=== PATIENT | female | born 1950 | race Two or more races ===

== ENCOUNTER 2017-08-19 15:08 | Inpatient (IN) | payer MEDICARE, MEDICAID ==
[~2017-08-19] VITALS: Ht 154.9 cm; Wt 60.8 kg
[2017-08-19 15:13] VITALS: BP 138/66
--- NOTE | 2017-08-19 15:28 | Emergency Room Report ---
History of Present Illness General Chief Complaint: Abnormal Labs Source: Medical Record, EMS, PMD Present Illness HPI Patient presents emergency department today complaining of abnormal laboratory results. Patient has history of diabetes. Patient was noted to have elevated glucose at senior living. Glucose was noted to be about 500. Patient was given insulin and then is stated to be elevated. Therefore patient was sent to emergency by further evaluation. Patient has history of dementia and was unable to provide much history. All history was obtained from medical records and from discussion with paramedics and brought the patient. Patient's primary care physician of the time transfer apparently was Dr. Martin Hopper. No further history is available at this time.No other modifying factors. No other associated signs and symptoms. No other complaints were noted. Allergies: Coded Allergies: No Known Allergies (Unverified , 08/19/17) Patient History Past Medical History: HTN, seizures Past Surgical History: none Pertinent Family History: none Social History: Denies: smoking, alcohol use, drug use Reviewed Nursing Documentation: PMH: Agreed; PSxH: Agreed Nursing Documentation-PMH Hx Hypertension: Yes Hx Seizures: Yes Review of Systems All Other Systems: negative except mentioned in HPI Physical Exam Vital Signs Date Time Temp Pulse Resp B/P (MAP) Pulse Ox O2 Delivery O2 Flow Rate FiO2 08/19/17 15:03 98.8 90 18 127/63 96 Room Air 98.8 Sp02 EP Interpretation: reviewed, normal General Appearance: alert, non-toxic Head: atraumatic Eyes: bilateral eye normal inspection ENT: normal ENT inspection, hearing grossly normal, normal voice Neck: normal inspection, full range of motion, supple, no bony tend Respiratory: normal inspection, lungs clear, normal breath sounds, no respiratory distress, no retraction, no wheezing Cardiovascular #1: regular rate, rhythm, no edema Gastrointestinal: normal inspection, normal bowel sounds, non tender, soft, no guarding, no hernia Genitourinary: no CVA tenderness Musculoskeletal: normal inspection, back normal, normal range of motion Neurologic: alert, responsive, other - grossly nonfocal Psychiatric: depressed affect Skin: normal inspection, normal color, no rash Medical Decision Making Diagnostic Impression: Primary Impression: Hyperglycemia Additional Impression: Pyelonephritis ER Course Patient presents emergency department today with elevated glucose confusion. Differential diagnoses include acute hypoglycemia secondary to dietary noncompliance, infectious process just name a few.Given the severity of the patient's presentation I felt this is a highly complex patient. This patient required extensive workup. Patient's laboratory workup is concerning for elevated white blood cell count evidence of UTI likely secondary to high pyelonephritis. Patient's glucose was controlled after receiving multiple doses insulin at the senior living. Given patient's presentation I felt was highly complex case patient require admission to the hospital. Case will be discussed with Dr. Martin Hopper for admission. Patient was started on Rocephin IV antibiotics. Labs Test 08/19/17 15:50 White Blood Count 13.9 K/UL (4.8-10.8) Red Blood Count 3.10 M/UL (4.20-5.40) Hemoglobin 9.3 G/DL (12.0-16.0) Hematocrit 26.8 % (37.0-47.0) Mean Corpuscular Volume 86 FL (80-99) Mean Corpuscular Hemoglobin 29.9 PG (27.0-31.0) Mean Corpuscular Hemoglobin Concent 34.7 G/DL (32.0-36.0) Red Cell Distribution Width 11.6 % (11.6-14.8) Platelet Count 89 K/UL (150-450) Mean Platelet Volume 7.5 FL (6.5-10.1) Neutrophils (%) (Auto) % (45.0-75.0) Lymphocytes (%) (Auto) % (20.0-45.0) Monocytes (%) (Auto) % (1.0-10.0) Eosinophils (%) (Auto) % (0.0-3.0) Basophils (%) (Auto) % (0.0-2.0) Differential Total Cells Counted 100 Neutrophils % (Manual) 91 % (45-75) Lymphocytes % (Manual) 6 % (20-45) Monocytes % (Manual) 1 % (1-10) Eosinophils % (Manual) 0 % (0-3) Basophils % (Manual) 1 % (0-2) Band Neutrophils 1 % (0-8) Nucleated Red Blood Cells 1 /100 WBC Platelet Estimate Decreased Platelet Morphology Normal Urine Color Yellow Urine Appearance Cloudy Urine pH 7 (4.5-8.0) Urine Specific [place] 1.005 (1.005-1.035) Urine Protein 3+ (NEGATIVE) Urine Glucose (UA) 4+ (NEGATIVE) Urine Ketones Negative (NEGATIVE) Urine Occult Blood 2+ (NEGATIVE) Urine Nitrite Negative (NEGATIVE) Urine Bilirubin 1+ (NEGATIVE) Urine Ictotest Positive Urine Urobilinogen 8 MG/DL (0.0-1.0) Urine Leukocyte Esterase 3+ (NEGATIVE) Urine RBC 2-4 /HPF (0 - 2) Urine WBC Tntc /HPF (0 - 2) Urine Squamous Epithelial Cells Occasional /LPF Urine Bacteria Few /HPF (NONE) Sodium Level 138 MMOL/L (136-145) Potassium Level 4.5 MMOL/L (3.5-5.1) Chloride Level 103 MMOL/L (98-107) Carbon Dioxide Level 23 MMOL/L (21-32) Anion Gap 12 mmol/L (5-15) Blood Urea Nitrogen 63 mg/dL (7-18) Creatinine 3.6 MG/DL (0.55-1.30) Estimat Glomerular Filtration Rate 12.6 mL/min (>60) Glucose Level 301 MG/DL (74-106) Calcium Level 8.6 MG/DL (8.5-10.1) Total Bilirubin 3.9 MG/DL (0.2-1.0) Direct Bilirubin 3.4 MG/DL (0.0-0.3) Aspartate Amino Transf (AST/SGOT) 340 U/L (15-37) Alanine Aminotransferase (ALT/SGPT) 985 U/L (12-78) Alkaline Phosphatase 433 U/L (46-116) Total Creatine Kinase 30 U/L (26-308) Creatine Kinase MB < 0.5 NG/ML (0.0-3.6) Creatine Kinase MB Relative Index 1.6 Troponin I 0.003 ng/mL (0.000-0.056) Total Protein 6.5 G/DL (6.4-8.2) Albumin 2.7 G/DL (3.4-5.0) Globulin 3.8 g/dL Albumin/Globulin Ratio 0.7 (1.0-2.7) Lipase 297 U/L (73-393) EKG Diagnostic Results Rate: normal Rhythm: NSR ST Segments: no acute changes Rhythm Strip Diag. Results EP Interpretation: yes Rate: 80s Rhythm: NSR, no PVC's, no ectopy Last Vital Signs Date Time Temp Pulse Resp B/P (MAP) Pulse Ox O2 Delivery O2 Flow Rate FiO2 08/19/17 15:03 98.8 90 18 127/63 96 Room Air 98.8 Status: improved Disposition: ADMITTED INPATIENT Condition: Serious Romeo Meyers MD Aug 19, 2017 15:28
[2017-08-19 16:11] LABS: APPEARANCE,URINE CLOUDY; BILIRUBIN, URINE 1+ (NEGATIVE); GLUCOSE, URINE (UA) 4+ (NEGATIVE); HEMATOCRIT 26.8 % (37.0-47.0); HEMOGLOBIN 9.3 G/DL (12.0-16.0); KETONES,URINE NEGATIVE (NEGATIVE); LEUKOCYTE ESTERASE ,URINE 3+ (NEGATIVE); MEAN CORPUSCULAR VOLUME 86 FL (80-99); NITRITE,URINE NEGATIVE (NEGATIVE); PH,URINE 7 (4.5-8.0); PLATELET COUNT 89 K/UL (150-450); PROTEIN,URINE 3+ (NEGATIVE); RED CELL DISTRIBUTION WIDTH 11.6 % (11.6-14.8); UROBILINOGEN,URINE 8 MG/DL (0.0-1.0); WHITE BLOOD COUNT 13.9 K/UL (4.8-10.8)
[2017-08-19 16:14] LABS: COLOR,URINE YELLOW
[2017-08-19] MEDS ORDERED: LANTUS SOL100 UNIT/1 SUBQ (16:18)
[2017-08-19] MEDS ORDERED: AMLODIPINE BESY10 MG ORAL (16:18)
[2017-08-19] MEDS ORDERED: DOCUSATE SODIU100 MG ORAL (16:18)
[2017-08-19] MEDS ORDERED: ATORVASTATIN CA20 MG ORAL (16:18)
[2017-08-19] MEDS ORDERED: CATAPRES0.1 MG ORAL (16:18)
[2017-08-19] MEDS ORDERED: BISACODYL5 MG ORAL (16:18)
[2017-08-19] MEDS ORDERED: MILK OF MA400 MG/51 ORAL (16:18)
[2017-08-19 16:22] LABS: ANION GAP 12 mmol/L (5-15); BLOOD UREA NITROGEN 63 mg/dL (7-18); CALCIUM 8.6 MG/DL (8.5-10.1); CARBON DIOXIDE 23 MMOL/L (21-32); CHLORIDE 103 MMOL/L (98-107); CREATININE 3.6 MG/DL (0.55-1.30); POTASSIUM 4.5 MMOL/L (3.5-5.1); SODIUM 138 MMOL/L (136-145)
[2017-08-19 16:35] LABS: ALANINE AMINOTRANSFERASE 985 U/L (12-78); ALBUMIN 2.7 G/DL (3.4-5.0); ALBUMIN/GLOBULIN RATIO 0.7 (1.0-2.7); ALKALINE PHOSPHATASE 433 U/L (46-116); ASPARTATE AMINO TRANSFERASE 340 U/L (15-37); BILIRUBIN,TOTAL 3.9 MG/DL (0.2-1.0); CKMB < 0.5 NG/ML (0.0-3.6); CREATINE KINASE 30 U/L (26-308)
[2017-08-19 16:42] LABS: BILIRUBIN,DIRECT 3.4 MG/DL (0.0-0.3)
[2017-08-19] MEDS ORDERED: cefTRIAXone 1 GM in NS 55 ML IVPB ONE (16:45)
[2017-08-19 17:14] VITALS: BP 136/59
--- NOTE | 2017-08-19 17:22 | Diagnostic Imaging Report ---
Indication: Cough Technique: One view of the chest Comparison: none Findings: The heart is enlarged. The lungs and pleural spaces are clear. Impression: Cardiomegaly. No definite acute process
[2017-08-19 18:29] VITALS: BP 114/87
[2017-08-19] MEDS ORDERED: Ketorolac 30mg Inj IV PRN (19:45)
[2017-08-19] MEDS ORDERED: Mylanta II UD 30ml ORAL PRN (19:59)
[2017-08-19] MEDS ORDERED: Albuterol/Ipratropium 3ml neb HHN PRN (19:59)
[2017-08-19 20:00] VITALS: BP 141/76
[2017-08-19] MEDS ORDERED: Nitroglycerin Subl 0.4mg tab SL PRN (20:01)
[2017-08-19] MEDS ORDERED: Heparin 5000 units/ml inj SUBQ SCH (21:00)
[2017-08-19] MEDS ORDERED: Miralax 17gm pkt ORAL PRN (21:00)
[2017-08-19] MEDS ORDERED: Piperacillin/Tazobactam 3.375 GM in NS 110 ML IVPB SCH (22:00)
[2017-08-19] MEDS: Piperacillin/Tazobactam 2.25 GM in NS 110 ML IVPB SCH (22:17)
[2017-08-19] MEDS: NovoLOG Insulin Flexpen SUBQ SCH (22:24)
[2017-08-19 23:24] VITALS: BP 139/78
[2017-08-20 04:25] VITALS: BP 125/68
[2017-08-20] MEDS: Piperacillin/Tazobactam 2.25 GM in NS 110 ML IVPB SCH ×3 (05:13→21:19)
[2017-08-20] MEDS: NovoLOG Insulin Flexpen SUBQ SCH ×6 (06:01→20:59)
[2017-08-20 08:00] VITALS: BP 125/65
[2017-08-20 08:29] LABS: MEAN CORPUSCULAR VOLUME 88 FL (80-99); PLATELET COUNT 109 K/UL (150-450); RED BLOOD COUNT 2.93 M/UL (4.20-5.40); RED CELL DISTRIBUTION WIDTH 12.1 % (11.6-14.8); WHITE BLOOD COUNT 10.4 K/UL (4.8-10.8)
[2017-08-20 08:55] LABS: ALANINE AMINOTRANSFERASE 834 U/L (12-78); ALBUMIN 2.6 G/DL (3.4-5.0); ALBUMIN/GLOBULIN RATIO 0.7 (1.0-2.7); ALKALINE PHOSPHATASE 436 U/L (46-116); ANION GAP 12 mmol/L (5-15); ASPARTATE AMINO TRANSFERASE 296 U/L (15-37); BILIRUBIN,TOTAL 4.4 MG/DL (0.2-1.0); BLOOD UREA NITROGEN 61 mg/dL (7-18); CALCIUM 8.7 MG/DL (8.5-10.1); CARBON DIOXIDE 23 MMOL/L (21-32); CHLORIDE 107 MMOL/L (98-107); CHOLESTEROL 128 MG/DL (< 200); CREATININE 3.5 MG/DL (0.55-1.30); HDL CHOLESTEROL 7 MG/DL (40-60); POTASSIUM 3.7 MMOL/L (3.5-5.1); SODIUM 142 MMOL/L (136-145); TRIGLYCERIDES 155 MG/DL (30-150)
[2017-08-20 09:14] LABS: BILIRUBIN,DIRECT 3.9 MG/DL (0.0-0.3)
--- NOTE | 2017-08-20 10:00 | Consultation ---
DATE OF CONSULTATION: 08/20/2017 ENDOCRINOLOGY CONSULTATION CONSULTING PHYSICIAN: Jeremie Driver M.D. REFERRING PHYSICIAN: Martin Hopper D.O. REASON FOR CONSULTATION: Diabetes management. HISTORY OF PRESENT ILLNESS: This is a pleasant 66-year-old female with history of diabetes who presents to the hospital with abnormal results. The patient was noted to have elevated glucose at halfway of about 500, given insulin, but did not improve, and I was called to manage diabetes. PAST MEDICAL HISTORY: 1. Diabetes. 2. Hypertension. 3. Seizure. PAST SURGICAL HISTORY: None. FAMILY HISTORY: Noncontributory. SOCIAL HISTORY: shelter facility resident. No smoking. No alcohol. No drug use. REVIEW OF SYSTEMS: As per HPI. PHYSICAL EXAM: VITAL SIGNS: Blood pressure is 127/63, pulse 90, temperature 98, and respiratory rate 18. HEENT: Pupils are equal and reactive to light. NECK: No JVD. HEART: Regular. LUNGS: Clear. ABDOMEN: Positive bowel sounds. EXTREMITIES: No clubbing, cyanosis, or edema. LABORATORY DATA: WBC 13, hemoglobin 9, hematocrit 26, and platelets of 100,000. Sodium 138, potassium 4.5, chloride 102, bicarbonate 26, BUN 53, and creatinine 3.8. DIAGNOSES: 1. Diabetes, better controlled. 2. Renal failure. PLAN: 1. Start Levemir and Starlix daily. 2. Add NovoLog 4 units before each meal. 3. Continue Novolog sliding scale ac/hs 4. Check hemoglobin A1c. 5. Further adjustment according to blood glucose sliding scale. Follow the patient during hospital stay. Thank you, Dr. Hopper, for the courtesy of this consultation. Jeremie Driver M.D. DR: NIMO JOB#: [id number] CC: ISHAN
[2017-08-20] MEDS: Levemir Flexpen SUBQ SCH (10:13)
[2017-08-20 12:00] VITALS: BP 148/66
--- NOTE | 2017-08-20 12:08 | Consultation ---
History of Present Illness General Date patient seen: Aug 20, 2017 Chief Complaint: Abnormal Labs Present Illness HPI 66 year old female with hx of DM, HTN, CAD dementia. presented to emergency department for hyperglycemia in snf. Her Glucose was noted to be about 500. Patient was given insulin and but it stayed elevated. Therefore patient was sent to emergency by further evaluation. All history was obtained from medical records and from discussion with paramedics who brought the patient. No other associated signs and symptoms. No other complaints were noted. Allergies: Coded Allergies: No Known Allergies (Unverified , 08/19/17) Medication History Scheduled Amlodipine Besylate* (Amlodipine Besylate*), 10 MG ORAL DAILY, (Reported) Atorvastatin Calcium* (Atorvastatin Calcium*), 10 MG ORAL BEDTIME, (Reported) Bisacodyl* (Dulcolax*), 10 MG ORAL ONCE, (Reported) Clonidine Hcl* (Catapres*), 0.1 MG ORAL EVERY 6 HOURS, (Reported) Docusate Sodium* (Docusate Sodium*), 100 MG ORAL DAILY, (Reported) Insulin Glargine (Lantus), 12 SUBQ BEDTIME, (Reported) Magnesium Hydroxide* (Milk Of Magnesia*), 30 ML ORAL DAILY, (Reported) Patient History Healthcare decision maker Resuscitation status Full Code Advanced Directive on File No Past Medical/Surgical History Past Medical/Surgical History: (1) Advanced dementia (2) Diabetes mellitus (3) Hypertension Review of Systems All Other Systems: negative except mentioned in HPI Physical Exam General Appearance: WD/WN Lines, tubes and drains: peripheral HEENT: normocephalic, atraumatic Neck: non-tender, normal alignment Respiratory/Chest: chest wall non-tender, lungs clear Breasts: no masses Cardiovascular/Chest: normal peripheral pulses, regular rhythm Abdomen: normal bowel sounds Genitourinary/Rectal: normal genital exam Extremities: normal range of motion Skin Exam: normal pigmentation Last 24 Hour Vital Signs Date Time Temp Pulse Resp B/P (MAP) Pulse Ox O2 Delivery O2 Flow Rate FiO2 08/20/17 09:30 83 125/65 08/20/17 08:20 88 16 Room Air 21 08/20/17 08:00 97.7 83 20 125/65 95 97.7 08/20/17 04:25 98.0 85 19 125/68 96 98.0 08/19/17 23:24 98.4 93 18 139/78 97 98.4 08/19/17 20:00 97.9 83 18 141/76 98 97.9 08/19/17 19:15 98.7 84 20 114/87 99 Room Air 98.7 08/19/17 18:29 98.7 84 20 114/87 99 Room Air 98.7 08/19/17 17:14 98.0 93 15 136/59 99 Room Air 98.0 08/19/17 15:13 98.8 85 20 138/66 99 Room Air 98.8 08/19/17 15:03 98.8 90 18 127/63 96 Room Air 98.8 Intake and Output 08/19/17 08/20/17 19:00 07:00 Intake Total 55 ml 970 ml Balance 55 ml 970 ml Intake Oral 50 ml IV Total 55 ml 920 ml # Voids 1 2 Laboratory Tests Test 08/19/17 15:50 08/20/17 06:46 White Blood Count 13.9 K/UL (4.8-10.8) H 10.4 K/UL (4.8-10.8) Red Blood Count 3.10 M/UL (4.20-5.40) L 2.93 M/UL (4.20-5.40) L Hemoglobin 9.3 G/DL (12.0-16.0) L 9.0 G/DL (12.0-16.0) L Hematocrit 26.8 % (37.0-47.0) L 26.0 % (37.0-47.0) L Mean Corpuscular Volume 86 FL (80-99) 88 FL (80-99) Mean Corpuscular Hemoglobin 29.9 PG (27.0-31.0) 30.8 PG (27.0-31.0) Mean Corpuscular Hemoglobin Concent 34.7 G/DL (32.0-36.0) 34.8 G/DL (32.0-36.0) Red Cell Distribution Width 11.6 % (11.6-14.8) 12.1 % (11.6-14.8) Platelet Count 89 K/UL (150-450) L 109 K/UL (150-450) L Mean Platelet Volume 7.5 FL (6.5-10.1) 7.7 FL (6.5-10.1) Neutrophils (%) (Auto) % (45.0-75.0) % (45.0-75.0) Lymphocytes (%) (Auto) % (20.0-45.0) % (20.0-45.0) Monocytes (%) (Auto) % (1.0-10.0) % (1.0-10.0) Eosinophils (%) (Auto) % (0.0-3.0) % (0.0-3.0) Basophils (%) (Auto) % (0.0-2.0) % (0.0-2.0) Differential Total Cells Counted 100 100 Neutrophils % (Manual) 91 % (45-75) H 86 % (45-75) H Lymphocytes % (Manual) 6 % (20-45) L 7 % (20-45) L Monocytes % (Manual) 1 % (1-10) 5 % (1-10) Eosinophils % (Manual) 0 % (0-3) 2 % (0-3) Basophils % (Manual) 1 % (0-2) 0 % (0-2) Band Neutrophils 1 % (0-8) 0 % (0-8) Nucleated Red Blood Cells 1 /100 WBC Platelet Estimate Decreased L Decreased L Platelet Morphology Normal Normal Urine Color Yellow Urine Appearance Cloudy Urine pH 7 (4.5-8.0) Urine Specific [place] 1.005 (1.005-1.035) Urine Protein 3+ (NEGATIVE) H Urine Glucose (UA) 4+ (NEGATIVE) H Urine Ketones Negative (NEGATIVE) Urine Occult Blood 2+ (NEGATIVE) H Urine Nitrite Negative (NEGATIVE) Urine Bilirubin 1+ (NEGATIVE) H Urine Ictotest Positive Urine Urobilinogen 8 MG/DL (0.0-1.0) H Urine Leukocyte Esterase 3+ (NEGATIVE) H Urine RBC 2-4 /HPF (0 - 2) H Urine WBC Tntc /HPF (0 - 2) H Urine Squamous Epithelial Cells Occasional /LPF Urine Bacteria Few /HPF (NONE) Sodium Level 138 MMOL/L (136-145) 142 MMOL/L (136-145) Potassium Level 4.5 MMOL/L (3.5-5.1) 3.7 MMOL/L (3.5-5.1) Chloride Level 103 MMOL/L (98-107) 107 MMOL/L (98-107) Carbon Dioxide Level 23 MMOL/L (21-32) 23 MMOL/L (21-32) Anion Gap 12 mmol/L (5-15) 12 mmol/L (5-15) Blood Urea Nitrogen 63 mg/dL (7-18) H 61 mg/dL (7-18) H Creatinine 3.6 MG/DL (0.55-1.30) H 3.5 MG/DL (0.55-1.30) H Estimat Glomerular Filtration Rate 12.6 mL/min (>60) 13.1 mL/min (>60) Glucose Level 301 MG/DL (74-106) H 184 MG/DL (74-106) #H Calcium Level 8.6 MG/DL (8.5-10.1) 8.7 MG/DL (8.5-10.1) Total Bilirubin 3.9 MG/DL (0.2-1.0) H 4.4 MG/DL (0.2-1.0) H Direct Bilirubin 3.4 MG/DL (0.0-0.3) H 3.9 MG/DL (0.0-0.3) H Aspartate Amino Transf (AST/SGOT) 340 U/L (15-37) H 296 U/L (15-37) H Alanine Aminotransferase (ALT/SGPT) 985 U/L (12-78) H 834 U/L (12-78) H Alkaline Phosphatase 433 U/L (46-116) H 436 U/L (46-116) H Total Creatine Kinase 30 U/L (26-308) Creatine Kinase MB < 0.5 NG/ML (0.0-3.6) Creatine Kinase MB Relative Index 1.6 Troponin I 0.003 ng/mL (0.000-0.056) Total Protein 6.5 G/DL (6.4-8.2) 6.5 G/DL (6.4-8.2) Albumin 2.7 G/DL (3.4-5.0) L 2.6 G/DL (3.4-5.0) L Globulin 3.8 g/dL 3.9 g/dL Albumin/Globulin Ratio 0.7 (1.0-2.7) L 0.7 (1.0-2.7) L Lipase 297 U/L (73-393) Hypochromasia 2+ Spherocytes 2+ Hemoglobin A1c 7.8 % (4.3-6.0) H Triglycerides Level 155 MG/DL (30-150) H Cholesterol Level 128 MG/DL (< 200) LDL Cholesterol 75 mg/dL (<100) HDL Cholesterol 7 MG/DL (40-60) L Cholesterol/HDL Ratio 18.3 (3.3-4.4) H Thyroid Stimulating Hormone (TSH) 0.371 uiU/mL (0.358-3.740) Microbiology Date/Time Source Procedure Growth Status 08/19/17 15:50 Urine,Clean Catch Urine Culture - Preliminary Gram Negative Bacillus 1 Resulted Height (Feet): 5 Height (Inches): 1.00 Weight (Pounds): 140 Medications Current Medications Medications (Trade) Dose Ordered Sig/Jeff Route PRN Reason Start Time Stop Time Status Last Admin Dose Admin Acetaminophen (Tylenol) 650 mg Q4H PRN ORAL fever 08/19/17 19:59 09/18/17 19:58 Al Hydroxide/Mg Hydroxide (Mylanta II) 30 ml Q6H PRN ORAL dyspepsia 08/19/17 19:59 09/18/17 19:58 Albuterol/ Ipratropium (Albuterol/ Ipratropium) 3 ml Q4H PRN HHN Shortness of Breath 08/19/17 19:59 08/24/17 19:58 Amlodipine Besylate (Norvasc) 10 mg DAILY ORAL 08/20/17 09:00 09/19/17 08:59 08/20/17 09:30 Atorvastatin Calcium (Lipitor) 10 mg BEDTIME ORAL 08/19/17 21:00 09/18/17 20:59 08/19/17 22:07 Clonidine HCl (Catapres Tab) 0.1 mg Q4H PRN ORAL sbp more than 160 08/19/17 19:59 09/18/17 19:58 Dextrose (Dextrose 50%) 25 ml STAT PRN IV Hypoglycemia 08/19/17 19:59 09/18/17 19:58 Dextrose (Dextrose 50%) 25 ml STAT PRN IV Hypoglycemia 08/20/17 08:00 09/19/17 07:59 Dextrose (Dextrose 50%) 50 ml STAT PRN IV Hypoglycemia 08/19/17 19:59 09/18/17 19:58 Dextrose (Dextrose 50%) 50 ml STAT PRN IV Hypoglycemia 08/20/17 08:00 09/19/17 07:59 Insulin Aspart (NovoLOG) BEFORE MEALS AND HS SUBQ 08/19/17 21:00 09/18/17 20:59 08/20/17 11:57 Insulin Aspart (NovoLOG) 4 units NOVOTIAC SUBQ 08/20/17 11:50 09/19/17 11:49 08/20/17 11:58 Insulin Detemir (Levemir) 12 units DAILY SUBQ 08/20/17 09:00 09/19/17 08:59 08/20/17 10:13 Nitroglycerin (Ntg) 0.4 mg Q5M X 3 DOSES PRN SL Prn Chest Pain 08/19/17 20:01 09/18/17 20:00 Ondansetron HCl (Zofran) 4 mg Q6H PRN IVP Nausea & Vomiting 08/19/17 20:01 09/18/17 20:00 Piperacillin Sod/ Tazobactam Sod 2.25 gm/Sodium Chloride 110 ml @ 220 mls/hr EVERY 8 HOURS IVPB 08/19/17 22:00 08/26/17 21:59 08/20/17 05:13 Polyethylene Glycol (Miralax) 17 gm HSPRN PRN ORAL Constipation 08/19/17 21:00 09/18/17 20:59 Sodium Chloride 1,000 ml @ 100 mls/hr Q10H IVLG 08/19/17 20:30 09/18/17 20:29 08/20/17 06:04 Temazepam (Restoril) 15 mg HSPRN PRN ORAL Insomnia 08/19/17 21:00 08/26/17 20:59 08/19/17 22:59 Assessment/Plan Problem List: (1) UTI (urinary tract infection) ICD Codes: N39.0 - Urinary tract infection, site not specified SNOMED: 65235041 (2) Hyperglycemia ICD Codes: R73.9 - Hyperglycemia, unspecified SNOMED: 56727610 (3) Pyelonephritis ICD Codes: N12 - Tubulo-interstitial nephritis, not specified as acute or chronic SNOMED: 55613522 (4) Diabetes mellitus ICD Codes: E11.9 - Type 2 diabetes mellitus without complications SNOMED: 18712460 (5) Hypertension ICD Codes: I10 - Essential (primary) hypertension SNOMED: 40739746 (6) Advanced dementia ICD Codes: F03.90 - Unspecified dementia without behavioral disturbance SNOMED: 23572147 Assessment/Plan iv fluids iv abx check cultures slidng sclae diabetic diet dvt prophylaxis Say Schneider MD Aug 20, 2017 12:08
[2017-08-20] MEDS ORDERED: Tubing IV Secondary IV ONE (15:19)
[2017-08-20 16:00] VITALS: BP 143/75
--- NOTE | 2017-08-20 16:49 | Consultation ---
History of Present Illness General Date patient seen: Aug 20, 2017 Chief Complaint: Abnormal Labs Present Illness HPI 66 y/o F with hx of DM, HTN, CAD, seizure disorder, dementia is [facility] ED on 08/19 with hyperglycemia up to 500s. Afebrile. Initial mild leukocytosis to 13, now resolved. Allergies: Coded Allergies: No Known Allergies (Unverified , 08/19/17) Medication History Scheduled Amlodipine Besylate* (Amlodipine Besylate*), 10 MG ORAL DAILY, (Reported) Atorvastatin Calcium* (Atorvastatin Calcium*), 10 MG ORAL BEDTIME, (Reported) Bisacodyl* (Dulcolax*), 10 MG ORAL ONCE, (Reported) Clonidine Hcl* (Catapres*), 0.1 MG ORAL EVERY 6 HOURS, (Reported) Docusate Sodium* (Docusate Sodium*), 100 MG ORAL DAILY, (Reported) Insulin Glargine (Lantus), 12 SUBQ BEDTIME, (Reported) Magnesium Hydroxide* (Milk Of Magnesia*), 30 ML ORAL DAILY, (Reported) Patient History Healthcare decision maker Resuscitation status Full Code Advanced Directive on File No Patient History Narrative Pmhx: as above Shx: long term facility resident. No smoking. No alcohol. No drug use. Fhx: non contributory Review of Systems All Other Systems: negative except mentioned in HPI Physical Exam Physical Exam Narrative HEENT: Pupils are equal and reactive to light. NECK: No JVD. HEART: Regular. LUNGS: Clear. ABDOMEN: Positive bowel sounds. EXTREMITIES: No clubbing, cyanosis, or edema. Last 24 Hour Vital Signs Date Time Temp Pulse Resp B/P (MAP) Pulse Ox O2 Delivery O2 Flow Rate FiO2 08/20/17 16:00 88 19 143/75 94 08/20/17 12:00 97.9 90 21 148/66 97 97.9 08/20/17 09:30 83 125/65 08/20/17 08:20 88 16 Room Air 21 08/20/17 08:00 97.7 83 20 125/65 95 97.7 08/20/17 04:25 98.0 85 19 125/68 96 98.0 08/19/17 23:24 98.4 93 18 139/78 97 98.4 08/19/17 20:00 97.9 83 18 141/76 98 97.9 08/19/17 19:15 98.7 84 20 114/87 99 Room Air 98.7 08/19/17 18:29 98.7 84 20 114/87 99 Room Air 98.7 08/19/17 17:14 98.0 93 15 136/59 99 Room Air 98.0 Intake and Output 08/19/17 08/20/17 19:00 07:00 Intake Total 55 ml 970 ml Balance 55 ml 970 ml Intake Oral 50 ml IV Total 55 ml 920 ml # Voids 1 2 Laboratory Tests Test 08/20/17 06:46 White Blood Count 10.4 K/UL (4.8-10.8) Red Blood Count 2.93 M/UL (4.20-5.40) L Hemoglobin 9.0 G/DL (12.0-16.0) L Hematocrit 26.0 % (37.0-47.0) L Mean Corpuscular Volume 88 FL (80-99) Mean Corpuscular Hemoglobin 30.8 PG (27.0-31.0) Mean Corpuscular Hemoglobin Concent 34.8 G/DL (32.0-36.0) Red Cell Distribution Width 12.1 % (11.6-14.8) Platelet Count 109 K/UL (150-450) L Mean Platelet Volume 7.7 FL (6.5-10.1) Neutrophils (%) (Auto) % (45.0-75.0) Lymphocytes (%) (Auto) % (20.0-45.0) Monocytes (%) (Auto) % (1.0-10.0) Eosinophils (%) (Auto) % (0.0-3.0) Basophils (%) (Auto) % (0.0-2.0) Differential Total Cells Counted 100 Neutrophils % (Manual) 86 % (45-75) H Lymphocytes % (Manual) 7 % (20-45) L Monocytes % (Manual) 5 % (1-10) Eosinophils % (Manual) 2 % (0-3) Basophils % (Manual) 0 % (0-2) Band Neutrophils 0 % (0-8) Platelet Estimate Decreased L Platelet Morphology Normal Hypochromasia 2+ Spherocytes 2+ Sodium Level 142 MMOL/L (136-145) Potassium Level 3.7 MMOL/L (3.5-5.1) Chloride Level 107 MMOL/L (98-107) Carbon Dioxide Level 23 MMOL/L (21-32) Anion Gap 12 mmol/L (5-15) Blood Urea Nitrogen 61 mg/dL (7-18) H Creatinine 3.5 MG/DL (0.55-1.30) H Estimat Glomerular Filtration Rate 13.1 mL/min (>60) Glucose Level 184 MG/DL (74-106) #H Hemoglobin A1c 7.8 % (4.3-6.0) H Calcium Level 8.7 MG/DL (8.5-10.1) Total Bilirubin 4.4 MG/DL (0.2-1.0) H Direct Bilirubin 3.9 MG/DL (0.0-0.3) H Aspartate Amino Transf (AST/SGOT) 296 U/L (15-37) H Alanine Aminotransferase (ALT/SGPT) 834 U/L (12-78) H Alkaline Phosphatase 436 U/L (46-116) H Total Protein 6.5 G/DL (6.4-8.2) Albumin 2.6 G/DL (3.4-5.0) L Globulin 3.9 g/dL Albumin/Globulin Ratio 0.7 (1.0-2.7) L Triglycerides Level 155 MG/DL (30-150) H Cholesterol Level 128 MG/DL (< 200) LDL Cholesterol 75 mg/dL (<100) HDL Cholesterol 7 MG/DL (40-60) L Cholesterol/HDL Ratio 18.3 (3.3-4.4) H Thyroid Stimulating Hormone (TSH) 0.371 uiU/mL (0.358-3.740) Height (Feet): 5 Height (Inches): 1.00 Weight (Pounds): 140 Medications Current Medications Medications (Trade) Dose Ordered Sig/Jeff Route PRN Reason Start Time Stop Time Status Last Admin Dose Admin Acetaminophen (Tylenol) 650 mg Q4H PRN ORAL fever 08/19/17 19:59 09/18/17 19:58 Al Hydroxide/Mg Hydroxide (Mylanta II) 30 ml Q6H PRN ORAL dyspepsia 08/19/17 19:59 09/18/17 19:58 Albuterol/ Ipratropium (Albuterol/ Ipratropium) 3 ml Q4H PRN HHN Shortness of Breath 08/19/17 19:59 08/24/17 19:58 Amlodipine Besylate (Norvasc) 10 mg DAILY ORAL 08/20/17 09:00 09/19/17 08:59 08/20/17 09:30 Atorvastatin Calcium (Lipitor) 10 mg BEDTIME ORAL 08/19/17 21:00 09/18/17 20:59 08/19/17 22:07 Clonidine HCl (Catapres Tab) 0.1 mg Q4H PRN ORAL sbp more than 160 08/19/17 19:59 09/18/17 19:58 Dextrose (Dextrose 50%) 25 ml STAT PRN IV Hypoglycemia 08/20/17 08:00 09/19/17 07:59 Dextrose (Dextrose 50%) 50 ml STAT PRN IV Hypoglycemia 08/20/17 08:00 09/19/17 07:59 Insulin Aspart (NovoLOG) BEFORE MEALS AND HS SUBQ 08/19/17 21:00 09/18/17 20:59 08/20/17 11:57 Insulin Aspart (NovoLOG) 4 units NOVOTIAC SUBQ 08/20/17 11:50 09/19/17 11:49 08/20/17 11:58 Insulin Detemir (Levemir) 12 units DAILY SUBQ 08/20/17 09:00 09/19/17 08:59 08/20/17 10:13 Nitroglycerin (Ntg) 0.4 mg Q5M X 3 DOSES PRN SL Prn Chest Pain 08/19/17 20:01 09/18/17 20:00 Ondansetron HCl (Zofran) 4 mg Q6H PRN IVP Nausea & Vomiting 08/19/17 20:01 09/18/17 20:00 Piperacillin Sod/ Tazobactam Sod 2.25 gm/Sodium Chloride 110 ml @ 220 mls/hr EVERY 8 HOURS IVPB 08/19/17 22:00 08/26/17 21:59 08/20/17 14:41 Polyethylene Glycol (Miralax) 17 gm HSPRN PRN ORAL Constipation 08/19/17 21:00 09/18/17 20:59 Sodium Chloride 1,000 ml @ 100 mls/hr Q10H IVLG 08/19/17 20:30 09/18/17 20:29 08/20/17 06:04 Temazepam (Restoril) 15 mg HSPRN PRN ORAL Insomnia 08/19/17 21:00 08/26/17 20:59 08/19/17 22:59 Assessment/Plan Assessment/Plan Abx: Zosyn 08/19- Assessment: Hyperglycemia Leukocytosis, resolved -afebrile -CXR: no acute process Pyuria; possible UTI- unable to provide symptoms -u/a wbc tntc, nit neg, leuk +1; ucx p Elevaetd LFTs- r/o hepatobiliary disease, viral hepatitis CORRY DM HTN CAD seizure disorder dementia Full code NKDA Plan: -Continue empiric Zosyn#2 pending cultures -Bcx x2 -f/u abd US -Hepatitis serologies -f/u cx -monitor CBC/CMP, temperatures Thank you for this consultation. Will continue to follow along with you. Discussed with Magda Reinoso M.D. Aug 20, 2017 16:49
--- NOTE | 2017-08-20 17:11 | Diagnostic Imaging Report ---
Indication: Abnormal renal function tests and acute renal failure Technique: Patiño-scale and duplex images of the upper abdomen were obtained. Grayscale and duplex images of the kidneys, retroperitoneum, and bladder Comparison: none Findings: Exam is very limited, as patient was altered and unable to cooperate optimally. Gallbladder is surgically absent. Common bile duct measures 18 mm in diameter. A calculus and debris are seen within the common bile duct. The calculus measures 14 x 8 mm. There is intrahepatic biliary ductal dilatation as well.. Liver demonstrates normal echogenicity, no focal abnormality. Portal vein and hepatic veins are patent. The pancreas demonstrates a mildly ectatic pancreatic duct, otherwise unremarkable. Spleen cannot be imaged, due to limited patient cooperation Left kidney measures 8.4 cm in length. Right kidney could not be demonstrated. Left kidney demonstrates normal echogenicity There is no hydronephrosis. There is a small cyst in the lower pole left kidney . Abdominal aorta is obscured by bowel gas . Calculated bladder volume is 171 mL. Patient was unable to void Impression: Choledocholithiasis, with a 14 x 8 mm calculus within the common bile duct. There is resultant intrahepatic and extrahepatic biliary ductal dilatation and debris/sludge within the bile ducts. Recommend further evaluation with CT scan Evidence of prior cholecystectomy prior cholecystectomy Limited exam with nonvisualization of the right kidney and spleen and abdominal aorta Incidental finding left lower pole renal cyst
--- NOTE | 2017-08-20 17:57 | GI Initial Consult Note ---
History of Present Illness General Date patient seen: Aug 20, 2017 Time patient seen: 17:56 Reason for Hospitalization: Abnormal Labs Referring physician: TASHA MEJIA Reason for Consultation: CHOLEDOCHOLITHIASIS Present Illness HPI Patient presents emergency department today complaining of abnormal laboratory results. Patient has history of diabetes. Patient was noted to have elevated glucose at [facility]. Glucose was noted to be about 500. Patient was given insulin and then is stated to be elevated. Therefore patient was sent to emergency by further evaluation. Patient has history of dementia and was unable to provide much history. All history was obtained from medical records and from discussion with paramedics and brought the patient. Patient's primary care physician of the time transfer apparently was Dr. Tasha Mejia. No further history is available at this time.No other modifying factors. No other associated signs and symptoms. No other complaints were noted. GI consulted for abnormal LFTs. Pt seen, awake alert NAD with no active s/sx of N/V/D. No noted abdominal pain, no facial grimacing. Patient currently resting in bed. ROS limited, patient confused, possible dementia. Labs reviewed suggestive of biliary obstruction, abdominal US was ordered to show choledocholithiasis, with a 14 x 8 mm calculus within the common bile duct. There is resultant intrahepatic and extrahepatic biliary ductal dilatation and debris/sludge within the bile ducts. Unknown history of endoscopy / colonoscopy. Home Meds Reported Medications Clonidine Hcl* (CATAPRES*) 0.1 Mg Tablet, 0.1 MG ORAL EVERY 6 HOURS, TAB 08/19/17 Bisacodyl* (DULCOLAX*) 5 Mg Tablet.dr, 10 MG ORAL ONCE, #4 TAB 0 Refills 08/19/17 Insulin Glargine (LANTUS) 100 Unit/1 Ml Insuln.pen, 12 SUBQ BEDTIME, #1 EA 0 Refills 08/19/17 Magnesium Hydroxide* (MILK OF MAGNESIA*) 400 Mg/5 Ml Oral.susp, 30 ML ORAL DAILY , ML 08/19/17 Docusate Sodium* (DOCUSATE SODIUM*) 100 Mg Capsule, 100 MG ORAL DAILY, CAP 08/19/17 Atorvastatin Calcium* (ATORVASTATIN CALCIUM*) 20 Mg Tablet, 10 MG ORAL BEDTIME, TAB 08/19/17 Amlodipine Besylate* (AMLODIPINE BESYLATE*) 10 Mg Tablet, 10 MG ORAL DAILY, TAB 08/19/17 Med list reviewed/reconciled: Yes Allergies: Coded Allergies: No Known Allergies (Unverified , 08/19/17) Patient History Limited by: medical condition History Provided By: Medical Record PMH Narrative Past Medical History: HTN, seizures Past Surgical History: none Pertinent Family History: none Social History: Denies: smoking, alcohol use, drug use Reviewed Nursing Documentation: PMH: Agreed; PSxH: Agreed Nursing Documentation-PMH Hx Hypertension: Yes Hx Seizures: Yes Social History: Denies: smoking, alcohol use, drug use, other Review of Systems All Other Systems: limited Physical Exam Vital Signs Date Time Temp Pulse Resp B/P (MAP) Pulse Ox O2 Delivery O2 Flow Rate FiO2 08/19/17 15:03 98.8 90 18 127/63 96 Room Air 98.8 08/20/17 08:20 21 Sp02 EP Interpretation: reviewed, normal Labs Laboratory Tests Test 08/20/17 06:46 White Blood Count 10.4 K/UL (4.8-10.8) Red Blood Count 2.93 M/UL (4.20-5.40) L Hemoglobin 9.0 G/DL (12.0-16.0) L Hematocrit 26.0 % (37.0-47.0) L Mean Corpuscular Volume 88 FL (80-99) Mean Corpuscular Hemoglobin 30.8 PG (27.0-31.0) Mean Corpuscular Hemoglobin Concent 34.8 G/DL (32.0-36.0) Red Cell Distribution Width 12.1 % (11.6-14.8) Platelet Count 109 K/UL (150-450) L Mean Platelet Volume 7.7 FL (6.5-10.1) Neutrophils (%) (Auto) % (45.0-75.0) Lymphocytes (%) (Auto) % (20.0-45.0) Monocytes (%) (Auto) % (1.0-10.0) Eosinophils (%) (Auto) % (0.0-3.0) Basophils (%) (Auto) % (0.0-2.0) Differential Total Cells Counted 100 Neutrophils % (Manual) 86 % (45-75) H Lymphocytes % (Manual) 7 % (20-45) L Monocytes % (Manual) 5 % (1-10) Eosinophils % (Manual) 2 % (0-3) Basophils % (Manual) 0 % (0-2) Band Neutrophils 0 % (0-8) Platelet Estimate Decreased L Platelet Morphology Normal Hypochromasia 2+ Spherocytes 2+ Sodium Level 142 MMOL/L (136-145) Potassium Level 3.7 MMOL/L (3.5-5.1) Chloride Level 107 MMOL/L (98-107) Carbon Dioxide Level 23 MMOL/L (21-32) Anion Gap 12 mmol/L (5-15) Blood Urea Nitrogen 61 mg/dL (7-18) H Creatinine 3.5 MG/DL (0.55-1.30) H Estimat Glomerular Filtration Rate 13.1 mL/min (>60) Glucose Level 184 MG/DL (74-106) #H Hemoglobin A1c 7.8 % (4.3-6.0) H Calcium Level 8.7 MG/DL (8.5-10.1) Total Bilirubin 4.4 MG/DL (0.2-1.0) H Direct Bilirubin 3.9 MG/DL (0.0-0.3) H Aspartate Amino Transf (AST/SGOT) 296 U/L (15-37) H Alanine Aminotransferase (ALT/SGPT) 834 U/L (12-78) H Alkaline Phosphatase 436 U/L (46-116) H Total Protein 6.5 G/DL (6.4-8.2) Albumin 2.6 G/DL (3.4-5.0) L Globulin 3.9 g/dL Albumin/Globulin Ratio 0.7 (1.0-2.7) L Triglycerides Level 155 MG/DL (30-150) H Cholesterol Level 128 MG/DL (< 200) LDL Cholesterol 75 mg/dL (<100) HDL Cholesterol 7 MG/DL (40-60) L Cholesterol/HDL Ratio 18.3 (3.3-4.4) H Thyroid Stimulating Hormone (TSH) 0.371 uiU/mL (0.358-3.740) General Appearance: well appearing, no apparent distress, alert Head: normocephalic EENT: PERRL/EOMI, normal ENT inspection Neck: supple Respiratory: normal breath sounds, no respiratory distress Cardiovascular: normal rate Gastrointestinal: normal inspection, non tender, soft, normal bowel sounds, non -distended Rectal: deferred Genitourinary: no CVA tenderness Musculoskeletal: normal inspection, back normal Neurologic: alert, responsive Skin: normal inspection, normal color, no rash, warm/dry, palpation normal, well hydrated Lymphatic: normal inspection, no adenopathy Current Medications Current Medications Medications (Trade) Dose Ordered Sig/Jeff Route PRN Reason Start Time Stop Time Status Last Admin Dose Admin Acetaminophen (Tylenol) 650 mg Q4H PRN ORAL fever 08/19/17 19:59 09/18/17 19:58 Al Hydroxide/Mg Hydroxide (Mylanta II) 30 ml Q6H PRN ORAL dyspepsia 08/19/17 19:59 09/18/17 19:58 Albuterol/ Ipratropium (Albuterol/ Ipratropium) 3 ml Q4H PRN HHN Shortness of Breath 08/19/17 19:59 08/24/17 19:58 Amlodipine Besylate (Norvasc) 10 mg DAILY ORAL 08/20/17 09:00 09/19/17 08:59 08/20/17 09:30 Atorvastatin Calcium (Lipitor) 10 mg BEDTIME ORAL 08/19/17 21:00 09/18/17 20:59 08/19/17 22:07 Clonidine HCl (Catapres Tab) 0.1 mg Q4H PRN ORAL sbp more than 160 08/19/17 19:59 09/18/17 19:58 Dextrose (Dextrose 50%) 25 ml STAT PRN IV Hypoglycemia 08/20/17 08:00 09/19/17 07:59 Dextrose (Dextrose 50%) 50 ml STAT PRN IV Hypoglycemia 08/20/17 08:00 09/19/17 07:59 Insulin Aspart (NovoLOG) BEFORE MEALS AND HS SUBQ 08/19/17 21:00 09/18/17 20:59 08/20/17 11:57 Insulin Aspart (NovoLOG) 4 units NOVOTIAC SUBQ 08/20/17 11:50 09/19/17 11:49 08/20/17 11:58 Insulin Detemir (Levemir) 12 units DAILY SUBQ 08/20/17 09:00 09/19/17 08:59 08/20/17 10:13 Nitroglycerin (Ntg) 0.4 mg Q5M X 3 DOSES PRN SL Prn Chest Pain 08/19/17 20:01 09/18/17 20:00 Ondansetron HCl (Zofran) 4 mg Q6H PRN IVP Nausea & Vomiting 08/19/17 20:01 09/18/17 20:00 Piperacillin Sod/ Tazobactam Sod 2.25 gm/Sodium Chloride 110 ml @ 220 mls/hr EVERY 8 HOURS IVPB 08/19/17 22:00 08/26/17 21:59 08/20/17 14:41 Polyethylene Glycol (Miralax) 17 gm HSPRN PRN ORAL Constipation 08/19/17 21:00 09/18/17 20:59 Sodium Chloride 1,000 ml @ 100 mls/hr Q10H IVLG 08/19/17 20:30 09/18/17 20:29 08/20/17 06:04 Temazepam (Restoril) 15 mg HSPRN PRN ORAL Insomnia 08/19/17 21:00 08/26/17 20:59 08/19/17 22:59 GI: Plan Problems: (1) Encounter for diagnostic endoscopy (2) Choledocholithiasis (3) Hyperglycemia (4) Diabetes mellitus (5) Advanced dementia Plan ERCP scheduled for tomorrow. - NPO + IVFs - hold all blood thinners tonight. abdominal U/S reviewed fu labs Discussed with Dr. Hernandez. Thank you for this patient referral, we will follow. The patient was seen and examined at bedside and all new and available data was reviewed in the patients chart. I agree with the above findings, impression and plan. (Patient seen earlier today. Signature stamp does not reflect patient encounter time.). - MD Cora LittleAbrazo West CampusFrancisco SCREW MACHINE SET UP OPERATOR TOOL Aug 20, 2017 17:57
--- NOTE | 2017-08-20 19:15 | History and Physical Report ---
DATE OF ADMISSION: 08/19/2017 CONSULTANTS: 1. Ryan Walker M.D. 2. Jeremie Driver M.D. 3. Say Schneider M.D. 4. Walter Capps M.D. CHIEF COMPLAINT: Weakness, confusion, diabetes, hyperglycemia, and pyelonephritis. BRIEF HISTORY: This is a 66-year-old female from [facility], presented with increased weakness as with hyperglycemia, was sent to [facility], diagnosed with pyelonephritis and hyperglycemia and weakness, admitted to medical floor for further treatment. Currently confused in bed, not talking much. PAST MEDICAL HISTORY: Diabetes, hypertension, and dementia. PAST SURGICAL HISTORY: Unknown. MEDICATIONS: NovoLog, Norvasc, Levemir, Zosyn, Lipitor, MiraLAX, Restoril, Zofran, albuterol, nitroglycerin, Catapres, and ceftriaxone. ALLERGIES: Denies. SOCIAL HISTORY: Unable to obtain secondary to the patient's condition. REVIEW OF SYSTEMS: Unavailable. PHYSICAL EXAMINATION: GENERAL: Lethargic in bed, not responding to questions. VITAL SIGNS: Temperature 97 degrees, pulse 90, respirations 21, and blood pressure 148/66. CARDIOVASCULAR: No murmur. LUNGS: Poor air exchange. ABDOMEN: Bowel sounds distant. EXTREMITIES: No cyanosis or edema. NEUROLOGIC: The patient moves all extremities, but slightly weak. LABORATORY AND DIAGNOSTIC DATA: Yesterday white count 13, today is 10; hemoglobin and hematocrit 9/26; and platelets 109. BMP shows BUN and creatinine 61/3.5. AST 296 and ALT 834. Albumin 2.6. Urinalysis shows 4+ glucose, 3+ leukocyte esterase. ASSESSMENT: 1. Diabetes. 2. Hyperglycemia. 3. Pyelonephritis. 4. Anemia. 5. Hypoalbumin. 6. Weakness. 7. Hypertension. 8. Dementia. 9. Acute renal failure. 10. Elevated liver function tests. PLAN: 1. IV fluids. 2. Blood pressure and blood sugar control. 3. Antibiotics per Infectious Disease. 4. Dietary followup. 5. Resume home medications. 6. Dr. Walker, Dr. Driver, Dr. Schneider, Dr. Capps, Dr. Bae, and Dr. Hernandez to consult. We will continue to follow this patient. Martin Hopper D.O. DR: LYNETTE JOB#: [id number] CC:
[2017-08-20 20:43] VITALS: BP 135/59
--- NOTE | 2017-08-20 22:30 | Consultation ---
DATE OF CONSULTATION: 08/20/2017 CONSULTING PHYSICIAN: Kush Blackburn M.D. REASON FOR CONSULTATION: 1. UTI. 2. Acute kidney injury. 3. CKD. HISTORY OF PRESENT ILLNESS: The patient is a 66-year-old female with known diabetes, hypertension, coronary disease, and dementia. The patient presents to the emergency room from her group home facility due to hyperglycemia that was resistant to treatment at the outlying facility. The patient did receive insulin, but her serum glucose remained elevated when it was noted that her BUN and creatinine were also not normal. Her BUN was 63 with a creatinine of 3.6, bicarbonate level 23. The patient was slightly confused and disoriented, but otherwise in no distress. Baseline creatinine is not known. PAST SURGICAL HISTORY: Noncontributory. ALLERGIES: No known drug allergies. HOME MEDICATIONS: Norvasc, Lipitor, bisacodyl, clonidine, docusate, insulin glargine, and magnesium hydroxide. FAMILY HISTORY: Positive for hypertension and diabetes. REVIEW OF SYSTEMS: NEUROLOGIC: The patient denies headache, change in vision, syncope or presyncopal episodes. CARDIOVASCULAR: No current chest pain, palpitations, or angina. PULMONARY: No difficulty breathing, productive cough or sputum. GASTROINTESTINAL/GENITOURINARY: No change in urine or bowels. No nausea or vomiting. ENDOCRINOLOGY: No night sweats, fevers, or chills. LABORATORY AND DIAGNOSTIC DATA: Labs dated 08/20/2017, sodium 142, potassium 3.7, bicarbonate 23, BUN 61, creatinine 3.5, and calcium 8.7. Hemoglobin 9, white cell count 10.4, and platelet count 109. PHYSICAL EXAMINATION: GENERAL: The patient is awake, mild disoriented, not otherwise stress. VITAL SIGNS: Blood pressure 148/66, respiratory rate 21, 97% oxygen saturation on room air and temperature 97.9 degrees. HEENT: Extraocular muscles intact. No lymphadenopathy noted. CARDIOVASCULAR: S1 and S2. No rubs or gallops. PULMONARY: Clear to auscultation bilaterally. No rales, rhonchi or wheezes. ABDOMEN: Nondistended and nontender. EXTREMITIES: No edema. ASSESSMENT AND PLAN: 1. Acute kidney injury on chronic kidney disease. At this time, baseline creatinine is unclear. Acute kidney injury, most likely secondary to component of volume depletion and proximal tubular damage from inflammatory cytokine from underlying UTI. At this time, continue hydration and intravenous antibiotics. Renal ultrasound to rule out the possibility of underlying obstructive uropathy. NSAID/Ketoralac has been discontinued. Avoid any further nephrotoxins, hydrate the patient and maintain hemodynamic stability. We will continue to follow this patient on a daily basis. 2. Urinary tract infection. The patient on Rocephin. 3. Hyperglycemia. Management per primary care physician. 4. Hypertension. Stable. At this time, avoid any KELLIE inhibitors or ARBs until renal function stabilizes. I would take this opportunity to thank Dr. Hopper, for consult. We will continue to follow this patient on a daily basis. Kush Blackburn MD DR: ABDULLAHI JOB#: [id number] CC:
[2017-08-21] VITALS (11 sets, daily range): BP systolic 116–156; BP diastolic 60–79
[2017-08-21] MEDS: Piperacillin/Tazobactam 2.25 GM in NS 110 ML IVPB SCH ×3 (05:19→21:47)
[2017-08-21] MEDS: NovoLOG Insulin Flexpen SUBQ SCH ×7 (06:20→20:30)
[2017-08-21] MEDS: Levemir Flexpen SUBQ SCH (09:00)
[2017-08-21 09:58] LABS: HEMATOCRIT 23.4 % (37.0-47.0); HEMOGLOBIN 7.8 G/DL (12.0-16.0); MEAN CORPUSCULAR VOLUME 90 FL (80-99); PLATELET COUNT 98 K/UL (150-450); RED BLOOD COUNT 2.61 M/UL (4.20-5.40); RED CELL DISTRIBUTION WIDTH 12.1 % (11.6-14.8); WHITE BLOOD COUNT 8.8 K/UL (4.8-10.8)
[2017-08-21] MEDS ORDERED: fentaNYL 100 mcg/2 mL IV PRN (10:00)
--- NOTE | 2017-08-21 10:02 | General Progress Note ---
Assessment/Plan Assessment/Plan patient has been admitted with elevated WBC, elevated LFTS and abd pain. She has cholangitis and US has confirmed CBD stones. Patient needs emergency ERCP. We could not find any family to get consent. Will proceed given the urgency of need for this procedure Subjective ROS Limited/Unobtainable: No Allergies: Coded Allergies: No Known Allergies (Unverified , 08/19/17) Objective Last 24 Hour Vital Signs Date Time Temp Pulse Resp B/P (MAP) Pulse Ox O2 Delivery O2 Flow Rate FiO2 08/21/17 08:00 98.2 83 18 137/60 97 98.2 08/21/17 07:44 86 16 Room Air 21 08/21/17 04:00 98.2 76 18 151/67 97 Room Air 98.2 08/21/17 00:00 98.4 83 18 156/73 95 Room Air 98.4 08/20/17 20:43 98.8 78 17 135/59 96 Room Air 98.8 08/20/17 19:37 90 16 Room Air 21 08/20/17 16:00 88 19 143/75 94 08/20/17 12:00 97.9 90 21 148/66 97 97.9 Intake and Output 08/20/17 08/21/17 19:00 07:00 Intake Total 1810 ml 1120 ml Balance 1810 ml 1120 ml Intake Oral 700 ml IV Total 1110 ml 1120 ml # Voids 5 4 Laboratory Tests 08/21/17 09:27: White Blood Count [Pending], Red Blood Count [Pending], Hemoglobin [Pending], Hematocrit [Pending], Mean Corpuscular Volume [Pending], Mean Corpuscular Hemoglobin [Pending], Mean Corpuscular Hemoglobin Concent [Pending], Red Cell Distribution Width [Pending], Platelet Count [Pending], Mean Platelet Volume [ Pending], Neutrophils (%) (Auto) [Pending], Lymphocytes (%) (Auto) [Pending], Monocytes (%) (Auto) [Pending], Eosinophils (%) (Auto) [Pending], Basophils (%) (Auto) [Pending], Prothrombin Time [Pending], Prothromb Time International Ratio [Pending], Activated Partial Thromboplast Time [Pending], Sodium Level [ Pending], Potassium Level [Pending], Chloride Level [Pending], Carbon Dioxide Level [Pending], Blood Urea Nitrogen [Pending], Creatinine [Pending], Estimat Glomerular Filtration Rate [Pending], Glucose Level [Pending], Calcium Level [ Pending], Total Bilirubin [Pending], Direct Bilirubin [Pending], Aspartate Amino Transf (AST/SGOT) [Pending], Alanine Aminotransferase (ALT/SGPT) [Pending] , Alkaline Phosphatase [Pending], Total Protein [Pending], Albumin [Pending], Hepatitis A IgM Antibody [Pending], Hepatitis B Surface Antigen [Pending], Hepatitis B Core IgM Antibody [Pending], Hepatitis C Antibody [Pending] Height (Feet): 5 Height (Inches): 1.00 Weight (Pounds): 140 General Appearance: no apparent distress EENT: scleral icterus Neck: supple Cardiovascular: normal rate Respiratory/Chest: decreased breath sounds Abdomen: normal bowel sounds, non tender, soft Extremities: non-tender Blaise Hernandez MD Aug 21, 2017 10:02
--- NOTE | 2017-08-21 10:03 | Anethesia Preoperative Eval ---
Anesthesia Pre-op PMH/ROS General Date of Evaluation: Aug 21, 2017 Time of Evaluation: 10:02 Anesthesiologist: tierra ASA Score: ASA 3 Mallampati Score Class I : Soft palate, uvula, fauces, pillars visible Class II: Soft palate, uvula, fauces visible Class III: Soft palate, base of uvula visible Class IV: Only hard plate visible Mallampati Classification: Class II Surgeon: dillon Diagnosis: choledolithiasis Surgical Procedure: ERCP Anesthesia History: none Family History: no anesthesia problems Allergies: Coded Allergies: No Known Allergies (Unverified , 08/19/17) Medications: see eMAR Past Medical History Cardiovascular: Reports: HTN, CAD Pulmonary: Denies: asthma, COPD, WALTER, other Gastrointestinal/Genitourinary: Reports: CRI, other - pyelonephritis; Denies: GERD, ESRD Neurologic/Psychiatric: Reports: dementia Endocrine: Reports: DM; Denies: hypothyroidism, steroids, other HEENT: Denies: cataract (L), cataract (R), glaucoma, [place] (L), [place] (R), other Hematology/Immune: Reports: anemia Musculoskeletal/Integumentary: Denies: OA, RA, DJD, DDD, edema, other Anesthesia Pre-op Phys. Exam Physician Exam Last Vital Signs Date Time Temp Pulse Resp B/P (MAP) Pulse Ox O2 Delivery O2 Flow Rate FiO2 08/21/17 08:00 98.2 83 18 137/60 97 98.2 08/21/17 07:44 Room Air 21 Constitutional: NAD Neurologic: CN 2-12 intact Cardiovascular: RRR Respiratory: CTA Gastrointestinal: S/NT/ND Airway Exam Mallampati Classification 3 Mallampati Score: Class III MO: limited ROM: limited Teeth: missing Anesthesia Pre-op A/P Labs Hematology Test 08/21/17 09:27 White Blood Count 8.8 K/UL (4.8-10.8) Red Blood Count 2.61 M/UL (4.20-5.40) L Hemoglobin 7.8 G/DL (12.0-16.0) L Hematocrit 23.4 % (37.0-47.0) L Mean Corpuscular Volume 90 FL (80-99) Mean Corpuscular Hemoglobin 29.8 PG (27.0-31.0) Mean Corpuscular Hemoglobin Concent 33.3 G/DL (32.0-36.0) Red Cell Distribution Width 12.1 % (11.6-14.8) Platelet Count 98 K/UL (150-450) L Mean Platelet Volume 7.5 FL (6.5-10.1) Neutrophils (%) (Auto) % (45.0-75.0) Lymphocytes (%) (Auto) % (20.0-45.0) Monocytes (%) (Auto) % (1.0-10.0) Eosinophils (%) (Auto) % (0.0-3.0) Basophils (%) (Auto) % (0.0-2.0) Neutrophils % (Manual) Pending Lymphocytes % (Manual) Pending Platelet Estimate Pending Platelet Morphology Pending Coagulation Test 08/21/17 09:27 Prothrombin Time Pending Prothromb Time International Ratio Pending Activated Partial Thromboplast Time Pending Chemistry Test 08/21/17 09:27 Sodium Level Pending Potassium Level Pending Chloride Level Pending Carbon Dioxide Level Pending Blood Urea Nitrogen Pending Creatinine Pending Estimat Glomerular Filtration Rate Pending Glucose Level Pending Calcium Level Pending Total Bilirubin Pending Direct Bilirubin Pending Aspartate Amino Transf (AST/SGOT) Pending Alanine Aminotransferase (ALT/SGPT) Pending Alkaline Phosphatase Pending Total Protein Pending Albumin Pending Studies Pre-op Studies: EKG Risk Assessment & Plan Assessment: no changes Plan: mac Status Change Before Surgery: No Pre-Antibiotics Drug: ancef Given Within 1 Hr of Incision: Yes Time Given: 11:00 Trice Garcia CRNA Aug 21, 2017 10:03
--- NOTE | 2017-08-21 10:03 | Pre-Procedure Note/Attestation ---
Pre-Procedure Note/Attestation Complete Prior to Procedure Planned Procedure: not applicable Procedure Narrative: ercp Indications for Procedure Pre-Operative Diagnosis: cholangitis Attestation I attest that I discussed the nature of the procedure; its benefits; risks and complications; and alternatives (and the risks and benefits of such alternatives ), prior to the procedure, with the patient (or the patient's legal customer engagement representative). I attest that, if there was a reasonable possibility of needing a blood transfusion, the patient (or the patient's legal customer engagement representative) was given the [facility] standardized written summary, pursuant to the [place] Blood Safety Act ([place] [facility] and Safety Code # 1645, as amended). I attest that I re-evaluated the patient just prior to the surgery and that there has been no change in the patient's H&P, except as documented below: Blaise Hernandez MD Aug 21, 2017 10:03
[2017-08-21 10:04] LABS: ANION GAP 13 mmol/L (5-15); BLOOD UREA NITROGEN 50 mg/dL (7-18); CARBON DIOXIDE 21 MMOL/L (21-32); CHLORIDE 111 MMOL/L (98-107); CREATININE 3.2 MG/DL (0.55-1.30); POTASSIUM 3.4 MMOL/L (3.5-5.1); SODIUM 145 MMOL/L (136-145)
[2017-08-21 10:10] LABS: ALANINE AMINOTRANSFERASE 619 U/L (12-78); ALBUMIN 2.2 G/DL (3.4-5.0); ALKALINE PHOSPHATASE 481 U/L (46-116); ASPARTATE AMINO TRANSFERASE 265 U/L (15-37); BILIRUBIN,DIRECT 3.8 MG/DL (0.0-0.3); BILIRUBIN,TOTAL 4.5 MG/DL (0.2-1.0)
[2017-08-21] MEDS ORDERED: Iothalamate Meglumine 60% 30ML INJ ONE (10:11)
--- NOTE | 2017-08-21 10:18 | Nephrology Progress Note ---
Assessment/Plan Assessment/Plan 1. CORRY on CKD ?- Cr down to 3.2. Right kidney could not be visulaized by US - continue IVFs and avoid nephrotoxins - monitor for now 2. Choledocholithiasis- ERCP, mgmpt per PCP 3. Dehydration- continue IVF's 4. HTN- stable Subjective Date patient seen: Aug 21, 2017 Time patient seen: 10:15 ROS Limited/Unobtainable: Yes Allergies: Coded Allergies: No Known Allergies (Unverified , 08/19/17) Subjective Patient oriented to one sphere. In no acute distress Objective Last 24 Hour Vital Signs Date Time Temp Pulse Resp B/P (MAP) Pulse Ox O2 Delivery O2 Flow Rate FiO2 08/21/17 08:00 98.2 83 18 137/60 97 98.2 08/21/17 07:44 86 16 Room Air 21 08/21/17 04:00 98.2 76 18 151/67 97 Room Air 98.2 08/21/17 00:00 98.4 83 18 156/73 95 Room Air 98.4 08/20/17 20:43 98.8 78 17 135/59 96 Room Air 98.8 08/20/17 19:37 90 16 Room Air 21 08/20/17 16:00 88 19 143/75 94 08/20/17 12:00 97.9 90 21 148/66 97 97.9 Intake and Output 08/20/17 08/21/17 19:00 07:00 Intake Total 1810 ml 1120 ml Balance 1810 ml 1120 ml Intake Oral 700 ml IV Total 1110 ml 1120 ml # Voids 5 4 Laboratory Tests 08/21/17 09:27: White Blood Count 8.8, Red Blood Count 2.61L, Hemoglobin 7.8L, Hematocrit 23.4L , Mean Corpuscular Volume 90, Mean Corpuscular Hemoglobin 29.8, Mean Corpuscular Hemoglobin Concent 33.3, Red Cell Distribution Width 12.1, Platelet Count 98L, Mean Platelet Volume 7.5, Neutrophils (%) (Auto) , Lymphocytes (%) ( Auto) , Monocytes (%) (Auto) , Eosinophils (%) (Auto) , Basophils (%) (Auto) , Neutrophils % (Manual) [Pending], Lymphocytes % (Manual) [Pending], Platelet Estimate [Pending], Platelet Morphology [Pending], Prothrombin Time 10.0, Prothromb Time International Ratio 1.0, Activated Partial Thromboplast Time 25, Sodium Level 145, Potassium Level 3.4L, Chloride Level 111H, Carbon Dioxide Level 21, Anion Gap 13, Blood Urea Nitrogen 50H, Creatinine 3.2H, Estimat Glomerular Filtration Rate 14.5, Glucose Level 125H, Calcium Level 8.0L, Total Bilirubin [Pending], Direct Bilirubin [Pending], Aspartate Amino Transf (AST/ SGOT) [Pending], Alanine Aminotransferase (ALT/SGPT) [Pending], Alkaline Phosphatase [Pending], Total Protein [Pending], Albumin [Pending], Hepatitis A IgM Antibody [Pending], Hepatitis B Surface Antigen [Pending], Hepatitis B Core IgM Antibody [Pending], Hepatitis C Antibody [Pending] Height (Feet): 5 Height (Inches): 1.00 Weight (Pounds): 140 General Appearance: no apparent distress, alert EENT: normal ENT inspection, TMs normal Neck: normal alignment, supple Cardiovascular: normal rate, regular rhythm Respiratory/Chest: lungs clear, normal breath sounds Abdomen: non tender, soft Edema: no edema noted Arm (L), no edema noted Arm (R), no edema noted Leg (L), no edema noted Leg (R), no edema noted Pedal (L), no edema noted Pedal (R), no edema noted Generalized Kush Blackburn M.D. Aug 21, 2017 10:18
[2017-08-21] MEDS ORDERED: LR 1000ml ONE (11:00)
[2017-08-21] MEDS ORDERED: Metoclopramide 10mg/2ml Inj ONE (11:00)
[2017-08-21] MEDS ORDERED: fentaNYL 100 mcg/2 mL IV ONE (11:00)
[2017-08-21] MEDS ORDERED: Propofol 200mg/20ml IV ONE (11:00)
[2017-08-21] MEDS ORDERED: Lidocaine 1% MPF 10mg/ml 5ml ONE (11:00)
--- NOTE | 2017-08-21 11:27 | Infectious Diseases Prog Note ---
Assessment/Plan Assessment/Plan Abx: Zosyn 08/19- Assessment: Sepsis 2ry to Cholangitis- r/o bacteremia -Abd US: Choledocholithiasis, with a 14 x 8 mm calculus within the common bile duct. There is resultant intrahepatic and extrahepatic biliary ductal dilatation and debris/sludge within the bile ducts. Evidence of prior cholecystectomy. Limited exam with nonvisualization of the right kidney and spleen and abdominal aorta. Incidental finding left lower pole renal cyst -Bcx p Leukocytosis, resolved -afebrile -CXR: no acute process Pyuria; possible UTI- unable to provide symptoms -u/a wbc tntc, nit neg, leuk +1; ucx >100K P mirabilis (R Cipro/levo, bactrim ; otherwise S) Hyperglycemia, improving Elevated LFTs- 2ry to above; slighly improved CORRY DM HTN CAD seizure disorder dementia Full code NKDA Plan: -Continue empiric Zosyn#3 pending cultures -For ERCP today -please send cultures from bile fluid -f/u Bcx x2 -f/u Hepatitis serologies -f/u cx -monitor CBC/CMP, temperatures -aspiration precautions Thank you for this consultation. Will continue to follow along with you. Discussed with RN. Subjective Allergies: Coded Allergies: No Known Allergies (Unverified , 08/19/17) Objective Vital Signs Last 24 Hour Vital Signs Date Time Temp Pulse Resp B/P (MAP) Pulse Ox O2 Delivery O2 Flow Rate FiO2 08/21/17 09:00 83 137/60 08/21/17 08:00 98.2 83 18 137/60 97 98.2 08/21/17 07:44 86 16 Room Air 21 08/21/17 04:00 98.2 76 18 151/67 97 Room Air 98.2 08/21/17 00:00 98.4 83 18 156/73 95 Room Air 98.4 08/20/17 20:43 98.8 78 17 135/59 96 Room Air 98.8 08/20/17 19:37 90 16 Room Air 21 08/20/17 16:00 88 19 143/75 94 08/20/17 12:00 97.9 90 21 148/66 97 97.9 Height (Feet): 5 Height (Inches): 1.00 Weight (Pounds): 140 Objective HEENT: Pupils are equal and reactive to light. NECK: No JVD. HEART: Regular. LUNGS: Clear. ABDOMEN: Positive bowel sounds. EXTREMITIES: No clubbing, cyanosis, or edema. Microbiology Date/Time Source Procedure Growth Status 08/19/17 15:50 Urine,Clean Catch Urine Culture - Final Proteus Mirabilis Complete Laboratory Tests Test 08/21/17 09:27 White Blood Count 8.8 K/UL (4.8-10.8) Red Blood Count 2.61 M/UL (4.20-5.40) L Hemoglobin 7.8 G/DL (12.0-16.0) L Hematocrit 23.4 % (37.0-47.0) L Mean Corpuscular Volume 90 FL (80-99) Mean Corpuscular Hemoglobin 29.8 PG (27.0-31.0) Mean Corpuscular Hemoglobin Concent 33.3 G/DL (32.0-36.0) Red Cell Distribution Width 12.1 % (11.6-14.8) Platelet Count 98 K/UL (150-450) L Mean Platelet Volume 7.5 FL (6.5-10.1) Neutrophils (%) (Auto) % (45.0-75.0) Lymphocytes (%) (Auto) % (20.0-45.0) Monocytes (%) (Auto) % (1.0-10.0) Eosinophils (%) (Auto) % (0.0-3.0) Basophils (%) (Auto) % (0.0-2.0) Differential Total Cells Counted 100 Neutrophils % (Manual) 87 % (45-75) H Lymphocytes % (Manual) 6 % (20-45) L Monocytes % (Manual) 6 % (1-10) Eosinophils % (Manual) 1 % (0-3) Basophils % (Manual) 0 % (0-2) Band Neutrophils 0 % (0-8) Platelet Estimate Decreased L Platelet Morphology Normal Hypochromasia 3+ Anisocytosis 1+ Spherocytes 1+ Prothrombin Time 10.0 SEC (9.30-11.50) Prothromb Time International Ratio 1.0 (0.9-1.1) Activated Partial Thromboplast Time 25 SEC (23-33) Sodium Level 145 MMOL/L (136-145) Potassium Level 3.4 MMOL/L (3.5-5.1) L Chloride Level 111 MMOL/L (98-107) H Carbon Dioxide Level 21 MMOL/L (21-32) Anion Gap 13 mmol/L (5-15) Blood Urea Nitrogen 50 mg/dL (7-18) H Creatinine 3.2 MG/DL (0.55-1.30) H Estimat Glomerular Filtration Rate 14.5 mL/min (>60) Glucose Level 125 MG/DL (74-106) H Calcium Level 8.0 MG/DL (8.5-10.1) L Total Bilirubin 4.5 MG/DL (0.2-1.0) H Direct Bilirubin 3.8 MG/DL (0.0-0.3) H Aspartate Amino Transf (AST/SGOT) 265 U/L (15-37) H Alanine Aminotransferase (ALT/SGPT) 619 U/L (12-78) H Alkaline Phosphatase 481 U/L (46-116) H Total Protein 5.3 G/DL (6.4-8.2) L Albumin 2.2 G/DL (3.4-5.0) L Hepatitis A IgM Antibody Pending Hepatitis B Surface Antigen Pending Hepatitis B Core IgM Antibody Pending Hepatitis C Antibody Pending Current Medications Medications (Trade) Dose Ordered Sig/Jeff Route PRN Reason Start Time Stop Time Status Last Admin Dose Admin Acetaminophen (Tylenol) 650 mg Q4H PRN ORAL fever 08/19/17 19:59 09/18/17 19:58 Al Hydroxide/Mg Hydroxide (Mylanta II) 30 ml Q6H PRN ORAL dyspepsia 08/19/17 19:59 09/18/17 19:58 Albuterol/ Ipratropium (Albuterol/ Ipratropium) 3 ml Q4H PRN HHN Shortness of Breath 08/19/17 19:59 08/24/17 19:58 Amlodipine Besylate (Norvasc) 10 mg DAILY ORAL 08/20/17 09:00 09/19/17 08:59 08/20/17 09:30 Atorvastatin Calcium (Lipitor) 10 mg BEDTIME ORAL 08/19/17 21:00 09/18/17 20:59 08/19/17 22:07 Clonidine HCl (Catapres Tab) 0.1 mg Q4H PRN ORAL sbp more than 160 6/6/18 19:59 09/18/17 19:58 Dextrose (Dextrose 50%) 25 ml STAT PRN IV Hypoglycemia 08/20/17 08:00 09/19/17 07:59 Dextrose (Dextrose 50%) 50 ml STAT PRN IV Hypoglycemia 08/20/17 08:00 09/19/17 07:59 Fentanyl Citrate (Sublimaze 100 mcg/2 mL) 25 mcg Q10M PRN IV Moderate Pain (Pain Scale 4-6) 08/21/17 10:00 08/21/17 16:00 Insulin Aspart (NovoLOG) BEFORE MEALS AND HS SUBQ 08/19/17 21:00 09/18/17 20:59 08/21/17 06:36 Insulin Aspart (NovoLOG) 4 units NOVOTIAC SUBQ 08/20/17 11:50 09/19/17 11:49 08/20/17 11:58 Insulin Detemir (Levemir) 12 units DAILY SUBQ 08/20/17 09:00 09/19/17 08:59 08/20/17 10:13 Nitroglycerin (Ntg) 0.4 mg Q5M X 3 DOSES PRN SL Prn Chest Pain 08/19/17 20:01 09/18/17 20:00 Ondansetron HCl (Zofran) 4 mg Q1H PRN IVP Nausea & Vomiting 08/21/17 10:00 08/21/17 16:00 Ondansetron HCl (Zofran) 4 mg Q6H PRN IVP Nausea & Vomiting 08/19/17 20:01 09/18/17 20:00 Piperacillin Sod/ Tazobactam Sod 2.25 gm/Sodium Chloride 110 ml @ 220 mls/hr EVERY 8 HOURS IVPB 08/19/17 22:00 08/26/17 21:59 08/21/17 05:19 Polyethylene Glycol (Miralax) 17 gm HSPRN PRN ORAL Constipation 08/19/17 21:00 09/18/17 20:59 Potassium Chloride 100 ml @ 100 mls/hr NOW ONCE IVPB 08/21/17 11:30 08/21/17 12:29 Sodium Chloride 1,000 ml @ 100 mls/hr Q10H IVLG 08/19/17 20:30 09/18/17 20:29 08/21/17 03:26 Temazepam (Restoril) 15 mg HSPRN PRN ORAL Insomnia 08/19/17 21:00 08/26/17 20:59 08/19/17 22:59 Magda Estrada M.D. Aug 21, 2017 11:27
--- NOTE | 2017-08-21 11:41 | Endoscopy Procedure Note ---
Endoscopy Procedure Note General Indication for Procedure: cholangitis Procedures Performed: ERCP Operative Findings/Diagnosis: cbd stones Specimen: yes Pt Tolerated Procedure Well: Yes Estimated Blood Loss: none Anesthesia Anesthesiologist: linnette Anesthesia: MAC Inserted Devices Implant(s) used?: No GI Core Measures 50 yrs or older w/o bx or poly: Not Applicable 10yrs. F/U not recommended: Not Applicable Blaise Hernandez MD Aug 21, 2017 11:41
--- NOTE | 2017-08-21 12:32 | Immediate Post-Op Evaluation ---
Immediate Post-Op Evalulation Immediate Post-Op Evalulation Procedure: ERCP Date of Evaluation: Aug 21, 2017 Time of Evaluation: 11:38 IV Fluids: 300 Blood Pressure Systolic: 116 Blood Pressure Diastolic: 70 Pulse Rate: 72 Respiratory Rate: 14 O2 Sat by Pulse Oximetry: 100 Temperature (Fahrenheit): 98.0 Nausea: No Vomiting: No Complications none Patient Status: awake, reacts, patent Hydration Status: adequate Drug: ancef Given Within 1 Hr of Incision: Yes Time Given: 11:00 Trice Garcia CRNA Aug 21, 2017 12:32
--- NOTE | 2017-08-21 12:34 | Cardiology Report ---
APPROVED REPORT EKG Measurement Heart [id number] Normal sinus rhythm Normal ECG
--- NOTE | 2017-08-21 12:35 | 48 Hour Post Anesthesia Eval ---
Post Anesthesia Evaluation Procedure: ERCP Date of Evaluation: Aug 21, 2017 Time of Evaluation: 12:35 Blood Pressure Systolic: 129 0: 67 Pulse Rate: 71 O2 Sat by Pulse Oximetry: 100 Airway: patent Nausea: No Vomiting: No Hydration Status: adequate Cardiopulmonary Status: stable Mental Status/LOC: patient returned to baseline Follow-up Care/Observations: na Post-Anesthesia Complications: none Follow-up care needed: N/A Trice Garcia CRNA Aug 21, 2017 12:35
--- NOTE | 2017-08-21 12:49 | Diagnostic Imaging Report ---
Indication: Abdominal pain. ERCP. Findings: Fluoroscopically captured images of the right upper quadrant of the abdomen demonstrate an endoscope with cannulation of the common bile duct and injection of contrast material. Biliary stent noted. This was removed. The biliary ducts look dilated. Extraction balloon deployed stent was replaced. 9 fluoroscopic images obtained. Impression: ERCP as above
--- NOTE | 2017-08-21 13:00 | Procedure Note ---
DATE OF PROCEDURE: 08/21/2017 SURGEON: Blaise Hernandez M.D. ANESTHESIOLOGIST: Trice HO. REFERRING PHYSICIAN: Martin Hopper D.O. PROCEDURE: ERCP with sphincterotomy, stent removal, stone removal, stent placement. ANESTHESIA: Per Trice HO. INSTRUMENT: Olympus ERCP scope. INDICATION: Choledocholithiasis, cholangitis. The procedure, risks, benefits, and possible consequences, including hemorrhage, aspiration, perforation and infection, and alternative treatments, were explained to the patient/legal guardian by Dr. Blaise Hernandez and the patient/legal guardian understood and accepted these risks. DESCRIPTION OF PROCEDURE: After informed consent was obtained and the patient was adequately sedated, ERCP scope was advanced from the mouth to the second portion of the duodenum. As soon as we reached the ampulla, we saw pus coming out from the ampulla. X-ray showed that the stent migrated into the common bile duct. At this time, using a sphincterotome, we cannulated common bile duct. Using a balloon, we took the stent out of the common bile duct into the duodenal lumen and using a snare, we removed the stent. The stent was occluded with a stone. Then over a guidewire, we went back into the common bile duct. There were multiple stones in the common bile duct, one of them actually was large, over 1 cm[address] We decided to place sphincterotomy because most probably, they did not do in the last procedure. We did a 95 sphincterotomy over a guidewire. Then using a balloon, we swept the duct multiple times and removed at least 3 or 4 stones, one of them was over a centimeter. Post stone removal, cholangiogram showed no further filling defect in the distal common bile duct, but given there was a little bit of bleeding and was causing a little bit of obstruction, the bile was not flowing adequately, so we decided to put another stent back in for protection. We placed a 10-Green[place]ic 5-cm stent successfully in the distal common bile duct. The patient tolerated the procedure very well without any complication. SUMMARY OF FINDINGS: Status post ERCP, removal of the migrated stent, removal of multiple stones, sphincterotomy, and re-stenting. The patient also had evidence of acute cholangitis with pus coming out from the common bile duct. PLAN: Observe overnight. Start antibiotics. The patient needs to come back in 4 to 6 weeks for stent removal. Unfortunately, the patient lives in a senior care, so I informed my office to try to schedule her to come back as an outpatient in 4 to 6 weeks for stent removal. I want to thank Dr. Martin Hopper for this kind referral. Blaise Hernandez M.D. DR: Akin JOB#: [id number] CC: Martin Hopper D.O.
--- NOTE | 2017-08-21 15:39 | Pulmonology Progress Note ---
Assessment/Plan Problems: (1) Choledocholithiasis (2) UTI (urinary tract infection) (3) Hyperglycemia (4) Pyelonephritis (5) Diabetes mellitus (6) Hypertension (7) Advanced dementia Assessment/Plan ERCP done, CBD stone were removed continue abx f/u bilirubin level check cultures continue abx Subjective ROS Limited/Unobtainable: No Constitutional: Reports: no symptoms HEENT: Repors: no symptoms Respiratory: Reports: no symptoms Allergies: Coded Allergies: No Known Allergies (Unverified , 08/19/17) Objective Last 24 Hour Vital Signs Date Time Temp Pulse Resp B/P (MAP) Pulse Ox O2 Delivery O2 Flow Rate FiO2 08/21/17 12:35 71 100 08/21/17 12:32 208.4 72 14 100 08/21/17 12:30 98.3 69 15 125/64 100 Nasal Cannula 3.0 98.3 08/21/17 12:10 77 18 129/65 100 Nasal Cannula 3.0 08/21/17 11:58 71 14 127/69 100 Nasal Cannula 3.0 08/21/17 11:50 68 17 125/67 100 Nasal Cannula 3.0 08/21/17 11:40 69 15 123/69 100 Nasal Cannula 3.0 08/21/17 11:35 98.0 74 14 116/70 100 Nasal Cannula 3.0 98.0 08/21/17 09:00 83 137/60 08/21/17 08:00 98.2 83 18 137/60 97 98.2 08/21/17 07:44 86 16 Room Air 21 08/21/17 04:00 98.2 76 18 151/67 97 Room Air 98.2 08/21/17 00:00 98.4 83 18 156/73 95 Room Air 98.4 08/20/17 20:43 98.8 78 17 135/59 96 Room Air 98.8 08/20/17 19:37 90 16 Room Air 21 08/20/17 16:00 88 19 143/75 94 Intake and Output 08/20/17 08/21/17 19:00 07:00 Intake Total 1810 ml 1120 ml Balance 1810 ml 1120 ml Intake Oral 700 ml IV Total 1110 ml 1120 ml # Voids 5 4 General Appearance: WD/WN HEENT: normocephalic, atraumatic Respiratory/Chest: chest wall non-tender, lungs clear Breasts: no masses Cardiovascular: normal peripheral pulses Abdomen: normal bowel sounds, soft, non tender Genitourinary: normal external genitalia 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 Microbiology Date/Time Source Procedure Growth Status 08/19/17 15:50 Urine,Clean Catch Urine Culture - Final Proteus Mirabilis Complete Laboratory Tests 08/21/17 09:27: White Blood Count 8.8, Red Blood Count 2.61L, Hemoglobin 7.8L, Hematocrit 23.4L , Mean Corpuscular Volume 90, Mean Corpuscular Hemoglobin 29.8, Mean Corpuscular Hemoglobin Concent 33.3, Red Cell Distribution Width 12.1, Platelet Count 98L, Mean Platelet Volume 7.5, Neutrophils (%) (Auto) , Lymphocytes (%) ( Auto) , Monocytes (%) (Auto) , Eosinophils (%) (Auto) , Basophils (%) (Auto) , Differential Total Cells Counted 100, Neutrophils % (Manual) 87H, Lymphocytes % (Manual) 6L, Monocytes % (Manual) 6, Eosinophils % (Manual) 1, Basophils % ( Manual) 0, Band Neutrophils 0, Platelet Estimate DecreasedL, Platelet Morphology Normal, Hypochromasia 3+, Anisocytosis 1+, Spherocytes 1+, Prothrombin Time 10.0, Prothromb Time International Ratio 1.0, Activated Partial Thromboplast Time 25, Sodium Level 145, Potassium Level 3.4L, Chloride Level 111H, Carbon Dioxide Level 21, Anion Gap 13, Blood Urea Nitrogen 50H, Creatinine 3.2H, Estimat Glomerular Filtration Rate 14.5, Glucose Level 125H, Calcium Level 8.0L, Total Bilirubin 4.5H, Direct Bilirubin 3.8H, Aspartate Amino Transf (AST/SGOT) 265H, Alanine Aminotransferase (ALT/SGPT) 619H, Alkaline Phosphatase 481H, Total Protein 5.3L, Albumin 2.2L, Hepatitis A IgM Antibody [Pending], Hepatitis B Surface Antigen [Pending], Hepatitis B Core IgM Antibody [Pending], Hepatitis C Antibody [Pending] Current Medications Medications (Trade) Dose Ordered Sig/Jeff Route PRN Reason Start Time Stop Time Status Last Admin Dose Admin Acetaminophen (Tylenol) 650 mg Q4H PRN ORAL fever 08/19/17 19:59 09/18/17 19:58 Al Hydroxide/Mg Hydroxide (Mylanta II) 30 ml Q6H PRN ORAL dyspepsia 08/19/17 19:59 09/18/17 19:58 Albuterol/ Ipratropium (Albuterol/ Ipratropium) 3 ml Q4H PRN HHN Shortness of Breath 08/19/17 19:59 08/24/17 19:58 Amlodipine Besylate (Norvasc) 10 mg DAILY ORAL 08/20/17 09:00 09/19/17 08:59 08/20/17 09:30 Atorvastatin Calcium (Lipitor) 10 mg BEDTIME ORAL 08/19/17 21:00 09/18/17 20:59 08/19/17 22:07 Clonidine HCl (Catapres Tab) 0.1 mg Q4H PRN ORAL sbp more than 160 08/19/17 19:59 09/18/17 19:58 Dextrose (Dextrose 50%) 25 ml STAT PRN IV Hypoglycemia 08/20/17 08:00 09/19/17 07:59 Dextrose (Dextrose 50%) 50 ml STAT PRN IV Hypoglycemia 08/20/17 08:00 09/19/17 07:59 Fentanyl Citrate (Sublimaze 100 mcg/2 mL) 25 mcg Q10M PRN IV Moderate Pain (Pain Scale 4-6) 08/21/17 10:00 08/21/17 16:00 Insulin Aspart (NovoLOG) BEFORE MEALS AND HS SUBQ 08/19/17 21:00 09/18/17 20:59 08/21/17 06:36 Insulin Aspart (NovoLOG) 4 units NOVOTIAC SUBQ 08/20/17 11:50 09/19/17 11:49 08/20/17 11:58 Insulin Detemir (Levemir) 12 units DAILY SUBQ 08/20/17 09:00 09/19/17 08:59 08/20/17 10:13 Nitroglycerin (Ntg) 0.4 mg Q5M X 3 DOSES PRN SL Prn Chest Pain 08/19/17 20:01 09/18/17 20:00 Ondansetron HCl (Zofran) 4 mg Q1H PRN IVP Nausea & Vomiting 08/21/17 10:00 08/21/17 16:00 Ondansetron HCl (Zofran) 4 mg Q6H PRN IVP Nausea & Vomiting 08/19/17 20:01 09/18/17 20:00 Piperacillin Sod/ Tazobactam Sod 2.25 gm/Sodium Chloride 110 ml @ 220 mls/hr EVERY 8 HOURS IVPB 08/19/17 22:00 08/26/17 21:59 08/21/17 05:19 Polyethylene Glycol (Miralax) 17 gm HSPRN PRN ORAL Constipation 08/19/17 21:00 09/18/17 20:59 Potassium Chloride 100 ml @ 100 mls/hr Q1HR IVPB 08/21/17 14:00 08/21/17 15:59 Sodium Chloride 1,000 ml @ 100 mls/hr Q10H IVLG 08/19/17 20:30 09/18/17 20:29 08/21/17 03:26 Temazepam (Restoril) 15 mg HSPRN PRN ORAL Insomnia 08/19/17 21:00 08/26/17 20:59 08/19/17 22:59 Say Schneider MD Aug 21, 2017 15:39
--- NOTE | 2017-08-21 15:59 | General Progress Note ---
Assessment/Plan Problem List: (1) Diabetes mellitus ICD Codes: E11.9 - Type 2 diabetes mellitus without complications SNOMED: 53294006 (2) Hypertension ICD Codes: I10 - Essential (primary) hypertension SNOMED: 20666045 (3) Advanced dementia ICD Codes: F03.90 - Unspecified dementia without behavioral disturbance SNOMED: 65814175 (4) Hyperglycemia ICD Codes: R73.9 - Hyperglycemia, unspecified SNOMED: 98380976 (5) Pyelonephritis ICD Codes: N12 - Tubulo-interstitial nephritis, not specified as acute or chronic SNOMED: 59961473 (6) UTI (urinary tract infection) ICD Codes: N39.0 - Urinary tract infection, site not specified SNOMED: 04115973 (7) Choledocholithiasis ICD Codes: K80.50 - Calculus of bile duct without cholangitis or cholecystitis without obstruction SNOMED: 646015508 Status: unchanged Assessment/Plan ot pt diet bp bs pain control gi f/u cbc bmp am Subjective Constitutional: Reports: weakness Allergies: Coded Allergies: No Known Allergies (Unverified , 08/19/17) All Systems: reviewed and negative except above Subjective o2nc sleepy Objective Last 24 Hour Vital Signs Date Time Temp Pulse Resp B/P (MAP) Pulse Ox O2 Delivery O2 Flow Rate FiO2 08/21/17 12:35 71 100 08/21/17 12:32 208.4 72 14 100 08/21/17 12:30 98.3 69 15 125/64 100 Nasal Cannula 3.0 98.3 08/21/17 12:10 77 18 129/65 100 Nasal Cannula 3.0 08/21/17 11:58 71 14 127/69 100 Nasal Cannula 3.0 08/21/17 11:50 68 17 125/67 100 Nasal Cannula 3.0 08/21/17 11:40 69 15 123/69 100 Nasal Cannula 3.0 08/21/17 11:35 98.0 74 14 116/70 100 Nasal Cannula 3.0 98.0 08/21/17 09:00 83 137/60 08/21/17 08:00 98.2 83 18 137/60 97 98.2 08/21/17 07:44 86 16 Room Air 21 08/21/17 04:00 98.2 76 18 151/67 97 Room Air 98.2 08/21/17 00:00 98.4 83 18 156/73 95 Room Air 98.4 08/20/17 20:43 98.8 78 17 135/59 96 Room Air 98.8 08/20/17 19:37 90 16 Room Air 21 08/20/17 16:00 88 19 143/75 94 Intake and Output 08/20/17 08/21/17 19:00 07:00 Intake Total 1810 ml 1120 ml Balance 1810 ml 1120 ml Intake Oral 700 ml IV Total 1110 ml 1120 ml # Voids 5 4 Laboratory Tests 08/21/17 09:27: White Blood Count 8.8, Red Blood Count 2.61L, Hemoglobin 7.8L, Hematocrit 23.4L , Mean Corpuscular Volume 90, Mean Corpuscular Hemoglobin 29.8, Mean Corpuscular Hemoglobin Concent 33.3, Red Cell Distribution Width 12.1, Platelet Count 98L, Mean Platelet Volume 7.5, Neutrophils (%) (Auto) , Lymphocytes (%) ( Auto) , Monocytes (%) (Auto) , Eosinophils (%) (Auto) , Basophils (%) (Auto) , Differential Total Cells Counted 100, Neutrophils % (Manual) 87H, Lymphocytes % (Manual) 6L, Monocytes % (Manual) 6, Eosinophils % (Manual) 1, Basophils % ( Manual) 0, Band Neutrophils 0, Platelet Estimate DecreasedL, Platelet Morphology Normal, Hypochromasia 3+, Anisocytosis 1+, Spherocytes 1+, Prothrombin Time 10.0, Prothromb Time International Ratio 1.0, Activated Partial Thromboplast Time 25, Sodium Level 145, Potassium Level 3.4L, Chloride Level 111H, Carbon Dioxide Level 21, Anion Gap 13, Blood Urea Nitrogen 50H, Creatinine 3.2H, Estimat Glomerular Filtration Rate 14.5, Glucose Level 125H, Calcium Level 8.0L, Total Bilirubin 4.5H, Direct Bilirubin 3.8H, Aspartate Amino Transf (AST/SGOT) 265H, Alanine Aminotransferase (ALT/SGPT) 619H, Alkaline Phosphatase 481H, Total Protein 5.3L, Albumin 2.2L, Hepatitis A IgM Antibody [Pending], Hepatitis B Surface Antigen [Pending], Hepatitis B Core IgM Antibody [Pending], Hepatitis C Antibody [Pending] Height (Feet): 5 Height (Inches): 1.00 Weight (Pounds): 140 General Appearance: lethargic EENT: normal ENT inspection Neck: normal alignment Cardiovascular: normal peripheral pulses, normal rate, regular rhythm Respiratory/Chest: chest wall non-tender, lungs clear, normal breath sounds Abdomen: normal bowel sounds, non tender, soft Extremities: normal inspection Edema: no edema noted Arm (L), no edema noted Arm (R), no edema noted Leg (L), no edema noted Leg (R), no edema noted Pedal (L), no edema noted Pedal (R), no edema noted Generalized Neurologic: motor weakness Skin: normal pigmentation, warm/dry Martin Hopper DO Aug 21, 2017 15:59
--- NOTE | 2017-08-21 16:32 | Consultation ---
History of Present Illness General Date patient seen: Aug 21, 2017 Chief Complaint: Abnormal Labs Referring physician: TASHA MEJIA Reason for Consultation: CHOLEDOCHOLITHIASIS Present Illness HPI 66F half-way resident presented with abnormal labs. was noted to have elevated LFT's and ultrasound performed identifying large CBD stone. surgery called to evaluate for choledocholithiasis. patient seen, chart reviewed, imaging reviewed. Allergies: Coded Allergies: No Known Allergies (Unverified , 08/19/17) Medication History Scheduled Amlodipine Besylate* (Amlodipine Besylate*), 10 MG ORAL DAILY, (Reported) Atorvastatin Calcium* (Atorvastatin Calcium*), 10 MG ORAL BEDTIME, (Reported) Bisacodyl* (Dulcolax*), 10 MG ORAL ONCE, (Reported) Clonidine Hcl* (Catapres*), 0.1 MG ORAL EVERY 6 HOURS, (Reported) Docusate Sodium* (Docusate Sodium*), 100 MG ORAL DAILY, (Reported) Insulin Glargine (Lantus), 12 SUBQ BEDTIME, (Reported) Magnesium Hydroxide* (Milk Of Magnesia*), 30 ML ORAL DAILY, (Reported) Patient History Limited by: medical condition History Provided By: Medical Record, PMD Healthcare decision maker Resuscitation status Full Code Advanced Directive on File No Past Medical/Surgical History Past Medical/Surgical History: (1) Diabetes mellitus (2) Hypertension (3) Advanced dementia (4) Hyperglycemia (5) Pyelonephritis (6) UTI (urinary tract infection) (7) Choledocholithiasis (8) Encounter for diagnostic endoscopy Review of Systems All Other Systems: negative except mentioned in HPI Physical Exam General Appearance: no apparent distress Lines, tubes and drains: peripheral HEENT: atraumatic Neck: normal inspection Respiratory/Chest: normal breath sounds, no respiratory distress Cardiovascular/Chest: normal rate Abdomen: normal bowel sounds, soft, no organomegaly, no mass Extremities: normal inspection Skin Exam: normal pigmentation Neurologic: alert Last 24 Hour Vital Signs Date Time Temp Pulse Resp B/P (MAP) Pulse Ox O2 Delivery O2 Flow Rate FiO2 08/21/17 12:35 71 100 08/21/17 12:32 208.4 72 14 100 08/21/17 12:30 98.3 69 15 125/64 100 Nasal Cannula 3.0 98.3 08/21/17 12:10 77 18 129/65 100 Nasal Cannula 3.0 08/21/17 11:58 71 14 127/69 100 Nasal Cannula 3.0 08/21/17 11:50 68 17 125/67 100 Nasal Cannula 3.0 08/21/17 11:40 69 15 123/69 100 Nasal Cannula 3.0 08/21/17 11:35 98.0 74 14 116/70 100 Nasal Cannula 3.0 98.0 08/21/17 09:00 83 137/60 08/21/17 08:00 98.2 83 18 137/60 97 98.2 08/21/17 07:44 86 16 Room Air 21 08/21/17 04:00 98.2 76 18 151/67 97 Room Air 98.2 08/21/17 00:00 98.4 83 18 156/73 95 Room Air 98.4 08/20/17 20:43 98.8 78 17 135/59 96 Room Air 98.8 08/20/17 19:37 90 16 Room Air 21 Intake and Output 08/20/17 08/21/17 19:00 07:00 Intake Total 1810 ml 1120 ml Balance 1810 ml 1120 ml Intake Oral 700 ml IV Total 1110 ml 1120 ml # Voids 5 4 Laboratory Tests Test 08/21/17 09:27 White Blood Count 8.8 K/UL (4.8-10.8) Red Blood Count 2.61 M/UL (4.20-5.40) L Hemoglobin 7.8 G/DL (12.0-16.0) L Hematocrit 23.4 % (37.0-47.0) L Mean Corpuscular Volume 90 FL (80-99) Mean Corpuscular Hemoglobin 29.8 PG (27.0-31.0) Mean Corpuscular Hemoglobin Concent 33.3 G/DL (32.0-36.0) Red Cell Distribution Width 12.1 % (11.6-14.8) Platelet Count 98 K/UL (150-450) L Mean Platelet Volume 7.5 FL (6.5-10.1) Neutrophils (%) (Auto) % (45.0-75.0) Lymphocytes (%) (Auto) % (20.0-45.0) Monocytes (%) (Auto) % (1.0-10.0) Eosinophils (%) (Auto) % (0.0-3.0) Basophils (%) (Auto) % (0.0-2.0) Differential Total Cells Counted 100 Neutrophils % (Manual) 87 % (45-75) H Lymphocytes % (Manual) 6 % (20-45) L Monocytes % (Manual) 6 % (1-10) Eosinophils % (Manual) 1 % (0-3) Basophils % (Manual) 0 % (0-2) Band Neutrophils 0 % (0-8) Platelet Estimate Decreased L Platelet Morphology Normal Hypochromasia 3+ Anisocytosis 1+ Spherocytes 1+ Prothrombin Time 10.0 SEC (9.30-11.50) Prothromb Time International Ratio 1.0 (0.9-1.1) Activated Partial Thromboplast Time 25 SEC (23-33) Sodium Level 145 MMOL/L (136-145) Potassium Level 3.4 MMOL/L (3.5-5.1) L Chloride Level 111 MMOL/L (98-107) H Carbon Dioxide Level 21 MMOL/L (21-32) Anion Gap 13 mmol/L (5-15) Blood Urea Nitrogen 50 mg/dL (7-18) H Creatinine 3.2 MG/DL (0.55-1.30) H Estimat Glomerular Filtration Rate 14.5 mL/min (>60) Glucose Level 125 MG/DL (74-106) H Calcium Level 8.0 MG/DL (8.5-10.1) L Total Bilirubin 4.5 MG/DL (0.2-1.0) H Direct Bilirubin 3.8 MG/DL (0.0-0.3) H Aspartate Amino Transf (AST/SGOT) 265 U/L (15-37) H Alanine Aminotransferase (ALT/SGPT) 619 U/L (12-78) H Alkaline Phosphatase 481 U/L (46-116) H Total Protein 5.3 G/DL (6.4-8.2) L Albumin 2.2 G/DL (3.4-5.0) L Hepatitis A IgM Antibody Pending Hepatitis B Surface Antigen Pending Hepatitis B Core IgM Antibody Pending Hepatitis C Antibody Pending Height (Feet): 5 Height (Inches): 1.00 Weight (Pounds): 140 Medications Current Medications Medications (Trade) Dose Ordered Sig/Jeff Route PRN Reason Start Time Stop Time Status Last Admin Dose Admin Acetaminophen (Tylenol) 650 mg Q4H PRN ORAL fever 08/19/17 19:59 09/18/17 19:58 Al Hydroxide/Mg Hydroxide (Mylanta II) 30 ml Q6H PRN ORAL dyspepsia 08/19/17 19:59 09/18/17 19:58 Albuterol/ Ipratropium (Albuterol/ Ipratropium) 3 ml Q4H PRN HHN Shortness of Breath 08/19/17 19:59 08/24/17 19:58 Amlodipine Besylate (Norvasc) 10 mg DAILY ORAL 08/20/17 09:00 09/19/17 08:59 08/20/17 09:30 Atorvastatin Calcium (Lipitor) 10 mg BEDTIME ORAL 08/19/17 21:00 09/18/17 20:59 08/19/17 22:07 Clonidine HCl (Catapres Tab) 0.1 mg Q4H PRN ORAL sbp more than 160 08/19/17 19:59 09/18/17 19:58 Dextrose (Dextrose 50%) 25 ml STAT PRN IV Hypoglycemia 08/20/17 08:00 09/19/17 07:59 Dextrose (Dextrose 50%) 50 ml STAT PRN IV Hypoglycemia 08/20/17 08:00 09/19/17 07:59 Insulin Aspart (NovoLOG) BEFORE MEALS AND HS SUBQ 08/19/17 21:00 09/18/17 20:59 08/21/17 06:36 Insulin Aspart (NovoLOG) 4 units NOVOTIAC SUBQ 08/20/17 11:50 09/19/17 11:49 08/20/17 11:58 Insulin Detemir (Levemir) 12 units DAILY SUBQ 08/20/17 09:00 09/19/17 08:59 08/20/17 10:13 Nitroglycerin (Ntg) 0.4 mg Q5M X 3 DOSES PRN SL Prn Chest Pain 08/19/17 20:01 09/18/17 20:00 Ondansetron HCl (Zofran) 4 mg Q6H PRN IVP Nausea & Vomiting 08/19/17 20:01 09/18/17 20:00 Piperacillin Sod/ Tazobactam Sod 2.25 gm/Sodium Chloride 110 ml @ 220 mls/hr EVERY 8 HOURS IVPB 08/19/17 22:00 08/26/17 21:59 08/21/17 05:19 Polyethylene Glycol (Miralax) 17 gm HSPRN PRN ORAL Constipation 08/19/17 21:00 09/18/17 20:59 Sodium Chloride 1,000 ml @ 100 mls/hr Q10H IVLG 08/19/17 20:30 09/18/17 20:29 08/21/17 03:26 Temazepam (Restoril) 15 mg HSPRN PRN ORAL Insomnia 08/19/17 21:00 08/26/17 20:59 08/19/17 22:59 Assessment/Plan Problem List: (1) Choledocholithiasis Assessment & Plan: 66F choledocholithiasis. large stone causing obstruction. elevated lft's and t bili. on ultrasound noted to have had prior cholecystectomy. either retained stone vs primary cbd stone. will need to obtain and review old notes. -ERCP today. awaiting results -trend labs -if cannot clear CBD endoscopically given size of stone, will need surgical common duct exploration. will follow with recs. thank you for this consultation. ICD Codes: K80.50 - Calculus of bile duct without cholangitis or cholecystitis without obstruction SNOMED: 829952279 Status: stable Giovani Lugo Aug 21, 2017 16:32
[2017-08-22] VITALS: BP 122/59
[2017-08-22 04:00] VITALS: BP 120/70
[2017-08-22] MEDS: Piperacillin/Tazobactam 2.25 GM in NS 110 ML IVPB SCH ×3 (05:50→22:00)
[2017-08-22] MEDS: NovoLOG Insulin Flexpen SUBQ SCH ×7 (05:52→21:00)
[2017-08-22 08:00] VITALS: BP 129/63
[2017-08-22] MEDS: Levemir Flexpen SUBQ SCH (08:22)
[2017-08-22 08:45] LABS: HEMATOCRIT 22.4 % (37.0-47.0); HEMOGLOBIN 7.6 G/DL (12.0-16.0); MEAN CORPUSCULAR VOLUME 90 FL (80-99); PLATELET COUNT 89 K/UL (150-450); RED BLOOD COUNT 2.49 M/UL (4.20-5.40); RED CELL DISTRIBUTION WIDTH 12.3 % (11.6-14.8); WHITE BLOOD COUNT 5.1 K/UL (4.8-10.8)
[2017-08-22 08:54] LABS: ALANINE AMINOTRANSFERASE 371 U/L (12-78); ALBUMIN 1.8 G/DL (3.4-5.0); ALBUMIN/GLOBULIN RATIO 0.5 (1.0-2.7); ALKALINE PHOSPHATASE 494 U/L (46-116); ANION GAP 13 mmol/L (5-15); ASPARTATE AMINO TRANSFERASE 167 U/L (15-37); BILIRUBIN,TOTAL 2.4 MG/DL (0.2-1.0); BLOOD UREA NITROGEN 47 mg/dL (7-18); CALCIUM 8.5 MG/DL (8.5-10.1); CARBON DIOXIDE 20 MMOL/L (21-32); CHLORIDE 114 MMOL/L (98-107); CREATININE 3.2 MG/DL (0.55-1.30); SODIUM 147 MMOL/L (136-145)
[2017-08-22 09:02] LABS: AMYLASE 154 U/L (25-115)
[2017-08-22 09:07] LABS: BILIRUBIN,DIRECT 2.1 MG/DL (0.0-0.3); PHOSPHORUS 3.2 MG/DL (2.5-4.9)
--- NOTE | 2017-08-22 09:07 | Nephrology Progress Note ---
Assessment/Plan Assessment/Plan 1. CORRY on CKD 4- Cr down to 3.2 and stable. Right kidney could not be visulaized by US - continue IVFs and avoid nephrotoxins (Toradol stopped) 2. Choledocholithiasis- ERCP, mgmpt per PCP and general surgery 3. Dehydration- continue IVF's and change to hypotonic solution 4. HTN- stable Subjective Date patient seen: Aug 22, 2017 Time patient seen: 09:05 ROS Limited/Unobtainable: Yes Gastrointestinal/Abdominal: Reports: abdominal pain Allergies: Coded Allergies: No Known Allergies (Unverified , 08/19/17) All Systems: reviewed and negative except above Subjective Patient oriented to one sphere. In no acute distress and resting comfortably Objective Last 24 Hour Vital Signs Date Time Temp Pulse Resp B/P (MAP) Pulse Ox O2 Delivery O2 Flow Rate FiO2 08/22/17 08:20 72 129/63 08/22/17 08:00 98.6 75 18 129/63 98 Room Air 98.6 08/22/17 07:37 80 16 Room Air 21 08/22/17 04:00 Room Air 08/22/17 04:00 98.0 75 17 120/70 98 98.0 08/22/17 00:00 97.9 71 17 122/59 97.9 08/22/17 00:00 97 Room Air 08/21/17 20:26 98 Room Air 08/21/17 20:25 98.2 81 16 138/70 98.2 08/21/17 18:00 76 16 Room Air 21 08/21/17 16:00 97.9 83 18 142/79 99 97.9 08/21/17 12:35 71 100 08/21/17 12:32 208.4 72 14 100 08/21/17 12:30 98.3 69 15 125/64 100 Nasal Cannula 3.0 98.3 08/21/17 12:10 77 18 129/65 100 Nasal Cannula 3.0 08/21/17 11:58 71 14 127/69 100 Nasal Cannula 3.0 08/21/17 11:50 68 17 125/67 100 Nasal Cannula 3.0 08/21/17 11:40 69 15 123/69 100 Nasal Cannula 3.0 08/21/17 11:35 98.0 74 14 116/70 100 Nasal Cannula 3.0 98.0 Intake and Output 08/21/17 08/22/17 19:00 07:00 Intake Total 590 ml 1380 ml Balance 590 ml 1380 ml Intake Oral 90 ml 360 ml IV Total 500 ml 1020 ml # Voids 3 3 Laboratory Tests 08/21/17 09:27: White Blood Count 8.8, Red Blood Count 2.61L, Hemoglobin 7.8L, Hematocrit 23.4L , Mean Corpuscular Volume 90, Mean Corpuscular Hemoglobin 29.8, Mean Corpuscular Hemoglobin Concent 33.3, Red Cell Distribution Width 12.1, Platelet Count 98L, Mean Platelet Volume 7.5, Neutrophils (%) (Auto) , Lymphocytes (%) ( Auto) , Monocytes (%) (Auto) , Eosinophils (%) (Auto) , Basophils (%) (Auto) , Differential Total Cells Counted 100, Neutrophils % (Manual) 87H, Lymphocytes % (Manual) 6L, Monocytes % (Manual) 6, Eosinophils % (Manual) 1, Basophils % ( Manual) 0, Band Neutrophils 0, Platelet Estimate DecreasedL, Platelet Morphology Normal, Hypochromasia 3+, Anisocytosis 1+, Spherocytes 1+, Prothrombin Time 10.0, Prothromb Time International Ratio 1.0, Activated Partial Thromboplast Time 25, Sodium Level 145, Potassium Level 3.4L, Chloride Level 111H, Carbon Dioxide Level 21, Anion Gap 13, Blood Urea Nitrogen 50H, Creatinine 3.2H, Estimat Glomerular Filtration Rate 14.5, Glucose Level 125H, Calcium Level 8.0L, Total Bilirubin 4.5H, Direct Bilirubin 3.8H, Aspartate Amino Transf (AST/SGOT) 265H, Alanine Aminotransferase (ALT/SGPT) 619H, Alkaline Phosphatase 481H, Total Protein 5.3L, Albumin 2.2L, Hepatitis A IgM Antibody [Pending], Hepatitis B Surface Antigen [Pending], Hepatitis B Core IgM Antibody [Pending], Hepatitis C Antibody [Pending] 08/22/17 06:20: White Blood Count [Pending], Red Blood Count [Pending], Hemoglobin [Pending], Hematocrit [Pending], Mean Corpuscular Volume [Pending], Mean Corpuscular Hemoglobin [Pending], Mean Corpuscular Hemoglobin Concent [Pending], Red Cell Distribution Width [Pending], Platelet Count [Pending], Mean Platelet Volume [ Pending], Neutrophils (%) (Auto) [Pending], Lymphocytes (%) (Auto) [Pending], Monocytes (%) (Auto) [Pending], Eosinophils (%) (Auto) [Pending], Basophils (%) (Auto) [Pending], Sodium Level 147H, Potassium Level 4.0, Chloride Level 114H, Carbon Dioxide Level 20L, Anion Gap 13, Blood Urea Nitrogen 47H, Creatinine 3.2H , Estimat Glomerular Filtration Rate 14.5, Glucose Level 140H, Calcium Level 8.5 , Total Bilirubin 2.4H, Direct Bilirubin [Pending], Aspartate Amino Transf (AST/ SGOT) 167H, Alanine Aminotransferase (ALT/SGPT) 371H, Alkaline Phosphatase 494H , Total Protein 5.5L, Albumin 1.8L, Hepatitis A IgM Antibody [Pending], Hepatitis B Surface Antigen [Pending], Hepatitis B Core IgM Antibody [Pending], Hepatitis C Antibody [Pending], Phosphorus Level [Pending], Magnesium Level [ Pending], Globulin 3.7, Albumin/Globulin Ratio 0.5L, Amylase Level [Pending], Lipase [Pending] Height (Feet): 5 Height (Inches): 1.00 Weight (Pounds): 140 General Appearance: no apparent distress, alert EENT: normal ENT inspection, TMs normal Neck: supple Cardiovascular: normal rate, regular rhythm Respiratory/Chest: lungs clear, normal breath sounds Abdomen: non tender, soft Edema: no edema noted Arm (L), no edema noted Arm (R), no edema noted Leg (L), no edema noted Leg (R), no edema noted Pedal (L), no edema noted Pedal (R), no edema noted Generalized Kush Blackburn M.D. Aug 22, 2017 09:07
--- NOTE | 2017-08-22 09:26 | General Progress Note ---
Assessment/Plan Problem List: (1) Cholangitis ICD Codes: K83.0 - Cholangitis SNOMED: 64922441 (2) Anemia ICD Codes: D64.9 - Anemia, unspecified SNOMED: 854722394 (3) Renal insufficiency ICD Codes: N28.9 - Disorder of kidney and ureter, unspecified SNOMED: 822129568, 024375903 (4) Diabetes mellitus ICD Codes: E11.9 - Type 2 diabetes mellitus without complications SNOMED: 96995514 (5) Hypertension ICD Codes: I10 - Essential (primary) hypertension SNOMED: 92443480 (6) Advanced dementia ICD Codes: F03.90 - Unspecified dementia without behavioral disturbance SNOMED: 01929653 (7) Choledocholithiasis ICD Codes: K80.50 - Calculus of bile duct without cholangitis or cholecystitis without obstruction SNOMED: 418505066 (8) Pancreatitis ICD Codes: K85.90 - Acute pancreatitis without necrosis or infection, unspecified SNOMED: 22193835 Assessment/Plan s/p ERCP and stenting improved LFTS post ERCP pancreatitis clears abx fu labs ivf pain control DM control fu nephrology anemia work up Subjective ROS Limited/Unobtainable: No Allergies: Coded Allergies: No Known Allergies (Unverified , 08/19/17) Objective Last 24 Hour Vital Signs Date Time Temp Pulse Resp B/P (MAP) Pulse Ox O2 Delivery O2 Flow Rate FiO2 08/22/17 08:20 72 129/63 08/22/17 08:00 98.6 75 18 129/63 98 Room Air 98.6 08/22/17 07:37 80 16 Room Air 21 08/22/17 04:00 Room Air 08/22/17 04:00 98.0 75 17 120/70 98 98.0 08/22/17 00:00 97.9 71 17 122/59 97.9 08/22/17 00:00 97 Room Air 08/21/17 20:26 98 Room Air 08/21/17 20:25 98.2 81 16 138/70 98.2 08/21/17 18:00 76 16 Room Air 21 08/21/17 16:00 97.9 83 18 142/79 99 97.9 08/21/17 12:35 71 100 08/21/17 12:32 208.4 72 14 100 08/21/17 12:30 98.3 69 15 125/64 100 Nasal Cannula 3.0 98.3 08/21/17 12:10 77 18 129/65 100 Nasal Cannula 3.0 08/21/17 11:58 71 14 127/69 100 Nasal Cannula 3.0 08/21/17 11:50 68 17 125/67 100 Nasal Cannula 3.0 08/21/17 11:40 69 15 123/69 100 Nasal Cannula 3.0 08/21/17 11:35 98.0 74 14 116/70 100 Nasal Cannula 3.0 98.0 Intake and Output 08/21/17 08/22/17 19:00 07:00 Intake Total 590 ml 1380 ml Balance 590 ml 1380 ml Intake Oral 90 ml 360 ml IV Total 500 ml 1020 ml # Voids 3 3 Laboratory Tests 08/21/17 09:27: White Blood Count 8.8, Red Blood Count 2.61L, Hemoglobin 7.8L, Hematocrit 23.4L , Mean Corpuscular Volume 90, Mean Corpuscular Hemoglobin 29.8, Mean Corpuscular Hemoglobin Concent 33.3, Red Cell Distribution Width 12.1, Platelet Count 98L, Mean Platelet Volume 7.5, Neutrophils (%) (Auto) , Lymphocytes (%) ( Auto) , Monocytes (%) (Auto) , Eosinophils (%) (Auto) , Basophils (%) (Auto) , Differential Total Cells Counted 100, Neutrophils % (Manual) 87H, Lymphocytes % (Manual) 6L, Monocytes % (Manual) 6, Eosinophils % (Manual) 1, Basophils % ( Manual) 0, Band Neutrophils 0, Platelet Estimate DecreasedL, Platelet Morphology Normal, Hypochromasia 3+, Anisocytosis 1+, Spherocytes 1+, Prothrombin Time 10.0, Prothromb Time International Ratio 1.0, Activated Partial Thromboplast Time 25, Sodium Level 145, Potassium Level 3.4L, Chloride Level 111H, Carbon Dioxide Level 21, Anion Gap 13, Blood Urea Nitrogen 50H, Creatinine 3.2H, Estimat Glomerular Filtration Rate 14.5, Glucose Level 125H, Calcium Level 8.0L, Total Bilirubin 4.5H, Direct Bilirubin 3.8H, Aspartate Amino Transf (AST/SGOT) 265H, Alanine Aminotransferase (ALT/SGPT) 619H, Alkaline Phosphatase 481H, Total Protein 5.3L, Albumin 2.2L, Hepatitis A IgM Antibody Negative, Hepatitis B Surface Antigen Negative, Hepatitis B Core IgM Antibody Negative, Hepatitis C Antibody 0.1 08/22/17 06:20: White Blood Count 5.1, Red Blood Count 2.49L, Hemoglobin 7.6L, Hematocrit 22.4L , Mean Corpuscular Volume 90, Mean Corpuscular Hemoglobin 30.4, Mean Corpuscular Hemoglobin Concent 33.8, Red Cell Distribution Width 12.3, Platelet Count 89L, Mean Platelet Volume 8.3, Neutrophils (%) (Auto) , Lymphocytes (%) ( Auto) , Monocytes (%) (Auto) , Eosinophils (%) (Auto) , Basophils (%) (Auto) , Neutrophils % (Manual) [Pending], Lymphocytes % (Manual) [Pending], Platelet Estimate [Pending], Platelet Morphology [Pending], Sodium Level 147H, Potassium Level 4.0, Chloride Level 114H, Carbon Dioxide Level 20L, Anion Gap 13, Blood Urea Nitrogen 47H, Creatinine 3.2H, Estimat Glomerular Filtration Rate 14.5, Glucose Level 140H, Calcium Level 8.5, Total Bilirubin 2.4H, Direct Bilirubin 2.1H, Aspartate Amino Transf (AST/SGOT) 167H, Alanine Aminotransferase (ALT/SGPT ) 371H, Alkaline Phosphatase 494H, Total Protein 5.5L, Albumin 1.8L, Hepatitis A IgM Antibody [Pending], Hepatitis B Surface Antigen [Pending], Hepatitis B Core IgM Antibody [Pending], Hepatitis C Antibody [Pending], Phosphorus Level 3.2, Magnesium Level 2.3, Globulin 3.7, Albumin/Globulin Ratio 0.5L, Amylase Level 154H, Lipase 881H Height (Feet): 5 Height (Inches): 1.00 Weight (Pounds): 140 General Appearance: confused EENT: normal ENT inspection Neck: supple Cardiovascular: normal rate Respiratory/Chest: decreased breath sounds Abdomen: normal bowel sounds, non tender, soft Extremities: non-tender Blaise Hernandez MD Aug 22, 2017 09:26
--- NOTE | 2017-08-22 09:29 | General Progress Note ---
Assessment/Plan Problem List: (1) Diabetes mellitus ICD Codes: E11.9 - Type 2 diabetes mellitus without complications SNOMED: 28207503 (2) Hypertension ICD Codes: I10 - Essential (primary) hypertension SNOMED: 78056016 (3) Advanced dementia ICD Codes: F03.90 - Unspecified dementia without behavioral disturbance SNOMED: 24825098 (4) Hyperglycemia ICD Codes: R73.9 - Hyperglycemia, unspecified SNOMED: 09324107 (5) Pyelonephritis ICD Codes: N12 - Tubulo-interstitial nephritis, not specified as acute or chronic SNOMED: 06292195 (6) UTI (urinary tract infection) ICD Codes: N39.0 - Urinary tract infection, site not specified SNOMED: 47197273 (7) Choledocholithiasis ICD Codes: K80.50 - Calculus of bile duct without cholangitis or cholecystitis without obstruction SNOMED: 233629299 Status: stable, progressing Assessment/Plan ot pt diet bp bs pain control gi f/u cbc bmp am psyc transfer Subjective Constitutional: Reports: weakness Allergies: Coded Allergies: No Known Allergies (Unverified , 08/19/17) All Systems: reviewed and negative except above Subjective sl agitated Objective Last 24 Hour Vital Signs Date Time Temp Pulse Resp B/P (MAP) Pulse Ox O2 Delivery O2 Flow Rate FiO2 08/22/17 08:20 72 129/63 08/22/17 08:00 98.6 75 18 129/63 98 Room Air 98.6 08/22/17 07:37 80 16 Room Air 21 08/22/17 04:00 Room Air 08/22/17 04:00 98.0 75 17 120/70 98 98.0 08/22/17 00:00 97.9 71 17 122/59 97.9 08/22/17 00:00 97 Room Air 08/21/17 20:26 98 Room Air 08/21/17 20:25 98.2 81 16 138/70 98.2 08/21/17 18:00 76 16 Room Air 21 08/21/17 16:00 97.9 83 18 142/79 99 97.9 08/21/17 12:35 71 100 08/21/17 12:32 208.4 72 14 100 08/21/17 12:30 98.3 69 15 125/64 100 Nasal Cannula 3.0 98.3 08/21/17 12:10 77 18 129/65 100 Nasal Cannula 3.0 08/21/17 11:58 71 14 127/69 100 Nasal Cannula 3.0 08/21/17 11:50 68 17 125/67 100 Nasal Cannula 3.0 08/21/17 11:40 69 15 123/69 100 Nasal Cannula 3.0 08/21/17 11:35 98.0 74 14 116/70 100 Nasal Cannula 3.0 98.0 Intake and Output 08/21/17 08/22/17 19:00 07:00 Intake Total 590 ml 1380 ml Balance 590 ml 1380 ml Intake Oral 90 ml 360 ml IV Total 500 ml 1020 ml # Voids 3 3 Laboratory Tests 08/22/17 06:20: White Blood Count 5.1, Red Blood Count 2.49L, Hemoglobin 7.6L, Hematocrit 22.4L , Mean Corpuscular Volume 90, Mean Corpuscular Hemoglobin 30.4, Mean Corpuscular Hemoglobin Concent 33.8, Red Cell Distribution Width 12.3, Platelet Count 89L, Mean Platelet Volume 8.3, Neutrophils (%) (Auto) , Lymphocytes (%) ( Auto) , Monocytes (%) (Auto) , Eosinophils (%) (Auto) , Basophils (%) (Auto) , Neutrophils % (Manual) [Pending], Lymphocytes % (Manual) [Pending], Platelet Estimate [Pending], Platelet Morphology [Pending], Sodium Level 147H, Potassium Level 4.0, Chloride Level 114H, Carbon Dioxide Level 20L, Anion Gap 13, Blood Urea Nitrogen 47H, Creatinine 3.2H, Estimat Glomerular Filtration Rate 14.5, Glucose Level 140H, Calcium Level 8.5, Phosphorus Level 3.2, Magnesium Level 2.3 , Total Bilirubin 2.4H, Direct Bilirubin 2.1H, Aspartate Amino Transf (AST/SGOT ) 167H, Alanine Aminotransferase (ALT/SGPT) 371H, Alkaline Phosphatase 494H, Total Protein 5.5L, Albumin 1.8L, Globulin 3.7, Albumin/Globulin Ratio 0.5L, Amylase Level 154H, Lipase 881H, Thyroid Stimulating Hormone (TSH) [Pending], Hepatitis A IgM Antibody [Pending], Hepatitis B Surface Antigen [Pending], Hepatitis B Core IgM Antibody [Pending], Hepatitis C Antibody [Pending] Height (Feet): 5 Height (Inches): 1.00 Weight (Pounds): 140 General Appearance: confused EENT: normal ENT inspection Neck: normal alignment Cardiovascular: normal peripheral pulses, normal rate, regular rhythm Respiratory/Chest: chest wall non-tender, lungs clear, normal breath sounds Abdomen: normal bowel sounds, non tender, soft Extremities: normal inspection Edema: no edema noted Arm (L), no edema noted Arm (R), no edema noted Leg (L), no edema noted Leg (R), no edema noted Pedal (L), no edema noted Pedal (R), no edema noted Generalized Neurologic: motor weakness Skin: normal pigmentation, warm/dry Martin Hopper DO Aug 22, 2017 09:29
[2017-08-22] MEDS ORDERED: Pneumococcal Vaccine 25mcg/0.5ml IM ONE (10:00)
--- NOTE | 2017-08-22 11:34 | Pulmonology Progress Note ---
Assessment/Plan Assessment/Plan ASSESSMENT Sepsis secondary to cholangitis Choledocholithiasis Status post ERCP on 08/21 Probable UTI with Proteus Acute kidney injury on chronic kidney disease stage IV Dehydration Anemia Diabetes mellitus Pancreatitis PLAN OF CARE Med Surg floor abdominal ultrasound with evidence of choledocholithiasis with 14 x 8 calculus within the common bile duct and evidence of prior cholecystectomy GI and surgery follow Status post ERCP with removal of migrated stent, removal of multiply stones, sphincterectomy and re-stenting On ERCP patient had evidence of acute cholangitis with pus coming out from the common bile duct. Monitor bilirubin, LFT, lipase bilirubin trending down hepatitis panel negative Antibiotic ID follows Urine culture + Proteus, blood culture preliminary negative, follow-up with the biliary fluid culture Ski Topper follows hemoglobin A1c 7.8 ,not at goal blood sugar management with long-acting Levemir, pre-meal short acting NovoLog and Starlix Senior Web Analyst follows According to coordinator of rehabilitation services, patient had acute kidney injury on chronic kidney disease stage IV, probably secondary to dehydration and sepsis IV hydration creatinine from 3.6 down to 3.2 closely monitor renal parameters, e/lytes, replace e/lytes as needed, avoid nephrotoxic blood pressure management with calcium channel chaz and clonidine when necessary , stable anemia workup transfuse when necessary with goal to keep hemoglobin above 7 PT/OT patient will need stent removal as outpatient in 4-6 weeks case discussed and evaluated by supervising physician Subjective Allergies: Coded Allergies: No Known Allergies (Unverified , 08/19/17) Subjective afebrile, no leucocytosis no signs of resp distress HH trending down Objective Last 24 Hour Vital Signs Date Time Temp Pulse Resp B/P (MAP) Pulse Ox O2 Delivery O2 Flow Rate FiO2 08/22/17 08:20 72 129/63 08/22/17 08:00 98.6 75 18 129/63 98 Room Air 98.6 08/22/17 07:37 80 16 Room Air 21 08/22/17 04:00 Room Air 08/22/17 04:00 98.0 75 17 120/70 98 98.0 08/22/17 00:00 97.9 71 17 122/59 97.9 08/22/17 00:00 97 Room Air 08/21/17 20:26 98 Room Air 08/21/17 20:25 98.2 81 16 138/70 98.2 08/21/17 18:00 76 16 Room Air 21 08/21/17 16:00 97.9 83 18 142/79 99 97.9 08/21/17 12:35 71 100 08/21/17 12:32 208.4 72 14 100 08/21/17 12:30 98.3 69 15 125/64 100 Nasal Cannula 3.0 98.3 08/21/17 12:10 77 18 129/65 100 Nasal Cannula 3.0 08/21/17 11:58 71 14 127/69 100 Nasal Cannula 3.0 08/21/17 11:50 68 17 125/67 100 Nasal Cannula 3.0 08/21/17 11:40 69 15 123/69 100 Nasal Cannula 3.0 08/21/17 11:35 98.0 74 14 116/70 100 Nasal Cannula 3.0 98.0 Intake and Output 08/21/17 08/22/17 19:00 07:00 Intake Total 590 ml 1380 ml Balance 590 ml 1380 ml Intake Oral 90 ml 360 ml IV Total 500 ml 1020 ml # Voids 3 3 General Appearance: no acute distress HEENT: normocephalic, atraumatic, anicteric, mucous membranes moist Respiratory/Chest: lungs clear, no accessory muscle use Cardiovascular: normal rate, no JVD Abdomen: normal bowel sounds, no organomegaly Extremities: no edema, pedal pulses normal Neurologic/Psychiatric: alert - confused, responsive Microbiology Date/Time Source Procedure Growth Status 08/20/17 17:45 Blood Blood Culture - Preliminary NO GROWTH AFTER 24 HOURS Resulted 08/20/17 17:30 Blood Blood Culture - Preliminary NO GROWTH AFTER 24 HOURS Resulted 08/19/17 18:20 Nasal Nares MRSA Culture - Final NO METHICILLIN RESISTANT STAPH AUREUS... Complete 08/19/17 15:50 Urine,Clean Catch Urine Culture - Final Proteus Mirabilis Complete 08/21/17 11:15 Bile Duct Gram Stain - Final Resulted 08/21/17 11:15 Bile Duct Aerobic Culture Pending Resulted 08/19/17 18:20 Rectum VRE Culture - Final Enterococcus Faecium - Vre Complete Laboratory Tests 08/22/17 06:20: White Blood Count 5.1, Red Blood Count 2.49L, Hemoglobin 7.6L, Hematocrit 22.4L , Mean Corpuscular Volume 90, Mean Corpuscular Hemoglobin 30.4, Mean Corpuscular Hemoglobin Concent 33.8, Red Cell Distribution Width 12.3, Platelet Count 89L, Mean Platelet Volume 8.3, Neutrophils (%) (Auto) , Lymphocytes (%) ( Auto) , Monocytes (%) (Auto) , Eosinophils (%) (Auto) , Basophils (%) (Auto) , Neutrophils % (Manual) [Pending], Lymphocytes % (Manual) [Pending], Platelet Estimate [Pending], Platelet Morphology [Pending], Sodium Level 147H, Potassium Level 4.0, Chloride Level 114H, Carbon Dioxide Level 20L, Anion Gap 13, Blood Urea Nitrogen 47H, Creatinine 3.2H, Estimat Glomerular Filtration Rate 14.5, Glucose Level 140H, Calcium Level 8.5, Phosphorus Level 3.2, Magnesium Level 2.3 , Total Bilirubin 2.4H, Direct Bilirubin 2.1H, Aspartate Amino Transf (AST/SGOT ) 167H, Alanine Aminotransferase (ALT/SGPT) 371H, Alkaline Phosphatase 494H, Total Protein 5.5L, Albumin 1.8L, Globulin 3.7, Albumin/Globulin Ratio 0.5L, Amylase Level 154H, Lipase 881H, Thyroid Stimulating Hormone (TSH) 0.187L, Hepatitis A IgM Antibody [Pending], Hepatitis B Surface Antigen [Pending], Hepatitis B Core IgM Antibody [Pending], Hepatitis C Antibody [Pending] Current Medications Medications (Trade) Dose Ordered Sig/Jeff Route PRN Reason Start Time Stop Time Status Last Admin Dose Admin Acetaminophen (Tylenol) 650 mg Q4H PRN ORAL fever 08/19/17 19:59 09/18/17 19:58 Al Hydroxide/Mg Hydroxide (Mylanta II) 30 ml Q6H PRN ORAL dyspepsia 08/19/17 19:59 09/18/17 19:58 Albuterol/ Ipratropium (Albuterol/ Ipratropium) 3 ml Q4H PRN HHN Shortness of Breath 08/19/17 19:59 08/24/17 19:58 Amlodipine Besylate (Norvasc) 10 mg DAILY ORAL 08/20/17 09:00 09/19/17 08:59 08/22/17 08:20 Atorvastatin Calcium (Lipitor) 10 mg BEDTIME ORAL 08/19/17 21:00 09/18/17 20:59 08/21/17 20:27 Clonidine HCl (Catapres Tab) 0.1 mg Q4H PRN ORAL sbp more than 160 08/19/17 19:59 09/18/17 19:58 Dextrose (Dextrose 50%) 25 ml STAT PRN IV Hypoglycemia 08/20/17 08:00 09/19/17 07:59 Dextrose (Dextrose 50%) 50 ml STAT PRN IV Hypoglycemia 08/20/17 08:00 09/19/17 07:59 Insulin Aspart (NovoLOG) BEFORE MEALS AND HS SUBQ 08/19/17 21:00 09/18/17 20:59 08/22/17 05:52 Insulin Aspart (NovoLOG) 4 units NOVOTIAC SUBQ 08/20/17 11:50 09/19/17 11:49 08/22/17 05:52 Insulin Detemir (Levemir) 12 units DAILY SUBQ 08/20/17 09:00 09/19/17 08:59 08/22/17 08:22 Lorazepam (Ativan) 1 mg Q6H PRN ORAL For Anxiety 08/21/17 18:15 08/28/17 18:14 Nitroglycerin (Ntg) 0.4 mg Q5M X 3 DOSES PRN SL Prn Chest Pain 08/19/17 20:01 09/18/17 20:00 Ondansetron HCl (Zofran) 4 mg Q6H PRN IVP Nausea & Vomiting 08/19/17 20:01 09/18/17 20:00 Piperacillin Sod/ Tazobactam Sod 2.25 gm/Sodium Chloride 110 ml @ 220 mls/hr EVERY 8 HOURS IVPB 08/19/17 22:00 08/26/17 21:59 08/22/17 05:50 Polyethylene Glycol (Miralax) 17 gm HSPRN PRN ORAL Constipation 08/19/17 21:00 09/18/17 20:59 Sodium Chloride 1,000 ml @ 75 mls/hr [id number] IV 08/22/17 09:15 09/21/17 09:14 08/22/17 09:15 Temazepam (Restoril) 15 mg HSPRN PRN ORAL Insomnia 08/19/17 21:00 08/26/17 20:59 08/19/17 22:59 Sharyn Patino MATERIAL REPROCESSING ASSOCIATE Aug 22, 2017 11:34
[2017-08-22 12:00] VITALS: BP 124/62
--- NOTE | 2017-08-22 12:43 | General Surgery Progress Note ---
General Surgery-Progress Note Subjective Symptoms: improved, pain absent Objective Last 24 Hour Vital Signs Date Time Temp Pulse Resp B/P (MAP) Pulse Ox O2 Delivery O2 Flow Rate FiO2 08/22/17 08:20 72 129/63 08/22/17 08:00 98.6 75 18 129/63 98 Room Air 98.6 08/22/17 07:37 80 16 Room Air 21 08/22/17 04:00 Room Air 08/22/17 04:00 98.0 75 17 120/70 98 98.0 08/22/17 00:00 97.9 71 17 122/59 97.9 08/22/17 00:00 97 Room Air 08/21/17 20:26 98 Room Air 08/21/17 20:25 98.2 81 16 138/70 98.2 08/21/17 18:00 76 16 Room Air 21 08/21/17 16:00 97.9 83 18 142/79 99 97.9 I&O Intake and Output 08/21/17 08/22/17 18:59 06:59 Intake Total 490 ml 1480 ml Balance 490 ml 1480 ml Intake Oral 90 ml 360 ml IV Total 400 ml 1120 ml # Voids 3 3 Cardiovascular: RSR Respiratory: clear Abdomen: soft, flat, non-tender, present bowel sounds Extremities: no edema, no tenderness Laboratory Tests Test 08/22/17 06:20 White Blood Count 5.1 K/UL (4.8-10.8) Red Blood Count 2.49 M/UL (4.20-5.40) L Hemoglobin 7.6 G/DL (12.0-16.0) L Hematocrit 22.4 % (37.0-47.0) L Mean Corpuscular Volume 90 FL (80-99) Mean Corpuscular Hemoglobin 30.4 PG (27.0-31.0) Mean Corpuscular Hemoglobin Concent 33.8 G/DL (32.0-36.0) Red Cell Distribution Width 12.3 % (11.6-14.8) Platelet Count 89 K/UL (150-450) L Mean Platelet Volume 8.3 FL (6.5-10.1) Neutrophils (%) (Auto) % (45.0-75.0) Lymphocytes (%) (Auto) % (20.0-45.0) Monocytes (%) (Auto) % (1.0-10.0) Eosinophils (%) (Auto) % (0.0-3.0) Basophils (%) (Auto) % (0.0-2.0) Neutrophils % (Manual) Pending Lymphocytes % (Manual) Pending Platelet Estimate Pending Platelet Morphology Pending Sodium Level 147 MMOL/L (136-145) H Potassium Level 4.0 MMOL/L (3.5-5.1) Chloride Level 114 MMOL/L (98-107) H Carbon Dioxide Level 20 MMOL/L (21-32) L Anion Gap 13 mmol/L (5-15) Blood Urea Nitrogen 47 mg/dL (7-18) H Creatinine 3.2 MG/DL (0.55-1.30) H Estimat Glomerular Filtration Rate 14.5 mL/min (>60) Glucose Level 140 MG/DL (74-106) H Calcium Level 8.5 MG/DL (8.5-10.1) Phosphorus Level 3.2 MG/DL (2.5-4.9) Magnesium Level 2.3 MG/DL (1.8-2.4) Total Bilirubin 2.4 MG/DL (0.2-1.0) H Direct Bilirubin 2.1 MG/DL (0.0-0.3) H Aspartate Amino Transf (AST/SGOT) 167 U/L (15-37) H Alanine Aminotransferase (ALT/SGPT) 371 U/L (12-78) H Alkaline Phosphatase 494 U/L (46-116) H Total Protein 5.5 G/DL (6.4-8.2) L Albumin 1.8 G/DL (3.4-5.0) L Globulin 3.7 g/dL Albumin/Globulin Ratio 0.5 (1.0-2.7) L Amylase Level 154 U/L (25-115) H Lipase 881 U/L (73-393) H Thyroid Stimulating Hormone (TSH) 0.187 uiU/mL (0.358-3.740) Hepatitis A IgM Antibody Pending Hepatitis B Surface Antigen Pending Hepatitis B Core IgM Antibody Pending Hepatitis C Antibody Pending Plan Problems: (1) Choledocholithiasis Assessment & Plan: 66F choledocholithiasis. large stone causing obstruction. elevated lft's and t bili. on ultrasound noted to have had prior cholecystectomy. either retained stone vs primary cbd stone. will need to obtain and review old notes. s/p ERCP with extraction of stones. -no acute surgical intervention necessary. -trend labs -diet as tolerated will follow with recs. thank you for this consultation. Giovani Lugo Aug 22, 2017 12:43
[2017-08-22 16:00] VITALS: BP 141/68
[2017-08-22 20:47] VITALS: BP 151/75
[2017-08-23] VITALS (7 sets, daily range): BP systolic 125–151; BP diastolic 71–85
[2017-08-23] MEDS: Piperacillin/Tazobactam 2.25 GM in NS 110 ML IVPB SCH (05:11)
[2017-08-23] MEDS: NovoLOG Insulin Flexpen SUBQ SCH ×7 (06:28→21:04)
--- NOTE | 2017-08-23 07:31 | Pulmonology Progress Note ---
Assessment/Plan Assessment/Plan ASSESSMENT Sepsis secondary to cholangitis Choledocholithiasis Status post ERCP on 08/21 Probable UTI with Proteus Acute kidney injury on chronic kidney disease stage IV Dehydration Anemia Diabetes mellitus Pancreatitis PLAN OF CARE Med Surg floor abdominal ultrasound with evidence of choledocholithiasis with 14 x 8 calculus within the common bile duct and evidence of prior cholecystectomy GI and surgery follow Status post ERCP with removal of migrated stent, removal of multiply stones, sphincterectomy and re-stenting On ERCP patient had evidence of acute cholangitis with pus coming out from the common bile duct. Monitor bilirubin, LFT, lipase bilirubin trending down hepatitis panel negative Antibiotic ID follows Urine culture + Proteus, blood culture preliminary negative, biliary fluid culture-GNB 2 dif species, Strep gamma hemolytic Revenue Accountant follows hemoglobin A1c 7.8 ,not at goal blood sugar management with long-acting Levemir, pre-meal short acting NovoLog and Starlix Forepart Rasper follows According to ton cylinder inspector, patient had acute kidney injury on chronic kidney disease stage IV, probably secondary to dehydration and sepsis IV hydration creatinine trending down closely monitor renal parameters, e/lytes, replace e/lytes as needed, avoid nephrotoxic blood pressure management with calcium channel chaz and clonidine when necessary , stable anemia workupc/w anemia of chronic disease transfuse when necessary with goal to keep hemoglobin above 7 PT/OT patient will need stent removal as outpatient in 4-6 weeks case discussed and evaluated by supervising physician Subjective Allergies: Coded Allergies: No Known Allergies (Unverified , 08/19/17) Subjective afebrile, no leucocytosis no signs of resp distress HH stable crest trending down Objective Last 24 Hour Vital Signs Date Time Temp Pulse Resp B/P (MAP) Pulse Ox O2 Delivery O2 Flow Rate FiO2 08/23/17 04:36 98.4 86 18 142/85 99 Room Air 98.4 08/23/17 03:04 77 20 99 Room Air 21 08/23/17 02:56 72 20 97 Room Air 21 08/23/17 00:46 98.9 76 18 151/71 96 Room Air 98.9 08/22/17 20:47 98.4 93 18 151/75 94 Room Air 98.4 08/22/17 20:08 77 16 Room Air 21 08/22/17 16:00 98.4 78 18 141/68 95 Room Air 98.4 08/22/17 12:00 97.2 70 18 124/62 95 97.2 08/22/17 12:00 Room Air 08/22/17 08:20 72 129/63 08/22/17 08:00 98.6 75 18 129/63 98 Room Air 98.6 08/22/17 07:37 80 16 Room Air 21 Intake and Output 08/22/17 08/23/17 19:00 07:00 Intake Total 1250 ml Balance 1250 ml Intake Oral 480 ml IV Total 770 ml # Voids 5 8 # Bowel Movements 1 Objective General Appearance: no acute distress HEENT: normocephalic, atraumatic, anicteric, mucous membranes moist Respiratory/Chest: lungs clear, no accessory muscle use Cardiovascular: normal rate, no JVD Abdomen: normal bowel sounds, no organomegaly Extremities: no edema, pedal pulses normal Neurologic/Psychiatric: alert - confused, responsive Microbiology Date/Time Source Procedure Growth Status 08/20/17 17:45 Blood Blood Culture - Preliminary NO GROWTH AFTER 24 HOURS Resulted 08/20/17 17:30 Blood Blood Culture - Preliminary NO GROWTH AFTER 24 HOURS Resulted 08/21/17 11:15 Bile Duct Gram Stain - Final Resulted 08/21/17 11:15 Aerobic Culture - Preliminary Strep Species, Gamma-Hemolytic Gram Negative Bacillus 1 Gram Negative Bacillus 2 Resulted Current Medications Medications (Trade) Dose Ordered Sig/Jeff Route PRN Reason Start Time Stop Time Status Last Admin Dose Admin Acetaminophen (Tylenol) 650 mg Q4H PRN ORAL fever 08/19/17 19:59 09/18/17 19:58 Al Hydroxide/Mg Hydroxide (Mylanta II) 30 ml Q6H PRN ORAL dyspepsia 08/19/17 19:59 09/18/17 19:58 Albuterol/ Ipratropium (Albuterol/ Ipratropium) 3 ml Q4H PRN HHN Shortness of Breath 08/19/17 19:59 08/24/17 19:58 08/23/17 02:56 Amlodipine Besylate (Norvasc) 10 mg DAILY ORAL 08/20/17 09:00 09/19/17 08:59 08/22/17 08:20 Atorvastatin Calcium (Lipitor) 10 mg BEDTIME ORAL 08/19/17 21:00 09/18/17 20:59 08/21/17 20:27 Clonidine HCl (Catapres Tab) 0.1 mg Q4H PRN ORAL sbp more than 160 08/19/17 19:59 09/18/17 19:58 Dextrose (Dextrose 50%) 25 ml STAT PRN IV Hypoglycemia 08/20/17 08:00 09/19/17 07:59 Dextrose (Dextrose 50%) 50 ml STAT PRN IV Hypoglycemia 08/20/17 08:00 09/19/17 07:59 Insulin Aspart (NovoLOG) BEFORE MEALS AND HS SUBQ 08/19/17 21:00 09/18/17 20:59 08/23/17 06:28 Insulin Aspart (NovoLOG) 4 units NOVOTIAC SUBQ 08/20/17 11:50 09/19/17 11:49 08/23/17 06:28 Insulin Detemir (Levemir) 12 units DAILY SUBQ 08/20/17 09:00 09/19/17 08:59 08/22/17 08:22 Lorazepam (Ativan) 1 mg Q6H PRN ORAL For Anxiety 08/21/17 18:15 08/28/17 18:14 Nitroglycerin (Ntg) 0.4 mg Q5M X 3 DOSES PRN SL Prn Chest Pain 08/19/17 20:01 09/18/17 20:00 Ondansetron HCl (Zofran) 4 mg Q6H PRN IVP Nausea & Vomiting 08/19/17 20:01 09/18/17 20:00 Piperacillin Sod/ Tazobactam Sod 2.25 gm/Sodium Chloride 110 ml @ 220 mls/hr EVERY 8 HOURS IVPB 08/19/17 22:00 08/26/17 21:59 08/22/17 15:53 Polyethylene Glycol (Miralax) 17 gm HSPRN PRN ORAL Constipation 08/19/17 21:00 09/18/17 20:59 Sodium Chloride 1,000 ml @ 75 mls/hr [id number] IV 08/22/17 09:15 09/21/17 09:14 08/22/17 09:15 Temazepam (Restoril) 15 mg HSPRN PRN ORAL Insomnia 08/19/17 21:00 08/26/17 20:59 08/19/17 22:59 Sharyn Patino [employer] Aug 23, 2017 07:31
--- NOTE | 2017-08-23 08:05 | General Progress Note ---
Assessment/Plan Problem List: (1) Cholangitis ICD Codes: K83.0 - Cholangitis SNOMED: 34704979 (2) Anemia ICD Codes: D64.9 - Anemia, unspecified SNOMED: 204536557 (3) Renal insufficiency ICD Codes: N28.9 - Disorder of kidney and ureter, unspecified SNOMED: 100004430, 316717031 (4) Diabetes mellitus ICD Codes: E11.9 - Type 2 diabetes mellitus without complications SNOMED: 22170414 (5) Hypertension ICD Codes: I10 - Essential (primary) hypertension SNOMED: 26951329 (6) Advanced dementia ICD Codes: F03.90 - Unspecified dementia without behavioral disturbance SNOMED: 15391764 (7) Choledocholithiasis ICD Codes: K80.50 - Calculus of bile duct without cholangitis or cholecystitis without obstruction SNOMED: 180260432 (8) Pancreatitis ICD Codes: K85.90 - Acute pancreatitis without necrosis or infection, unspecified SNOMED: 31775075 Assessment/Plan s/p ERCP and stenting improved LFTS post ERCP pancreatitis clears>>advance to full liquid abx fu labs ivf pain control DM control fu nephrology anemia work up needs repeat ERCP and stent removal in 4-6 weeks Subjective ROS Limited/Unobtainable: Yes Allergies: Coded Allergies: No Known Allergies (Unverified , 08/19/17) Subjective no event Objective Last 24 Hour Vital Signs Date Time Temp Pulse Resp B/P (MAP) Pulse Ox O2 Delivery O2 Flow Rate FiO2 08/23/17 04:36 98.4 86 18 142/85 99 Room Air 98.4 08/23/17 03:04 77 20 99 Room Air 21 08/23/17 02:56 72 20 97 Room Air 21 08/23/17 00:46 98.9 76 18 151/71 96 Room Air 98.9 08/22/17 20:47 98.4 93 18 151/75 94 Room Air 98.4 08/22/17 20:08 77 16 Room Air 21 08/22/17 16:00 98.4 78 18 141/68 95 Room Air 98.4 08/22/17 12:00 97.2 70 18 124/62 95 97.2 08/22/17 12:00 Room Air 08/22/17 08:20 72 129/63 Intake and Output 08/22/17 08/23/17 19:00 07:00 Intake Total 1250 ml Balance 1250 ml Intake Oral 480 ml IV Total 770 ml # Voids 5 8 # Bowel Movements 1 Height (Feet): 5 Height (Inches): 1.00 Weight (Pounds): 140 General Appearance: no apparent distress EENT: normal ENT inspection Neck: supple Cardiovascular: normal rate Respiratory/Chest: lungs clear Abdomen: normal bowel sounds, non tender, soft Extremities: non-tender Blaise Hernandez MD Aug 23, 2017 08:05
[2017-08-23 08:19] LABS: HEMATOCRIT 26.3 % (37.0-47.0); HEMOGLOBIN 8.7 G/DL (12.0-16.0); MEAN CORPUSCULAR VOLUME 91 FL (80-99); WHITE BLOOD COUNT 7.2 K/UL (4.8-10.8)
[2017-08-23 08:20] LABS: BASOPHILS % (AUTO) 0.6 % (0.0-2.0); EOSINOPHILS % (AUTO) 4.5 % (0.0-3.0); LYMPHOCYTES % (AUTO) 9.3 % (20.0-45.0); NEUTROPHILS % (AUTO) 78.5 % (45.0-75.0); PLATELET COUNT 112 K/UL (150-450); RED CELL DISTRIBUTION WIDTH 12.5 % (11.6-14.8)
--- NOTE | 2017-08-23 08:30 | General Progress Note ---
Assessment/Plan Problem List: (1) Diabetes mellitus ICD Codes: E11.9 - Type 2 diabetes mellitus without complications SNOMED: 80882286 (2) Hypertension ICD Codes: I10 - Essential (primary) hypertension SNOMED: 73734615 (3) Advanced dementia ICD Codes: F03.90 - Unspecified dementia without behavioral disturbance SNOMED: 03754414 (4) Hyperglycemia ICD Codes: R73.9 - Hyperglycemia, unspecified SNOMED: 20214303 (5) Pyelonephritis ICD Codes: N12 - Tubulo-interstitial nephritis, not specified as acute or chronic SNOMED: 91069194 (6) UTI (urinary tract infection) ICD Codes: N39.0 - Urinary tract infection, site not specified SNOMED: 94074804 (7) Choledocholithiasis ICD Codes: K80.50 - Calculus of bile duct without cholangitis or cholecystitis without obstruction SNOMED: 081181166 Status: stable, progressing Assessment/Plan ot pt diet bp bs pain control gi f/u cbc bmp am psyc transfer Subjective Constitutional: Reports: weakness Allergies: Coded Allergies: No Known Allergies (Unverified , 08/19/17) All Systems: reviewed and negative except above Subjective sl agitated Objective Last 24 Hour Vital Signs Date Time Temp Pulse Resp B/P (MAP) Pulse Ox O2 Delivery O2 Flow Rate FiO2 08/23/17 04:36 98.4 86 18 142/85 99 Room Air 98.4 08/23/17 03:04 77 20 99 Room Air 21 08/23/17 02:56 72 20 97 Room Air 21 08/23/17 00:46 98.9 76 18 151/71 96 Room Air 98.9 08/22/17 20:47 98.4 93 18 151/75 94 Room Air 98.4 08/22/17 20:08 77 16 Room Air 21 08/22/17 16:00 98.4 78 18 141/68 95 Room Air 98.4 08/22/17 12:00 97.2 70 18 124/62 95 97.2 08/22/17 12:00 Room Air Intake and Output 08/22/17 08/23/17 19:00 07:00 Intake Total 1250 ml Balance 1250 ml Intake Oral 480 ml IV Total 770 ml # Voids 5 8 # Bowel Movements 1 Laboratory Tests 08/23/17 06:20: White Blood Count 7.2, Red Blood Count 2.90L, Hemoglobin 8.7L, Hematocrit 26.3L , Mean Corpuscular Volume 91, Mean Corpuscular Hemoglobin 30.1, Mean Corpuscular Hemoglobin Concent 33.2, Red Cell Distribution Width 12.5, Platelet Count 112L, Mean Platelet Volume 8.0, Neutrophils (%) (Auto) 78.5H, Lymphocytes (%) (Auto) 9.3L, Monocytes (%) (Auto) 7.0, Eosinophils (%) (Auto) 4.5H, Basophils (%) (Auto) 0.6, Sodium Level [Pending], Potassium Level [Pending], Chloride Level [Pending], Carbon Dioxide Level [Pending], Blood Urea Nitrogen [ Pending], Creatinine [Pending], Estimat Glomerular Filtration Rate [Pending], Glucose Level [Pending], Calcium Level [Pending], Iron Level [Pending], Unsaturated Iron Binding [Pending], Total Bilirubin [Pending], Aspartate Amino Transf (AST/SGOT) [Pending], Alanine Aminotransferase (ALT/SGPT) [Pending], Alkaline Phosphatase [Pending], Total Protein [Pending], Albumin [Pending], Globulin [Pending], Amylase Level [Pending], Lipase [Pending], Carcinoembryonic Antigen [Pending], Vitamin B12 Level [Pending], Folate [Pending], Free Thyroxine [Pending] Height (Feet): 5 Height (Inches): 1.00 Weight (Pounds): 140 General Appearance: confused EENT: normal ENT inspection Neck: normal alignment Cardiovascular: normal peripheral pulses, normal rate, regular rhythm Respiratory/Chest: chest wall non-tender, lungs clear, normal breath sounds Abdomen: normal bowel sounds, non tender, soft Extremities: normal inspection Edema: no edema noted Arm (L), no edema noted Arm (R), no edema noted Leg (L), no edema noted Leg (R), no edema noted Pedal (L), no edema noted Pedal (R), no edema noted Generalized Neurologic: motor weakness Skin: normal pigmentation, warm/dry Martin Hopper DO Aug 23, 2017 08:30
[2017-08-23 08:52] LABS: ALANINE AMINOTRANSFERASE 280 U/L (12-78); ALBUMIN 2.2 G/DL (3.4-5.0); ALBUMIN/GLOBULIN RATIO 0.6 (1.0-2.7); ALKALINE PHOSPHATASE 571 U/L (46-116); ANION GAP 15 mmol/L (5-15); ASPARTATE AMINO TRANSFERASE 100 U/L (15-37); BILIRUBIN,TOTAL 1.8 MG/DL (0.2-1.0); BLOOD UREA NITROGEN 33 mg/dL (7-18); CALCIUM 8.1 MG/DL (8.5-10.1); CARBON DIOXIDE 18 MMOL/L (21-32); CHLORIDE 110 MMOL/L (98-107); CREATININE 2.9 MG/DL (0.55-1.30); POTASSIUM 3.7 MMOL/L (3.5-5.1); SODIUM 143 MMOL/L (136-145)
[2017-08-23 08:57] LABS: % IRON SATURATION 29 % (15-50); IRON 45 ug/dL (50-175); TOTAL IRON BINDING CAPACITY 155 ug/dL (250-450)
[2017-08-23 09:03] LABS: AMYLASE 96 U/L (25-115)
[2017-08-23 09:04] LABS: BILIRUBIN,DIRECT 1.1 MG/DL (0.0-0.3)
[2017-08-23] MEDS: Levemir Flexpen SUBQ SCH (09:07)
--- NOTE | 2017-08-23 09:52 | Infectious Diseases Prog Note ---
Assessment/Plan Assessment/Plan Assessment: Sepsis Cholangitis/ Elevated LFTs SP ERCP -Abd US: Choledocholithiasis, with a 14 x 8 mm calculus within the common bile duct. There is resultant intrahepatic and extrahepatic biliary ductal dilatation and debris/sludge within the bile ducts. Evidence of prior cholecystectomy. Limited exam with nonvisualization of the right kidney and spleen and abdominal aorta. Incidental finding left lower pole renal cyst Hepatitis panel : neg Leukocytosis, resolved Afebrile -CXR: no acute process Pyuria; possible UTI- unable to provide symptoms -u/a wbc tntc, nit neg, leuk +1; ucx >100K P mirabilis (R Cipro/levo, bactrim ; otherwise S) Hyperglycemia, improving CORRY DM HTN CAD seizure disorder dementia Full code NKDA Plan: -Continue empiric Zosyn# 5 pending cultures -f/u Bcx x2 - Bile Cx -monitor CBC/CMP, temperatures -aspiration precautions Subjective Constitutional: Denies: no symptoms, fever, chills, fatigue, anorexia, drenching sweats, other Allergies: Coded Allergies: No Known Allergies (Unverified , 08/19/17) Objective Vital Signs Last 24 Hour Vital Signs Date Time Temp Pulse Resp B/P (MAP) Pulse Ox O2 Delivery O2 Flow Rate FiO2 08/23/17 09:06 85 135/80 08/23/17 08:00 98.4 85 17 135/80 99 Room Air 98.4 08/23/17 04:36 98.4 86 18 142/85 99 Room Air 98.4 08/23/17 03:04 77 20 99 Room Air 21 08/23/17 02:56 72 20 97 Room Air 21 08/23/17 00:46 98.9 76 18 151/71 96 Room Air 98.9 08/22/17 20:47 98.4 93 18 151/75 94 Room Air 98.4 08/22/17 20:08 77 16 Room Air 21 08/22/17 16:00 98.4 78 18 141/68 95 Room Air 98.4 08/22/17 12:00 97.2 70 18 124/62 95 97.2 08/22/17 12:00 Room Air Height (Feet): 5 Height (Inches): 1.00 Weight (Pounds): 140 HEENT: anicteric Respiratory/Chest: no respiratory distress Cardiovascular: regularly irregular Abdomen: soft, non tender Microbiology Date/Time Source Procedure Growth Status 08/20/17 17:45 Blood Blood Culture - Preliminary NO GROWTH AFTER 48 HOURS Resulted 08/20/17 17:30 Blood Blood Culture - Preliminary NO GROWTH AFTER 48 HOURS Resulted 08/21/17 11:15 Bile Duct Gram Stain - Final Resulted 08/21/17 11:15 Aerobic Culture - Preliminary Strep Species, Gamma-Hemolytic Gram Negative Bacillus 1 Gram Negative Bacillus 2 Resulted Laboratory Tests Test 08/23/17 06:20 White Blood Count 7.2 K/UL (4.8-10.8) Red Blood Count 2.90 M/UL (4.20-5.40) L Hemoglobin 8.7 G/DL (12.0-16.0) L Hematocrit 26.3 % (37.0-47.0) L Mean Corpuscular Volume 91 FL (80-99) Mean Corpuscular Hemoglobin 30.1 PG (27.0-31.0) Mean Corpuscular Hemoglobin Concent 33.2 G/DL (32.0-36.0) Red Cell Distribution Width 12.5 % (11.6-14.8) Platelet Count 112 K/UL (150-450) L Mean Platelet Volume 8.0 FL (6.5-10.1) Neutrophils (%) (Auto) 78.5 % (45.0-75.0) H Lymphocytes (%) (Auto) 9.3 % (20.0-45.0) L Monocytes (%) (Auto) 7.0 % (1.0-10.0) Eosinophils (%) (Auto) 4.5 % (0.0-3.0) H Basophils (%) (Auto) 0.6 % (0.0-2.0) Sodium Level 143 MMOL/L (136-145) Potassium Level 3.7 MMOL/L (3.5-5.1) Chloride Level 110 MMOL/L (98-107) H Carbon Dioxide Level 18 MMOL/L (21-32) L Anion Gap 15 mmol/L (5-15) Blood Urea Nitrogen 33 mg/dL (7-18) H Creatinine 2.9 MG/DL (0.55-1.30) H Estimat Glomerular Filtration Rate 16.2 mL/min (>60) Glucose Level 157 MG/DL (74-106) H Calcium Level 8.1 MG/DL (8.5-10.1) L Iron Level 45 ug/dL (50-175) L Total Iron Binding Capacity 155 ug/dL (250-450) L Percent Iron Saturation 29 % (15-50) Unsaturated Iron Binding 110 ug/dL (112-346) L Total Bilirubin 1.8 MG/DL (0.2-1.0) H Direct Bilirubin 1.1 MG/DL (0.0-0.3) H Aspartate Amino Transf (AST/SGOT) 100 U/L (15-37) H Alanine Aminotransferase (ALT/SGPT) 280 U/L (12-78) H Alkaline Phosphatase 571 U/L (46-116) H Total Protein 6.0 G/DL (6.4-8.2) L Albumin 2.2 G/DL (3.4-5.0) L Globulin 3.8 g/dL Albumin/Globulin Ratio 0.6 (1.0-2.7) L Amylase Level 96 U/L (25-115) Lipase 643 U/L (73-393) H Carcinoembryonic Antigen Pending Vitamin B12 Level 886 PG/ML (193-986) Folate 12.7 NG/ML (8.6-58.9) Free Thyroxine 0.80 NG/DL (0.76-1.46) Current Medications Medications (Trade) Dose Ordered Sig/Jeff Route PRN Reason Start Time Stop Time Status Last Admin Dose Admin Acetaminophen (Tylenol) 650 mg Q4H PRN ORAL fever 08/19/17 19:59 09/18/17 19:58 Al Hydroxide/Mg Hydroxide (Mylanta II) 30 ml Q6H PRN ORAL dyspepsia 08/19/17 19:59 09/18/17 19:58 Albuterol/ Ipratropium (Albuterol/ Ipratropium) 3 ml Q4H PRN HHN Shortness of Breath 08/19/17 19:59 08/24/17 19:58 08/23/17 02:56 Amlodipine Besylate (Norvasc) 10 mg DAILY ORAL 08/20/17 09:00 09/19/17 08:59 08/23/17 09:06 Atorvastatin Calcium (Lipitor) 10 mg BEDTIME ORAL 08/19/17 21:00 09/18/17 20:59 08/21/17 20:27 Clonidine HCl (Catapres Tab) 0.1 mg Q4H PRN ORAL sbp more than 160 08/19/17 19:59 09/18/17 19:58 Dextrose (Dextrose 50%) 25 ml STAT PRN IV Hypoglycemia 08/20/17 08:00 09/19/17 07:59 Dextrose (Dextrose 50%) 50 ml STAT PRN IV Hypoglycemia 08/20/17 08:00 09/19/17 07:59 Insulin Aspart (NovoLOG) BEFORE MEALS AND HS SUBQ 08/19/17 21:00 09/18/17 20:59 08/23/17 06:28 Insulin Aspart (NovoLOG) 4 units NOVOTIAC SUBQ 08/20/17 11:50 09/19/17 11:49 08/23/17 06:28 Insulin Detemir (Levemir) 12 units DAILY SUBQ 08/20/17 09:00 09/19/17 08:59 08/23/17 09:07 Lorazepam (Ativan) 1 mg Q6H PRN ORAL For Anxiety 08/21/17 18:15 08/28/17 18:14 Nitroglycerin (Ntg) 0.4 mg Q5M X 3 DOSES PRN SL Prn Chest Pain 08/19/17 20:01 09/18/17 20:00 Ondansetron HCl (Zofran) 4 mg Q6H PRN IVP Nausea & Vomiting 08/19/17 20:01 09/18/17 20:00 Piperacillin Sod/ Tazobactam Sod 2.25 gm/Sodium Chloride 110 ml @ 220 mls/hr EVERY 8 HOURS IVPB 08/19/17 22:00 08/26/17 21:59 08/22/17 15:53 Polyethylene Glycol (Miralax) 17 gm HSPRN PRN ORAL Constipation 08/19/17 21:00 09/18/17 20:59 Sodium Chloride 1,000 ml @ 75 mls/hr [id number] IV 08/22/17 09:15 09/21/17 09:14 08/22/17 09:15 Temazepam (Restoril) 15 mg HSPRN PRN ORAL Insomnia 08/19/17 21:00 08/26/17 20:59 08/19/17 22:59 Ryan Walker MD Aug 23, 2017 09:52
--- NOTE | 2017-08-23 10:34 | Nephrology Progress Note ---
Assessment/Plan Assessment/Plan 1. CORRY on CKD 4- Cr down to 2.9 and BUN 33. Right kidney could not be visulaized by US - continue IVFs and avoid nephrotoxins (Toradol stopped). Will need out patient renal f/u 2. Choledocholithiasis- ERCP, mgmpt per PCP and general surgery -repeat ERCP and stent removal in 4-6 weeks 3. Dehydration- continue IVF's and change to hypotonic solution 4. HTN- stable 5. HyperCL- met Acidosis- DC IVF's Subjective Date patient seen: Aug 23, 2017 Time patient seen: 10:32 ROS Limited/Unobtainable: Yes Allergies: Coded Allergies: No Known Allergies (Unverified , 08/19/17) Subjective Patient oriented to one sphere. No overt distress Objective Last 24 Hour Vital Signs Date Time Temp Pulse Resp B/P (MAP) Pulse Ox O2 Delivery O2 Flow Rate FiO2 08/23/17 09:06 85 135/80 08/23/17 08:00 98.4 85 17 135/80 99 Room Air 98.4 08/23/17 04:36 98.4 86 18 142/85 99 Room Air 98.4 08/23/17 03:04 77 20 99 Room Air 21 08/23/17 02:56 72 20 97 Room Air 21 08/23/17 00:46 98.9 76 18 151/71 96 Room Air 98.9 08/22/17 20:47 98.4 93 18 151/75 94 Room Air 98.4 08/22/17 20:08 77 16 Room Air 21 08/22/17 16:00 98.4 78 18 141/68 95 Room Air 98.4 08/22/17 12:00 97.2 70 18 124/62 95 97.2 08/22/17 12:00 Room Air Intake and Output 08/22/17 08/23/17 19:00 07:00 Intake Total 1250 ml Balance 1250 ml Intake Oral 480 ml IV Total 770 ml # Voids 5 8 # Bowel Movements 1 Laboratory Tests 08/23/17 06:20: White Blood Count 7.2, Red Blood Count 2.90L, Hemoglobin 8.7L, Hematocrit 26.3L , Mean Corpuscular Volume 91, Mean Corpuscular Hemoglobin 30.1, Mean Corpuscular Hemoglobin Concent 33.2, Red Cell Distribution Width 12.5, Platelet Count 112L, Mean Platelet Volume 8.0, Neutrophils (%) (Auto) 78.5H, Lymphocytes (%) (Auto) 9.3L, Monocytes (%) (Auto) 7.0, Eosinophils (%) (Auto) 4.5H, Basophils (%) (Auto) 0.6, Sodium Level 143, Potassium Level 3.7, Chloride Level 110H, Carbon Dioxide Level 18L, Anion Gap 15, Blood Urea Nitrogen 33H, Creatinine 2.9H, Estimat Glomerular Filtration Rate 16.2, Glucose Level 157H, Calcium Level 8.1L, Iron Level 45L, Total Iron Binding Capacity 155L, Percent Iron Saturation 29, Unsaturated Iron Binding 110L, Total Bilirubin 1.8H, Direct Bilirubin 1.1H, Aspartate Amino Transf (AST/SGOT) 100H, Alanine Aminotransferase (ALT/SGPT) 280H, Alkaline Phosphatase 571H, Total Protein 6.0L , Albumin 2.2L, Globulin 3.8, Albumin/Globulin Ratio 0.6L, Amylase Level 96, Lipase 643H, Carcinoembryonic Antigen [Pending], Vitamin B12 Level 886, Folate 12.7, Free Thyroxine 0.80 Height (Feet): 5 Height (Inches): 1.00 Weight (Pounds): 140 General Appearance: no apparent distress EENT: normal ENT inspection Neck: normal alignment Cardiovascular: normal rate, regular rhythm Respiratory/Chest: lungs clear, normal breath sounds Abdomen: non tender, soft Edema: no edema noted Arm (L), no edema noted Arm (R), no edema noted Leg (L), no edema noted Leg (R), no edema noted Pedal (L), no edema noted Pedal (R), no edema noted Generalized Kush Blackburn M.D. Aug 23, 2017 10:34
[2017-08-23] MEDS ORDERED: Albuterol/Ipratropium 3ml neb HHN PRN (11:59)
--- NOTE | 2017-08-23 13:16 | General Surgery Progress Note ---
General Surgery-Progress Note Subjective Symptoms: improved, tolerating diet, passing flatus Additional Comments no acute events. comfortable. no n/v/f/c. no pain. Objective Last 24 Hour Vital Signs Date Time Temp Pulse Resp B/P (MAP) Pulse Ox O2 Delivery O2 Flow Rate FiO2 08/23/17 12:00 98.0 82 18 151/83 98 Room Air 98.0 08/23/17 09:06 85 135/80 08/23/17 08:00 98.4 85 17 135/80 99 Room Air 98.4 08/23/17 04:36 98.4 86 18 142/85 99 Room Air 98.4 08/23/17 03:04 77 20 99 Room Air 21 08/23/17 02:56 72 20 97 Room Air 21 08/23/17 00:46 98.9 76 18 151/71 96 Room Air 98.9 08/22/17 20:47 98.4 93 18 151/75 94 Room Air 98.4 08/22/17 20:08 77 16 Room Air 21 08/22/17 16:00 98.4 78 18 141/68 95 Room Air 98.4 I&O Intake and Output 08/22/17 08/23/17 19:00 07:00 Intake Total 1250 ml Balance 1250 ml Intake Oral 480 ml IV Total 770 ml # Voids 5 8 # Bowel Movements 1 Cardiovascular: RSR Respiratory: clear Abdomen: soft, non-tender, present bowel sounds Extremities: no cyanosis Laboratory Tests Test 08/23/17 06:20 White Blood Count 7.2 K/UL (4.8-10.8) Red Blood Count 2.90 M/UL (4.20-5.40) L Hemoglobin 8.7 G/DL (12.0-16.0) L Hematocrit 26.3 % (37.0-47.0) L Mean Corpuscular Volume 91 FL (80-99) Mean Corpuscular Hemoglobin 30.1 PG (27.0-31.0) Mean Corpuscular Hemoglobin Concent 33.2 G/DL (32.0-36.0) Red Cell Distribution Width 12.5 % (11.6-14.8) Platelet Count 112 K/UL (150-450) L Mean Platelet Volume 8.0 FL (6.5-10.1) Neutrophils (%) (Auto) 78.5 % (45.0-75.0) H Lymphocytes (%) (Auto) 9.3 % (20.0-45.0) L Monocytes (%) (Auto) 7.0 % (1.0-10.0) Eosinophils (%) (Auto) 4.5 % (0.0-3.0) H Basophils (%) (Auto) 0.6 % (0.0-2.0) Sodium Level 143 MMOL/L (136-145) Potassium Level 3.7 MMOL/L (3.5-5.1) Chloride Level 110 MMOL/L (98-107) H Carbon Dioxide Level 18 MMOL/L (21-32) L Anion Gap 15 mmol/L (5-15) Blood Urea Nitrogen 33 mg/dL (7-18) H Creatinine 2.9 MG/DL (0.55-1.30) H Estimat Glomerular Filtration Rate 16.2 mL/min (>60) Glucose Level 157 MG/DL (74-106) H Calcium Level 8.1 MG/DL (8.5-10.1) L Iron Level 45 ug/dL (50-175) L Total Iron Binding Capacity 155 ug/dL (250-450) L Percent Iron Saturation 29 % (15-50) Unsaturated Iron Binding 110 ug/dL (112-346) L Total Bilirubin 1.8 MG/DL (0.2-1.0) H Direct Bilirubin 1.1 MG/DL (0.0-0.3) H Aspartate Amino Transf (AST/SGOT) 100 U/L (15-37) H Alanine Aminotransferase (ALT/SGPT) 280 U/L (12-78) H Alkaline Phosphatase 571 U/L (46-116) H Total Protein 6.0 G/DL (6.4-8.2) L Albumin 2.2 G/DL (3.4-5.0) L Globulin 3.8 g/dL Albumin/Globulin Ratio 0.6 (1.0-2.7) L Amylase Level 96 U/L (25-115) Lipase 643 U/L (73-393) H Carcinoembryonic Antigen Pending Vitamin B12 Level 886 PG/ML (193-986) Folate 12.7 NG/ML (8.6-58.9) Free Thyroxine 0.80 NG/DL (0.76-1.46) Plan Problems: (1) Choledocholithiasis Assessment & Plan: 66F choledocholithiasis. large stone causing obstruction. elevated lft's and t bili. on ultrasound noted to have had prior cholecystectomy. either retained stone vs primary cbd stone. will need to obtain and review old notes. s/p ERCP with extraction of stones. labs improving. exam benign. -no acute surgical intervention necessary. -trend labs -diet as tolerated will follow with recs. thank you for this consultation. Giovani Lugo Aug 23, 2017 13:15
[2017-08-23] MEDS: Lidocaine 1% MPF 10mg/ml 5ml IM SCH (15:47)
[2017-08-23] MEDS: Ertapenem (INVanz) 1gm Inj IM SCH (15:48)
[2017-08-24] VITALS (7 sets, daily range): BP systolic 107–161; BP diastolic 58–73
[2017-08-24] MEDS: NovoLOG Insulin Flexpen SUBQ SCH ×7 (06:05→20:45)
[2017-08-24 06:50] LABS: BASOPHILS % (AUTO) 0.9 % (0.0-2.0); EOSINOPHILS % (AUTO) 3.8 % (0.0-3.0); HEMATOCRIT 28.1 % (37.0-47.0); HEMOGLOBIN 9.1 G/DL (12.0-16.0); LYMPHOCYTES % (AUTO) 11.4 % (20.0-45.0); MEAN CORPUSCULAR VOLUME 90 FL (80-99); MONOCYTES % (AUTO) 8.1 % (1.0-10.0); NEUTROPHILS % (AUTO) 75.8 % (45.0-75.0); PLATELET COUNT 133 K/UL (150-450); RED BLOOD COUNT 3.12 M/UL (4.20-5.40); RED CELL DISTRIBUTION WIDTH 12.2 % (11.6-14.8); WHITE BLOOD COUNT 9.2 K/UL (4.8-10.8)
--- NOTE | 2017-08-24 07:00 | General Progress Note ---
Assessment/Plan Problem List: (1) Diabetes mellitus ICD Codes: E11.9 - Type 2 diabetes mellitus without complications SNOMED: 85297977 (2) Hypertension ICD Codes: I10 - Essential (primary) hypertension SNOMED: 81779480 (3) Advanced dementia ICD Codes: F03.90 - Unspecified dementia without behavioral disturbance SNOMED: 03938835 (4) Hyperglycemia ICD Codes: R73.9 - Hyperglycemia, unspecified SNOMED: 87120836 Assessment/Plan continue Levemir 12 units daily continue Novolog 4 units ac tid continue Novolog sliding scale ac / hs Subjective Allergies: Coded Allergies: No Known Allergies (Unverified , 08/19/17) All Systems: reviewed and negative except above Subjective events noted Objective Last 24 Hour Vital Signs Date Time Temp Pulse Resp B/P (MAP) Pulse Ox O2 Delivery O2 Flow Rate FiO2 08/24/17 04:20 99.2 84 18 145/73 95 Room Air 99.2 08/24/17 00:22 97.3 64 19 146/66 96 Room Air 97.3 08/23/17 20:40 77 20 Room Air 21 08/23/17 20:00 98.6 75 18 149/77 97 Room Air 98.6 08/23/17 16:00 97.8 89 19 125/81 97 97.8 08/23/17 12:00 98.0 82 18 151/83 98 Room Air 98.0 08/23/17 09:30 76 20 Room Air 21 08/23/17 09:06 85 135/80 08/23/17 08:00 98.4 85 17 135/80 99 Room Air 98.4 Intake and Output 08/23/17 08/24/17 19:00 07:00 Intake Total 1050 ml Balance 1050 ml Intake Oral 1050 ml # Voids 2 Laboratory Tests 08/24/17 05:35: White Blood Count [Pending], Red Blood Count [Pending], Hemoglobin [Pending], Hematocrit [Pending], Mean Corpuscular Volume [Pending], Mean Corpuscular Hemoglobin [Pending], Mean Corpuscular Hemoglobin Concent [Pending], Red Cell Distribution Width [Pending], Platelet Count [Pending], Mean Platelet Volume [ Pending], Neutrophils (%) (Auto) [Pending], Lymphocytes (%) (Auto) [Pending], Monocytes (%) (Auto) [Pending], Eosinophils (%) (Auto) [Pending], Basophils (%) (Auto) [Pending], Sodium Level [Pending], Potassium Level [Pending], Chloride Level [Pending], Carbon Dioxide Level [Pending], Blood Urea Nitrogen [Pending], Creatinine [Pending], Estimat Glomerular Filtration Rate [Pending], Glucose Level [Pending], Calcium Level [Pending], Total Bilirubin [Pending], Aspartate Amino Transf (AST/SGOT) [Pending], Alanine Aminotransferase (ALT/SGPT) [Pending] , Alkaline Phosphatase [Pending], Total Protein [Pending], Albumin [Pending], Globulin [Pending], Lipase [Pending] Height (Feet): 5 Height (Inches): 1.00 Weight (Pounds): 140 General Appearance: no apparent distress Neck: normal alignment Cardiovascular: normal rate Respiratory/Chest: decreased breath sounds Abdomen: normal bowel sounds Objective Current Medications Medications (Trade) Dose Ordered Sig/Jeff Route PRN Reason Start Time Stop Time Status Last Admin Dose Admin Acetaminophen (Tylenol) 650 mg Q4H PRN ORAL fever 08/19/17 19:59 09/18/17 19:58 Al Hydroxide/Mg Hydroxide (Mylanta II) 30 ml Q6H PRN ORAL dyspepsia 08/19/17 19:59 09/18/17 19:58 Albuterol/ Ipratropium (Albuterol/ Ipratropium) 3 ml Q4H PRN HHN Shortness of Breath 08/23/17 11:59 08/28/17 11:58 Amlodipine Besylate (Norvasc) 10 mg DAILY ORAL 08/20/17 09:00 09/19/17 08:59 08/23/17 09:06 Atorvastatin Calcium (Lipitor) 10 mg BEDTIME ORAL 08/19/17 21:00 09/18/17 20:59 08/23/17 21:03 Clonidine HCl (Catapres Tab) 0.1 mg Q4H PRN ORAL sbp more than 160 08/19/17 19:59 09/18/17 19:58 Dextrose (Dextrose 50%) 25 ml STAT PRN IV Hypoglycemia 08/20/17 08:00 09/19/17 07:59 Dextrose (Dextrose 50%) 50 ml STAT PRN IV Hypoglycemia 08/20/17 08:00 09/19/17 07:59 Ertapenem (INVanz) 1 gm DAILY IM 08/23/17 16:00 08/28/17 15:59 08/23/17 15:48 Insulin Aspart (NovoLOG) BEFORE MEALS AND HS SUBQ 08/19/17 21:00 09/18/17 20:59 08/24/17 06:05 Insulin Aspart (NovoLOG) 4 units NOVOTIAC SUBQ 08/20/17 11:50 09/19/17 11:49 08/24/17 06:06 Insulin Detemir (Levemir) 12 units DAILY SUBQ 08/20/17 09:00 09/19/17 08:59 08/23/17 09:07 Lidocaine (Xylocaine 1% MPF 5ml) 3.2 ml DAILY IM 08/23/17 16:00 09/22/17 15:59 08/23/17 15:47 Lorazepam (Ativan) 1 mg Q6H PRN ORAL For Anxiety 08/21/17 18:15 08/28/17 18:14 Nitroglycerin (Ntg) 0.4 mg Q5M X 3 DOSES PRN SL Prn Chest Pain 08/19/17 20:01 09/18/17 20:00 Ondansetron HCl (Zofran) 4 mg Q6H PRN IVP Nausea & Vomiting 08/19/17 20:01 09/18/17 20:00 Polyethylene Glycol (Miralax) 17 gm HSPRN PRN ORAL Constipation 08/19/17 21:00 09/18/17 20:59 Temazepam (Restoril) 15 mg HSPRN PRN ORAL Insomnia 08/19/17 21:00 08/26/17 20:59 08/19/17 22:59 Item Value Date Time Bedside Blood Glucose 127 mg/dl H 08/24/17 0613 Bedside Blood Glucose 154 mg/dl H 08/23/17 2139 Bedside Blood Glucose 184 mg/dl H 08/23/17 1631 Bedside Blood Glucose 132 mg/dl H 08/23/17 1228 Bedside Blood Glucose 183 mg/dl H 08/23/17 0907 Bedside Blood Glucose 183 mg/dl H 08/23/17 0628 Jeremie Driver MD Aug 24, 2017 07:00
[2017-08-24 07:25] LABS: ALANINE AMINOTRANSFERASE 191 U/L (12-78); ALBUMIN 2.1 G/DL (3.4-5.0); ALBUMIN/GLOBULIN RATIO 0.6 (1.0-2.7); ALKALINE PHOSPHATASE 551 U/L (46-116); ANION GAP 11 mmol/L (5-15); ASPARTATE AMINO TRANSFERASE 56 U/L (15-37); BILIRUBIN,TOTAL 1.3 MG/DL (0.2-1.0); BLOOD UREA NITROGEN 26 mg/dL (7-18); CARBON DIOXIDE 22 MMOL/L (21-32); CHLORIDE 110 MMOL/L (98-107); CREATININE 2.7 MG/DL (0.55-1.30); POTASSIUM 4.2 MMOL/L (3.5-5.1); SODIUM 143 MMOL/L (136-145)
[2017-08-24 07:51] LABS: BILIRUBIN,DIRECT 0.9 MG/DL (0.0-0.3)
[2017-08-24] MEDS ORDERED: Ertapenem (INVanz) 1gm Inj IM SCH (09:00)
--- NOTE | 2017-08-24 09:11 | Nephrology Progress Note ---
Assessment/Plan Assessment/Plan 1. CORRY on CKD 4- Cr continues to improve, down to to 2.7. Right kidney could not be visulaized by US - continue IVFs and avoid nephrotoxins (Toradol stopped). Out patient renal f/u 1 week recc 2. Choledocholithiasis- ERCP, mgmpt per PCP and general surgery -repeat ERCP and stent removal in 4-6 weeks 3. Dehydration- resolved 4. HTN- stable 5. HyperCL- met Acidosis- resolved off IVF's OK for DC from renal standpoint Subjective Date patient seen: Aug 24, 2017 Time patient seen: 09:08 ROS Limited/Unobtainable: Yes Allergies: Coded Allergies: No Known Allergies (Unverified , 08/19/17) All Systems: reviewed and negative except above Subjective Patient oriented to one sphere, resting in no acute distress Objective Last 24 Hour Vital Signs Date Time Temp Pulse Resp B/P (MAP) Pulse Ox O2 Delivery O2 Flow Rate FiO2 08/24/17 08:00 98.0 76 19 149/70 97 Room Air 98.0 08/24/17 04:20 99.2 84 18 145/73 95 Room Air 99.2 08/24/17 00:22 97.3 64 19 146/66 96 Room Air 97.3 08/23/17 20:40 77 20 Room Air 21 08/23/17 20:00 98.6 75 18 149/77 97 Room Air 98.6 08/23/17 16:00 97.8 89 19 125/81 97 97.8 08/23/17 12:00 98.0 82 18 151/83 98 Room Air 98.0 08/23/17 09:30 76 20 Room Air 21 Intake and Output 08/23/17 08/24/17 19:00 07:00 Intake Total 1050 ml 240 ml Balance 1050 ml 240 ml Intake Oral 1050 ml 240 ml # Voids 2 2 # Bowel Movements 1 Laboratory Tests 08/24/17 05:35: White Blood Count 9.2, Red Blood Count 3.12L, Hemoglobin 9.1L, Hematocrit 28.1L , Mean Corpuscular Volume 90, Mean Corpuscular Hemoglobin 29.0, Mean Corpuscular Hemoglobin Concent 32.2, Red Cell Distribution Width 12.2, Platelet Count 133L, Mean Platelet Volume 7.2, Neutrophils (%) (Auto) 75.8H, Lymphocytes (%) (Auto) 11.4L, Monocytes (%) (Auto) 8.1, Eosinophils (%) (Auto) 3.8H, Basophils (%) (Auto) 0.9, Sodium Level 143, Potassium Level 4.2, Chloride Level 110H, Carbon Dioxide Level 22, Anion Gap 11, Blood Urea Nitrogen 26H, Creatinine 2.7H, Estimat Glomerular Filtration Rate 17.6, Glucose Level 139H, Calcium Level 8.0L, Total Bilirubin 1.3H, Direct Bilirubin 0.9H, Aspartate Amino Transf (AST/SGOT) 56H, Alanine Aminotransferase (ALT/SGPT) 191H, Alkaline Phosphatase 551H, Total Protein 5.9L, Albumin 2.1L, Globulin 3.8, Albumin/ Globulin Ratio 0.6L, Lipase 521H Height (Feet): 5 Height (Inches): 1.00 Weight (Pounds): 140 General Appearance: no apparent distress, alert EENT: normal ENT inspection Neck: normal alignment, supple Cardiovascular: normal rate, regular rhythm Respiratory/Chest: lungs clear, normal breath sounds Abdomen: non tender, soft Edema: no edema noted Arm (L), no edema noted Arm (R), no edema noted Leg (L), no edema noted Leg (R), no edema noted Pedal (L), no edema noted Pedal (R), no edema noted Generalized Kush Blackburn M.D. Aug 24, 2017 09:11
[2017-08-24] MEDS: Ertapenem (INVanz) 1gm Inj IM SCH (09:15)
[2017-08-24] MEDS: Lidocaine 1% MPF 10mg/ml 5ml IM SCH (09:15)
[2017-08-24] MEDS: Levemir Flexpen SUBQ SCH (09:22)
--- NOTE | 2017-08-24 10:07 | Diagnostic Imaging Report ---
Indication: Cough Technique: One view of the chest Comparison: 08/19/2017 Findings: Inspiration is suboptimal. Heart size is upper limits of normal, with some crowding of the bronchovascular markings. Equivocal developing retrocardiac consolidation and/or atelectasis. Impression: Questionable developing retrocardiac consolidation or atelectasis, over 5 days. No acute process otherwise
--- NOTE | 2017-08-24 10:29 | GI Progress Note ---
Assessment/Plan Problems: (1) Pancreatitis ICD Codes: K85.90 - Acute pancreatitis without necrosis or infection, unspecified SNOMED: 93040143 (2) Encounter for diagnostic endoscopy ICD Codes: Z01.818 - Encounter for other preprocedural examination SNOMED: 458592438, 783626437 (3) Choledocholithiasis ICD Codes: K80.50 - Calculus of bile duct without cholangitis or cholecystitis without obstruction SNOMED: 263340561 (4) Anemia ICD Codes: D64.9 - Anemia, unspecified SNOMED: 730237000 (5) Diabetes mellitus ICD Codes: E11.9 - Type 2 diabetes mellitus without complications SNOMED: 28354041 (6) Hypertension ICD Codes: I10 - Essential (primary) hypertension SNOMED: 06452238 Status: stable Status Narrative Discussed with Dr. Hernandez. Assessment/Plan s/p ERCP and stenting improved LFTS post ERCP pancreatitis FLD, adv as tolerated abx fu labs ivf pain control DM control fu nephrology anemia work up needs repeat ERCP and stent removal in 4-6 weeks Subjective Gastrointestinal/Abdominal: Reports: no symptoms Objective Last 24 Hour Vital Signs Date Time Temp Pulse Resp B/P (MAP) Pulse Ox O2 Delivery O2 Flow Rate FiO2 08/24/17 09:16 76 149/70 08/24/17 08:00 98.0 76 19 149/70 97 Room Air 98.0 08/24/17 07:45 82 20 Room Air 21 08/24/17 04:20 99.2 84 18 145/73 95 Room Air 99.2 08/24/17 00:22 97.3 64 19 146/66 96 Room Air 97.3 08/23/17 20:40 77 20 Room Air 21 08/23/17 20:00 98.6 75 18 149/77 97 Room Air 98.6 08/23/17 16:00 97.8 89 19 125/81 97 97.8 08/23/17 12:00 98.0 82 18 151/83 98 Room Air 98.0 Intake and Output 08/23/17 08/24/17 19:00 07:00 Intake Total 1050 ml 240 ml Balance 1050 ml 240 ml Intake Oral 1050 ml 240 ml # Voids 2 2 # Bowel Movements 1 Laboratory Tests Test 08/24/17 05:35 White Blood Count 9.2 K/UL (4.8-10.8) Red Blood Count 3.12 M/UL (4.20-5.40) L Hemoglobin 9.1 G/DL (12.0-16.0) L Hematocrit 28.1 % (37.0-47.0) L Mean Corpuscular Volume 90 FL (80-99) Mean Corpuscular Hemoglobin 29.0 PG (27.0-31.0) Mean Corpuscular Hemoglobin Concent 32.2 G/DL (32.0-36.0) Red Cell Distribution Width 12.2 % (11.6-14.8) Platelet Count 133 K/UL (150-450) L Mean Platelet Volume 7.2 FL (6.5-10.1) Neutrophils (%) (Auto) 75.8 % (45.0-75.0) H Lymphocytes (%) (Auto) 11.4 % (20.0-45.0) L Monocytes (%) (Auto) 8.1 % (1.0-10.0) Eosinophils (%) (Auto) 3.8 % (0.0-3.0) H Basophils (%) (Auto) 0.9 % (0.0-2.0) Sodium Level 143 MMOL/L (136-145) Potassium Level 4.2 MMOL/L (3.5-5.1) Chloride Level 110 MMOL/L (98-107) H Carbon Dioxide Level 22 MMOL/L (21-32) Anion Gap 11 mmol/L (5-15) Blood Urea Nitrogen 26 mg/dL (7-18) H Creatinine 2.7 MG/DL (0.55-1.30) H Estimat Glomerular Filtration Rate 17.6 mL/min (>60) Glucose Level 139 MG/DL (74-106) H Calcium Level 8.0 MG/DL (8.5-10.1) L Total Bilirubin 1.3 MG/DL (0.2-1.0) H Direct Bilirubin 0.9 MG/DL (0.0-0.3) H Aspartate Amino Transf (AST/SGOT) 56 U/L (15-37) H Alanine Aminotransferase (ALT/SGPT) 191 U/L (12-78) H Alkaline Phosphatase 551 U/L (46-116) H Total Protein 5.9 G/DL (6.4-8.2) L Albumin 2.1 G/DL (3.4-5.0) L Globulin 3.8 g/dL Albumin/Globulin Ratio 0.6 (1.0-2.7) L Lipase 521 U/L (73-393) H Height (Feet): 5 Height (Inches): 1.00 Weight (Pounds): 140 General Appearance: WD/WN, no apparent distress, alert Cardiovascular: normal rate Respiratory/Chest: normal breath sounds, no respiratory distress Abdominal Exam: normal bowel sounds, non tender, soft Extremities: normal range of motion, non-tender Maria Shepherd NP Aug 24, 2017 10:29
--- NOTE | 2017-08-24 11:19 | Infectious Diseases Prog Note ---
Assessment/Plan Assessment/Plan Sepsis ; improving Cholangitis/ Elevated LFTs SP ERCP and stent placement' -bile cx: Gamma hemolytic strep, ESBL E.coli (S Zosyn), K. PNA ( R amp, ancef, bactrim; I Zosyn) -Abd US: Choledocholithiasis, with a 14 x 8 mm calculus within the common bile duct. There is resultant intrahepatic and extrahepatic biliary ductal dilatation and debris/sludge within the bile ducts. Evidence of prior cholecystectomy. Limited exam with nonvisualization of the right kidney and spleen and abdominal aorta. Incidental finding left lower pole renal cyst Hepatitis panel : neg Leukocytosis, resolved -Bcx NTD Afebrile -CXR: no acute process Pyuria; possible UTI- unable to provide symptoms -u/a wbc tntc, nit neg, leuk +1; ucx >100K P mirabilis (R Cipro/levo, bactrim ; otherwise S) Hyperglycemia, improving CORRY; improving DM HTN CAD seizure disorder dementia Full code NKDA Plan: -Continue Ertapenem #2/5-7 for cholangitis and possible UTI -08/23 SP Zosyn #5 -f/u Bcx x2 and Bile Cx -monitor CBC/CMP, temperatures -aspiration precautions Subjective Allergies: Coded Allergies: No Known Allergies (Unverified , 08/19/17) Subjective afebrile no leukocytosis Bcx NTD Objective Vital Signs Last 24 Hour Vital Signs Date Time Temp Pulse Resp B/P (MAP) Pulse Ox O2 Delivery O2 Flow Rate FiO2 08/24/17 09:16 76 149/70 08/24/17 08:00 98.0 76 19 149/70 97 Room Air 98.0 08/24/17 07:45 82 20 Room Air 21 08/24/17 04:20 99.2 84 18 145/73 95 Room Air 99.2 08/24/17 00:22 97.3 64 19 146/66 96 Room Air 97.3 08/23/17 20:40 77 20 Room Air 21 08/23/17 20:00 98.6 75 18 149/77 97 Room Air 98.6 08/23/17 16:00 97.8 89 19 125/81 97 97.8 08/23/17 12:00 98.0 82 18 151/83 98 Room Air 98.0 Height (Feet): 5 Height (Inches): 1.00 Weight (Pounds): 140 Objective HEENT: Pupils are equal and reactive to light. NECK: No JVD. HEART: Regular. LUNGS: Clear. ABDOMEN: Positive bowel sounds. EXTREMITIES: No clubbing, cyanosis, or edema. Microbiology Date/Time Source Procedure Growth Status 08/21/17 11:15 Bile Duct Gram Stain - Final Resulted 08/21/17 11:15 Aerobic Culture - Preliminary Strep Species, Gamma-Hemolytic Escherichia Coli - Esbl Klebsiella Pneumoniae Resulted Laboratory Tests Test 08/24/17 05:35 White Blood Count 9.2 K/UL (4.8-10.8) Red Blood Count 3.12 M/UL (4.20-5.40) L Hemoglobin 9.1 G/DL (12.0-16.0) L Hematocrit 28.1 % (37.0-47.0) L Mean Corpuscular Volume 90 FL (80-99) Mean Corpuscular Hemoglobin 29.0 PG (27.0-31.0) Mean Corpuscular Hemoglobin Concent 32.2 G/DL (32.0-36.0) Red Cell Distribution Width 12.2 % (11.6-14.8) Platelet Count 133 K/UL (150-450) L Mean Platelet Volume 7.2 FL (6.5-10.1) Neutrophils (%) (Auto) 75.8 % (45.0-75.0) H Lymphocytes (%) (Auto) 11.4 % (20.0-45.0) L Monocytes (%) (Auto) 8.1 % (1.0-10.0) Eosinophils (%) (Auto) 3.8 % (0.0-3.0) H Basophils (%) (Auto) 0.9 % (0.0-2.0) Sodium Level 143 MMOL/L (136-145) Potassium Level 4.2 MMOL/L (3.5-5.1) Chloride Level 110 MMOL/L (98-107) H Carbon Dioxide Level 22 MMOL/L (21-32) Anion Gap 11 mmol/L (5-15) Blood Urea Nitrogen 26 mg/dL (7-18) H Creatinine 2.7 MG/DL (0.55-1.30) H Estimat Glomerular Filtration Rate 17.6 mL/min (>60) Glucose Level 139 MG/DL (74-106) H Calcium Level 8.0 MG/DL (8.5-10.1) L Total Bilirubin 1.3 MG/DL (0.2-1.0) H Direct Bilirubin 0.9 MG/DL (0.0-0.3) H Aspartate Amino Transf (AST/SGOT) 56 U/L (15-37) H Alanine Aminotransferase (ALT/SGPT) 191 U/L (12-78) H Alkaline Phosphatase 551 U/L (46-116) H Total Protein 5.9 G/DL (6.4-8.2) L Albumin 2.1 G/DL (3.4-5.0) L Globulin 3.8 g/dL Albumin/Globulin Ratio 0.6 (1.0-2.7) L Lipase 521 U/L (73-393) H Current Medications Medications (Trade) Dose Ordered Sig/Jeff Route PRN Reason Start Time Stop Time Status Last Admin Dose Admin Acetaminophen (Tylenol) 650 mg Q4H PRN ORAL fever 08/19/17 19:59 09/18/17 19:58 Al Hydroxide/Mg Hydroxide (Mylanta II) 30 ml Q6H PRN ORAL dyspepsia 08/19/17 19:59 09/18/17 19:58 Albuterol/ Ipratropium (Albuterol/ Ipratropium) 3 ml Q4H PRN HHN Shortness of Breath 08/23/17 11:59 08/28/17 11:58 Amlodipine Besylate (Norvasc) 10 mg DAILY ORAL 08/20/17 09:00 09/19/17 08:59 08/24/17 09:16 Atorvastatin Calcium (Lipitor) 10 mg BEDTIME ORAL 08/19/17 21:00 09/18/17 20:59 08/23/17 21:03 Clonidine HCl (Catapres Tab) 0.1 mg Q4H PRN ORAL sbp more than 160 08/19/17 19:59 09/18/17 19:58 Dextrose (Dextrose 50%) 25 ml STAT PRN IV Hypoglycemia 08/20/17 08:00 09/19/17 07:59 Dextrose (Dextrose 50%) 50 ml STAT PRN IV Hypoglycemia 08/20/17 08:00 09/19/17 07:59 Ertapenem (INVanz) 1 gm DAILY IM 08/23/17 16:00 08/28/17 15:59 08/24/17 09:15 Insulin Aspart (NovoLOG) BEFORE MEALS AND HS SUBQ 08/19/17 21:00 09/18/17 20:59 08/24/17 06:05 Insulin Aspart (NovoLOG) 4 units NOVOTIAC SUBQ 08/20/17 11:50 09/19/17 11:49 08/24/17 06:06 Insulin Detemir (Levemir) 12 units DAILY SUBQ 08/20/17 09:00 09/19/17 08:59 08/24/17 09:22 Lidocaine (Xylocaine 1% MPF 5ml) 3.2 ml DAILY IM 08/23/17 16:00 09/22/17 15:59 08/24/17 09:15 Lorazepam (Ativan) 1 mg Q6H PRN ORAL For Anxiety 08/21/17 18:15 08/28/17 18:14 Nitroglycerin (Ntg) 0.4 mg Q5M X 3 DOSES PRN SL Prn Chest Pain 08/19/17 20:01 09/18/17 20:00 Ondansetron HCl (Zofran) 4 mg Q6H PRN IVP Nausea & Vomiting 08/19/17 20:01 09/18/17 20:00 Polyethylene Glycol (Miralax) 17 gm HSPRN PRN ORAL Constipation 08/19/17 21:00 09/18/17 20:59 Temazepam (Restoril) 15 mg HSPRN PRN ORAL Insomnia 08/19/17 21:00 08/26/17 20:59 08/19/17 22:59 Magda Estrada M.D. Aug 24, 2017 11:19
--- NOTE | 2017-08-24 13:26 | General Progress Note ---
Assessment/Plan Problem List: (1) Diabetes mellitus ICD Codes: E11.9 - Type 2 diabetes mellitus without complications SNOMED: 27808157 (2) Hypertension ICD Codes: I10 - Essential (primary) hypertension SNOMED: 90158262 (3) Advanced dementia ICD Codes: F03.90 - Unspecified dementia without behavioral disturbance SNOMED: 07837359 (4) Hyperglycemia ICD Codes: R73.9 - Hyperglycemia, unspecified SNOMED: 10345376 (5) Pyelonephritis ICD Codes: N12 - Tubulo-interstitial nephritis, not specified as acute or chronic SNOMED: 45206057 (6) UTI (urinary tract infection) ICD Codes: N39.0 - Urinary tract infection, site not specified SNOMED: 75370524 (7) Choledocholithiasis ICD Codes: K80.50 - Calculus of bile duct without cholangitis or cholecystitis without obstruction SNOMED: 166926717 Status: stable, progressing Assessment/Plan ot pt diet bp bs pain control gi f/u cbc bmp am dc if clear Subjective Constitutional: Reports: weakness Allergies: Coded Allergies: No Known Allergies (Unverified , 08/19/17) All Systems: reviewed and negative except above Subjective calm in bed Objective Last 24 Hour Vital Signs Date Time Temp Pulse Resp B/P (MAP) Pulse Ox O2 Delivery O2 Flow Rate FiO2 08/24/17 12:00 98.0 73 19 144/65 99 98.0 08/24/17 09:16 76 149/70 08/24/17 08:00 98.0 76 19 149/70 97 Room Air 98.0 08/24/17 07:45 82 20 Room Air 21 08/24/17 04:20 99.2 84 18 145/73 95 Room Air 99.2 08/24/17 00:22 97.3 64 19 146/66 96 Room Air 97.3 08/23/17 20:40 77 20 Room Air 21 08/23/17 20:00 98.6 75 18 149/77 97 Room Air 98.6 08/23/17 16:00 97.8 89 19 125/81 97 97.8 Intake and Output 08/23/17 08/24/17 19:00 07:00 Intake Total 1050 ml 240 ml Balance 1050 ml 240 ml Intake Oral 1050 ml 240 ml # Voids 2 2 # Bowel Movements 1 Laboratory Tests 08/24/17 05:35: White Blood Count 9.2, Red Blood Count 3.12L, Hemoglobin 9.1L, Hematocrit 28.1L , Mean Corpuscular Volume 90, Mean Corpuscular Hemoglobin 29.0, Mean Corpuscular Hemoglobin Concent 32.2, Red Cell Distribution Width 12.2, Platelet Count 133L, Mean Platelet Volume 7.2, Neutrophils (%) (Auto) 75.8H, Lymphocytes (%) (Auto) 11.4L, Monocytes (%) (Auto) 8.1, Eosinophils (%) (Auto) 3.8H, Basophils (%) (Auto) 0.9, Sodium Level 143, Potassium Level 4.2, Chloride Level 110H, Carbon Dioxide Level 22, Anion Gap 11, Blood Urea Nitrogen 26H, Creatinine 2.7H, Estimat Glomerular Filtration Rate 17.6, Glucose Level 139H, Calcium Level 8.0L, Total Bilirubin 1.3H, Direct Bilirubin 0.9H, Aspartate Amino Transf (AST/SGOT) 56H, Alanine Aminotransferase (ALT/SGPT) 191H, Alkaline Phosphatase 551H, Total Protein 5.9L, Albumin 2.1L, Globulin 3.8, Albumin/ Globulin Ratio 0.6L, Lipase 521H 08/24/17 11:15: Stool Occult Blood Negative Height (Feet): 5 Height (Inches): 1.00 Weight (Pounds): 140 General Appearance: lethargic EENT: normal ENT inspection Neck: normal alignment Cardiovascular: normal peripheral pulses, normal rate, regular rhythm Respiratory/Chest: chest wall non-tender, lungs clear, normal breath sounds Abdomen: normal bowel sounds, non tender, soft Extremities: normal inspection Edema: no edema noted Arm (L), no edema noted Arm (R), no edema noted Leg (L), no edema noted Leg (R), no edema noted Pedal (L), no edema noted Pedal (R), no edema noted Generalized Neurologic: motor weakness Skin: normal pigmentation, warm/dry Martin Hopper DO Aug 24, 2017 13:25
--- NOTE | 2017-08-24 13:45 | Pulmonology Progress Note ---
Assessment/Plan Problems: (1) Choledocholithiasis (2) UTI (urinary tract infection) (3) Hyperglycemia (4) Pyelonephritis (5) Diabetes mellitus (6) Hypertension (7) Advanced dementia Assessment/Plan ERCP done, CBD stone were removed continue abx improving f/u bilirubin level check cultures continue abx check electrolytes dvt prophylaxis Subjective ROS Limited/Unobtainable: No Constitutional: Reports: no symptoms HEENT: Repors: no symptoms Respiratory: Reports: no symptoms Cardiovascular: Reports: no symptoms Allergies: Coded Allergies: No Known Allergies (Unverified , 08/19/17) Objective Last 24 Hour Vital Signs Date Time Temp Pulse Resp B/P (MAP) Pulse Ox O2 Delivery O2 Flow Rate FiO2 08/24/17 12:00 98.0 73 19 144/65 99 98.0 08/24/17 09:16 76 149/70 08/24/17 08:00 98.0 76 19 149/70 97 Room Air 98.0 08/24/17 07:45 82 20 Room Air 21 08/24/17 04:20 99.2 84 18 145/73 95 Room Air 99.2 08/24/17 00:22 97.3 64 19 146/66 96 Room Air 97.3 08/23/17 20:40 77 20 Room Air 21 08/23/17 20:00 98.6 75 18 149/77 97 Room Air 98.6 08/23/17 16:00 97.8 89 19 125/81 97 97.8 Intake and Output 08/23/17 08/24/17 19:00 07:00 Intake Total 1050 ml 240 ml Balance 1050 ml 240 ml Intake Oral 1050 ml 240 ml # Voids 2 2 # Bowel Movements 1 General Appearance: WD/WN HEENT: normocephalic Respiratory/Chest: chest wall non-tender, lungs clear Cardiovascular: normal peripheral pulses, regular rhythm Abdomen: normal bowel sounds, soft, non tender Genitourinary: normal external genitalia Extremities: no clubbing Skin: no ulcers 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, no motor/sensory deficits Laboratory Tests 08/24/17 05:35: White Blood Count 9.2, Red Blood Count 3.12L, Hemoglobin 9.1L, Hematocrit 28.1L , Mean Corpuscular Volume 90, Mean Corpuscular Hemoglobin 29.0, Mean Corpuscular Hemoglobin Concent 32.2, Red Cell Distribution Width 12.2, Platelet Count 133L, Mean Platelet Volume 7.2, Neutrophils (%) (Auto) 75.8H, Lymphocytes (%) (Auto) 11.4L, Monocytes (%) (Auto) 8.1, Eosinophils (%) (Auto) 3.8H, Basophils (%) (Auto) 0.9, Sodium Level 143, Potassium Level 4.2, Chloride Level 110H, Carbon Dioxide Level 22, Anion Gap 11, Blood Urea Nitrogen 26H, Creatinine 2.7H, Estimat Glomerular Filtration Rate 17.6, Glucose Level 139H, Calcium Level 8.0L, Total Bilirubin 1.3H, Direct Bilirubin 0.9H, Aspartate Amino Transf (AST/SGOT) 56H, Alanine Aminotransferase (ALT/SGPT) 191H, Alkaline Phosphatase 551H, Total Protein 5.9L, Albumin 2.1L, Globulin 3.8, Albumin/ Globulin Ratio 0.6L, Lipase 521H 08/24/17 11:15: Stool Occult Blood Negative Current Medications Medications (Trade) Dose Ordered Sig/Jeff Route PRN Reason Start Time Stop Time Status Last Admin Dose Admin Acetaminophen (Tylenol) 650 mg Q4H PRN ORAL fever 08/19/17 19:59 09/18/17 19:58 Al Hydroxide/Mg Hydroxide (Mylanta II) 30 ml Q6H PRN ORAL dyspepsia 08/19/17 19:59 09/18/17 19:58 Albuterol/ Ipratropium (Albuterol/ Ipratropium) 3 ml Q4H PRN HHN Shortness of Breath 08/23/17 11:59 08/28/17 11:58 Amlodipine Besylate (Norvasc) 10 mg DAILY ORAL 08/20/17 09:00 09/19/17 08:59 08/24/17 09:16 Atorvastatin Calcium (Lipitor) 10 mg BEDTIME ORAL 08/19/17 21:00 09/18/17 20:59 08/23/17 21:03 Clonidine HCl (Catapres Tab) 0.1 mg Q4H PRN ORAL sbp more than 160 08/19/17 19:59 09/18/17 19:58 Dextrose (Dextrose 50%) 25 ml STAT PRN IV Hypoglycemia 08/20/17 08:00 09/19/17 07:59 Dextrose (Dextrose 50%) 50 ml STAT PRN IV Hypoglycemia 08/20/17 08:00 09/19/17 07:59 Ertapenem (INVanz) 1 gm DAILY IM 08/23/17 16:00 08/28/17 15:59 08/24/17 09:15 Insulin Aspart (NovoLOG) BEFORE MEALS AND HS SUBQ 08/19/17 21:00 09/18/17 20:59 08/24/17 11:54 Insulin Aspart (NovoLOG) 4 units NOVOTIAC SUBQ 08/20/17 11:50 09/19/17 11:49 08/24/17 11:54 Insulin Detemir (Levemir) 12 units DAILY SUBQ 08/20/17 09:00 09/19/17 08:59 08/24/17 09:22 Lidocaine (Xylocaine 1% MPF 5ml) 3.2 ml DAILY IM 08/23/17 16:00 09/22/17 15:59 08/24/17 09:15 Lorazepam (Ativan) 1 mg Q6H PRN ORAL For Anxiety 08/21/17 18:15 08/28/17 18:14 Memantine (Namenda) 5 mg BID ORAL 08/24/17 18:00 09/23/17 17:59 Nitroglycerin (Ntg) 0.4 mg Q5M X 3 DOSES PRN SL Prn Chest Pain 08/19/17 20:01 09/18/17 20:00 Ondansetron HCl (Zofran) 4 mg Q6H PRN IVP Nausea & Vomiting 08/19/17 20:01 09/18/17 20:00 Polyethylene Glycol (Miralax) 17 gm HSPRN PRN ORAL Constipation 08/19/17 21:00 09/18/17 20:59 Risperidone (RisperDAL) 0.25 mg Q12HR ORAL 08/24/17 21:00 09/23/17 20:59 Temazepam (Restoril) 15 mg HSPRN PRN ORAL Insomnia 08/19/17 21:00 08/26/17 20:59 08/19/17 22:59 Say Schneider MD Aug 24, 2017 13:45
--- NOTE | 2017-08-24 15:33 | General Surgery Progress Note ---
General Surgery-Progress Note Subjective Symptoms: improved, tolerating diet, passing flatus Additional Comments no acute events. Objective Last 24 Hour Vital Signs Date Time Temp Pulse Resp B/P (MAP) Pulse Ox O2 Delivery O2 Flow Rate FiO2 08/24/17 12:00 98.0 73 19 144/65 99 98.0 08/24/17 09:16 76 149/70 08/24/17 08:00 98.0 76 19 149/70 97 Room Air 98.0 08/24/17 07:45 82 20 Room Air 21 08/24/17 04:20 99.2 84 18 145/73 95 Room Air 99.2 08/24/17 00:22 97.3 64 19 146/66 96 Room Air 97.3 08/23/17 20:40 77 20 Room Air 21 08/23/17 20:00 98.6 75 18 149/77 97 Room Air 98.6 08/23/17 16:00 97.8 89 19 125/81 97 97.8 I&O Intake and Output 08/23/17 08/24/17 19:00 07:00 Intake Total 1050 ml 240 ml Balance 1050 ml 240 ml Intake Oral 1050 ml 240 ml # Voids 2 2 # Bowel Movements 1 Cardiovascular: RSR Respiratory: clear Abdomen: soft, flat, non-tender, present bowel sounds Extremities: no edema, no cyanosis Laboratory Tests Test 08/24/17 05:35 08/24/17 11:15 White Blood Count 9.2 K/UL (4.8-10.8) Red Blood Count 3.12 M/UL (4.20-5.40) L Hemoglobin 9.1 G/DL (12.0-16.0) L Hematocrit 28.1 % (37.0-47.0) L Mean Corpuscular Volume 90 FL (80-99) Mean Corpuscular Hemoglobin 29.0 PG (27.0-31.0) Mean Corpuscular Hemoglobin Concent 32.2 G/DL (32.0-36.0) Red Cell Distribution Width 12.2 % (11.6-14.8) Platelet Count 133 K/UL (150-450) L Mean Platelet Volume 7.2 FL (6.5-10.1) Neutrophils (%) (Auto) 75.8 % (45.0-75.0) H Lymphocytes (%) (Auto) 11.4 % (20.0-45.0) L Monocytes (%) (Auto) 8.1 % (1.0-10.0) Eosinophils (%) (Auto) 3.8 % (0.0-3.0) H Basophils (%) (Auto) 0.9 % (0.0-2.0) Sodium Level 143 MMOL/L (136-145) Potassium Level 4.2 MMOL/L (3.5-5.1) Chloride Level 110 MMOL/L (98-107) H Carbon Dioxide Level 22 MMOL/L (21-32) Anion Gap 11 mmol/L (5-15) Blood Urea Nitrogen 26 mg/dL (7-18) H Creatinine 2.7 MG/DL (0.55-1.30) H Estimat Glomerular Filtration Rate 17.6 mL/min (>60) Glucose Level 139 MG/DL (74-106) H Calcium Level 8.0 MG/DL (8.5-10.1) L Total Bilirubin 1.3 MG/DL (0.2-1.0) H Direct Bilirubin 0.9 MG/DL (0.0-0.3) H Aspartate Amino Transf (AST/SGOT) 56 U/L (15-37) H Alanine Aminotransferase (ALT/SGPT) 191 U/L (12-78) H Alkaline Phosphatase 551 U/L (46-116) H Total Protein 5.9 G/DL (6.4-8.2) L Albumin 2.1 G/DL (3.4-5.0) L Globulin 3.8 g/dL Albumin/Globulin Ratio 0.6 (1.0-2.7) L Lipase 521 U/L (73-393) H Stool Occult Blood Negative (NEGATIVE) Plan Problems: (1) Choledocholithiasis Assessment & Plan: 66F choledocholithiasis. large stone causing obstruction. elevated lft's and t bili. on ultrasound noted to have had prior cholecystectomy. either retained stone vs primary cbd stone. will need to obtain and review old notes. s/p ERCP with extraction of stones. labs improving. exam benign. -no acute surgical intervention necessary. -trend labs -diet as tolerated will follow with recs. thank you for this consultation. Giovani Lugo Aug 24, 2017 15:33
[2017-08-24] MEDS: Memantine 5 MG TAB ORAL SCH (17:20)
[2017-08-24] MEDS: LORazepam 1mg tab ORAL PRN (17:20)
[2017-08-24] MEDS ORDERED: Piperacillin/Tazobactam 2.25 GM in D5W 110 ML IVPB SCH (22:00)
--- NOTE | 2017-08-25 03:45 | Consultation ---
DATE OF CONSULTATION: 08/24/2017 NOTE: POOR AUDIO CONSULTING PHYSICIAN: Walter Capps M.D. HISTORY OF PRESENT ILLNESS: This is a 66-year-old female patient who was admitted to [facility] primarily because of hyperglycemia, pyelonephritis, and hypertension. She also has altered mental status. She was sent from [facility] to [facility]. She is very confused and disorganized. Her mood is labile. no logical plan for her own self-care. She lot of psychomotor agitation. She trying to get out of bed, had to be put on 2-point restraints getting out of bed . Very disorganized and confused. She psychiatric or medical illness. MEDICAL PROBLEMS: She has a history of hypertension, pyelonephritis, and hyperglycemia. ALLERGIES: No known drug allergies. PSYCHOTROPIC MEDICATIONS ON ADMISSION: Only on Ativan as needed. SUBSTANCE ABUSE HISTORY: Denies drug and alcohol use. . FAMILY PSYCHIATRIC HISTORY: Denies. SOCIAL HISTORY: She currently lives at [facility]. Financially supported by [employer] and Medicare. STRENGTHS: She is motivated to get better and she has a place to live. WEAKNESSES: She is impulsive and does not have much of a support system. MENTAL STATUS EXAMINATION: This is a 66-year-old female patient. Appearance disheveled. Attitude is irritable and agitated. Affect is guarded and restricted. Intellect is poor. Mood is depressed and anxious. Motor activity, psychomotor agitation. Attention span is poor. Orientation x2. Speech is low volume, slurred. Thought process, disorganized and illogical. Thought content, auditory hallucinations and paranoia. Insight and judgment is poor. DIAGNOSES: Major depression with psychotic features, rule out pseudodementia. Medical, pyelonephritis, hypertension, and urinary tract infection. Psychosocial stressors, financial and minimal social support. PLAN: Plan for this patient is to start her on Risperdal 0.25 mg p.o. b.i.d. to reduce agitation . In addition, Namenda 5 mg twice a day to prevent any further decline in cognition. Also, 18 to 20 minutes of supportive psychotherapy provided. Encouraged to interact appropriately with staff . I will continue to follow this patient throughout her hospital course in the hospital. Chart was reviewed and discussed with staff. The patient was seen and assessed in her room. I would like to thank, Dr. Martin Hopper, for this interesting consultation. Walter Capps M.D. DR: ALO JOB#: [id number] CC:
[2017-08-25 04:00] VITALS: BP 140/95
[2017-08-25] MEDS: NovoLOG Insulin Flexpen SUBQ SCH ×7 (06:10→20:54)
--- NOTE | 2017-08-25 07:14 | General Progress Note ---
Assessment/Plan Problem List: (1) Diabetes mellitus ICD Codes: E11.9 - Type 2 diabetes mellitus without complications SNOMED: 36867189 (2) Hypertension ICD Codes: I10 - Essential (primary) hypertension SNOMED: 97232267 (3) Advanced dementia ICD Codes: F03.90 - Unspecified dementia without behavioral disturbance SNOMED: 95173915 (4) Hyperglycemia ICD Codes: R73.9 - Hyperglycemia, unspecified SNOMED: 70587709 Assessment/Plan continue Levemir 12 units daily continue Novolog 4 units ac tid continue Novolog sliding scale ac / hs Subjective Allergies: Coded Allergies: No Known Allergies (Unverified , 08/19/17) All Systems: reviewed and negative except above Subjective events noted Objective Last 24 Hour Vital Signs Date Time Temp Pulse Resp B/P (MAP) Pulse Ox O2 Delivery O2 Flow Rate FiO2 08/25/17 04:00 98.2 62 20 140/95 97 Room Air 3.0 21 98.2 08/24/17 23:58 98.2 62 20 107/58 97 Room Air 98.2 08/24/17 19:41 99.0 70 20 133/67 95 Room Air 99.0 08/24/17 19:02 80 20 Room Air 21 08/24/17 17:20 161/72 08/24/17 16:00 97.8 70 19 161/72 98 97.8 08/24/17 12:00 98.0 73 19 144/65 99 98.0 08/24/17 09:16 76 149/70 08/24/17 08:00 98.0 76 19 149/70 97 Room Air 98.0 08/24/17 07:45 82 20 Room Air 21 Intake and Output 08/24/17 08/25/17 19:00 07:00 Intake Total 200 ml Balance 200 ml Intake Oral 200 ml # Voids 4 2 # Bowel Movements 1 Laboratory Tests 08/24/17 11:15: Stool Occult Blood Negative 08/25/17 05:25: White Blood Count [Pending], Red Blood Count [Pending], Hemoglobin [Pending], Hematocrit [Pending], Mean Corpuscular Volume [Pending], Mean Corpuscular Hemoglobin [Pending], Mean Corpuscular Hemoglobin Concent [Pending], Red Cell Distribution Width [Pending], Platelet Count [Pending], Mean Platelet Volume [ Pending], Neutrophils (%) (Auto) [Pending], Lymphocytes (%) (Auto) [Pending], Monocytes (%) (Auto) [Pending], Eosinophils (%) (Auto) [Pending], Basophils (%) (Auto) [Pending], Sodium Level [Pending], Potassium Level [Pending], Chloride Level [Pending], Carbon Dioxide Level [Pending], Blood Urea Nitrogen [Pending], Creatinine [Pending], Estimat Glomerular Filtration Rate [Pending], Glucose Level [Pending], Calcium Level [Pending], Total Bilirubin [Pending], Aspartate Amino Transf (AST/SGOT) [Pending], Alanine Aminotransferase (ALT/SGPT) [Pending] , Alkaline Phosphatase [Pending], Total Protein [Pending], Albumin [Pending], Globulin [Pending] Height (Feet): 5 Height (Inches): 1.00 Weight (Pounds): 140 General Appearance: no apparent distress Neck: normal alignment Cardiovascular: normal rate Respiratory/Chest: lungs clear Abdomen: normal bowel sounds Objective Current Medications Medications (Trade) Dose Ordered Sig/Jeff Route PRN Reason Start Time Stop Time Status Last Admin Dose Admin Acetaminophen (Tylenol) 650 mg Q4H PRN ORAL fever 08/19/17 19:59 09/18/17 19:58 Al Hydroxide/Mg Hydroxide (Mylanta II) 30 ml Q6H PRN ORAL dyspepsia 08/19/17 19:59 09/18/17 19:58 Albuterol/ Ipratropium (Albuterol/ Ipratropium) 3 ml Q4H PRN HHN Shortness of Breath 08/23/17 11:59 08/28/17 11:58 Amlodipine Besylate (Norvasc) 10 mg DAILY ORAL 08/20/17 09:00 09/19/17 08:59 08/24/17 09:16 Atorvastatin Calcium (Lipitor) 10 mg BEDTIME ORAL 08/19/17 21:00 09/18/17 20:59 08/24/17 20:34 Clonidine HCl (Catapres Tab) 0.1 mg Q4H PRN ORAL sbp more than 160 08/19/17 19:59 09/18/17 19:58 08/24/17 17:20 Dextrose (Dextrose 50%) 25 ml STAT PRN IV Hypoglycemia 08/20/17 08:00 09/19/17 07:59 Dextrose (Dextrose 50%) 50 ml STAT PRN IV Hypoglycemia 08/20/17 08:00 09/19/17 07:59 Ertapenem (INVanz) 1 gm DAILY IM 08/23/17 16:00 08/28/17 15:59 08/24/17 09:15 Insulin Aspart (NovoLOG) BEFORE MEALS AND HS SUBQ 08/19/17 21:00 09/18/17 20:59 08/25/17 06:10 Insulin Aspart (NovoLOG) 4 units NOVOTIAC SUBQ 08/20/17 11:50 09/19/17 11:49 08/25/17 06:14 Insulin Detemir (Levemir) 12 units DAILY SUBQ 08/20/17 09:00 09/19/17 08:59 08/24/17 09:22 Lidocaine (Xylocaine 1% MPF 5ml) 3.2 ml DAILY IM 08/23/17 16:00 09/22/17 15:59 08/24/17 09:15 Lorazepam (Ativan) 1 mg Q6H PRN ORAL For Anxiety 08/21/17 18:15 08/28/17 18:14 08/24/17 17:20 Memantine (Namenda) 5 mg BID ORAL 08/24/17 18:00 09/23/17 17:59 08/24/17 17:20 Nitroglycerin (Ntg) 0.4 mg Q5M X 3 DOSES PRN SL Prn Chest Pain 08/19/17 20:01 09/18/17 20:00 Ondansetron HCl (Zofran) 4 mg Q6H PRN IVP Nausea & Vomiting 08/19/17 20:01 09/18/17 20:00 Polyethylene Glycol (Miralax) 17 gm HSPRN PRN ORAL Constipation 08/19/17 21:00 09/18/17 20:59 Risperidone (RisperDAL) 0.25 mg Q12HR ORAL 08/24/17 21:00 09/23/17 20:59 08/24/17 20:34 Temazepam (Restoril) 15 mg HSPRN PRN ORAL Insomnia 08/19/17 21:00 08/26/17 20:59 08/19/17 22:59 Item Value Date Time Bedside Blood Glucose 112 mg/dl 08/25/17 0630 Bedside Blood Glucose 170 mg/dl H 08/24/17 2100 Bedside Blood Glucose 86 mg/dl 08/24/17 1649 Bedside Blood Glucose 172 mg/dl H 08/24/17 1154 Bedside Blood Glucose 127 mg/dl H 08/24/17 0922 Bedside Blood Glucose 127 mg/dl H 08/24/17 0613 Jeremie Driver MD Aug 25, 2017 07:14
[2017-08-25 07:26] LABS: BASOPHILS % (AUTO) 0.8 % (0.0-2.0); EOSINOPHILS % (AUTO) 3.6 % (0.0-3.0); HEMATOCRIT 26.6 % (37.0-47.0); HEMOGLOBIN 8.6 G/DL (12.0-16.0); LYMPHOCYTES % (AUTO) 18.5 % (20.0-45.0); MEAN CORPUSCULAR VOLUME 89 FL (80-99); MONOCYTES % (AUTO) 12.9 % (1.0-10.0); NEUTROPHILS % (AUTO) 64.2 % (45.0-75.0); PLATELET COUNT 139 K/UL (150-450); RED BLOOD COUNT 2.98 M/UL (4.20-5.40); RED CELL DISTRIBUTION WIDTH 12.7 % (11.6-14.8); WHITE BLOOD COUNT 8.8 K/UL (4.8-10.8)
[2017-08-25 07:39] LABS: ALANINE AMINOTRANSFERASE 147 U/L (12-78); ALBUMIN/GLOBULIN RATIO 0.6 (1.0-2.7); ALKALINE PHOSPHATASE 502 U/L (46-116); ANION GAP 10 mmol/L (5-15); ASPARTATE AMINO TRANSFERASE 52 U/L (15-37); BILIRUBIN,TOTAL 1.1 MG/DL (0.2-1.0); BLOOD UREA NITROGEN 24 mg/dL (7-18); CALCIUM 7.9 MG/DL (8.5-10.1); CARBON DIOXIDE 22 MMOL/L (21-32); CHLORIDE 109 MMOL/L (98-107); CREATININE 2.7 MG/DL (0.55-1.30); POTASSIUM 3.7 MMOL/L (3.5-5.1); SODIUM 140 MMOL/L (136-145)
[2017-08-25 07:40] LABS: BILIRUBIN,DIRECT 0.7 MG/DL (0.0-0.3)
[2017-08-25 08:00] VITALS: BP 119/66
[2017-08-25] MEDS: Memantine 5 MG TAB ORAL SCH ×2 (08:29→17:13)
[2017-08-25] MEDS: Lidocaine 1% MPF 10mg/ml 5ml IM SCH (08:30)
[2017-08-25] MEDS: Ertapenem (INVanz) 1gm Inj IM SCH (08:30)
[2017-08-25] MEDS: Levemir Flexpen SUBQ SCH (08:33)
--- NOTE | 2017-08-25 09:21 | Nephrology Progress Note ---
Assessment/Plan Assessment/Plan 1. CORRY on CKD 4- Cr stable at 2.7 Right kidney could not be visulaized by US - continue IVFs and avoid nephrotoxins (Toradol stopped). - awaiting DC. F/U 1 week. Call [phone] for appointment 2. Choledocholithiasis- ERCP, mgmpt per PCP and general surgery -repeat ERCP and stent removal in 4-6 weeks 3. Dehydration- resolved 4. HTN- stable 5. HyperCL- met Acidosis- resolved OK for DC from renal standpoint Subjective Date patient seen: Aug 25, 2017 Time patient seen: 09:19 ROS Limited/Unobtainable: Yes Allergies: Coded Allergies: No Known Allergies (Unverified , 08/19/17) Subjective Patient oriented to one sphere and stable Objective Last 24 Hour Vital Signs Date Time Temp Pulse Resp B/P (MAP) Pulse Ox O2 Delivery O2 Flow Rate FiO2 08/25/17 08:34 65 119/66 08/25/17 08:00 97.7 96 18 119/66 96 Room Air 97.7 08/25/17 07:40 64 20 Room Air 21 08/25/17 04:00 98.2 62 20 140/95 97 Room Air 3.0 21 98.2 08/24/17 23:58 98.2 62 20 107/58 97 Room Air 98.2 08/24/17 19:41 99.0 70 20 133/67 95 Room Air 99.0 08/24/17 19:02 80 20 Room Air 21 08/24/17 17:20 161/72 08/24/17 16:00 97.8 70 19 161/72 98 97.8 08/24/17 12:00 98.0 73 19 144/65 99 98.0 Intake and Output 08/24/17 08/25/17 19:00 07:00 Intake Total 200 ml Balance 200 ml Intake Oral 200 ml # Voids 4 2 # Bowel Movements 1 Laboratory Tests 08/24/17 11:15: Stool Occult Blood Negative 08/25/17 05:25: White Blood Count 8.8, Red Blood Count 2.98L, Hemoglobin 8.6L, Hematocrit 26.6L , Mean Corpuscular Volume 89, Mean Corpuscular Hemoglobin 29.0, Mean Corpuscular Hemoglobin Concent 32.5, Red Cell Distribution Width 12.7, Platelet Count 139L, Mean Platelet Volume 7.6, Neutrophils (%) (Auto) 64.2, Lymphocytes ( %) (Auto) 18.5L, Monocytes (%) (Auto) 12.9H, Eosinophils (%) (Auto) 3.6H, Basophils (%) (Auto) 0.8, Sodium Level 140, Potassium Level 3.7, Chloride Level 109H, Carbon Dioxide Level 22, Anion Gap 10, Blood Urea Nitrogen 24H, Creatinine 2.7H, Estimat Glomerular Filtration Rate 17.6, Glucose Level 108H, Calcium Level 7.9L, Total Bilirubin 1.1H, Direct Bilirubin 0.7H, Aspartate Amino Transf (AST/SGOT) 52H, Alanine Aminotransferase (ALT/SGPT) 147H, Alkaline Phosphatase 502H, Total Protein 5.6L, Albumin 2.0L, Globulin 3.6, Albumin/ Globulin Ratio 0.6L Height (Feet): 5 Height (Inches): 1.00 Weight (Pounds): 140 General Appearance: no apparent distress, confused EENT: normal ENT inspection Neck: normal alignment, supple Cardiovascular: normal rate, regular rhythm Respiratory/Chest: lungs clear, normal breath sounds Abdomen: non tender, soft Edema: no edema noted Arm (L), no edema noted Arm (R), no edema noted Leg (L), no edema noted Leg (R), no edema noted Pedal (L), no edema noted Pedal (R), no edema noted Generalized Kush Blackburn M.D. Aug 25, 2017 09:21
[2017-08-25 12:00] VITALS: BP 129/62
--- NOTE | 2017-08-25 12:16 | General Surgery Progress Note ---
General Surgery-Progress Note Subjective Symptoms: improved, pain absent, tolerating diet, passing flatus, BM Objective Last 24 Hour Vital Signs Date Time Temp Pulse Resp B/P (MAP) Pulse Ox O2 Delivery O2 Flow Rate FiO2 08/25/17 08:34 65 119/66 08/25/17 08:00 97.7 96 18 119/66 96 Room Air 97.7 08/25/17 07:40 64 20 Room Air 21 08/25/17 04:00 98.2 62 20 140/95 97 Room Air 3.0 21 98.2 08/24/17 23:58 98.2 62 20 107/58 97 Room Air 98.2 08/24/17 19:41 99.0 70 20 133/67 95 Room Air 99.0 08/24/17 19:02 80 20 Room Air 21 08/24/17 17:20 161/72 08/24/17 16:00 97.8 70 19 161/72 98 97.8 I&O Intake and Output 08/24/17 08/25/17 18:59 06:59 Intake Total 200 ml Balance 200 ml Intake Oral 200 ml # Voids 4 2 # Bowel Movements 1 Drains: none Cardiovascular: RSR Respiratory: clear Abdomen: soft, flat, non-tender, present bowel sounds Extremities: no edema, no tenderness, no cyanosis Laboratory Tests Test 08/25/17 05:25 White Blood Count 8.8 K/UL (4.8-10.8) Red Blood Count 2.98 M/UL (4.20-5.40) L Hemoglobin 8.6 G/DL (12.0-16.0) L Hematocrit 26.6 % (37.0-47.0) L Mean Corpuscular Volume 89 FL (80-99) Mean Corpuscular Hemoglobin 29.0 PG (27.0-31.0) Mean Corpuscular Hemoglobin Concent 32.5 G/DL (32.0-36.0) Red Cell Distribution Width 12.7 % (11.6-14.8) Platelet Count 139 K/UL (150-450) L Mean Platelet Volume 7.6 FL (6.5-10.1) Neutrophils (%) (Auto) 64.2 % (45.0-75.0) Lymphocytes (%) (Auto) 18.5 % (20.0-45.0) L Monocytes (%) (Auto) 12.9 % (1.0-10.0) H Eosinophils (%) (Auto) 3.6 % (0.0-3.0) H Basophils (%) (Auto) 0.8 % (0.0-2.0) Sodium Level 140 MMOL/L (136-145) Potassium Level 3.7 MMOL/L (3.5-5.1) Chloride Level 109 MMOL/L (98-107) H Carbon Dioxide Level 22 MMOL/L (21-32) Anion Gap 10 mmol/L (5-15) Blood Urea Nitrogen 24 mg/dL (7-18) H Creatinine 2.7 MG/DL (0.55-1.30) H Estimat Glomerular Filtration Rate 17.6 mL/min (>60) Glucose Level 108 MG/DL (74-106) H Calcium Level 7.9 MG/DL (8.5-10.1) L Total Bilirubin 1.1 MG/DL (0.2-1.0) H Direct Bilirubin 0.7 MG/DL (0.0-0.3) H Aspartate Amino Transf (AST/SGOT) 52 U/L (15-37) H Alanine Aminotransferase (ALT/SGPT) 147 U/L (12-78) H Alkaline Phosphatase 502 U/L (46-116) H Total Protein 5.6 G/DL (6.4-8.2) L Albumin 2.0 G/DL (3.4-5.0) L Globulin 3.6 g/dL Albumin/Globulin Ratio 0.6 (1.0-2.7) L Plan Problems: (1) Choledocholithiasis Assessment & Plan: 66F choledocholithiasis. large stone causing obstruction. elevated lft's and t bili. on ultrasound noted to have had prior cholecystectomy. either retained stone vs primary cbd stone. will need to obtain and review old notes. s/p ERCP with extraction of stones. labs improving. exam benign. -no acute surgical intervention necessary. -trend labs -diet as tolerated -okay to d/c from surgical standpoint will follow with recs. thank you for this consultation. Giovani Lugo Aug 25, 2017 12:16
--- NOTE | 2017-08-25 13:00 | Progress Note ---
DATE: 08/25/2017 SUBJECTIVE: This is a 66-year-old female patient with hyperglycemia. She still has altered mental status, confusion, disorganized thought process. That is why, her attending has requested daily psychiatric consultation. She has hyperglycemia, pyelonephritis, and hypertension. MENTAL STATUS EXAMINATION: This is a 66-year-old female patient. Appearance is disheveled. Attitude is irritable and agitated. Affect is guarded and restricted. Intellect is poor. Mood is depressed and anxious. Motor activity, psychomotor agitation. Attention span is poor. Orientation x2. Speech is pressured. Thought process, disorganized and illogical. Thought content, auditory hallucinations and paranoid delusions. Insight and judgment is poor. DIAGNOSIS: Major depression with psychotic features. PLAN: Continue to treat her with Namenda 5 mg twice a day and Risperdal 0.25 mg twice a day to reduce agitation. An 18 to 20 minutes of supportive psychotherapy provided. Chart was reviewed and discussed with staff. The patient was seen and assessed in her room. Walter Capps M.D. DR: JOHN JOB#: [id number] CC:
--- NOTE | 2017-08-25 14:15 | GI Progress Note ---
Assessment/Plan Problems: (1) Pancreatitis ICD Codes: K85.90 - Acute pancreatitis without necrosis or infection, unspecified SNOMED: 52382802 (2) Encounter for diagnostic endoscopy ICD Codes: Z01.818 - Encounter for other preprocedural examination SNOMED: 139540909, 813832252 (3) Choledocholithiasis ICD Codes: K80.50 - Calculus of bile duct without cholangitis or cholecystitis without obstruction SNOMED: 986972644 (4) Anemia ICD Codes: D64.9 - Anemia, unspecified SNOMED: 467382815 (5) Diabetes mellitus ICD Codes: E11.9 - Type 2 diabetes mellitus without complications SNOMED: 26711930 (6) Hypertension ICD Codes: I10 - Essential (primary) hypertension SNOMED: 87004813 Status: stable Status Narrative Discussed with Dr. Hernandez. Assessment/Plan s/p ERCP and stenting improved LFTS post ERCP pancreatitis OB stool negative okay for DC per GI standpoint adv diet as tolerated abx ivf pain control DM control fu nephrology needs repeat ERCP and stent removal in 4-6 weeks Subjective Gastrointestinal/Abdominal: Reports: no symptoms Objective Last 24 Hour Vital Signs Date Time Temp Pulse Resp B/P (MAP) Pulse Ox O2 Delivery O2 Flow Rate FiO2 08/25/17 12:00 97.7 95 20 129/62 98 Room Air 97.7 08/25/17 08:34 65 119/66 08/25/17 08:00 97.7 96 18 119/66 96 Room Air 97.7 08/25/17 07:40 64 20 Room Air 21 08/25/17 04:00 98.2 62 20 140/95 97 Room Air 3.0 21 98.2 08/24/17 23:58 98.2 62 20 107/58 97 Room Air 98.2 08/24/17 19:41 99.0 70 20 133/67 95 Room Air 99.0 08/24/17 19:02 80 20 Room Air 21 08/24/17 17:20 161/72 08/24/17 16:00 97.8 70 19 161/72 98 97.8 Intake and Output 08/24/17 08/25/17 19:00 07:00 Intake Total 200 ml Balance 200 ml Intake Oral 200 ml # Voids 4 2 # Bowel Movements 1 Laboratory Tests Test 08/25/17 05:25 White Blood Count 8.8 K/UL (4.8-10.8) Red Blood Count 2.98 M/UL (4.20-5.40) L Hemoglobin 8.6 G/DL (12.0-16.0) L Hematocrit 26.6 % (37.0-47.0) L Mean Corpuscular Volume 89 FL (80-99) Mean Corpuscular Hemoglobin 29.0 PG (27.0-31.0) Mean Corpuscular Hemoglobin Concent 32.5 G/DL (32.0-36.0) Red Cell Distribution Width 12.7 % (11.6-14.8) Platelet Count 139 K/UL (150-450) L Mean Platelet Volume 7.6 FL (6.5-10.1) Neutrophils (%) (Auto) 64.2 % (45.0-75.0) Lymphocytes (%) (Auto) 18.5 % (20.0-45.0) L Monocytes (%) (Auto) 12.9 % (1.0-10.0) H Eosinophils (%) (Auto) 3.6 % (0.0-3.0) H Basophils (%) (Auto) 0.8 % (0.0-2.0) Sodium Level 140 MMOL/L (136-145) Potassium Level 3.7 MMOL/L (3.5-5.1) Chloride Level 109 MMOL/L (98-107) H Carbon Dioxide Level 22 MMOL/L (21-32) Anion Gap 10 mmol/L (5-15) Blood Urea Nitrogen 24 mg/dL (7-18) H Creatinine 2.7 MG/DL (0.55-1.30) H Estimat Glomerular Filtration Rate 17.6 mL/min (>60) Glucose Level 108 MG/DL (74-106) H Calcium Level 7.9 MG/DL (8.5-10.1) L Total Bilirubin 1.1 MG/DL (0.2-1.0) H Direct Bilirubin 0.7 MG/DL (0.0-0.3) H Aspartate Amino Transf (AST/SGOT) 52 U/L (15-37) H Alanine Aminotransferase (ALT/SGPT) 147 U/L (12-78) H Alkaline Phosphatase 502 U/L (46-116) H Total Protein 5.6 G/DL (6.4-8.2) L Albumin 2.0 G/DL (3.4-5.0) L Globulin 3.6 g/dL Albumin/Globulin Ratio 0.6 (1.0-2.7) L Height (Feet): 5 Height (Inches): 1.00 Weight (Pounds): 140 General Appearance: WD/WN, no apparent distress, alert Cardiovascular: normal rate Respiratory/Chest: normal breath sounds, no respiratory distress Abdominal Exam: normal bowel sounds, non tender, soft Extremities: normal range of motion, non-tender Maria Shepherd NP Aug 25, 2017 14:15
--- NOTE | 2017-08-25 14:17 | Pulmonology Progress Note ---
Assessment/Plan Problems: (1) Choledocholithiasis (2) UTI (urinary tract infection) (3) Hyperglycemia (4) Pyelonephritis (5) Diabetes mellitus (6) Hypertension (7) Advanced dementia Assessment/Plan ERCP done, CBD stone were removed continue abx improving f/u bilirubin level check cultures continue abx check electrolytes dvt prophylaxis Subjective ROS Limited/Unobtainable: No Constitutional: Reports: no symptoms HEENT: Repors: no symptoms Respiratory: Reports: no symptoms Allergies: Coded Allergies: No Known Allergies (Unverified , 08/19/17) Objective Last 24 Hour Vital Signs Date Time Temp Pulse Resp B/P (MAP) Pulse Ox O2 Delivery O2 Flow Rate FiO2 08/25/17 12:00 97.7 95 20 129/62 98 Room Air 97.7 08/25/17 08:34 65 119/66 08/25/17 08:00 97.7 96 18 119/66 96 Room Air 97.7 08/25/17 07:40 64 20 Room Air 21 08/25/17 04:00 98.2 62 20 140/95 97 Room Air 3.0 21 98.2 08/24/17 23:58 98.2 62 20 107/58 97 Room Air 98.2 08/24/17 19:41 99.0 70 20 133/67 95 Room Air 99.0 08/24/17 19:02 80 20 Room Air 21 08/24/17 17:20 161/72 08/24/17 16:00 97.8 70 19 161/72 98 97.8 Intake and Output 08/24/17 08/25/17 19:00 07:00 Intake Total 200 ml Balance 200 ml Intake Oral 200 ml # Voids 4 2 # Bowel Movements 1 General Appearance: WD/WN HEENT: normocephalic, atraumatic Respiratory/Chest: chest wall non-tender, normal breath sounds Breasts: no masses Cardiovascular: normal peripheral pulses, no JVD Abdomen: soft, non tender Genitourinary: normal external genitalia Extremities: no cyanosis Neurologic/Psychiatric: no motor/sensory deficits Lymphatic: no neck adenopathy Laboratory Tests 08/25/17 05:25: White Blood Count 8.8, Red Blood Count 2.98L, Hemoglobin 8.6L, Hematocrit 26.6L , Mean Corpuscular Volume 89, Mean Corpuscular Hemoglobin 29.0, Mean Corpuscular Hemoglobin Concent 32.5, Red Cell Distribution Width 12.7, Platelet Count 139L, Mean Platelet Volume 7.6, Neutrophils (%) (Auto) 64.2, Lymphocytes ( %) (Auto) 18.5L, Monocytes (%) (Auto) 12.9H, Eosinophils (%) (Auto) 3.6H, Basophils (%) (Auto) 0.8, Sodium Level 140, Potassium Level 3.7, Chloride Level 109H, Carbon Dioxide Level 22, Anion Gap 10, Blood Urea Nitrogen 24H, Creatinine 2.7H, Estimat Glomerular Filtration Rate 17.6, Glucose Level 108H, Calcium Level 7.9L, Total Bilirubin 1.1H, Direct Bilirubin 0.7H, Aspartate Amino Transf (AST/SGOT) 52H, Alanine Aminotransferase (ALT/SGPT) 147H, Alkaline Phosphatase 502H, Total Protein 5.6L, Albumin 2.0L, Globulin 3.6, Albumin/ Globulin Ratio 0.6L Current Medications Medications (Trade) Dose Ordered Sig/Jeff Route PRN Reason Start Time Stop Time Status Last Admin Dose Admin Acetaminophen (Tylenol) 650 mg Q4H PRN ORAL fever 08/19/17 19:59 09/18/17 19:58 Al Hydroxide/Mg Hydroxide (Mylanta II) 30 ml Q6H PRN ORAL dyspepsia 08/19/17 19:59 09/18/17 19:58 Albuterol/ Ipratropium (Albuterol/ Ipratropium) 3 ml Q4H PRN HHN Shortness of Breath 08/23/17 11:59 08/28/17 11:58 Amlodipine Besylate (Norvasc) 10 mg DAILY ORAL 08/20/17 09:00 09/19/17 08:59 08/25/17 08:34 Atorvastatin Calcium (Lipitor) 10 mg BEDTIME ORAL 08/19/17 21:00 09/18/17 20:59 08/24/17 20:34 Clonidine HCl (Catapres Tab) 0.1 mg Q4H PRN ORAL sbp more than 160 08/19/17 19:59 09/18/17 19:58 08/24/17 17:20 Dextrose (Dextrose 50%) 25 ml STAT PRN IV Hypoglycemia 08/20/17 08:00 09/19/17 07:59 Dextrose (Dextrose 50%) 50 ml STAT PRN IV Hypoglycemia 08/20/17 08:00 09/19/17 07:59 Ertapenem (INVanz) 1 gm DAILY IM 08/23/17 16:00 08/28/17 15:59 08/25/17 08:30 Insulin Aspart (NovoLOG) BEFORE MEALS AND HS SUBQ 08/19/17 21:00 09/18/17 20:59 08/25/17 12:32 Insulin Aspart (NovoLOG) 4 units NOVOTIAC SUBQ 08/20/17 11:50 09/19/17 11:49 08/25/17 12:32 Insulin Detemir (Levemir) 12 units DAILY SUBQ 08/20/17 09:00 09/19/17 08:59 08/25/17 08:33 Lidocaine (Xylocaine 1% MPF 5ml) 3.2 ml DAILY IM 08/23/17 16:00 09/22/17 15:59 08/25/17 08:30 Lorazepam (Ativan) 1 mg Q6H PRN ORAL For Anxiety 08/21/17 18:15 08/28/17 18:14 08/24/17 17:20 Memantine (Namenda) 5 mg BID ORAL 08/24/17 18:00 09/23/17 17:59 08/25/17 08:29 Nitroglycerin (Ntg) 0.4 mg Q5M X 3 DOSES PRN SL Prn Chest Pain 08/19/17 20:01 09/18/17 20:00 Ondansetron HCl (Zofran) 4 mg Q6H PRN IVP Nausea & Vomiting 08/19/17 20:01 09/18/17 20:00 Polyethylene Glycol (Miralax) 17 gm HSPRN PRN ORAL Constipation 08/19/17 21:00 09/18/17 20:59 Risperidone (RisperDAL) 0.25 mg Q12HR ORAL 08/24/17 21:00 09/23/17 20:59 08/25/17 08:33 Temazepam (Restoril) 15 mg HSPRN PRN ORAL Insomnia 08/19/17 21:00 08/26/17 20:59 08/19/17 22:59 Say Schneider MD Aug 25, 2017 14:17
--- NOTE | 2017-08-25 14:41 | General Progress Note ---
Assessment/Plan Problem List: (1) Diabetes mellitus ICD Codes: E11.9 - Type 2 diabetes mellitus without complications SNOMED: 65525133 (2) Hypertension ICD Codes: I10 - Essential (primary) hypertension SNOMED: 54310982 (3) Advanced dementia ICD Codes: F03.90 - Unspecified dementia without behavioral disturbance SNOMED: 36956704 (4) Hyperglycemia ICD Codes: R73.9 - Hyperglycemia, unspecified SNOMED: 44117743 (5) Pyelonephritis ICD Codes: N12 - Tubulo-interstitial nephritis, not specified as acute or chronic SNOMED: 26586560 (6) UTI (urinary tract infection) ICD Codes: N39.0 - Urinary tract infection, site not specified SNOMED: 31746737 (7) Choledocholithiasis ICD Codes: K80.50 - Calculus of bile duct without cholangitis or cholecystitis without obstruction SNOMED: 662098295 Status: stable, progressing Assessment/Plan ot pt diet bp bs pain control gi f/u cbc bmp am dc if clear Subjective Constitutional: Reports: weakness Allergies: Coded Allergies: No Known Allergies (Unverified , 08/19/17) All Systems: reviewed and negative except above Subjective calm in bed Objective Last 24 Hour Vital Signs Date Time Temp Pulse Resp B/P (MAP) Pulse Ox O2 Delivery O2 Flow Rate FiO2 08/25/17 12:00 97.7 95 20 129/62 98 Room Air 97.7 08/25/17 08:34 65 119/66 08/25/17 08:00 97.7 96 18 119/66 96 Room Air 97.7 08/25/17 07:40 64 20 Room Air 21 08/25/17 04:00 98.2 62 20 140/95 97 Room Air 3.0 21 98.2 08/24/17 23:58 98.2 62 20 107/58 97 Room Air 98.2 08/24/17 19:41 99.0 70 20 133/67 95 Room Air 99.0 08/24/17 19:02 80 20 Room Air 21 08/24/17 17:20 161/72 08/24/17 16:00 97.8 70 19 161/72 98 97.8 Intake and Output 08/24/17 08/25/17 19:00 07:00 Intake Total 200 ml Balance 200 ml Intake Oral 200 ml # Voids 4 2 # Bowel Movements 1 Laboratory Tests 08/25/17 05:25: White Blood Count 8.8, Red Blood Count 2.98L, Hemoglobin 8.6L, Hematocrit 26.6L , Mean Corpuscular Volume 89, Mean Corpuscular Hemoglobin 29.0, Mean Corpuscular Hemoglobin Concent 32.5, Red Cell Distribution Width 12.7, Platelet Count 139L, Mean Platelet Volume 7.6, Neutrophils (%) (Auto) 64.2, Lymphocytes ( %) (Auto) 18.5L, Monocytes (%) (Auto) 12.9H, Eosinophils (%) (Auto) 3.6H, Basophils (%) (Auto) 0.8, Sodium Level 140, Potassium Level 3.7, Chloride Level 109H, Carbon Dioxide Level 22, Anion Gap 10, Blood Urea Nitrogen 24H, Creatinine 2.7H, Estimat Glomerular Filtration Rate 17.6, Glucose Level 108H, Calcium Level 7.9L, Total Bilirubin 1.1H, Direct Bilirubin 0.7H, Aspartate Amino Transf (AST/SGOT) 52H, Alanine Aminotransferase (ALT/SGPT) 147H, Alkaline Phosphatase 502H, Total Protein 5.6L, Albumin 2.0L, Globulin 3.6, Albumin/ Globulin Ratio 0.6L Height (Feet): 5 Height (Inches): 1.00 Weight (Pounds): 140 General Appearance: lethargic EENT: normal ENT inspection Neck: normal alignment Cardiovascular: normal peripheral pulses, normal rate, regular rhythm Respiratory/Chest: chest wall non-tender, lungs clear, normal breath sounds Abdomen: normal bowel sounds, non tender, soft Extremities: normal inspection Edema: no edema noted Arm (L), no edema noted Arm (R), no edema noted Leg (L), no edema noted Leg (R), no edema noted Pedal (L), no edema noted Pedal (R), no edema noted Generalized Neurologic: motor weakness Skin: normal pigmentation, warm/dry Martin Hopper DO Aug 25, 2017 14:41
[2017-08-25 16:00] VITALS: BP 118/58
--- NOTE | 2017-08-25 16:34 | Infectious Diseases Prog Note ---
Assessment/Plan Assessment/Plan Sepsis ; resolved Cholangitis/ Elevated LFTs SP ERCP and stent placement' -bile cx: Enterococcus gallinarum, ESBL E.coli (S Zosyn), ESBL K. PNA ( R amp, ancef, bactrim; I Zosyn) -Abd US: Choledocholithiasis, with a 14 x 8 mm calculus within the common bile duct. There is resultant intrahepatic and extrahepatic biliary ductal dilatation and debris/sludge within the bile ducts. Evidence of prior cholecystectomy. Limited exam with nonvisualization of the right kidney and spleen and abdominal aorta. Incidental finding left lower pole renal cyst Hepatitis panel : neg Leukocytosis, resolved -Bcx NTD Afebrile -CXR: no acute process Pyuria; possible UTI- unable to provide symptoms -u/a wbc tntc, nit neg, leuk +1; ucx >100K P mirabilis (R Cipro/levo, bactrim ; otherwise S) Hyperglycemia, improving CORRY; improving DM HTN CAD seizure disorder dementia Full code NKDA Plan: -Continue Ertapenem #3/7 for cholangitis and possible UTI (switched to IM given lack of access);ok to discharge on this regimen -08/23 SP Zosyn #5 -f/u Bcx x2 -monitor CBC/CMP, temperatures -aspiration precautions Discussed with RN Subjective Allergies: Coded Allergies: No Known Allergies (Unverified , 08/19/17) Subjective afebrile no leukocytosis Bcx NTD LFts improving discharge planning Objective Vital Signs Last 24 Hour Vital Signs Date Time Temp Pulse Resp B/P (MAP) Pulse Ox O2 Delivery O2 Flow Rate FiO2 08/25/17 16:00 97.3 80 18 118/58 98 Room Air 97.3 08/25/17 12:00 97.7 95 20 129/62 98 Room Air 97.7 08/25/17 08:34 65 119/66 08/25/17 08:00 97.7 96 18 119/66 96 Room Air 97.7 08/25/17 07:40 64 20 Room Air 21 08/25/17 04:00 98.2 62 20 140/95 97 Room Air 3.0 21 98.2 08/24/17 23:58 98.2 62 20 107/58 97 Room Air 98.2 08/24/17 19:41 99.0 70 20 133/67 95 Room Air 99.0 08/24/17 19:02 80 20 Room Air 21 08/24/17 17:20 161/72 Height (Feet): 5 Height (Inches): 1.00 Weight (Pounds): 140 Objective HEENT: Pupils are equal and reactive to light. NECK: No JVD. HEART: Regular. LUNGS: Clear. ABDOMEN: Positive bowel sounds. EXTREMITIES: No clubbing, cyanosis, or edema. Laboratory Tests Test 08/25/17 05:25 White Blood Count 8.8 K/UL (4.8-10.8) Red Blood Count 2.98 M/UL (4.20-5.40) L Hemoglobin 8.6 G/DL (12.0-16.0) L Hematocrit 26.6 % (37.0-47.0) L Mean Corpuscular Volume 89 FL (80-99) Mean Corpuscular Hemoglobin 29.0 PG (27.0-31.0) Mean Corpuscular Hemoglobin Concent 32.5 G/DL (32.0-36.0) Red Cell Distribution Width 12.7 % (11.6-14.8) Platelet Count 139 K/UL (150-450) L Mean Platelet Volume 7.6 FL (6.5-10.1) Neutrophils (%) (Auto) 64.2 % (45.0-75.0) Lymphocytes (%) (Auto) 18.5 % (20.0-45.0) L Monocytes (%) (Auto) 12.9 % (1.0-10.0) H Eosinophils (%) (Auto) 3.6 % (0.0-3.0) H Basophils (%) (Auto) 0.8 % (0.0-2.0) Sodium Level 140 MMOL/L (136-145) Potassium Level 3.7 MMOL/L (3.5-5.1) Chloride Level 109 MMOL/L (98-107) H Carbon Dioxide Level 22 MMOL/L (21-32) Anion Gap 10 mmol/L (5-15) Blood Urea Nitrogen 24 mg/dL (7-18) H Creatinine 2.7 MG/DL (0.55-1.30) H Estimat Glomerular Filtration Rate 17.6 mL/min (>60) Glucose Level 108 MG/DL (74-106) H Calcium Level 7.9 MG/DL (8.5-10.1) L Total Bilirubin 1.1 MG/DL (0.2-1.0) H Direct Bilirubin 0.7 MG/DL (0.0-0.3) H Aspartate Amino Transf (AST/SGOT) 52 U/L (15-37) H Alanine Aminotransferase (ALT/SGPT) 147 U/L (12-78) H Alkaline Phosphatase 502 U/L (46-116) H Total Protein 5.6 G/DL (6.4-8.2) L Albumin 2.0 G/DL (3.4-5.0) L Globulin 3.6 g/dL Albumin/Globulin Ratio 0.6 (1.0-2.7) L Current Medications Medications (Trade) Dose Ordered Sig/Jeff Route PRN Reason Start Time Stop Time Status Last Admin Dose Admin Acetaminophen (Tylenol) 650 mg Q4H PRN ORAL fever 08/19/17 19:59 09/18/17 19:58 Al Hydroxide/Mg Hydroxide (Mylanta II) 30 ml Q6H PRN ORAL dyspepsia 08/19/17 19:59 09/18/17 19:58 Albuterol/ Ipratropium (Albuterol/ Ipratropium) 3 ml Q4H PRN HHN Shortness of Breath 08/23/17 11:59 08/28/17 11:58 Amlodipine Besylate (Norvasc) 10 mg DAILY ORAL 08/20/17 09:00 09/19/17 08:59 08/25/17 08:34 Atorvastatin Calcium (Lipitor) 10 mg BEDTIME ORAL 08/19/17 21:00 09/18/17 20:59 08/24/17 20:34 Clonidine HCl (Catapres Tab) 0.1 mg Q4H PRN ORAL sbp more than 160 08/19/17 19:59 09/18/17 19:58 08/24/17 17:20 Dextrose (Dextrose 50%) 25 ml STAT PRN IV Hypoglycemia 08/20/17 08:00 09/19/17 07:59 Dextrose (Dextrose 50%) 50 ml STAT PRN IV Hypoglycemia 08/20/17 08:00 09/19/17 07:59 Ertapenem (INVanz) 1 gm DAILY IM 08/23/17 16:00 08/28/17 15:59 08/25/17 08:30 Insulin Aspart (NovoLOG) BEFORE MEALS AND HS SUBQ 08/19/17 21:00 09/18/17 20:59 08/25/17 12:32 Insulin Aspart (NovoLOG) 4 units NOVOTIAC SUBQ 08/20/17 11:50 09/19/17 11:49 08/25/17 12:32 Insulin Detemir (Levemir) 12 units DAILY SUBQ 08/20/17 09:00 09/19/17 08:59 08/25/17 08:33 Lidocaine (Xylocaine 1% MPF 5ml) 3.2 ml DAILY IM 08/23/17 16:00 09/22/17 15:59 08/25/17 08:30 Lorazepam (Ativan) 1 mg Q6H PRN ORAL For Anxiety 08/21/17 18:15 08/28/17 18:14 08/24/17 17:20 Memantine (Namenda) 5 mg BID ORAL 08/24/17 18:00 09/23/17 17:59 08/25/17 08:29 Nitroglycerin (Ntg) 0.4 mg Q5M X 3 DOSES PRN SL Prn Chest Pain 08/19/17 20:01 09/18/17 20:00 Ondansetron HCl (Zofran) 4 mg Q6H PRN IVP Nausea & Vomiting 08/19/17 20:01 09/18/17 20:00 Polyethylene Glycol (Miralax) 17 gm HSPRN PRN ORAL Constipation 08/19/17 21:00 09/18/17 20:59 Risperidone (RisperDAL) 0.25 mg Q12HR ORAL 08/24/17 21:00 09/23/17 20:59 08/25/17 08:33 Temazepam (Restoril) 15 mg HSPRN PRN ORAL Insomnia 08/19/17 21:00 08/26/17 20:59 08/19/17 22:59 Magda Estrada M.D. Aug 25, 2017 16:34
[2017-08-25 20:00] VITALS: BP 135/67
[2017-08-26] VITALS: BP 139/65
[2017-08-26 04:00] VITALS: BP 145/74
[2017-08-26] MEDS: NovoLOG Insulin Flexpen SUBQ SCH ×7 (06:10→20:30)
--- NOTE | 2017-08-26 06:47 | General Progress Note ---
Assessment/Plan Problem List: (1) Diabetes mellitus ICD Codes: E11.9 - Type 2 diabetes mellitus without complications SNOMED: 00353297 (2) Hypertension ICD Codes: I10 - Essential (primary) hypertension SNOMED: 57854358 (3) Advanced dementia ICD Codes: F03.90 - Unspecified dementia without behavioral disturbance SNOMED: 08056461 (4) Hyperglycemia ICD Codes: R73.9 - Hyperglycemia, unspecified SNOMED: 41639505 Assessment/Plan continue Levemir 12 units daily continue Novolog 4 units ac tid continue Novolog sliding scale ac / hs Subjective Allergies: Coded Allergies: No Known Allergies (Unverified , 08/19/17) All Systems: reviewed and negative except above Subjective events noted Objective Last 24 Hour Vital Signs Date Time Temp Pulse Resp B/P (MAP) Pulse Ox O2 Delivery O2 Flow Rate FiO2 08/26/17 04:00 98.1 70 18 145/74 96 Room Air 98.1 08/26/17 00:00 98.4 18 139/65 97 Room Air 98.4 08/25/17 21:10 78 18 Room Air 21 08/25/17 20:00 97.6 67 18 135/67 96 Room Air 97.6 08/25/17 16:00 97.3 80 18 118/58 98 Room Air 97.3 08/25/17 12:00 97.7 95 20 129/62 98 Room Air 97.7 08/25/17 08:34 65 119/66 08/25/17 08:00 97.7 96 18 119/66 96 Room Air 97.7 08/25/17 07:40 64 20 Room Air 21 Intake and Output 08/25/17 08/26/17 19:00 07:00 Intake Total 180 ml Balance 180 ml Intake Oral 180 ml # Voids 4 4 Height (Feet): 5 Height (Inches): 1.00 Weight (Pounds): 134 General Appearance: no apparent distress Neck: non-tender Cardiovascular: normal rate Respiratory/Chest: decreased breath sounds Abdomen: normal bowel sounds Objective Current Medications Medications (Trade) Dose Ordered Sig/Jeff Route PRN Reason Start Time Stop Time Status Last Admin Dose Admin Acetaminophen (Tylenol) 650 mg Q4H PRN ORAL fever 08/19/17 19:59 09/18/17 19:58 Al Hydroxide/Mg Hydroxide (Mylanta II) 30 ml Q6H PRN ORAL dyspepsia 08/19/17 19:59 09/18/17 19:58 Albuterol/ Ipratropium (Albuterol/ Ipratropium) 3 ml Q4H PRN HHN Shortness of Breath 08/23/17 11:59 08/28/17 11:58 Amlodipine Besylate (Norvasc) 10 mg DAILY ORAL 08/20/17 09:00 09/19/17 08:59 08/25/17 08:34 Atorvastatin Calcium (Lipitor) 10 mg BEDTIME ORAL 08/19/17 21:00 09/18/17 20:59 08/25/17 20:54 Clonidine HCl (Catapres Tab) 0.1 mg Q4H PRN ORAL sbp more than 160 08/19/17 19:59 09/18/17 19:58 08/24/17 17:20 Dextrose (Dextrose 50%) 25 ml STAT PRN IV Hypoglycemia 08/20/17 08:00 09/19/17 07:59 Dextrose (Dextrose 50%) 50 ml STAT PRN IV Hypoglycemia 08/20/17 08:00 09/19/17 07:59 Ertapenem (INVanz) 1 gm DAILY IM 08/23/17 16:00 08/28/17 15:59 08/25/17 08:30 Insulin Aspart (NovoLOG) BEFORE MEALS AND HS SUBQ 08/19/17 21:00 09/18/17 20:59 08/26/17 06:10 Insulin Aspart (NovoLOG) 4 units NOVOTIAC SUBQ 08/20/17 11:50 09/19/17 11:49 08/26/17 06:11 Insulin Detemir (Levemir) 12 units DAILY SUBQ 08/20/17 09:00 09/19/17 08:59 08/25/17 08:33 Lidocaine (Xylocaine 1% MPF 5ml) 3.2 ml DAILY IM 08/23/17 16:00 09/22/17 15:59 08/25/17 08:30 Lorazepam (Ativan) 1 mg Q6H PRN ORAL For Anxiety 08/21/17 18:15 08/28/17 18:14 08/24/17 17:20 Memantine (Namenda) 5 mg BID ORAL 08/24/17 18:00 09/23/17 17:59 08/25/17 17:13 Nitroglycerin (Ntg) 0.4 mg Q5M X 3 DOSES PRN SL Prn Chest Pain 08/19/17 20:01 09/18/17 20:00 Ondansetron HCl (Zofran) 4 mg Q6H PRN IVP Nausea & Vomiting 08/19/17 20:01 09/18/17 20:00 Polyethylene Glycol (Miralax) 17 gm HSPRN PRN ORAL Constipation 08/19/17 21:00 09/18/17 20:59 Risperidone (RisperDAL) 0.25 mg Q12HR ORAL 08/24/17 21:00 09/23/17 20:59 08/25/17 20:54 Temazepam (Restoril) 15 mg HSPRN PRN ORAL Insomnia 08/19/17 21:00 08/26/17 20:59 08/19/17 22:59 Item Value Date Time Bedside Blood Glucose 112 mg/dl 08/26/17 0616 Bedside Blood Glucose 102 mg/dl 08/25/17 2100 Bedside Blood Glucose 108 mg/dl 08/25/17 1716 Bedside Blood Glucose 155 mg/dl H 08/25/17 1232 Bedside Blood Glucose 112 mg/dl 08/25/17 0833 Bedside Blood Glucose 112 mg/dl 08/25/17 0630 Jeremie Driver MD Aug 26, 2017 06:47
[2017-08-26 08:00] VITALS: BP 131/61
[2017-08-26] MEDS: Memantine 5 MG TAB ORAL SCH ×2 (08:28→17:06)
[2017-08-26] MEDS: Levemir Flexpen SUBQ SCH (08:37)
[2017-08-26] MEDS: Lidocaine 1% MPF 10mg/ml 5ml IM SCH (08:38)
[2017-08-26] MEDS: Ertapenem (INVanz) 1gm Inj IM SCH (08:38)
[2017-08-26 08:41] LABS: EOSINOPHILS % (AUTO) 2.7 % (0.0-3.0); HEMOGLOBIN 8.5 G/DL (12.0-16.0); LYMPHOCYTES % (AUTO) 17.3 % (20.0-45.0); MEAN CORPUSCULAR VOLUME 89 FL (80-99); MONOCYTES % (AUTO) 12.5 % (1.0-10.0); NEUTROPHILS % (AUTO) 66.5 % (45.0-75.0); PLATELET COUNT 138 K/UL (150-450); RED BLOOD COUNT 3.03 M/UL (4.20-5.40); RED CELL DISTRIBUTION WIDTH 12.6 % (11.6-14.8); WHITE BLOOD COUNT 11.4 K/UL (4.8-10.8)
[2017-08-26 08:57] LABS: PHOSPHORUS 3.7 MG/DL (2.5-4.9)
[2017-08-26 09:00] LABS: ALANINE AMINOTRANSFERASE 116 U/L (12-78); ALBUMIN 2.1 G/DL (3.4-5.0); ALBUMIN/GLOBULIN RATIO 0.6 (1.0-2.7); ALKALINE PHOSPHATASE 430 U/L (46-116); ANION GAP 6 mmol/L (5-15); ASPARTATE AMINO TRANSFERASE 42 U/L (15-37); BILIRUBIN,TOTAL 0.9 MG/DL (0.2-1.0); BLOOD UREA NITROGEN 23 mg/dL (7-18); CALCIUM 7.8 MG/DL (8.5-10.1); CARBON DIOXIDE 25 MMOL/L (21-32); CHLORIDE 108 MMOL/L (98-107); CREATININE 2.6 MG/DL (0.55-1.30); POTASSIUM 3.8 MMOL/L (3.5-5.1); SODIUM 139 MMOL/L (136-145)
--- NOTE | 2017-08-26 09:16 | Nephrology Progress Note ---
Assessment/Plan Assessment/Plan 1. CORRY on CKD 4- Cr 2.7 with AM labs pending. Right kidney could not be visulaized by US - awaiting DC. F/U 1 week. Call [phone] for appointment post DC 2. Choledocholithiasis- ERCP, mgmpt per PCP and general surgery -repeat ERCP and stent removal in 4-6 weeks 3. Dehydration- resolved 4. HTN- stable OK for DC from renal standpoint Subjective Date patient seen: Aug 26, 2017 Time patient seen: 09:13 ROS Limited/Unobtainable: Yes Allergies: Coded Allergies: No Known Allergies (Unverified , 08/19/17) Subjective Patient oriented to one sphere. In no overt distress awaiting DC placement Objective Last 24 Hour Vital Signs Date Time Temp Pulse Resp B/P (MAP) Pulse Ox O2 Delivery O2 Flow Rate FiO2 08/26/17 08:43 74 16 Room Air 21 08/26/17 08:28 69 131/61 08/26/17 08:00 98.1 69 18 131/61 96 Room Air 98.1 08/26/17 04:00 98.1 70 18 145/74 96 Room Air 98.1 08/26/17 00:00 98.4 18 139/65 97 Room Air 98.4 08/25/17 21:10 78 18 Room Air 21 08/25/17 20:00 97.6 67 18 135/67 96 Room Air 97.6 08/25/17 16:00 97.3 80 18 118/58 98 Room Air 97.3 08/25/17 12:00 97.7 95 20 129/62 98 Room Air 97.7 Intake and Output 08/25/17 08/26/17 19:00 07:00 Intake Total 180 ml Balance 180 ml Intake Oral 180 ml # Voids 4 4 Laboratory Tests 08/26/17 07:59: White Blood Count 11.4H, Red Blood Count 3.03L, Hemoglobin 8.5L, Hematocrit 27.0L, Mean Corpuscular Volume 89, Mean Corpuscular Hemoglobin 28.1, Mean Corpuscular Hemoglobin Concent 31.5L, Red Cell Distribution Width 12.6, Platelet Count 138L, Mean Platelet Volume 6.8, Neutrophils (%) (Auto) 66.5, Lymphocytes (%) (Auto) 17.3L, Monocytes (%) (Auto) 12.5H, Eosinophils (%) (Auto ) 2.7, Basophils (%) (Auto) 1.0, Sodium Level [Pending], Potassium Level [ Pending], Chloride Level [Pending], Carbon Dioxide Level [Pending], Blood Urea Nitrogen [Pending], Creatinine [Pending], Estimat Glomerular Filtration Rate [ Pending], Glucose Level [Pending], Calcium Level [Pending], Phosphorus Level [ Pending], Magnesium Level [Pending], Total Bilirubin [Pending], Aspartate Amino Transf (AST/SGOT) [Pending], Alanine Aminotransferase (ALT/SGPT) [Pending], Alkaline Phosphatase [Pending], Total Protein [Pending], Albumin [Pending], Globulin [Pending] Height (Feet): 5 Height (Inches): 1.00 Weight (Pounds): 134 General Appearance: no apparent distress, confused EENT: PERRL/EOMI, normal ENT inspection Neck: normal alignment, supple Cardiovascular: normal rate, regular rhythm Respiratory/Chest: lungs clear, normal breath sounds Abdomen: non tender, soft Edema: no edema noted Arm (L), no edema noted Arm (R), no edema noted Leg (L), no edema noted Leg (R), no edema noted Pedal (L), no edema noted Pedal (R), no edema noted Generalized Kush Blackburn M.D. Aug 26, 2017 09:16
--- NOTE | 2017-08-26 11:16 | GI Progress Note ---
Assessment/Plan Problems: (1) Pancreatitis ICD Codes: K85.90 - Acute pancreatitis without necrosis or infection, unspecified SNOMED: 84099282 (2) Encounter for diagnostic endoscopy ICD Codes: Z01.818 - Encounter for other preprocedural examination SNOMED: 842433122, 746787701 (3) Choledocholithiasis ICD Codes: K80.50 - Calculus of bile duct without cholangitis or cholecystitis without obstruction SNOMED: 352739609 (4) Anemia ICD Codes: D64.9 - Anemia, unspecified SNOMED: 696507226 (5) Diabetes mellitus ICD Codes: E11.9 - Type 2 diabetes mellitus without complications SNOMED: 24002883 (6) Hypertension ICD Codes: I10 - Essential (primary) hypertension SNOMED: 22304788 Status: stable Status Narrative Discussed with Dr. Hernandez. Assessment/Plan s/p ERCP and stenting improved LFTS post ERCP pancreatitis OB stool negative okay for DC per GI standpoint adv diet as tolerated abx ivf pain control DM control fu nephrology needs repeat ERCP and stent removal in 4-6 weeks Subjective Gastrointestinal/Abdominal: Reports: no symptoms Objective Last 24 Hour Vital Signs Date Time Temp Pulse Resp B/P (MAP) Pulse Ox O2 Delivery O2 Flow Rate FiO2 08/26/17 08:43 74 16 Room Air 21 08/26/17 08:28 69 131/61 08/26/17 08:00 98.1 69 18 131/61 96 Room Air 98.1 08/26/17 04:00 98.1 70 18 145/74 96 Room Air 98.1 08/26/17 00:00 98.4 18 139/65 97 Room Air 98.4 08/25/17 21:10 78 18 Room Air 21 08/25/17 20:00 97.6 67 18 135/67 96 Room Air 97.6 08/25/17 16:00 97.3 80 18 118/58 98 Room Air 97.3 08/25/17 12:00 97.7 95 20 129/62 98 Room Air 97.7 Intake and Output 08/25/17 08/26/17 19:00 07:00 Intake Total 180 ml Balance 180 ml Intake Oral 180 ml # Voids 4 4 Laboratory Tests Test 08/26/17 07:59 White Blood Count 11.4 K/UL (4.8-10.8) H Red Blood Count 3.03 M/UL (4.20-5.40) L Hemoglobin 8.5 G/DL (12.0-16.0) L Hematocrit 27.0 % (37.0-47.0) L Mean Corpuscular Volume 89 FL (80-99) Mean Corpuscular Hemoglobin 28.1 PG (27.0-31.0) Mean Corpuscular Hemoglobin Concent 31.5 G/DL (32.0-36.0) L Red Cell Distribution Width 12.6 % (11.6-14.8) Platelet Count 138 K/UL (150-450) L Mean Platelet Volume 6.8 FL (6.5-10.1) Neutrophils (%) (Auto) 66.5 % (45.0-75.0) Lymphocytes (%) (Auto) 17.3 % (20.0-45.0) L Monocytes (%) (Auto) 12.5 % (1.0-10.0) H Eosinophils (%) (Auto) 2.7 % (0.0-3.0) Basophils (%) (Auto) 1.0 % (0.0-2.0) Sodium Level 139 MMOL/L (136-145) Potassium Level 3.8 MMOL/L (3.5-5.1) Chloride Level 108 MMOL/L (98-107) H Carbon Dioxide Level 25 MMOL/L (21-32) Anion Gap 6 mmol/L (5-15) Blood Urea Nitrogen 23 mg/dL (7-18) H Creatinine 2.6 MG/DL (0.55-1.30) H Estimat Glomerular Filtration Rate 18.3 mL/min (>60) Glucose Level 98 MG/DL (74-106) Calcium Level 7.8 MG/DL (8.5-10.1) L Phosphorus Level 3.7 MG/DL (2.5-4.9) Magnesium Level 1.9 MG/DL (1.8-2.4) Total Bilirubin 0.9 MG/DL (0.2-1.0) Aspartate Amino Transf (AST/SGOT) 42 U/L (15-37) H Alanine Aminotransferase (ALT/SGPT) 116 U/L (12-78) H Alkaline Phosphatase 430 U/L (46-116) H Total Protein 5.6 G/DL (6.4-8.2) L Albumin 2.1 G/DL (3.4-5.0) L Globulin 3.5 g/dL Albumin/Globulin Ratio 0.6 (1.0-2.7) L Height (Feet): 5 Height (Inches): 1.00 Weight (Pounds): 134 General Appearance: WD/WN, no apparent distress, alert Cardiovascular: normal rate Respiratory/Chest: normal breath sounds, no respiratory distress Abdominal Exam: normal bowel sounds, non tender, soft Extremities: normal range of motion, non-tender Maria Shepherd NP Aug 26, 2017 11:16
--- NOTE | 2017-08-26 12:55 | General Progress Note ---
Assessment/Plan Problem List: (1) Diabetes mellitus ICD Codes: E11.9 - Type 2 diabetes mellitus without complications SNOMED: 02385281 (2) Hypertension ICD Codes: I10 - Essential (primary) hypertension SNOMED: 31865156 (3) Advanced dementia ICD Codes: F03.90 - Unspecified dementia without behavioral disturbance SNOMED: 57267039 (4) Hyperglycemia ICD Codes: R73.9 - Hyperglycemia, unspecified SNOMED: 10612469 (5) Pyelonephritis ICD Codes: N12 - Tubulo-interstitial nephritis, not specified as acute or chronic SNOMED: 29154722 (6) UTI (urinary tract infection) ICD Codes: N39.0 - Urinary tract infection, site not specified SNOMED: 89494133 (7) Choledocholithiasis ICD Codes: K80.50 - Calculus of bile duct without cholangitis or cholecystitis without obstruction SNOMED: 201446238 Status: stable, progressing Assessment/Plan ot pt diet bp bs pain control gi f/u cbc bmp am dc if clear Subjective Constitutional: Reports: weakness Allergies: Coded Allergies: No Known Allergies (Unverified , 08/19/17) All Systems: reviewed and negative except above Subjective calm in bed Objective Last 24 Hour Vital Signs Date Time Temp Pulse Resp B/P (MAP) Pulse Ox O2 Delivery O2 Flow Rate FiO2 08/26/17 08:43 74 16 Room Air 21 08/26/17 08:28 69 131/61 08/26/17 08:00 98.1 69 18 131/61 96 Room Air 98.1 08/26/17 04:00 98.1 70 18 145/74 96 Room Air 98.1 08/26/17 00:00 98.4 18 139/65 97 Room Air 98.4 08/25/17 21:10 78 18 Room Air 21 08/25/17 20:00 97.6 67 18 135/67 96 Room Air 97.6 08/25/17 16:00 97.3 80 18 118/58 98 Room Air 97.3 Intake and Output 08/25/17 08/26/17 19:00 07:00 Intake Total 180 ml Balance 180 ml Intake Oral 180 ml # Voids 4 4 Laboratory Tests 08/26/17 07:59: White Blood Count 11.4H, Red Blood Count 3.03L, Hemoglobin 8.5L, Hematocrit 27.0L, Mean Corpuscular Volume 89, Mean Corpuscular Hemoglobin 28.1, Mean Corpuscular Hemoglobin Concent 31.5L, Red Cell Distribution Width 12.6, Platelet Count 138L, Mean Platelet Volume 6.8, Neutrophils (%) (Auto) 66.5, Lymphocytes (%) (Auto) 17.3L, Monocytes (%) (Auto) 12.5H, Eosinophils (%) (Auto ) 2.7, Basophils (%) (Auto) 1.0, Sodium Level 139, Potassium Level 3.8, Chloride Level 108H, Carbon Dioxide Level 25, Anion Gap 6, Blood Urea Nitrogen 23H, Creatinine 2.6H, Estimat Glomerular Filtration Rate 18.3, Glucose Level 98 , Calcium Level 7.8L, Phosphorus Level 3.7, Magnesium Level 1.9, Total Bilirubin 0.9, Aspartate Amino Transf (AST/SGOT) 42H, Alanine Aminotransferase ( ALT/SGPT) 116H, Alkaline Phosphatase 430H, Total Protein 5.6L, Albumin 2.1L, Globulin 3.5, Albumin/Globulin Ratio 0.6L Height (Feet): 5 Height (Inches): 1.00 Weight (Pounds): 134 General Appearance: lethargic EENT: normal ENT inspection Neck: normal alignment Cardiovascular: normal peripheral pulses, normal rate, regular rhythm Respiratory/Chest: chest wall non-tender, lungs clear, normal breath sounds Abdomen: normal bowel sounds, non tender, soft Extremities: normal inspection Edema: no edema noted Arm (L), no edema noted Arm (R), no edema noted Leg (L), no edema noted Leg (R), no edema noted Pedal (L), no edema noted Pedal (R), no edema noted Generalized Neurologic: motor weakness Skin: normal pigmentation, warm/dry Martin Hopper DO Aug 26, 2017 12:55
[2017-08-26 13:46] VITALS: BP 126/65
[2017-08-26] MEDS: LORazepam 1mg tab ORAL PRN (14:04)
[2017-08-26 16:00] VITALS: BP_SYST 112; BP_SYST 127; BP_DIAS 55; BP_DIAS 66
--- NOTE | 2017-08-26 16:26 | Pulmonology Progress Note ---
Assessment/Plan Problems: (1) Choledocholithiasis (2) UTI (urinary tract infection) (3) Hyperglycemia (4) Pyelonephritis (5) Diabetes mellitus (6) Hypertension (7) Advanced dementia Assessment/Plan ERCP done, CBD stone were removed continue abx improving f/u bilirubin level check cultures continue abx check electrolytes dvt prophylaxis Subjective ROS Limited/Unobtainable: No Allergies: Coded Allergies: No Known Allergies (Unverified , 08/19/17) Objective Last 24 Hour Vital Signs Date Time Temp Pulse Resp B/P (MAP) Pulse Ox O2 Delivery O2 Flow Rate FiO2 08/26/17 13:46 98.4 75 18 126/65 96 Room Air 98.4 08/26/17 08:43 74 16 Room Air 21 08/26/17 08:28 69 131/61 08/26/17 08:00 98.1 69 18 131/61 96 Room Air 98.1 08/26/17 04:00 98.1 70 18 145/74 96 Room Air 98.1 08/26/17 00:00 98.4 18 139/65 97 Room Air 98.4 08/25/17 21:10 78 18 Room Air 21 08/25/17 20:00 97.6 67 18 135/67 96 Room Air 97.6 Intake and Output 08/25/17 08/26/17 19:00 07:00 Intake Total 180 ml Balance 180 ml Intake Oral 180 ml # Voids 4 4 Objective General Appearance: WD/WN HEENT: normocephalic, atraumatic Respiratory/Chest: chest wall non-tender, normal breath sounds Breasts: no masses Cardiovascular: normal peripheral pulses, no JVD Abdomen: soft, non tender Genitourinary: normal external genitalia Extremities: no cyanosis Neurologic/Psychiatric: no motor/sensory deficits Lymphatic: no neck adenopathy Laboratory Tests 08/26/17 07:59: White Blood Count 11.4H, Red Blood Count 3.03L, Hemoglobin 8.5L, Hematocrit 27.0L, Mean Corpuscular Volume 89, Mean Corpuscular Hemoglobin 28.1, Mean Corpuscular Hemoglobin Concent 31.5L, Red Cell Distribution Width 12.6, Platelet Count 138L, Mean Platelet Volume 6.8, Neutrophils (%) (Auto) 66.5, Lymphocytes (%) (Auto) 17.3L, Monocytes (%) (Auto) 12.5H, Eosinophils (%) (Auto ) 2.7, Basophils (%) (Auto) 1.0, Sodium Level 139, Potassium Level 3.8, Chloride Level 108H, Carbon Dioxide Level 25, Anion Gap 6, Blood Urea Nitrogen 23H, Creatinine 2.6H, Estimat Glomerular Filtration Rate 18.3, Glucose Level 98 , Calcium Level 7.8L, Phosphorus Level 3.7, Magnesium Level 1.9, Total Bilirubin 0.9, Aspartate Amino Transf (AST/SGOT) 42H, Alanine Aminotransferase ( ALT/SGPT) 116H, Alkaline Phosphatase 430H, Total Protein 5.6L, Albumin 2.1L, Globulin 3.5, Albumin/Globulin Ratio 0.6L Current Medications Medications (Trade) Dose Ordered Sig/Jeff Route PRN Reason Start Time Stop Time Status Last Admin Dose Admin Acetaminophen (Tylenol) 650 mg Q4H PRN ORAL fever 08/19/17 19:59 09/18/17 19:58 Al Hydroxide/Mg Hydroxide (Mylanta II) 30 ml Q6H PRN ORAL dyspepsia 08/19/17 19:59 09/18/17 19:58 Albuterol/ Ipratropium (Albuterol/ Ipratropium) 3 ml Q4H PRN HHN Shortness of Breath 08/23/17 11:59 08/28/17 11:58 Amlodipine Besylate (Norvasc) 10 mg DAILY ORAL 08/20/17 09:00 09/19/17 08:59 08/26/17 08:28 Atorvastatin Calcium (Lipitor) 10 mg BEDTIME ORAL 08/19/17 21:00 09/18/17 20:59 08/25/17 20:54 Clonidine HCl (Catapres Tab) 0.1 mg Q4H PRN ORAL sbp more than 160 08/19/17 19:59 09/18/17 19:58 08/24/17 17:20 Dextrose (Dextrose 50%) 25 ml STAT PRN IV Hypoglycemia 08/20/17 08:00 09/19/17 07:59 Dextrose (Dextrose 50%) 50 ml STAT PRN IV Hypoglycemia 08/20/17 08:00 09/19/17 07:59 Ertapenem (INVanz) 1 gm DAILY IM 08/23/17 16:00 08/29/17 15:59 08/26/17 08:38 Insulin Aspart (NovoLOG) BEFORE MEALS AND HS SUBQ 08/19/17 21:00 09/18/17 20:59 08/26/17 11:24 Insulin Aspart (NovoLOG) 4 units NOVOTIAC SUBQ 08/20/17 11:50 09/19/17 11:49 08/26/17 11:24 Insulin Detemir (Levemir) 12 units DAILY SUBQ 08/20/17 09:00 09/19/17 08:59 08/26/17 08:37 Lidocaine (Xylocaine 1% MPF 5ml) 3.2 ml DAILY IM 08/23/17 16:00 09/22/17 15:59 08/26/17 08:38 Lorazepam (Ativan) 1 mg Q6H PRN ORAL For Anxiety 08/21/17 18:15 08/28/17 18:14 08/26/17 14:04 Memantine (Namenda) 5 mg BID ORAL 08/24/17 18:00 09/23/17 17:59 08/26/17 08:28 Nitroglycerin (Ntg) 0.4 mg Q5M X 3 DOSES PRN SL Prn Chest Pain 08/19/17 20:01 09/18/17 20:00 Ondansetron HCl (Zofran) 4 mg Q6H PRN IVP Nausea & Vomiting 08/19/17 20:01 09/18/17 20:00 Polyethylene Glycol (Miralax) 17 gm HSPRN PRN ORAL Constipation 08/19/17 21:00 09/18/17 20:59 Risperidone (RisperDAL) 0.25 mg Q12HR ORAL 08/24/17 21:00 09/23/17 20:59 08/26/17 08:28 Temazepam (Restoril) 15 mg HSPRN PRN ORAL Insomnia 08/19/17 21:00 08/26/17 20:59 08/19/17 22:59 Say Schneider MD Aug 26, 2017 16:26
--- NOTE | 2017-08-26 16:54 | General Surgery Progress Note ---
General Surgery-Progress Note Subjective Symptoms: improved, pain absent, tolerating diet, passing flatus, BM Objective Last 24 Hour Vital Signs Date Time Temp Pulse Resp B/P (MAP) Pulse Ox O2 Delivery O2 Flow Rate FiO2 08/26/17 13:46 98.4 75 18 126/65 96 Room Air 98.4 08/26/17 08:43 74 16 Room Air 21 08/26/17 08:28 69 131/61 08/26/17 08:00 98.1 69 18 131/61 96 Room Air 98.1 08/26/17 04:00 98.1 70 18 145/74 96 Room Air 98.1 08/26/17 00:00 98.4 18 139/65 97 Room Air 98.4 08/25/17 21:10 78 18 Room Air 21 08/25/17 20:00 97.6 67 18 135/67 96 Room Air 97.6 I&O Intake and Output 08/25/17 08/26/17 19:00 07:00 Intake Total 180 ml Balance 180 ml Intake Oral 180 ml # Voids 4 4 Drains: none Cardiovascular: RSR Respiratory: clear Abdomen: soft, flat, non-tender, present bowel sounds Extremities: no cyanosis Laboratory Tests Test 08/26/17 07:59 White Blood Count 11.4 K/UL (4.8-10.8) H Red Blood Count 3.03 M/UL (4.20-5.40) L Hemoglobin 8.5 G/DL (12.0-16.0) L Hematocrit 27.0 % (37.0-47.0) L Mean Corpuscular Volume 89 FL (80-99) Mean Corpuscular Hemoglobin 28.1 PG (27.0-31.0) Mean Corpuscular Hemoglobin Concent 31.5 G/DL (32.0-36.0) L Red Cell Distribution Width 12.6 % (11.6-14.8) Platelet Count 138 K/UL (150-450) L Mean Platelet Volume 6.8 FL (6.5-10.1) Neutrophils (%) (Auto) 66.5 % (45.0-75.0) Lymphocytes (%) (Auto) 17.3 % (20.0-45.0) L Monocytes (%) (Auto) 12.5 % (1.0-10.0) H Eosinophils (%) (Auto) 2.7 % (0.0-3.0) Basophils (%) (Auto) 1.0 % (0.0-2.0) Sodium Level 139 MMOL/L (136-145) Potassium Level 3.8 MMOL/L (3.5-5.1) Chloride Level 108 MMOL/L (98-107) H Carbon Dioxide Level 25 MMOL/L (21-32) Anion Gap 6 mmol/L (5-15) Blood Urea Nitrogen 23 mg/dL (7-18) H Creatinine 2.6 MG/DL (0.55-1.30) H Estimat Glomerular Filtration Rate 18.3 mL/min (>60) Glucose Level 98 MG/DL (74-106) Calcium Level 7.8 MG/DL (8.5-10.1) L Phosphorus Level 3.7 MG/DL (2.5-4.9) Magnesium Level 1.9 MG/DL (1.8-2.4) Total Bilirubin 0.9 MG/DL (0.2-1.0) Aspartate Amino Transf (AST/SGOT) 42 U/L (15-37) H Alanine Aminotransferase (ALT/SGPT) 116 U/L (12-78) H Alkaline Phosphatase 430 U/L (46-116) H Total Protein 5.6 G/DL (6.4-8.2) L Albumin 2.1 G/DL (3.4-5.0) L Globulin 3.5 g/dL Albumin/Globulin Ratio 0.6 (1.0-2.7) L Plan Problems: (1) Choledocholithiasis Assessment & Plan: 66F choledocholithiasis. large stone causing obstruction. elevated lft's and t bili. on ultrasound noted to have had prior cholecystectomy. either retained stone vs primary cbd stone. will need to obtain and review old notes. s/p ERCP with extraction of stones. labs improving. exam benign. -no acute surgical intervention necessary. -trend labs -diet as tolerated -okay to d/c from surgical standpoint will follow with recs. thank you for this consultation. Giovani Lugo Aug 26, 2017 16:54
--- NOTE | 2017-08-26 17:30 | Progress Note ---
DATE: 08/26/2017 SUBJECTIVE: This is a 66-year-old female patient with hyperglycemia. She mood lability, . That is why, her attending has requested daily psychiatric consultation. She has hyperglycemia, pyelonephritis, and hypertension causing increased mood lability. Cognition has declined below baseline. She has agitation, confusion, and disorganized thought process. MENTAL STATUS EXAMINATION: This is a 66-year-old female. Appearance disheveled. Attitude, irritable and agitated. Affect, guarded and restricted. Intellect poor. Mood, depressed and anxious. Motor activity, psychomotor agitation. Attention span is poor. Orientation x2. Speech is pressured. Thought process, disorganized and illogical. Thought content, auditory hallucinations and paranoid delusions. Insight and judgment is poor. DIAGNOSIS: Major depression with psychotic features, rule out dementia with psychosis, rule out pseudodementia. PLAN: Treat her with Namenda 5 mg twice a day and Risperdal 0.25 mg twice a day. Provided 18 to 20 minutes of supportive psychotherapy. Chart reviewed. Discussed with staff. Seen and assessed in the room. Walter Capps M.D. DR: [id number] JOB#: [id number] CC:
--- NOTE | 2017-08-26 18:58 | Infectious Diseases Prog Note ---
Assessment/Plan Assessment/Plan Sepsis ; resolved Cholangitis/ Elevated LFTs SP ERCP and stent placement' -bile cx: Enterococcus gallinarum, ESBL E.coli (S Zosyn), ESBL K. PNA ( R amp, ancef, bactrim; I Zosyn) -Abd US: Choledocholithiasis, with a 14 x 8 mm calculus within the common bile duct. There is resultant intrahepatic and extrahepatic biliary ductal dilatation and debris/sludge within the bile ducts. Evidence of prior cholecystectomy. Limited exam with nonvisualization of the right kidney and spleen and abdominal aorta. Incidental finding left lower pole renal cyst Hepatitis panel : neg Leukocytosis, mild recurrent -Bcx NTD Afebrile -CXR: no acute process Pyuria; possible UTI- unable to provide symptoms -u/a wbc tntc, nit neg, leuk +1; ucx >100K P mirabilis (R Cipro/levo, bactrim ; otherwise S) Hyperglycemia, improving CORRY; improving DM HTN CAD seizure disorder dementia Full code NKDA VRE colonized Plan: -Continue Ertapenem #4/7 (switch to 500mg qd) for cholangitis and possible UTI ( switched to IM given lack of access) and add PO Amoxicillin 250mg q12hrs #1/5 for enterococcal coverage given mild leukocytosis -08/23 SP Zosyn #5 -f/u Bcx x2 -CXR am, u/a w/ reflex -monitor CBC/CMP, temperatures -aspiration precautions -CBC am Discussed with RN Subjective Allergies: Coded Allergies: No Known Allergies (Unverified , 08/19/17) Subjective afebrile leukocytosis to 11 Bcx NTD Objective Vital Signs Last 24 Hour Vital Signs Date Time Temp Pulse Resp B/P (MAP) Pulse Ox O2 Delivery O2 Flow Rate FiO2 08/26/17 16:00 89.0 74 18 127/55 96 Room Air 89.0 08/26/17 13:46 98.4 75 18 126/65 96 Room Air 98.4 08/26/17 08:43 74 16 Room Air 21 08/26/17 08:28 69 131/61 08/26/17 08:00 98.1 69 18 131/61 96 Room Air 98.1 08/26/17 04:00 98.1 70 18 145/74 96 Room Air 98.1 08/26/17 00:00 98.4 18 139/65 97 Room Air 98.4 08/25/17 21:10 78 18 Room Air 21 08/25/17 20:00 97.6 67 18 135/67 96 Room Air 97.6 Height (Feet): 5 Height (Inches): 1.00 Weight (Pounds): 134 Objective HEENT: Pupils are equal and reactive to light. NECK: No JVD. HEART: Regular. LUNGS: Clear. ABDOMEN: Positive bowel sounds. EXTREMITIES: No clubbing, cyanosis, or edema. Laboratory Tests Test 08/26/17 07:59 White Blood Count 11.4 K/UL (4.8-10.8) H Red Blood Count 3.03 M/UL (4.20-5.40) L Hemoglobin 8.5 G/DL (12.0-16.0) L Hematocrit 27.0 % (37.0-47.0) L Mean Corpuscular Volume 89 FL (80-99) Mean Corpuscular Hemoglobin 28.1 PG (27.0-31.0) Mean Corpuscular Hemoglobin Concent 31.5 G/DL (32.0-36.0) L Red Cell Distribution Width 12.6 % (11.6-14.8) Platelet Count 138 K/UL (150-450) L Mean Platelet Volume 6.8 FL (6.5-10.1) Neutrophils (%) (Auto) 66.5 % (45.0-75.0) Lymphocytes (%) (Auto) 17.3 % (20.0-45.0) L Monocytes (%) (Auto) 12.5 % (1.0-10.0) H Eosinophils (%) (Auto) 2.7 % (0.0-3.0) Basophils (%) (Auto) 1.0 % (0.0-2.0) Sodium Level 139 MMOL/L (136-145) Potassium Level 3.8 MMOL/L (3.5-5.1) Chloride Level 108 MMOL/L (98-107) H Carbon Dioxide Level 25 MMOL/L (21-32) Anion Gap 6 mmol/L (5-15) Blood Urea Nitrogen 23 mg/dL (7-18) H Creatinine 2.6 MG/DL (0.55-1.30) H Estimat Glomerular Filtration Rate 18.3 mL/min (>60) Glucose Level 98 MG/DL (74-106) Calcium Level 7.8 MG/DL (8.5-10.1) L Phosphorus Level 3.7 MG/DL (2.5-4.9) Magnesium Level 1.9 MG/DL (1.8-2.4) Total Bilirubin 0.9 MG/DL (0.2-1.0) Aspartate Amino Transf (AST/SGOT) 42 U/L (15-37) H Alanine Aminotransferase (ALT/SGPT) 116 U/L (12-78) H Alkaline Phosphatase 430 U/L (46-116) H Total Protein 5.6 G/DL (6.4-8.2) L Albumin 2.1 G/DL (3.4-5.0) L Globulin 3.5 g/dL Albumin/Globulin Ratio 0.6 (1.0-2.7) L Current Medications Medications (Trade) Dose Ordered Sig/Jeff Route PRN Reason Start Time Stop Time Status Last Admin Dose Admin Acetaminophen (Tylenol) 650 mg Q4H PRN ORAL fever 08/19/17 19:59 09/18/17 19:58 Al Hydroxide/Mg Hydroxide (Mylanta II) 30 ml Q6H PRN ORAL dyspepsia 08/19/17 19:59 09/18/17 19:58 Albuterol/ Ipratropium (Albuterol/ Ipratropium) 3 ml Q4H PRN HHN Shortness of Breath 08/23/17 11:59 08/28/17 11:58 Amlodipine Besylate (Norvasc) 10 mg DAILY ORAL 08/20/17 09:00 09/19/17 08:59 08/26/17 08:28 Atorvastatin Calcium (Lipitor) 10 mg BEDTIME ORAL 08/19/17 21:00 09/18/17 20:59 08/25/17 20:54 Clonidine HCl (Catapres Tab) 0.1 mg Q4H PRN ORAL sbp more than 160 08/19/17 19:59 09/18/17 19:58 08/24/17 17:20 Dextrose (Dextrose 50%) 25 ml STAT PRN IV Hypoglycemia 08/20/17 08:00 09/19/17 07:59 Dextrose (Dextrose 50%) 50 ml STAT PRN IV Hypoglycemia 08/20/17 08:00 09/19/17 07:59 Ertapenem (INVanz) 1 gm DAILY IM 08/23/17 16:00 08/29/17 15:59 08/26/17 08:38 Insulin Aspart (NovoLOG) BEFORE MEALS AND HS SUBQ 08/19/17 21:00 09/18/17 20:59 08/26/17 11:24 Insulin Aspart (NovoLOG) 4 units NOVOTIAC SUBQ 08/20/17 11:50 09/19/17 11:49 08/26/17 11:24 Insulin Detemir (Levemir) 12 units DAILY SUBQ 08/20/17 09:00 09/19/17 08:59 08/26/17 08:37 Lidocaine (Xylocaine 1% MPF 5ml) 3.2 ml DAILY IM 08/23/17 16:00 09/22/17 15:59 08/26/17 08:38 Lorazepam (Ativan) 1 mg Q6H PRN ORAL For Anxiety 08/21/17 18:15 08/28/17 18:14 08/26/17 14:04 Memantine (Namenda) 5 mg BID ORAL 08/24/17 18:00 09/23/17 17:59 08/26/17 17:06 Nitroglycerin (Ntg) 0.4 mg Q5M X 3 DOSES PRN SL Prn Chest Pain 08/19/17 20:01 09/18/17 20:00 Ondansetron HCl (Zofran) 4 mg Q6H PRN IVP Nausea & Vomiting 08/19/17 20:01 09/18/17 20:00 Polyethylene Glycol (Miralax) 17 gm HSPRN PRN ORAL Constipation 08/19/17 21:00 09/18/17 20:59 Risperidone (RisperDAL) 0.25 mg Q12HR ORAL 08/24/17 21:00 09/23/17 20:59 08/26/17 08:28 Temazepam (Restoril) 15 mg HSPRN PRN ORAL Insomnia 08/19/17 21:00 08/26/17 20:59 08/19/17 22:59 Magda Estrada M.D. Aug 26, 2017 18:58
[2017-08-26 19:38] VITALS: BP 123/55
[2017-08-27 00:53] VITALS: BP_SYST 115; BP_DIAS 3; BP_DIAS 53
[2017-08-27 04:00] VITALS: BP 140/78
[2017-08-27] MEDS: NovoLOG Insulin Flexpen SUBQ SCH ×7 (06:30→21:00)
[2017-08-27 07:43] VITALS: BP 139/60
--- NOTE | 2017-08-27 08:08 | General Progress Note ---
Assessment/Plan Problem List: (1) Diabetes mellitus ICD Codes: E11.9 - Type 2 diabetes mellitus without complications SNOMED: 55140255 (2) Hypertension ICD Codes: I10 - Essential (primary) hypertension SNOMED: 95779574 (3) Advanced dementia ICD Codes: F03.90 - Unspecified dementia without behavioral disturbance SNOMED: 84485410 (4) Hyperglycemia ICD Codes: R73.9 - Hyperglycemia, unspecified SNOMED: 25813017 Assessment/Plan continue Levemir 12 units daily continue Novolog 4 units ac tid continue Novolog sliding scale ac / hs Subjective Allergies: Coded Allergies: No Known Allergies (Unverified , 08/19/17) All Systems: reviewed and negative except above Subjective events noted Objective Last 24 Hour Vital Signs Date Time Temp Pulse Resp B/P (MAP) Pulse Ox O2 Delivery O2 Flow Rate FiO2 08/27/17 07:43 97.7 71 16 139/60 98 Room Air 97.7 08/27/17 04:00 97.5 67 16 140/78 98 Room Air 97.5 08/27/17 00:56 97 Room Air 08/27/17 00:53 97.0 53 20 115/53 97 Room Air 97.0 08/26/17 19:53 95 Room Air 08/26/17 19:40 70 18 Room Air 21 08/26/17 19:38 98.1 66 20 123/55 95 Room Air 98.1 08/26/17 16:00 98.0 74 18 127/55 96 Room Air 98.0 08/26/17 13:46 98.4 75 18 126/65 96 Room Air 98.4 08/26/17 08:43 74 16 Room Air 21 08/26/17 08:28 69 131/61 Intake and Output 08/26/17 08/27/17 19:00 07:00 Intake Total 480 ml Balance 480 ml Intake Oral 480 ml # Voids 2 Height (Feet): 5 Height (Inches): 1.00 Weight (Pounds): 134 General Appearance: no apparent distress Neck: normal alignment Cardiovascular: normal rate Respiratory/Chest: lungs clear Abdomen: normal bowel sounds Objective Current Medications Medications (Trade) Dose Ordered Sig/Jeff Route PRN Reason Start Time Stop Time Status Last Admin Dose Admin Acetaminophen (Tylenol) 650 mg Q4H PRN ORAL fever 08/19/17 19:59 09/18/17 19:58 Al Hydroxide/Mg Hydroxide (Mylanta II) 30 ml Q6H PRN ORAL dyspepsia 08/19/17 19:59 09/18/17 19:58 Albuterol/ Ipratropium (Albuterol/ Ipratropium) 3 ml Q4H PRN HHN Shortness of Breath 08/23/17 11:59 08/28/17 11:58 Amlodipine Besylate (Norvasc) 10 mg DAILY ORAL 08/20/17 09:00 09/19/17 08:59 08/26/17 08:28 Amoxicillin (Amoxil) 250 mg Q12HR ORAL 08/26/17 21:00 09/02/17 20:59 08/26/17 20:28 Atorvastatin Calcium (Lipitor) 10 mg BEDTIME ORAL 08/19/17 21:00 09/18/17 20:59 08/26/17 20:29 Clonidine HCl (Catapres Tab) 0.1 mg Q4H PRN ORAL sbp more than 160 08/19/17 19:59 09/18/17 19:58 08/24/17 17:20 Dextrose (Dextrose 50%) 25 ml STAT PRN IV Hypoglycemia 08/20/17 08:00 09/19/17 07:59 Dextrose (Dextrose 50%) 50 ml STAT PRN IV Hypoglycemia 08/20/17 08:00 09/19/17 07:59 Ertapenem 0.5 gm/ Sodium Chloride 55 ml @ 110 mls/hr Q24H IVPB 08/27/17 08:30 09/01/17 08:29 Insulin Aspart (NovoLOG) BEFORE MEALS AND HS SUBQ 08/19/17 21:00 09/18/17 20:59 08/26/17 20:30 Insulin Aspart (NovoLOG) 4 units NOVOTIAC SUBQ 08/20/17 11:50 09/19/17 11:49 08/26/17 11:24 Insulin Detemir (Levemir) 12 units DAILY SUBQ 08/20/17 09:00 09/19/17 08:59 08/26/17 08:37 Lidocaine (Xylocaine 1% MPF 5ml) 3.2 ml DAILY IM 08/23/17 16:00 09/22/17 15:59 08/26/17 08:38 Lorazepam (Ativan) 1 mg Q6H PRN ORAL For Anxiety 08/21/17 18:15 08/28/17 18:14 08/26/17 14:04 Memantine (Namenda) 5 mg BID ORAL 08/24/17 18:00 09/23/17 17:59 08/26/17 17:06 Nitroglycerin (Ntg) 0.4 mg Q5M X 3 DOSES PRN SL Prn Chest Pain 08/19/17 20:01 09/18/17 20:00 Ondansetron HCl (Zofran) 4 mg Q6H PRN IVP Nausea & Vomiting 08/19/17 20:01 09/18/17 20:00 Polyethylene Glycol (Miralax) 17 gm HSPRN PRN ORAL Constipation 08/19/17 21:00 09/18/17 20:59 Risperidone (RisperDAL) 0.25 mg Q12HR ORAL 08/24/17 21:00 09/23/17 20:59 08/26/17 20:29 Item Value Date Time Bedside Blood Glucose 107 mg/dl 08/27/17 0634 Bedside Blood Glucose 145 mg/dl H 08/26/17 2057 Bedside Blood Glucose 77 mg/dl 08/26/17 1650 Bedside Blood Glucose 179 mg/dl H 08/26/17 1124 Bedside Blood Glucose 102 mg/dl 08/26/17 0837 Bedside Blood Glucose 112 mg/dl 08/26/17 0616 Jeremie rDiver MD Aug 27, 2017 08:08
[2017-08-27] MEDS: Memantine 5 MG TAB ORAL SCH ×2 (08:21→17:02)
[2017-08-27] MEDS: Levemir Flexpen SUBQ SCH (08:22)
[2017-08-27] MEDS ORDERED: Ertapenem 0.5 GM in NS 55 ML IVPB SCH (08:30)
--- NOTE | 2017-08-27 08:37 | Nephrology Progress Note ---
Assessment/Plan Assessment/Plan 1. CORRY on CKD 4- Cr 2.6 yesterday with AM labs pending. - awaiting DC. F/U 1 week. Call [phone] for appointment 2. Choledocholithiasis- ERCP, mgmpt per PCP and general surgery -repeat ERCP and stent removal in 4-6 weeks 3. Dehydration- resolved 4. HTN- stable OK for DC from renal standpoint Subjective Date patient seen: Aug 27, 2017 Time patient seen: 08:36 ROS Limited/Unobtainable: Yes Allergies: Coded Allergies: No Known Allergies (Unverified , 08/19/17) Subjective Patient in no overt distress Objective Last 24 Hour Vital Signs Date Time Temp Pulse Resp B/P (MAP) Pulse Ox O2 Delivery O2 Flow Rate FiO2 08/27/17 08:21 71 139/60 08/27/17 07:43 97.7 71 16 139/60 98 Room Air 97.7 08/27/17 04:00 97.5 67 16 140/78 98 Room Air 97.5 08/27/17 00:56 97 Room Air 08/27/17 00:53 97.0 53 20 115/53 97 Room Air 97.0 08/26/17 19:53 95 Room Air 08/26/17 19:40 70 18 Room Air 21 08/26/17 19:38 98.1 66 20 123/55 95 Room Air 98.1 08/26/17 16:00 98.0 74 18 127/55 96 Room Air 98.0 08/26/17 13:46 98.4 75 18 126/65 96 Room Air 98.4 08/26/17 08:43 74 16 Room Air 21 Intake and Output 08/26/17 08/27/17 19:00 07:00 Intake Total 480 ml Balance 480 ml Intake Oral 480 ml # Voids 2 Height (Feet): 5 Height (Inches): 1.00 Weight (Pounds): 134 General Appearance: no apparent distress EENT: normal ENT inspection Neck: normal alignment, supple Cardiovascular: normal rate, regular rhythm Respiratory/Chest: lungs clear, normal breath sounds Abdomen: non tender, soft Edema: no edema noted Arm (L), no edema noted Arm (R), no edema noted Leg (L), no edema noted Leg (R), no edema noted Pedal (L), no edema noted Pedal (R), no edema noted Generalized Kush Blackburn M.D. Aug 27, 2017 08:37
[2017-08-27 09:11] LABS: BASOPHILS % (AUTO) 0.8 % (0.0-2.0); EOSINOPHILS % (AUTO) 1.9 % (0.0-3.0); HEMOGLOBIN 10.2 G/DL (12.0-16.0); LYMPHOCYTES % (AUTO) 17.2 % (20.0-45.0); MEAN CORPUSCULAR VOLUME 90 FL (80-99); MONOCYTES % (AUTO) 7.5 % (1.0-10.0); NEUTROPHILS % (AUTO) 72.6 % (45.0-75.0); PLATELET COUNT 165 K/UL (150-450); RED BLOOD COUNT 3.67 M/UL (4.20-5.40); RED CELL DISTRIBUTION WIDTH 13.1 % (11.6-14.8); WHITE BLOOD COUNT 9.9 K/UL (4.8-10.8)
[2017-08-27 09:38] LABS: ALANINE AMINOTRANSFERASE 99 U/L (12-78); ALBUMIN 2.6 G/DL (3.4-5.0); ALBUMIN/GLOBULIN RATIO 0.6 (1.0-2.7); ALKALINE PHOSPHATASE 491 U/L (46-116); ANION GAP 10 mmol/L (5-15); ASPARTATE AMINO TRANSFERASE 40 U/L (15-37); BLOOD UREA NITROGEN 25 mg/dL (7-18); CALCIUM 8.3 MG/DL (8.5-10.1); CARBON DIOXIDE 22 MMOL/L (21-32); CHLORIDE 107 MMOL/L (98-107); CREATININE 2.7 MG/DL (0.55-1.30); POTASSIUM 4.4 MMOL/L (3.5-5.1); SODIUM 139 MMOL/L (136-145)
[2017-08-27] MEDS: Lidocaine 1% MPF 10mg/ml 5ml IM SCH (10:18)
--- NOTE | 2017-08-27 10:21 | GI Progress Note ---
Assessment/Plan Problems: (1) Pancreatitis ICD Codes: K85.90 - Acute pancreatitis without necrosis or infection, unspecified SNOMED: 39277144 (2) Encounter for diagnostic endoscopy ICD Codes: Z01.818 - Encounter for other preprocedural examination SNOMED: 810992053, 598998912 (3) Choledocholithiasis ICD Codes: K80.50 - Calculus of bile duct without cholangitis or cholecystitis without obstruction SNOMED: 779656866 (4) Anemia ICD Codes: D64.9 - Anemia, unspecified SNOMED: 976153008 (5) Diabetes mellitus ICD Codes: E11.9 - Type 2 diabetes mellitus without complications SNOMED: 11009833 (6) Hypertension ICD Codes: I10 - Essential (primary) hypertension SNOMED: 41934172 Status: stable Status Narrative Discussed with Dr. Hernandez. Assessment/Plan s/p ERCP and stenting 08/21/17 improved LFTS post ERCP pancreatitis OB stool negative okay for DC per GI standpoint adv diet as tolerated abx ivf pain control DM control fu nephrology needs repeat ERCP and stent removal in 4-6 weeks Subjective Gastrointestinal/Abdominal: Reports: no symptoms Objective Last 24 Hour Vital Signs Date Time Temp Pulse Resp B/P (MAP) Pulse Ox O2 Delivery O2 Flow Rate FiO2 08/27/17 08:21 71 139/60 08/27/17 07:43 97.7 71 16 139/60 98 Room Air 97.7 08/27/17 04:00 97.5 67 16 140/78 98 Room Air 97.5 08/27/17 00:56 97 Room Air 08/27/17 00:53 97.0 53 20 115/53 97 Room Air 97.0 08/26/17 19:53 95 Room Air 08/26/17 19:40 70 18 Room Air 21 08/26/17 19:38 98.1 66 20 123/55 95 Room Air 98.1 08/26/17 16:00 98.0 74 18 127/55 96 Room Air 98.0 08/26/17 13:46 98.4 75 18 126/65 96 Room Air 98.4 Intake and Output 08/26/17 08/27/17 19:00 07:00 Intake Total 480 ml Balance 480 ml Intake Oral 480 ml # Voids 2 Laboratory Tests Test 08/27/17 08:45 White Blood Count 9.9 K/UL (4.8-10.8) Red Blood Count 3.67 M/UL (4.20-5.40) L Hemoglobin 10.2 G/DL (12.0-16.0) L Hematocrit 33.0 % (37.0-47.0) L Mean Corpuscular Volume 90 FL (80-99) Mean Corpuscular Hemoglobin 27.9 PG (27.0-31.0) Mean Corpuscular Hemoglobin Concent 31.0 G/DL (32.0-36.0) L Red Cell Distribution Width 13.1 % (11.6-14.8) Platelet Count 165 K/UL (150-450) Mean Platelet Volume 7.2 FL (6.5-10.1) Neutrophils (%) (Auto) 72.6 % (45.0-75.0) Lymphocytes (%) (Auto) 17.2 % (20.0-45.0) L Monocytes (%) (Auto) 7.5 % (1.0-10.0) Eosinophils (%) (Auto) 1.9 % (0.0-3.0) Basophils (%) (Auto) 0.8 % (0.0-2.0) Sodium Level 139 MMOL/L (136-145) Potassium Level 4.4 MMOL/L (3.5-5.1) Chloride Level 107 MMOL/L (98-107) Carbon Dioxide Level 22 MMOL/L (21-32) Anion Gap 10 mmol/L (5-15) Blood Urea Nitrogen 25 mg/dL (7-18) H Creatinine 2.7 MG/DL (0.55-1.30) H Estimat Glomerular Filtration Rate 17.6 mL/min (>60) Glucose Level 190 MG/DL (74-106) H Calcium Level 8.3 MG/DL (8.5-10.1) L Total Bilirubin 1.0 MG/DL (0.2-1.0) Aspartate Amino Transf (AST/SGOT) 40 U/L (15-37) H Alanine Aminotransferase (ALT/SGPT) 99 U/L (12-78) H Alkaline Phosphatase 491 U/L (46-116) H Total Protein 7.0 G/DL (6.4-8.2) Albumin 2.6 G/DL (3.4-5.0) L Globulin 4.4 g/dL Albumin/Globulin Ratio 0.6 (1.0-2.7) L Height (Feet): 5 Height (Inches): 1.00 Weight (Pounds): 134 General Appearance: WD/WN, no apparent distress, alert Cardiovascular: normal rate Respiratory/Chest: normal breath sounds, no respiratory distress Abdominal Exam: normal bowel sounds, non tender, soft Extremities: normal range of motion, non-tender Maria Shepherd NP Aug 27, 2017 10:21
--- NOTE | 2017-08-27 10:52 | General Surgery Progress Note ---
General Surgery-Progress Note Subjective Additional Comments LFT's trending down. mild elevation in alk phos. leukocytosis resolved. doing well. Objective Last 24 Hour Vital Signs Date Time Temp Pulse Resp B/P (MAP) Pulse Ox O2 Delivery O2 Flow Rate FiO2 08/27/17 08:21 71 139/60 08/27/17 07:43 97.7 71 16 139/60 98 Room Air 97.7 08/27/17 04:00 97.5 67 16 140/78 98 Room Air 97.5 08/27/17 00:56 97 Room Air 08/27/17 00:53 97.0 53 20 115/53 97 Room Air 97.0 08/26/17 19:53 95 Room Air 08/26/17 19:40 70 18 Room Air 21 08/26/17 19:38 98.1 66 20 123/55 95 Room Air 98.1 08/26/17 16:00 98.0 74 18 127/55 96 Room Air 98.0 08/26/17 13:46 98.4 75 18 126/65 96 Room Air 98.4 I&O Intake and Output 08/26/17 08/27/17 19:00 07:00 Intake Total 480 ml Balance 480 ml Intake Oral 480 ml # Voids 2 Cardiovascular: RSR Respiratory: clear Abdomen: soft, flat, non-tender, present bowel sounds Extremities: no edema, no tenderness, no cyanosis Laboratory Tests Test 08/27/17 08:45 White Blood Count 9.9 K/UL (4.8-10.8) Red Blood Count 3.67 M/UL (4.20-5.40) L Hemoglobin 10.2 G/DL (12.0-16.0) L Hematocrit 33.0 % (37.0-47.0) L Mean Corpuscular Volume 90 FL (80-99) Mean Corpuscular Hemoglobin 27.9 PG (27.0-31.0) Mean Corpuscular Hemoglobin Concent 31.0 G/DL (32.0-36.0) L Red Cell Distribution Width 13.1 % (11.6-14.8) Platelet Count 165 K/UL (150-450) Mean Platelet Volume 7.2 FL (6.5-10.1) Neutrophils (%) (Auto) 72.6 % (45.0-75.0) Lymphocytes (%) (Auto) 17.2 % (20.0-45.0) L Monocytes (%) (Auto) 7.5 % (1.0-10.0) Eosinophils (%) (Auto) 1.9 % (0.0-3.0) Basophils (%) (Auto) 0.8 % (0.0-2.0) Sodium Level 139 MMOL/L (136-145) Potassium Level 4.4 MMOL/L (3.5-5.1) Chloride Level 107 MMOL/L (98-107) Carbon Dioxide Level 22 MMOL/L (21-32) Anion Gap 10 mmol/L (5-15) Blood Urea Nitrogen 25 mg/dL (7-18) H Creatinine 2.7 MG/DL (0.55-1.30) H Estimat Glomerular Filtration Rate 17.6 mL/min (>60) Glucose Level 190 MG/DL (74-106) H Calcium Level 8.3 MG/DL (8.5-10.1) L Total Bilirubin 1.0 MG/DL (0.2-1.0) Aspartate Amino Transf (AST/SGOT) 40 U/L (15-37) H Alanine Aminotransferase (ALT/SGPT) 99 U/L (12-78) H Alkaline Phosphatase 491 U/L (46-116) H Total Protein 7.0 G/DL (6.4-8.2) Albumin 2.6 G/DL (3.4-5.0) L Globulin 4.4 g/dL Albumin/Globulin Ratio 0.6 (1.0-2.7) L Plan Problems: (1) Choledocholithiasis Assessment & Plan: 66F choledocholithiasis. large stone causing obstruction. elevated lft's and t bili. on ultrasound noted to have had prior cholecystectomy. either retained stone vs primary cbd stone. will need to obtain and review old notes. s/p ERCP with extraction of stones. labs improving. exam benign. -no acute surgical intervention necessary. -trend labs -diet as tolerated -okay to d/c from surgical standpoint will follow with recs. thank you for this consultation. Giovani Lugo Aug 27, 2017 10:52
--- NOTE | 2017-08-27 11:21 | Infectious Diseases Prog Note ---
Assessment/Plan Assessment/Plan Sepsis ; resolved Cholangitis/ Elevated LFTs SP ERCP and stent placement' -bile cx: Enterococcus gallinarum, ESBL E.coli (S Zosyn), ESBL K. PNA ( R amp, ancef, bactrim; I Zosyn) -Abd US: Choledocholithiasis, with a 14 x 8 mm calculus within the common bile duct. There is resultant intrahepatic and extrahepatic biliary ductal dilatation and debris/sludge within the bile ducts. Evidence of prior cholecystectomy. Limited exam with nonvisualization of the right kidney and spleen and abdominal aorta. Incidental finding left lower pole renal cyst Hepatitis panel : neg Leukocytosis, mild recurrent- resolved -Bcx Neg Afebrile -CXR: no acute process Pyuria; possible UTI- unable to provide symptoms -u/a wbc tntc, nit neg, leuk +1; ucx >100K P mirabilis (R Cipro/levo, bactrim ; otherwise S) Hyperglycemia, improving CORRY; improving DM HTN CAD seizure disorder dementia Full code NKDA VRE colonized Plan: -Continue Ertapenem #5/7 (switch to 500mg qd) for cholangitis and possible UTI ( switched to IM given lack of access) and PO Amoxicillin 250mg q12hrs #2/5 for enterococcal coverage given mild leukocytosis -08/23 SP Zosyn #5 -f/u CXR, u/a w/ reflex -monitor CBC/CMP, temperatures -aspiration precautions Discussed with RN Subjective Allergies: Coded Allergies: No Known Allergies (Unverified , 08/19/17) Subjective afebrile leukocytosis resolved at RA Bcx NTD awaiting discharge Objective Vital Signs Last 24 Hour Vital Signs Date Time Temp Pulse Resp B/P (MAP) Pulse Ox O2 Delivery O2 Flow Rate FiO2 08/27/17 08:21 71 139/60 08/27/17 07:43 97.7 71 16 139/60 98 Room Air 97.7 08/27/17 04:00 97.5 67 16 140/78 98 Room Air 97.5 08/27/17 00:56 97 Room Air 08/27/17 00:53 97.0 53 20 115/53 97 Room Air 97.0 08/26/17 19:53 95 Room Air 08/26/17 19:40 70 18 Room Air 21 08/26/17 19:38 98.1 66 20 123/55 95 Room Air 98.1 08/26/17 16:00 98.0 74 18 127/55 96 Room Air 98.0 08/26/17 13:46 98.4 75 18 126/65 96 Room Air 98.4 Height (Feet): 5 Height (Inches): 1.00 Weight (Pounds): 134 Objective HEENT: Pupils are equal and reactive to light. NECK: No JVD. HEART: Regular. LUNGS: Clear. ABDOMEN: Positive bowel sounds. EXTREMITIES: No clubbing, cyanosis, or edema. Laboratory Tests Test 08/27/17 08:45 White Blood Count 9.9 K/UL (4.8-10.8) Red Blood Count 3.67 M/UL (4.20-5.40) L Hemoglobin 10.2 G/DL (12.0-16.0) L Hematocrit 33.0 % (37.0-47.0) L Mean Corpuscular Volume 90 FL (80-99) Mean Corpuscular Hemoglobin 27.9 PG (27.0-31.0) Mean Corpuscular Hemoglobin Concent 31.0 G/DL (32.0-36.0) L Red Cell Distribution Width 13.1 % (11.6-14.8) Platelet Count 165 K/UL (150-450) Mean Platelet Volume 7.2 FL (6.5-10.1) Neutrophils (%) (Auto) 72.6 % (45.0-75.0) Lymphocytes (%) (Auto) 17.2 % (20.0-45.0) L Monocytes (%) (Auto) 7.5 % (1.0-10.0) Eosinophils (%) (Auto) 1.9 % (0.0-3.0) Basophils (%) (Auto) 0.8 % (0.0-2.0) Sodium Level 139 MMOL/L (136-145) Potassium Level 4.4 MMOL/L (3.5-5.1) Chloride Level 107 MMOL/L (98-107) Carbon Dioxide Level 22 MMOL/L (21-32) Anion Gap 10 mmol/L (5-15) Blood Urea Nitrogen 25 mg/dL (7-18) H Creatinine 2.7 MG/DL (0.55-1.30) H Estimat Glomerular Filtration Rate 17.6 mL/min (>60) Glucose Level 190 MG/DL (74-106) H Calcium Level 8.3 MG/DL (8.5-10.1) L Total Bilirubin 1.0 MG/DL (0.2-1.0) Aspartate Amino Transf (AST/SGOT) 40 U/L (15-37) H Alanine Aminotransferase (ALT/SGPT) 99 U/L (12-78) H Alkaline Phosphatase 491 U/L (46-116) H Total Protein 7.0 G/DL (6.4-8.2) Albumin 2.6 G/DL (3.4-5.0) L Globulin 4.4 g/dL Albumin/Globulin Ratio 0.6 (1.0-2.7) L Current Medications Medications (Trade) Dose Ordered Sig/Jeff Route PRN Reason Start Time Stop Time Status Last Admin Dose Admin Acetaminophen (Tylenol) 650 mg Q4H PRN ORAL fever 08/19/17 19:59 09/18/17 19:58 Al Hydroxide/Mg Hydroxide (Mylanta II) 30 ml Q6H PRN ORAL dyspepsia 08/19/17 19:59 09/18/17 19:58 Albuterol/ Ipratropium (Albuterol/ Ipratropium) 3 ml Q4H PRN HHN Shortness of Breath 08/23/17 11:59 08/28/17 11:58 Amlodipine Besylate (Norvasc) 10 mg DAILY ORAL 08/20/17 09:00 09/19/17 08:59 08/27/17 08:21 Amoxicillin (Amoxil) 250 mg Q12HR ORAL 08/26/17 21:00 09/02/17 20:59 08/27/17 08:21 Atorvastatin Calcium (Lipitor) 10 mg BEDTIME ORAL 08/19/17 21:00 09/18/17 20:59 08/26/17 20:29 Clonidine HCl (Catapres Tab) 0.1 mg Q4H PRN ORAL sbp more than 160 08/19/17 19:59 09/18/17 19:58 08/24/17 17:20 Dextrose (Dextrose 50%) 25 ml STAT PRN IV Hypoglycemia 08/20/17 08:00 09/19/17 07:59 Dextrose (Dextrose 50%) 50 ml STAT PRN IV Hypoglycemia 08/20/17 08:00 09/19/17 07:59 Ertapenem (INVanz) 0.5 gm Q24H IM 08/28/17 10:00 09/02/17 09:59 08/27/17 10:17 Insulin Aspart (NovoLOG) BEFORE MEALS AND HS SUBQ 08/19/17 21:00 09/18/17 20:59 08/26/17 20:30 Insulin Aspart (NovoLOG) 4 units NOVOTIAC SUBQ 08/20/17 11:50 09/19/17 11:49 08/26/17 11:24 Insulin Detemir (Levemir) 12 units DAILY SUBQ 08/20/17 09:00 09/19/17 08:59 08/27/17 08:22 Lidocaine (Xylocaine 1% MPF 5ml) 3.2 ml DAILY IM 08/23/17 16:00 09/22/17 15:59 08/27/17 10:18 Lorazepam (Ativan) 1 mg Q6H PRN ORAL For Anxiety 08/21/17 18:15 08/28/17 18:14 08/26/17 14:04 Memantine (Namenda) 5 mg BID ORAL 08/24/17 18:00 09/23/17 17:59 08/27/17 08:21 Nitroglycerin (Ntg) 0.4 mg Q5M X 3 DOSES PRN SL Prn Chest Pain 08/19/17 20:01 09/18/17 20:00 Ondansetron HCl (Zofran) 4 mg Q6H PRN IVP Nausea & Vomiting 08/19/17 20:01 09/18/17 20:00 Polyethylene Glycol (Miralax) 17 gm HSPRN PRN ORAL Constipation 08/19/17 21:00 09/18/17 20:59 Risperidone (RisperDAL) 0.25 mg Q12HR ORAL 08/24/17 21:00 09/23/17 20:59 08/27/17 08:21 Magda Estrada M.D. Aug 27, 2017 11:21
[2017-08-27 11:41] VITALS: BP 131/62
--- NOTE | 2017-08-27 13:56 | General Progress Note ---
Assessment/Plan Problem List: (1) Diabetes mellitus ICD Codes: E11.9 - Type 2 diabetes mellitus without complications SNOMED: 07817156 (2) Hypertension ICD Codes: I10 - Essential (primary) hypertension SNOMED: 35090312 (3) Advanced dementia ICD Codes: F03.90 - Unspecified dementia without behavioral disturbance SNOMED: 28035376 (4) Hyperglycemia ICD Codes: R73.9 - Hyperglycemia, unspecified SNOMED: 77389810 (5) Pyelonephritis ICD Codes: N12 - Tubulo-interstitial nephritis, not specified as acute or chronic SNOMED: 54803882 (6) UTI (urinary tract infection) ICD Codes: N39.0 - Urinary tract infection, site not specified SNOMED: 71561197 (7) Choledocholithiasis ICD Codes: K80.50 - Calculus of bile duct without cholangitis or cholecystitis without obstruction SNOMED: 199848278 Status: stable, progressing Assessment/Plan ot pt diet bp bs pain control gi f/u cbc bmp am dc if clear Subjective Constitutional: Reports: weakness Allergies: Coded Allergies: No Known Allergies (Unverified , 08/19/17) All Systems: reviewed and negative except above Subjective calm in bed Objective Last 24 Hour Vital Signs Date Time Temp Pulse Resp B/P (MAP) Pulse Ox O2 Delivery O2 Flow Rate FiO2 08/27/17 11:41 97.7 70 16 131/62 98 Room Air 97.7 08/27/17 08:21 71 139/60 08/27/17 07:43 97.7 71 16 139/60 98 Room Air 97.7 08/27/17 04:00 97.5 67 16 140/78 98 Room Air 97.5 08/27/17 00:56 97 Room Air 08/27/17 00:53 97.0 53 20 115/53 97 Room Air 97.0 08/26/17 19:53 95 Room Air 08/26/17 19:40 70 18 Room Air 21 08/26/17 19:38 98.1 66 20 123/55 95 Room Air 98.1 08/26/17 16:00 98.0 74 18 127/55 96 Room Air 98.0 Intake and Output 08/26/17 08/27/17 19:00 07:00 Intake Total 480 ml Balance 480 ml Intake Oral 480 ml # Voids 2 Laboratory Tests 08/27/17 08:45: White Blood Count 9.9, Red Blood Count 3.67L, Hemoglobin 10.2L, Hematocrit 33.0L , Mean Corpuscular Volume 90, Mean Corpuscular Hemoglobin 27.9, Mean Corpuscular Hemoglobin Concent 31.0L, Red Cell Distribution Width 13.1, Platelet Count 165, Mean Platelet Volume 7.2, Neutrophils (%) (Auto) 72.6, Lymphocytes (%) (Auto) 17.2L, Monocytes (%) (Auto) 7.5, Eosinophils (%) (Auto) 1.9, Basophils (%) (Auto) 0.8, Sodium Level 139, Potassium Level 4.4, Chloride Level 107, Carbon Dioxide Level 22, Anion Gap 10, Blood Urea Nitrogen 25H, Creatinine 2.7H, Estimat Glomerular Filtration Rate 17.6, Glucose Level 190H, Calcium Level 8.3L, Total Bilirubin 1.0, Aspartate Amino Transf (AST/SGOT) 40H, Alanine Aminotransferase (ALT/SGPT) 99H, Alkaline Phosphatase 491H, Total Protein 7.0, Albumin 2.6L, Globulin 4.4, Albumin/Globulin Ratio 0.6L Height (Feet): 5 Height (Inches): 1.00 Weight (Pounds): 134 General Appearance: lethargic EENT: normal ENT inspection Neck: normal alignment Cardiovascular: normal peripheral pulses, normal rate, regular rhythm Respiratory/Chest: chest wall non-tender, decreased breath sounds Abdomen: normal bowel sounds, non tender, soft Extremities: normal inspection Edema: no edema noted Arm (L), no edema noted Arm (R), no edema noted Leg (L), no edema noted Leg (R), no edema noted Pedal (L), no edema noted Pedal (R), no edema noted Generalized Neurologic: motor weakness Skin: normal pigmentation, warm/dry Martin Hopper DO Aug 27, 2017 13:56
--- NOTE | 2017-08-27 14:21 | Pulmonology Progress Note ---
Assessment/Plan Problems: (1) Choledocholithiasis (2) UTI (urinary tract infection) (3) Hyperglycemia (4) Pyelonephritis (5) Diabetes mellitus (6) Hypertension (7) Advanced dementia Assessment/Plan improving ERCP done, CBD stone were removed continue abx improving f/u bilirubin level check cultures continue abx check electrolytes dvt prophylaxis Subjective ROS Limited/Unobtainable: No Constitutional: Reports: no symptoms HEENT: Repors: no symptoms Allergies: Coded Allergies: No Known Allergies (Unverified , 08/19/17) Objective Last 24 Hour Vital Signs Date Time Temp Pulse Resp B/P (MAP) Pulse Ox O2 Delivery O2 Flow Rate FiO2 08/27/17 11:41 97.7 70 16 131/62 98 Room Air 97.7 08/27/17 08:21 71 139/60 08/27/17 07:43 97.7 71 16 139/60 98 Room Air 97.7 08/27/17 04:00 97.5 67 16 140/78 98 Room Air 97.5 08/27/17 00:56 97 Room Air 08/27/17 00:53 97.0 53 20 115/53 97 Room Air 97.0 08/26/17 19:53 95 Room Air 08/26/17 19:40 70 18 Room Air 21 08/26/17 19:38 98.1 66 20 123/55 95 Room Air 98.1 08/26/17 16:00 98.0 74 18 127/55 96 Room Air 98.0 Intake and Output 08/26/17 08/27/17 19:00 07:00 Intake Total 480 ml Balance 480 ml Intake Oral 480 ml # Voids 2 Objective General Appearance: WD/WN HEENT: normocephalic, atraumatic Respiratory/Chest: chest wall non-tender, normal breath sounds Breasts: no masses Cardiovascular: normal peripheral pulses, no JVD Abdomen: soft, non tender Genitourinary: normal external genitalia Extremities: no cyanosis Neurologic/Psychiatric: no motor/sensory deficits Lymphatic: no neck adenopathy Laboratory Tests 08/27/17 08:45: White Blood Count 9.9, Red Blood Count 3.67L, Hemoglobin 10.2L, Hematocrit 33.0L , Mean Corpuscular Volume 90, Mean Corpuscular Hemoglobin 27.9, Mean Corpuscular Hemoglobin Concent 31.0L, Red Cell Distribution Width 13.1, Platelet Count 165, Mean Platelet Volume 7.2, Neutrophils (%) (Auto) 72.6, Lymphocytes (%) (Auto) 17.2L, Monocytes (%) (Auto) 7.5, Eosinophils (%) (Auto) 1.9, Basophils (%) (Auto) 0.8, Sodium Level 139, Potassium Level 4.4, Chloride Level 107, Carbon Dioxide Level 22, Anion Gap 10, Blood Urea Nitrogen 25H, Creatinine 2.7H, Estimat Glomerular Filtration Rate 17.6, Glucose Level 190H, Calcium Level 8.3L, Total Bilirubin 1.0, Aspartate Amino Transf (AST/SGOT) 40H, Alanine Aminotransferase (ALT/SGPT) 99H, Alkaline Phosphatase 491H, Total Protein 7.0, Albumin 2.6L, Globulin 4.4, Albumin/Globulin Ratio 0.6L Current Medications Medications (Trade) Dose Ordered Sig/Jeff Route PRN Reason Start Time Stop Time Status Last Admin Dose Admin Acetaminophen (Tylenol) 650 mg Q4H PRN ORAL fever 08/19/17 19:59 09/18/17 19:58 Al Hydroxide/Mg Hydroxide (Mylanta II) 30 ml Q6H PRN ORAL dyspepsia 08/19/17 19:59 09/18/17 19:58 Albuterol/ Ipratropium (Albuterol/ Ipratropium) 3 ml Q4H PRN HHN Shortness of Breath 08/23/17 11:59 08/28/17 11:58 Amlodipine Besylate (Norvasc) 10 mg DAILY ORAL 08/20/17 09:00 09/19/17 08:59 08/27/17 08:21 Amoxicillin (Amoxil) 250 mg Q12HR ORAL 08/26/17 21:00 09/02/17 20:59 08/27/17 08:21 Atorvastatin Calcium (Lipitor) 10 mg BEDTIME ORAL 08/19/17 21:00 09/18/17 20:59 08/26/17 20:29 Clonidine HCl (Catapres Tab) 0.1 mg Q4H PRN ORAL sbp more than 160 08/19/17 19:59 09/18/17 19:58 08/24/17 17:20 Dextrose (Dextrose 50%) 25 ml STAT PRN IV Hypoglycemia 08/20/17 08:00 09/19/17 07:59 Dextrose (Dextrose 50%) 50 ml STAT PRN IV Hypoglycemia 08/20/17 08:00 09/19/17 07:59 Ertapenem (INVanz) 0.5 gm Q24H IM 08/28/17 10:00 09/02/17 09:59 08/27/17 10:17 Insulin Aspart (NovoLOG) BEFORE MEALS AND HS SUBQ 08/19/17 21:00 09/18/17 20:59 08/27/17 11:22 Insulin Aspart (NovoLOG) 4 units NOVOTIAC SUBQ 08/20/17 11:50 09/19/17 11:49 08/27/17 11:22 Insulin Detemir (Levemir) 12 units DAILY SUBQ 08/20/17 09:00 09/19/17 08:59 08/27/17 08:22 Lidocaine (Xylocaine 1% MPF 5ml) 3.2 ml DAILY IM 08/23/17 16:00 09/22/17 15:59 08/27/17 10:18 Lorazepam (Ativan) 1 mg Q6H PRN ORAL For Anxiety 08/21/17 18:15 08/28/17 18:14 08/26/17 14:04 Memantine (Namenda) 5 mg BID ORAL 08/24/17 18:00 09/23/17 17:59 08/27/17 08:21 Nitroglycerin (Ntg) 0.4 mg Q5M X 3 DOSES PRN SL Prn Chest Pain 08/19/17 20:01 09/18/17 20:00 Ondansetron HCl (Zofran) 4 mg Q6H PRN IVP Nausea & Vomiting 08/19/17 20:01 09/18/17 20:00 Polyethylene Glycol (Miralax) 17 gm HSPRN PRN ORAL Constipation 08/19/17 21:00 09/18/17 20:59 Risperidone (RisperDAL) 0.25 mg Q12HR ORAL 08/24/17 21:00 09/23/17 20:59 08/27/17 08:21 Say Schneider MD Aug 27, 2017 14:21
--- NOTE | 2017-08-27 14:39 | Diagnostic Imaging Report ---
Indication: Cough Technique: One view of the chest Comparison: 08/24/2017 Findings: Inspiration is suboptimal. No definite acute infiltrates, effusions, or congestion. Heart size is upper limits of normal. An and a biliary stent is incidentally noted, as are cholecystectomy clips Impression: No definite acute process
[2017-08-27 16:00] VITALS: BP 132/61
--- NOTE | 2017-08-27 18:45 | Progress Note ---
SUBJECTIVE: This is a female patient, who is 66 years old. She has hypoglycemia, and pyelonephritis, history of altered mental status, confusion, worsened by stress of her medical illness. That is why, her attending physician has requested daily psychiatric consultation. The patient does have some confusion, some disorganized thought process, and mood lability worsened by stress of her medical illness. That is why her attending physician has requested daily psychiatric consultation for this patient. She does have some agitation and mood lability. MENTAL STATUS EXAMINATION: This is a 66-year-old female. Appearance is disheveled. Attitude is irritable and agitated. Affect guarded and restricted. Intellect poor. Mood depressed and anxious. Motor activity, psychomotor agitation. Attention span is poor. Orientation x2. Speech is of low volume and slurred. Thought process, disorganized and illogical. Thought content, she has some paranoid delusions. Insight and judgement are poor. DIAGNOSIS: Major depression with psychotic features, rule out pseudodementia. PLAN: Treat her with Namenda 5 mg twice a day, Risperdal 0.25 mg p.o. q.12 h. and also Ativan 1 mg every 6 hours p.r.n. anxiety and agitation. Provide 18 to 20 minutes of supportive psychotherapy. The patient seen and assessed in her room. Chart reviewed and discussed with staff. The patient seen and assessed at bedside. 18 to 20 minutes of supportive psychotherapy provided. Walter Capps M.D. DR: BRIAN JOB#: [id number] CC:
[2017-08-27 20:00] VITALS: BP 145/75
[2017-08-28] VITALS: BP 148/77
--- NOTE | 2017-08-28 03:30 | Consultation ---
DATE OF CONSULTATION: 08/26/2017 NOTE: POOR AUDIO PSYCHOTHERAPY CONSULTATION PROGRESS NOTE CONSULTING PHYSICIAN: Tavia Morelos M.D. TREATING ATTENDING PHYSICIAN: Dr. Martin Hopper. HISTORY OF PRESENT ILLNESS: The patient is a 66-year-old female patient from [facility]. The patient was admitted to the hospital due to confusion, weakness, diabetes, hyperglycemia. The patient is a 66-year-old female with . The patient is very confused, helpless, disorganized, had difficulty articulating her thoughts and needs and continues to feel hopeless. Her mood has been fluctuating. For these reasons, the patient was referred for psychotherapeutic services. This clinician assessed this patient. The patient is very confused, disorganized in thought process, poorly motivated, and . The patient is a very poor historian at this time and he came in with . PAST MEDICAL HISTORY: History of hypertension and hyperglycemia. ALLERGIES: The patient has no known drug allergies. SUBSTANCE ABUSE HISTORY: The patient denies any history of alcohol use or illicit drug use. PAST PSYCHIATRIC HISTORY: There is no indication of a psychiatric history. MENTAL STATUS EXAMINATION: The patient is a 66-year-old female patient, financially supported by [employer]. She is alert and oriented to person and place. Mood is dysphoric. Affect blunted. Thought process . This clinician assessed this patient and provided the patient with reality orientation and coping skills and psychotherapy. Encouraging patient to participate in treatment milieu. Continue with behavioral management. DIAGNOSES: Major depressive disorder, single episode with psychotic features. Provided the patient with reality orientation. This clinician has reviewed the patient's chart and discussed with treatment team. Tavia Morelos PsyD. : PRANAV JOB#: [id number] CC:
[2017-08-28 04:00] VITALS: BP 129/65
[2017-08-28] MEDS: NovoLOG Insulin Flexpen SUBQ SCH ×7 (06:30→20:55)
[2017-08-28 06:35] LABS: HEMATOCRIT 24.5 % (37.0-47.0); HEMOGLOBIN 7.8 G/DL (12.0-16.0); MEAN CORPUSCULAR VOLUME 89 FL (80-99); PLATELET COUNT 145 K/UL (150-450); RED BLOOD COUNT 2.74 M/UL (4.20-5.40); RED CELL DISTRIBUTION WIDTH 12.7 % (11.6-14.8)
[2017-08-28 06:56] LABS: ALANINE AMINOTRANSFERASE 76 U/L (12-78); ALBUMIN 2.1 G/DL (3.4-5.0); ALBUMIN/GLOBULIN RATIO 0.6 (1.0-2.7); ALKALINE PHOSPHATASE 356 U/L (46-116); ANION GAP 10 mmol/L (5-15); ASPARTATE AMINO TRANSFERASE 26 U/L (15-37); BILIRUBIN,TOTAL 0.8 MG/DL (0.2-1.0); BLOOD UREA NITROGEN 24 mg/dL (7-18); CALCIUM 7.9 MG/DL (8.5-10.1); CARBON DIOXIDE 22 MMOL/L (21-32); CHLORIDE 109 MMOL/L (98-107); CREATININE 2.7 MG/DL (0.55-1.30); POTASSIUM 4.2 MMOL/L (3.5-5.1); SODIUM 141 MMOL/L (136-145)
[2017-08-28 08:00] VITALS: BP 141/74
[2017-08-28] MEDS: Lidocaine 1% MPF 10mg/ml 5ml IM SCH (09:00)
[2017-08-28] MEDS: Memantine 5 MG TAB ORAL SCH ×2 (09:26→17:22)
[2017-08-28] MEDS: Ertapenem (INVanz) 1gm Inj IM SCH (09:27)
[2017-08-28] MEDS: Levemir Flexpen SUBQ SCH (09:28)
--- NOTE | 2017-08-28 09:52 | Nephrology Progress Note ---
Assessment/Plan Assessment/Plan 1. CORRY on CKD 4- Cr 2.7 stable - awaiting DC. F/U 1 week. Call [phone] for appointment 2. Choledocholithiasis- ERCP, mgmpt per PCP and general surgery -repeat ERCP and stent removal in 4-6 weeks 3. HTN- stable 4. Anemia- per PCP mgmt OK for DC from renal standpoint Subjective Date patient seen: Aug 28, 2017 Time patient seen: 09:49 Allergies: Coded Allergies: No Known Allergies (Unverified , 08/19/17) Subjective Patient in no overt distress. Awaiting DC to SNF Objective Last 24 Hour Vital Signs Date Time Temp Pulse Resp B/P (MAP) Pulse Ox O2 Delivery O2 Flow Rate FiO2 08/28/17 09:26 71 141/74 08/28/17 08:00 Room Air 08/28/17 08:00 97.5 71 18 141/74 95 97.5 08/28/17 04:00 98.2 67 20 129/65 97 Room Air 98.2 08/28/17 00:00 98.4 70 20 148/77 98 Room Air 98.4 08/27/17 20:00 98.1 73 18 145/75 98 Room Air 98.1 08/27/17 19:09 72 18 Room Air 21 08/27/17 16:00 98.4 87 16 132/61 98 Room Air 98.4 08/27/17 11:41 97.7 70 16 131/62 98 Room Air 97.7 Intake and Output 08/27/17 08/28/17 19:00 07:00 Intake Total 1120 ml Balance 1120 ml Intake Oral 1120 ml # Voids 2 5 Laboratory Tests 08/28/17 05:20: White Blood Count 10.0, Red Blood Count 2.74L, Hemoglobin 7.8L, Hematocrit 24.5L , Mean Corpuscular Volume 89, Mean Corpuscular Hemoglobin 28.5, Mean Corpuscular Hemoglobin Concent 31.9L, Red Cell Distribution Width 12.7, Platelet Count 145L, Mean Platelet Volume 6.3L, Neutrophils (%) (Auto) , Lymphocytes (%) (Auto) , Monocytes (%) (Auto) , Eosinophils (%) (Auto) , Basophils (%) (Auto) , Differential Total Cells Counted 100, Neutrophils % ( Manual) 65, Lymphocytes % (Manual) 23, Monocytes % (Manual) 10, Eosinophils % ( Manual) 2, Basophils % (Manual) 0, Band Neutrophils 0, Platelet Estimate DecreasedL, Platelet Morphology Normal, Sodium Level 141, Potassium Level 4.2, Chloride Level 109H, Carbon Dioxide Level 22, Anion Gap 10, Blood Urea Nitrogen 24H, Creatinine 2.7H, Estimat Glomerular Filtration Rate 17.6, Glucose Level 102 , Calcium Level 7.9L, Soluble Transferrin Receptor [Pending], Ferritin 216, Total Bilirubin 0.8, Aspartate Amino Transf (AST/SGOT) 26, Alanine Aminotransferase (ALT/SGPT) 76, Alkaline Phosphatase 356H, Total Protein 5.7L, Albumin 2.1L, Globulin 3.6, Albumin/Globulin Ratio 0.6L, Methylmalonic Acid [ Pending], Folate [Pending] Height (Feet): 5 Height (Inches): 1.00 Weight (Pounds): 134 General Appearance: no apparent distress EENT: TMs normal Neck: normal alignment, supple Cardiovascular: regular rhythm Respiratory/Chest: lungs clear, normal breath sounds Abdomen: non tender, soft Edema: no edema noted Arm (L), no edema noted Arm (R), no edema noted Leg (L), no edema noted Leg (R), no edema noted Pedal (L), no edema noted Pedal (R), no edema noted Generalized Kush Blackburn M.D. Aug 28, 2017 09:52
[2017-08-28] MEDS ORDERED: Ertapenem (INVanz) 1gm Inj IM SCH (10:00)
--- NOTE | 2017-08-28 10:44 | General Progress Note ---
Assessment/Plan Problem List: (1) Diabetes mellitus ICD Codes: E11.9 - Type 2 diabetes mellitus without complications SNOMED: 29130640 (2) Hypertension ICD Codes: I10 - Essential (primary) hypertension SNOMED: 51263493 (3) Advanced dementia ICD Codes: F03.90 - Unspecified dementia without behavioral disturbance SNOMED: 68082427 (4) Hyperglycemia ICD Codes: R73.9 - Hyperglycemia, unspecified SNOMED: 50512636 (5) Pyelonephritis ICD Codes: N12 - Tubulo-interstitial nephritis, not specified as acute or chronic SNOMED: 85312018 (6) UTI (urinary tract infection) ICD Codes: N39.0 - Urinary tract infection, site not specified SNOMED: 09830495 (7) Choledocholithiasis ICD Codes: K80.50 - Calculus of bile duct without cholangitis or cholecystitis without obstruction SNOMED: 394371881 Status: stable, progressing Assessment/Plan ot pt diet bp bs pain control gi f/u cbc bmp am dc if clear Subjective Constitutional: Reports: weakness Allergies: Coded Allergies: No Known Allergies (Unverified , 08/19/17) All Systems: reviewed and negative except above Subjective calm in bed Objective Last 24 Hour Vital Signs Date Time Temp Pulse Resp B/P (MAP) Pulse Ox O2 Delivery O2 Flow Rate FiO2 08/28/17 09:26 71 141/74 08/28/17 08:00 Room Air 08/28/17 08:00 97.5 71 18 141/74 95 97.5 08/28/17 04:00 98.2 67 20 129/65 97 Room Air 98.2 08/28/17 00:00 98.4 70 20 148/77 98 Room Air 98.4 08/27/17 20:00 98.1 73 18 145/75 98 Room Air 98.1 08/27/17 19:09 72 18 Room Air 21 08/27/17 16:00 98.4 87 16 132/61 98 Room Air 98.4 08/27/17 11:41 97.7 70 16 131/62 98 Room Air 97.7 Intake and Output 08/27/17 08/28/17 19:00 07:00 Intake Total 1120 ml Balance 1120 ml Intake Oral 1120 ml # Voids 2 5 Laboratory Tests 08/28/17 05:20: White Blood Count 10.0, Red Blood Count 2.74L, Hemoglobin 7.8L, Hematocrit 24.5L , Mean Corpuscular Volume 89, Mean Corpuscular Hemoglobin 28.5, Mean Corpuscular Hemoglobin Concent 31.9L, Red Cell Distribution Width 12.7, Platelet Count 145L, Mean Platelet Volume 6.3L, Neutrophils (%) (Auto) , Lymphocytes (%) (Auto) , Monocytes (%) (Auto) , Eosinophils (%) (Auto) , Basophils (%) (Auto) , Differential Total Cells Counted 100, Neutrophils % ( Manual) 65, Lymphocytes % (Manual) 23, Monocytes % (Manual) 10, Eosinophils % ( Manual) 2, Basophils % (Manual) 0, Band Neutrophils 0, Platelet Estimate DecreasedL, Platelet Morphology Normal, Sodium Level 141, Potassium Level 4.2, Chloride Level 109H, Carbon Dioxide Level 22, Anion Gap 10, Blood Urea Nitrogen 24H, Creatinine 2.7H, Estimat Glomerular Filtration Rate 17.6, Glucose Level 102 , Calcium Level 7.9L, Soluble Transferrin Receptor [Pending], Ferritin 216, Total Bilirubin 0.8, Aspartate Amino Transf (AST/SGOT) 26, Alanine Aminotransferase (ALT/SGPT) 76, Alkaline Phosphatase 356H, Total Protein 5.7L, Albumin 2.1L, Globulin 3.6, Albumin/Globulin Ratio 0.6L, Methylmalonic Acid [ Pending], Folate 9.8 Height (Feet): 5 Height (Inches): 1.00 Weight (Pounds): 134 General Appearance: lethargic, confused EENT: normal ENT inspection Neck: normal alignment Cardiovascular: normal peripheral pulses, normal rate, regular rhythm Respiratory/Chest: chest wall non-tender, lungs clear, normal breath sounds Abdomen: normal bowel sounds, non tender, soft Extremities: normal inspection Edema: no edema noted Arm (L), no edema noted Arm (R), no edema noted Leg (L), no edema noted Leg (R), no edema noted Pedal (L), no edema noted Pedal (R), no edema noted Generalized Neurologic: motor weakness Skin: normal pigmentation, warm/dry Martin Hopper DO Aug 28, 2017 10:44
--- NOTE | 2017-08-28 11:05 | GI Progress Note ---
Assessment/Plan Problems: (1) Pancreatitis ICD Codes: K85.90 - Acute pancreatitis without necrosis or infection, unspecified SNOMED: 66246860 (2) Encounter for diagnostic endoscopy ICD Codes: Z01.818 - Encounter for other preprocedural examination SNOMED: 939775700, 086767755 (3) Choledocholithiasis ICD Codes: K80.50 - Calculus of bile duct without cholangitis or cholecystitis without obstruction SNOMED: 996958997 (4) Anemia ICD Codes: D64.9 - Anemia, unspecified SNOMED: 950569935 (5) Diabetes mellitus ICD Codes: E11.9 - Type 2 diabetes mellitus without complications SNOMED: 27574323 (6) Hypertension ICD Codes: I10 - Essential (primary) hypertension SNOMED: 76931279 Status: stable Status Narrative Discussed with Dr. Hernandez. Assessment/Plan s/p ERCP and stenting 08/21/17 improved LFTS post ERCP pancreatitis OB stool negative okay for DC per GI standpoint adv diet as tolerated abx ivf pain control DM control fu nephrology needs repeat ERCP and stent removal in 4-6 weeks Subjective Gastrointestinal/Abdominal: Reports: no symptoms Objective Last 24 Hour Vital Signs Date Time Temp Pulse Resp B/P (MAP) Pulse Ox O2 Delivery O2 Flow Rate FiO2 08/28/17 09:26 71 141/74 08/28/17 08:19 76 20 Room Air 21 08/28/17 08:00 Room Air 08/28/17 08:00 97.5 71 18 141/74 95 97.5 08/28/17 04:00 98.2 67 20 129/65 97 Room Air 98.2 08/28/17 00:00 98.4 70 20 148/77 98 Room Air 98.4 08/27/17 20:00 98.1 73 18 145/75 98 Room Air 98.1 08/27/17 19:09 72 18 Room Air 21 08/27/17 16:00 98.4 87 16 132/61 98 Room Air 98.4 08/27/17 11:41 97.7 70 16 131/62 98 Room Air 97.7 Intake and Output 08/27/17 08/28/17 19:00 07:00 Intake Total 1120 ml Balance 1120 ml Intake Oral 1120 ml # Voids 2 5 Laboratory Tests Test 6/15/18 05:20 White Blood Count 10.0 K/UL (4.8-10.8) Red Blood Count 2.74 M/UL (4.20-5.40) L Hemoglobin 7.8 G/DL (12.0-16.0) L Hematocrit 24.5 % (37.0-47.0) L Mean Corpuscular Volume 89 FL (80-99) Mean Corpuscular Hemoglobin 28.5 PG (27.0-31.0) Mean Corpuscular Hemoglobin Concent 31.9 G/DL (32.0-36.0) L Red Cell Distribution Width 12.7 % (11.6-14.8) Platelet Count 145 K/UL (150-450) L Mean Platelet Volume 6.3 FL (6.5-10.1) L Neutrophils (%) (Auto) % (45.0-75.0) Lymphocytes (%) (Auto) % (20.0-45.0) Monocytes (%) (Auto) % (1.0-10.0) Eosinophils (%) (Auto) % (0.0-3.0) Basophils (%) (Auto) % (0.0-2.0) Differential Total Cells Counted 100 Neutrophils % (Manual) 65 % (45-75) Lymphocytes % (Manual) 23 % (20-45) Monocytes % (Manual) 10 % (1-10) Eosinophils % (Manual) 2 % (0-3) Basophils % (Manual) 0 % (0-2) Band Neutrophils 0 % (0-8) Platelet Estimate Decreased L Platelet Morphology Normal Sodium Level 141 MMOL/L (136-145) Potassium Level 4.2 MMOL/L (3.5-5.1) Chloride Level 109 MMOL/L (98-107) H Carbon Dioxide Level 22 MMOL/L (21-32) Anion Gap 10 mmol/L (5-15) Blood Urea Nitrogen 24 mg/dL (7-18) H Creatinine 2.7 MG/DL (0.55-1.30) H Estimat Glomerular Filtration Rate 17.6 mL/min (>60) Glucose Level 102 MG/DL (74-106) Calcium Level 7.9 MG/DL (8.5-10.1) L Soluble Transferrin Receptor Pending Ferritin 216 NG/ML (8-388) Total Bilirubin 0.8 MG/DL (0.2-1.0) Aspartate Amino Transf (AST/SGOT) 26 U/L (15-37) Alanine Aminotransferase (ALT/SGPT) 76 U/L (12-78) Alkaline Phosphatase 356 U/L (46-116) H Total Protein 5.7 G/DL (6.4-8.2) L Albumin 2.1 G/DL (3.4-5.0) L Globulin 3.6 g/dL Albumin/Globulin Ratio 0.6 (1.0-2.7) L Methylmalonic Acid Pending Folate 9.8 NG/ML (8.6-58.9) Height (Feet): 5 Height (Inches): 1.00 Weight (Pounds): 134 General Appearance: WD/WN, no apparent distress, alert Cardiovascular: normal rate Respiratory/Chest: normal breath sounds, no respiratory distress Abdominal Exam: normal bowel sounds, non tender, soft Extremities: normal range of motion, non-tender Maria Shepherd NP Aug 28, 2017 11:05
[2017-08-28 11:35] VITALS: BP 131/63
--- NOTE | 2017-08-28 12:02 | General Surgery Progress Note ---
General Surgery-Progress Note Subjective Symptoms: improved, pain absent, tolerating diet, passing flatus Objective Last 24 Hour Vital Signs Date Time Temp Pulse Resp B/P (MAP) Pulse Ox O2 Delivery O2 Flow Rate FiO2 08/28/17 11:35 97.7 64 18 131/63 96 97.7 08/28/17 09:26 71 141/74 08/28/17 08:19 76 20 Room Air 21 08/28/17 08:00 Room Air 08/28/17 08:00 97.5 71 18 141/74 95 97.5 08/28/17 04:00 98.2 67 20 129/65 97 Room Air 98.2 08/28/17 00:00 98.4 70 20 148/77 98 Room Air 98.4 08/27/17 20:00 98.1 73 18 145/75 98 Room Air 98.1 08/27/17 19:09 72 18 Room Air 21 08/27/17 16:00 98.4 87 16 132/61 98 Room Air 98.4 I&O Intake and Output 08/27/17 08/28/17 19:00 07:00 Intake Total 1120 ml Balance 1120 ml Intake Oral 1120 ml # Voids 2 5 Cardiovascular: RSR Respiratory: clear Abdomen: soft, flat, non-tender, present bowel sounds Extremities: no edema, no tenderness Laboratory Tests Test 08/28/17 05:20 08/28/17 10:00 White Blood Count 10.0 K/UL (4.8-10.8) Red Blood Count 2.74 M/UL (4.20-5.40) L Hemoglobin 7.8 G/DL (12.0-16.0) L Hematocrit 24.5 % (37.0-47.0) L Mean Corpuscular Volume 89 FL (80-99) Mean Corpuscular Hemoglobin 28.5 PG (27.0-31.0) Mean Corpuscular Hemoglobin Concent 31.9 G/DL (32.0-36.0) L Red Cell Distribution Width 12.7 % (11.6-14.8) Platelet Count 145 K/UL (150-450) L Mean Platelet Volume 6.3 FL (6.5-10.1) L Neutrophils (%) (Auto) % (45.0-75.0) Lymphocytes (%) (Auto) % (20.0-45.0) Monocytes (%) (Auto) % (1.0-10.0) Eosinophils (%) (Auto) % (0.0-3.0) Basophils (%) (Auto) % (0.0-2.0) Differential Total Cells Counted 100 Neutrophils % (Manual) 65 % (45-75) Lymphocytes % (Manual) 23 % (20-45) Monocytes % (Manual) 10 % (1-10) Eosinophils % (Manual) 2 % (0-3) Basophils % (Manual) 0 % (0-2) Band Neutrophils 0 % (0-8) Platelet Estimate Decreased L Platelet Morphology Normal Sodium Level 141 MMOL/L (136-145) Potassium Level 4.2 MMOL/L (3.5-5.1) Chloride Level 109 MMOL/L (98-107) H Carbon Dioxide Level 22 MMOL/L (21-32) Anion Gap 10 mmol/L (5-15) Blood Urea Nitrogen 24 mg/dL (7-18) H Creatinine 2.7 MG/DL (0.55-1.30) H Estimat Glomerular Filtration Rate 17.6 mL/min (>60) Glucose Level 102 MG/DL (74-106) Calcium Level 7.9 MG/DL (8.5-10.1) L Soluble Transferrin Receptor Pending Ferritin 216 NG/ML (8-388) Total Bilirubin 0.8 MG/DL (0.2-1.0) Aspartate Amino Transf (AST/SGOT) 26 U/L (15-37) Alanine Aminotransferase (ALT/SGPT) 76 U/L (12-78) Alkaline Phosphatase 356 U/L (46-116) H Total Protein 5.7 G/DL (6.4-8.2) L Albumin 2.1 G/DL (3.4-5.0) L Globulin 3.6 g/dL Albumin/Globulin Ratio 0.6 (1.0-2.7) L Methylmalonic Acid Pending Folate 9.8 NG/ML (8.6-58.9) Stool Occult Blood Negative (NEGATIVE) Plan Problems: (1) Choledocholithiasis Assessment & Plan: 66F choledocholithiasis. large stone causing obstruction. elevated lft's and t bili. on ultrasound noted to have had prior cholecystectomy. either retained stone vs primary cbd stone. will need to obtain and review old notes. s/p ERCP with extraction of stones. labs improving. exam benign. -no acute surgical intervention necessary. -trend labs -diet as tolerated -okay to d/c from surgical standpoint will follow with recs. thank you for this consultation. Giovani Lugo Aug 28, 2017 12:02
--- NOTE | 2017-08-28 15:24 | Pulmonology Progress Note ---
Assessment/Plan Problems: (1) Choledocholithiasis (2) UTI (urinary tract infection) (3) Hyperglycemia (4) Pyelonephritis (5) Diabetes mellitus (6) Hypertension (7) Advanced dementia Assessment/Plan improving f/u bilirubin level check cultures continue abx check electrolytes dvt prophylaxis dc planning Subjective ROS Limited/Unobtainable: No Constitutional: Reports: no symptoms HEENT: Repors: no symptoms Respiratory: Reports: no symptoms Allergies: Coded Allergies: No Known Allergies (Unverified , 08/19/17) Objective Last 24 Hour Vital Signs Date Time Temp Pulse Resp B/P (MAP) Pulse Ox O2 Delivery O2 Flow Rate FiO2 08/28/17 11:38 Room Air 08/28/17 11:35 97.7 64 18 131/63 96 97.7 08/28/17 09:26 71 141/74 08/28/17 08:19 76 20 Room Air 21 08/28/17 08:00 Room Air 08/28/17 08:00 97.5 71 18 141/74 95 97.5 08/28/17 04:00 98.2 67 20 129/65 97 Room Air 98.2 08/28/17 00:00 98.4 70 20 148/77 98 Room Air 98.4 08/27/17 20:00 98.1 73 18 145/75 98 Room Air 98.1 08/27/17 19:09 72 18 Room Air 21 08/27/17 16:00 98.4 87 16 132/61 98 Room Air 98.4 Intake and Output 08/27/17 08/28/17 19:00 07:00 Intake Total 1120 ml Balance 1120 ml Intake Oral 1120 ml # Voids 2 5 Objective General Appearance: WD/WN HEENT: normocephalic, atraumatic Respiratory/Chest: chest wall non-tender, normal breath sounds Breasts: no masses Cardiovascular: normal peripheral pulses, no JVD Abdomen: soft, non tender Genitourinary: normal external genitalia Extremities: no cyanosis Neurologic/Psychiatric: no motor/sensory deficits Lymphatic: no neck adenopathy Laboratory Tests 08/28/17 05:20: White Blood Count 10.0, Red Blood Count 2.74L, Hemoglobin 7.8L, Hematocrit 24.5L , Mean Corpuscular Volume 89, Mean Corpuscular Hemoglobin 28.5, Mean Corpuscular Hemoglobin Concent 31.9L, Red Cell Distribution Width 12.7, Platelet Count 145L, Mean Platelet Volume 6.3L, Neutrophils (%) (Auto) , Lymphocytes (%) (Auto) , Monocytes (%) (Auto) , Eosinophils (%) (Auto) , Basophils (%) (Auto) , Differential Total Cells Counted 100, Neutrophils % ( Manual) 65, Lymphocytes % (Manual) 23, Monocytes % (Manual) 10, Eosinophils % ( Manual) 2, Basophils % (Manual) 0, Band Neutrophils 0, Platelet Estimate DecreasedL, Platelet Morphology Normal, Sodium Level 141, Potassium Level 4.2, Chloride Level 109H, Carbon Dioxide Level 22, Anion Gap 10, Blood Urea Nitrogen 24H, Creatinine 2.7H, Estimat Glomerular Filtration Rate 17.6, Glucose Level 102 , Calcium Level 7.9L, Soluble Transferrin Receptor [Pending], Ferritin 216, Total Bilirubin 0.8, Aspartate Amino Transf (AST/SGOT) 26, Alanine Aminotransferase (ALT/SGPT) 76, Alkaline Phosphatase 356H, Total Protein 5.7L, Albumin 2.1L, Globulin 3.6, Albumin/Globulin Ratio 0.6L, Methylmalonic Acid [ Pending], Folate 9.8 08/28/17 10:00: Stool Occult Blood Negative Current Medications Medications (Trade) Dose Ordered Sig/Jeff Route PRN Reason Start Time Stop Time Status Last Admin Dose Admin Acetaminophen (Tylenol) 650 mg Q4H PRN ORAL fever 08/19/17 19:59 09/18/17 19:58 Al Hydroxide/Mg Hydroxide (Mylanta II) 30 ml Q6H PRN ORAL dyspepsia 08/19/17 19:59 09/18/17 19:58 Amlodipine Besylate (Norvasc) 10 mg DAILY ORAL 08/20/17 09:00 09/19/17 08:59 08/28/17 09:26 Amoxicillin (Amoxil) 250 mg Q12HR ORAL 08/26/17 21:00 09/02/17 20:59 08/28/17 09:26 Atorvastatin Calcium (Lipitor) 10 mg BEDTIME ORAL 08/19/17 21:00 09/18/17 20:59 08/27/17 20:59 Clonidine HCl (Catapres Tab) 0.1 mg Q4H PRN ORAL sbp more than 160 08/19/17 19:59 09/18/17 19:58 08/24/17 17:20 Dextrose (Dextrose 50%) 25 ml STAT PRN IV Hypoglycemia 08/20/17 08:00 09/19/17 07:59 Dextrose (Dextrose 50%) 50 ml STAT PRN IV Hypoglycemia 08/20/17 08:00 09/19/17 07:59 Ertapenem (INVanz) 0.5 gm Q24H IM 08/28/17 10:00 09/02/17 09:59 08/28/17 09:27 Insulin Aspart (NovoLOG) BEFORE MEALS AND HS SUBQ 08/19/17 21:00 09/18/17 20:59 08/28/17 12:03 Insulin Aspart (NovoLOG) 4 units NOVOTIAC SUBQ 08/20/17 11:50 09/19/17 11:49 08/28/17 12:02 Insulin Detemir (Levemir) 12 units DAILY SUBQ 08/20/17 09:00 09/19/17 08:59 08/28/17 09:28 Lidocaine (Xylocaine 1% MPF 5ml) 3.2 ml DAILY IM 08/23/17 16:00 09/22/17 15:59 08/27/17 10:18 Lorazepam (Ativan) 1 mg Q6H PRN ORAL For Anxiety 08/21/17 18:15 08/28/17 18:14 08/26/17 14:04 Memantine (Namenda) 5 mg BID ORAL 08/24/17 18:00 09/23/17 17:59 08/28/17 09:26 Nitroglycerin (Ntg) 0.4 mg Q5M X 3 DOSES PRN SL Prn Chest Pain 08/19/17 20:01 09/18/17 20:00 Ondansetron HCl (Zofran) 4 mg Q6H PRN IVP Nausea & Vomiting 08/19/17 20:01 09/18/17 20:00 Polyethylene Glycol (Miralax) 17 gm HSPRN PRN ORAL Constipation 08/19/17 21:00 09/18/17 20:59 Risperidone (RisperDAL) 0.25 mg Q12HR ORAL 08/24/17 21:00 09/23/17 20:59 08/28/17 09:26 Say Schneider MD Aug 28, 2017 15:24
[2017-08-28 15:58] VITALS: BP 118/76
[2017-08-28 20:00] VITALS: BP 155/72
--- NOTE | 2017-08-28 20:30 | Consultation ---
DATE OF CONSULTATION: 08/28/2017 HEMATOLOGY/ONCOLOGY CONSULTATION CONSULTING PHYSICIAN: Pool Clayton M.D. REQUESTING PHYSICIAN: Martin Hopper D.O. REASON FOR CONSULTATION: Evaluation of ongoing anemia. IDENTIFICATION DATA: Dear Dr. Hopper, The patient is a pleasant 66-year-old female, who has been seen by multiple services thus far, admitted to [facility] under the care of Dr. Hopper with a past medical history significant for diabetes mellitus, hypertension, and dementia, presents from [facility] with weakness and hyperglycemia and diagnosed with pyelonephritis, at this time continues to be anemic, seen by Surgical Service, improved abdominal pain, status post the patient with choledocholithiasis, retained stone, which is primary CBD stone, status post ERCP, seen by GI team, potentially stable for discharge as well. Hopefully, after discharge, needs repeat ERCP in 4 to 6 weeks. Hematology Service was consulted at this moment for further evaluation and treatment given ongoing anemia. PAST MEDICAL HISTORY: Diabetes mellitus, hypertension, and constipation. PAST SURGICAL HISTORY: None reported except ERCP. ALLERGIES: No known drug allergies. FAMILY HISTORY: Noncontributory. REVIEW OF SYSTEMS: CONSTITUTIONAL: No fever, chills, or night sweats. SKIN: No rashes, bumps, or itching. HEENT: No headache, hearing or vision changes. BREASTS: No lumps, pain, or discharge. PULMONARY: No cough, sputum, or shortness of breath. GASTROINTESTINAL: No nausea, vomiting, or diarrhea. GENITOURINARY: No dysuria, frequency, or urgency. MUSCULOSKELETAL: No joint swelling, muscle pain, or trauma. PHYSICAL EXAMINATION: VITAL SIGNS: Reviewed. GENERAL: No distress. PULMONARY: Decreased breath sounds. CARDIOVASCULAR: Regular rate. No S3 or S4. ABDOMEN: Soft, nontender, and nondistended. EXTREMITIES: No cyanosis, swelling, or edema noted. LABORATORY DATA: WBC of 10, hemoglobin 7.8, hematocrit 25, and platelet count 145,000. Serology reviewed. Hepatitis panel negative as was HIV. INR of 1. BUN of 23 and creatinine 2.6. Total bilirubin 1.1, currently improved. ALT and AST currently downtrending. ASSESSMENT AND RECOMMENDATIONS: 1. Anemia due to underlying chronic disease, potentially secondary to hemodilution from recent procedure. Closely monitor for improvement. No evidence of gastrointestinal bleeding. 2. Thrombocytopenia, likely related to underlying liver involvement, potentially secondary to decreased TPO. Closely monitor for improvement. Currently is above 100,000, does not require transfusion. 3. Transaminitis. Trending LFTs. 4. Choledocholithiasis, status post endoscopic retrograde cholangiopancreatography and stenting . 5. Occult blood stool negative. 6. Advancing diet. I appreciate the consultation. Pool Clayton M.D. DR: BECKY JOB#: [id number] CC:
--- NOTE | 2017-08-28 20:39 | Infectious Diseases Prog Note ---
Assessment/Plan Assessment/Plan Sepsis ; resolved Cholangitis Elevated LFTs; resolving SP ERCP and stent placement' -bile cx: Enterococcus gallinarum, ESBL E.coli (S Zosyn), ESBL K. PNA ( R amp, ancef, bactrim; I Zosyn) -Abd US: Choledocholithiasis, with a 14 x 8 mm calculus within the common bile duct. There is resultant intrahepatic and extrahepatic biliary ductal dilatation and debris/sludge within the bile ducts. Evidence of prior cholecystectomy. Limited exam with nonvisualization of the right kidney and spleen and abdominal aorta. Incidental finding left lower pole renal cyst Hepatitis panel : neg Leukocytosis, mild recurrent- resolved -CXR 08/27: No definite acute process -Bcx Neg Afebrile -CXR: no acute process Pyuria; possible UTI- unable to provide symptoms -u/a wbc tntc, nit neg, leuk +1; ucx >100K P mirabilis (R Cipro/levo, bactrim ; otherwise S) Hyperglycemia, improving CORRY; improving DM HTN CAD seizure disorder dementia Full code NKDA VRE colonized Plan: -Continue Ertapenem #6/7 (switch to 500mg qd) for cholangitis and possible UTI ( switched to IM given lack of access) and PO Amoxicillin 250mg q12hrs #3/5 for enterococcal coverage given mild leukocytosis -08/23 SP Zosyn #5 -monitor CBC/CMP, temperatures -aspiration precautions Discussed with RN Subjective Allergies: Coded Allergies: No Known Allergies (Unverified , 08/19/17) Subjective afebrile no leukocytosis at RA Bcx NTD awaiting discharge Objective Vital Signs Last 24 Hour Vital Signs Date Time Temp Pulse Resp B/P (MAP) Pulse Ox O2 Delivery O2 Flow Rate FiO2 08/28/17 16:00 Room Air 08/28/17 15:58 97.9 70 18 118/76 96 97.9 08/28/17 11:38 Room Air 08/28/17 11:35 97.7 64 18 131/63 96 97.7 08/28/17 09:26 71 141/74 08/28/17 08:19 76 20 Room Air 21 08/28/17 08:00 Room Air 08/28/17 08:00 97.5 71 18 141/74 95 97.5 08/28/17 04:00 98.2 67 20 129/65 97 Room Air 98.2 08/28/17 00:00 98.4 70 20 148/77 98 Room Air 98.4 Height (Feet): 5 Height (Inches): 1.00 Weight (Pounds): 134 Objective HEENT: Pupils are equal and reactive to light. NECK: No JVD. HEART: Regular. LUNGS: Clear. ABDOMEN: Positive bowel sounds. EXTREMITIES: No clubbing, cyanosis, or edema. Laboratory Tests Test 08/28/17 05:20 08/28/17 10:00 White Blood Count 10.0 K/UL (4.8-10.8) Red Blood Count 2.74 M/UL (4.20-5.40) L Hemoglobin 7.8 G/DL (12.0-16.0) L Hematocrit 24.5 % (37.0-47.0) L Mean Corpuscular Volume 89 FL (80-99) Mean Corpuscular Hemoglobin 28.5 PG (27.0-31.0) Mean Corpuscular Hemoglobin Concent 31.9 G/DL (32.0-36.0) L Red Cell Distribution Width 12.7 % (11.6-14.8) Platelet Count 145 K/UL (150-450) L Mean Platelet Volume 6.3 FL (6.5-10.1) L Neutrophils (%) (Auto) % (45.0-75.0) Lymphocytes (%) (Auto) % (20.0-45.0) Monocytes (%) (Auto) % (1.0-10.0) Eosinophils (%) (Auto) % (0.0-3.0) Basophils (%) (Auto) % (0.0-2.0) Differential Total Cells Counted 100 Neutrophils % (Manual) 65 % (45-75) Lymphocytes % (Manual) 23 % (20-45) Monocytes % (Manual) 10 % (1-10) Eosinophils % (Manual) 2 % (0-3) Basophils % (Manual) 0 % (0-2) Band Neutrophils 0 % (0-8) Platelet Estimate Decreased L Platelet Morphology Normal Sodium Level 141 MMOL/L (136-145) Potassium Level 4.2 MMOL/L (3.5-5.1) Chloride Level 109 MMOL/L (98-107) H Carbon Dioxide Level 22 MMOL/L (21-32) Anion Gap 10 mmol/L (5-15) Blood Urea Nitrogen 24 mg/dL (7-18) H Creatinine 2.7 MG/DL (0.55-1.30) H Estimat Glomerular Filtration Rate 17.6 mL/min (>60) Glucose Level 102 MG/DL (74-106) Calcium Level 7.9 MG/DL (8.5-10.1) L Soluble Transferrin Receptor Pending Ferritin 216 NG/ML (8-388) Total Bilirubin 0.8 MG/DL (0.2-1.0) Aspartate Amino Transf (AST/SGOT) 26 U/L (15-37) Alanine Aminotransferase (ALT/SGPT) 76 U/L (12-78) Alkaline Phosphatase 356 U/L (46-116) H Total Protein 5.7 G/DL (6.4-8.2) L Albumin 2.1 G/DL (3.4-5.0) L Globulin 3.6 g/dL Albumin/Globulin Ratio 0.6 (1.0-2.7) L Methylmalonic Acid Pending Folate 9.8 NG/ML (8.6-58.9) Stool Occult Blood Negative (NEGATIVE) Current Medications Medications (Trade) Dose Ordered Sig/Jeff Route PRN Reason Start Time Stop Time Status Last Admin Dose Admin Acetaminophen (Tylenol) 650 mg Q4H PRN ORAL fever 08/19/17 19:59 09/18/17 19:58 Al Hydroxide/Mg Hydroxide (Mylanta II) 30 ml Q6H PRN ORAL dyspepsia 08/19/17 19:59 09/18/17 19:58 Amlodipine Besylate (Norvasc) 10 mg DAILY ORAL 08/20/17 09:00 09/19/17 08:59 08/28/17 09:26 Amoxicillin (Amoxil) 250 mg Q12HR ORAL 08/26/17 21:00 09/02/17 20:59 08/28/17 09:26 Atorvastatin Calcium (Lipitor) 10 mg BEDTIME ORAL 08/19/17 21:00 09/18/17 20:59 08/27/17 20:59 Clonidine HCl (Catapres Tab) 0.1 mg Q4H PRN ORAL sbp more than 160 08/19/17 19:59 09/18/17 19:58 08/24/17 17:20 Dextrose (Dextrose 50%) 25 ml STAT PRN IV Hypoglycemia 08/20/17 08:00 09/19/17 07:59 Dextrose (Dextrose 50%) 50 ml STAT PRN IV Hypoglycemia 08/20/17 08:00 09/19/17 07:59 Ertapenem (INVanz) 0.5 gm Q24H IM 08/28/17 10:00 09/02/17 09:59 08/28/17 09:27 Insulin Aspart (NovoLOG) BEFORE MEALS AND HS SUBQ 08/19/17 21:00 09/18/17 20:59 08/28/17 12:03 Insulin Aspart (NovoLOG) 4 units NOVOTIAC SUBQ 08/20/17 11:50 09/19/17 11:49 08/28/17 12:02 Insulin Detemir (Levemir) 12 units DAILY SUBQ 08/20/17 09:00 09/19/17 08:59 08/28/17 09:28 Lidocaine (Xylocaine 1% MPF 5ml) 3.2 ml DAILY IM 08/23/17 16:00 09/22/17 15:59 08/27/17 10:18 Memantine (Namenda) 5 mg BID ORAL 08/24/17 18:00 09/23/17 17:59 08/28/17 17:22 Nitroglycerin (Ntg) 0.4 mg Q5M X 3 DOSES PRN SL Prn Chest Pain 08/19/17 20:01 09/18/17 20:00 Ondansetron HCl (Zofran) 4 mg Q6H PRN IVP Nausea & Vomiting 08/19/17 20:01 09/18/17 20:00 Polyethylene Glycol (Miralax) 17 gm HSPRN PRN ORAL Constipation 08/19/17 21:00 09/18/17 20:59 Risperidone (RisperDAL) 0.25 mg Q12HR ORAL 08/24/17 21:00 09/23/17 20:59 08/28/17 09:26 Magda Estrada M.D. Aug 28, 2017 20:39
[2017-08-29] VITALS: BP 141/67
[2017-08-29 04:00] VITALS: BP 147/74
[2017-08-29 06:00] LABS: BASOPHILS % (AUTO) 0.7 % (0.0-2.0); EOSINOPHILS % (AUTO) 2.1 % (0.0-3.0); HEMATOCRIT 27.2 % (37.0-47.0); HEMOGLOBIN 8.7 G/DL (12.0-16.0); LYMPHOCYTES % (AUTO) 19.9 % (20.0-45.0); MEAN CORPUSCULAR VOLUME 88 FL (80-99); MONOCYTES % (AUTO) 7.7 % (1.0-10.0); NEUTROPHILS % (AUTO) 69.6 % (45.0-75.0); PLATELET COUNT 163 K/UL (150-450); RED BLOOD COUNT 3.08 M/UL (4.20-5.40); RED CELL DISTRIBUTION WIDTH 12.4 % (11.6-14.8); WHITE BLOOD COUNT 8.6 K/UL (4.8-10.8)
[2017-08-29] MEDS: NovoLOG Insulin Flexpen SUBQ SCH ×4 (06:12→16:30)
[2017-08-29 06:39] LABS: ANION GAP 10 mmol/L (5-15); BLOOD UREA NITROGEN 32 mg/dL (7-18); CALCIUM 8.1 MG/DL (8.5-10.1); CARBON DIOXIDE 24 MMOL/L (21-32); CHLORIDE 108 MMOL/L (98-107); CREATININE 2.9 MG/DL (0.55-1.30); POTASSIUM 4.5 MMOL/L (3.5-5.1); SODIUM 142 MMOL/L (136-145)
[2017-08-29 08:00] VITALS: BP 129/65
[2017-08-29] MEDS: Memantine 5 MG TAB ORAL SCH (08:22)
[2017-08-29] MEDS: Levemir Flexpen SUBQ SCH (08:22)
--- NOTE | 2017-08-29 08:30 | Nephrology Progress Note ---
Assessment/Plan Assessment/Plan 1. CORRY on CKD 4- Cr up to 2.9. Give IVF's 1 L while still hospitilized - awaiting DC. F/U 1 week. - Call [phone] for appointment 2. Choledocholithiasis- ERCP, mgmpt per PCP and general surgery -repeat ERCP and stent removal in 4-6 weeks 3. HTN- stable OK for DC from renal standpoint Subjective Date patient seen: Aug 29, 2017 Time patient seen: 08:28 ROS Limited/Unobtainable: Yes Allergies: Coded Allergies: No Known Allergies (Unverified , 08/19/17) Subjective Patient awaiting DC to SNF Objective Last 24 Hour Vital Signs Date Time Temp Pulse Resp B/P (MAP) Pulse Ox O2 Delivery O2 Flow Rate FiO2 08/29/17 08:22 83 129/65 08/29/17 08:00 97.6 83 18 129/65 99 Room Air 97.6 08/29/17 04:00 98.0 70 16 147/74 98 Room Air 98.0 08/29/17 00:00 96 Room Air 08/29/17 00:00 98.7 60 16 141/67 96 Room Air 98.7 08/28/17 20:00 99.0 67 16 155/72 96 Room Air 99.0 08/28/17 20:00 96 Room Air 08/28/17 16:00 Room Air 08/28/17 15:58 97.9 70 18 118/76 96 97.9 08/28/17 11:38 Room Air 08/28/17 11:35 97.7 64 18 131/63 96 97.7 08/28/17 09:26 71 141/74 Intake and Output 08/28/17 08/29/17 19:00 07:00 Intake Total 540 ml Balance 540 ml Intake Oral 540 ml # Voids 4 2 # Bowel Movements 1 Laboratory Tests 08/28/17 10:00: Stool Occult Blood Negative 08/29/17 04:50: White Blood Count 8.6, Red Blood Count 3.08L, Hemoglobin 8.7L, Hematocrit 27.2L , Mean Corpuscular Volume 88, Mean Corpuscular Hemoglobin 28.3, Mean Corpuscular Hemoglobin Concent 32.1, Red Cell Distribution Width 12.4, Platelet Count 163, Mean Platelet Volume 6.9, Neutrophils (%) (Auto) 69.6, Lymphocytes (% ) (Auto) 19.9L, Monocytes (%) (Auto) 7.7, Eosinophils (%) (Auto) 2.1, Basophils (%) (Auto) 0.7, Sodium Level 142, Potassium Level 4.5, Chloride Level 108H, Carbon Dioxide Level 24, Anion Gap 10, Blood Urea Nitrogen 32H, Creatinine 2.9H , Estimat Glomerular Filtration Rate 16.2, Glucose Level 107H, Calcium Level 8.1L Height (Feet): 5 Height (Inches): 1.00 Weight (Pounds): 134 General Appearance: no apparent distress EENT: normal ENT inspection Neck: normal alignment, supple Cardiovascular: normal rate, regular rhythm Respiratory/Chest: lungs clear, normal breath sounds Abdomen: non tender, soft Edema: no edema noted Arm (L), no edema noted Arm (R), no edema noted Leg (L), no edema noted Leg (R), no edema noted Pedal (L), no edema noted Pedal (R), no edema noted Generalized Kush Blackburn M.D. Aug 29, 2017 08:30
--- NOTE | 2017-08-29 09:57 | General Progress Note ---
Assessment/Plan Problem List: (1) Diabetes mellitus ICD Codes: E11.9 - Type 2 diabetes mellitus without complications SNOMED: 92852987 (2) Hypertension ICD Codes: I10 - Essential (primary) hypertension SNOMED: 25310350 (3) Advanced dementia ICD Codes: F03.90 - Unspecified dementia without behavioral disturbance SNOMED: 99122688 (4) Hyperglycemia ICD Codes: R73.9 - Hyperglycemia, unspecified SNOMED: 35937832 Assessment/Plan continue Levemir 12 units daily DC Novolog 4 units ac tid continue Novolog sliding scale ac / hs Subjective Allergies: Coded Allergies: No Known Allergies (Unverified , 08/19/17) All Systems: reviewed and negative except above Subjective events noted Objective Last 24 Hour Vital Signs Date Time Temp Pulse Resp B/P (MAP) Pulse Ox O2 Delivery O2 Flow Rate FiO2 08/29/17 08:22 83 129/65 08/29/17 08:00 97.6 83 18 129/65 99 Room Air 97.6 08/29/17 04:00 98.0 70 16 147/74 98 Room Air 98.0 08/29/17 00:00 96 Room Air 08/29/17 00:00 98.7 60 16 141/67 96 Room Air 98.7 08/28/17 20:00 99.0 67 16 155/72 96 Room Air 99.0 08/28/17 20:00 96 Room Air 08/28/17 16:00 Room Air 08/28/17 15:58 97.9 70 18 118/76 96 97.9 08/28/17 11:38 Room Air 08/28/17 11:35 97.7 64 18 131/63 96 97.7 Intake and Output 08/28/17 08/29/17 19:00 07:00 Intake Total 540 ml Balance 540 ml Intake Oral 540 ml # Voids 4 2 # Bowel Movements 1 Laboratory Tests 08/28/17 10:00: Stool Occult Blood Negative 08/29/17 04:50: White Blood Count 8.6, Red Blood Count 3.08L, Hemoglobin 8.7L, Hematocrit 27.2L , Mean Corpuscular Volume 88, Mean Corpuscular Hemoglobin 28.3, Mean Corpuscular Hemoglobin Concent 32.1, Red Cell Distribution Width 12.4, Platelet Count 163, Mean Platelet Volume 6.9, Neutrophils (%) (Auto) 69.6, Lymphocytes (% ) (Auto) 19.9L, Monocytes (%) (Auto) 7.7, Eosinophils (%) (Auto) 2.1, Basophils (%) (Auto) 0.7, Sodium Level 142, Potassium Level 4.5, Chloride Level 108H, Carbon Dioxide Level 24, Anion Gap 10, Blood Urea Nitrogen 32H, Creatinine 2.9H , Estimat Glomerular Filtration Rate 16.2, Glucose Level 107H, Calcium Level 8.1L Height (Feet): 5 Height (Inches): 1.00 Weight (Pounds): 134 General Appearance: no apparent distress Neck: normal alignment Cardiovascular: normal rate Respiratory/Chest: lungs clear Abdomen: normal bowel sounds Pelvis: normal external exam Objective Current Medications Medications (Trade) Dose Ordered Sig/Jeff Route PRN Reason Start Time Stop Time Status Last Admin Dose Admin Acetaminophen (Tylenol) 650 mg Q4H PRN ORAL fever 08/19/17 19:59 09/18/17 19:58 Al Hydroxide/Mg Hydroxide (Mylanta II) 30 ml Q6H PRN ORAL dyspepsia 08/19/17 19:59 09/18/17 19:58 Amlodipine Besylate (Norvasc) 10 mg DAILY ORAL 08/20/17 09:00 09/19/17 08:59 08/28/17 09:26 Amoxicillin (Amoxil) 250 mg Q12HR ORAL 08/26/17 21:00 09/02/17 20:59 08/29/17 08:22 Atorvastatin Calcium (Lipitor) 10 mg BEDTIME ORAL 08/19/17 21:00 09/18/17 20:59 08/28/17 20:53 Clonidine HCl (Catapres Tab) 0.1 mg Q4H PRN ORAL sbp more than 160 08/19/17 19:59 09/18/17 19:58 08/24/17 17:20 Dextrose (Dextrose 50%) 25 ml STAT PRN IV Hypoglycemia 08/20/17 08:00 09/19/17 07:59 Dextrose (Dextrose 50%) 50 ml STAT PRN IV Hypoglycemia 08/20/17 08:00 09/19/17 07:59 Ertapenem (INVanz) 0.5 gm Q24H IM 08/28/17 10:00 09/02/17 09:59 08/28/17 09:27 Insulin Aspart (NovoLOG) BEFORE MEALS AND HS SUBQ 08/19/17 21:00 09/18/17 20:59 08/28/17 20:55 Insulin Aspart (NovoLOG) 4 units NOVOTIAC SUBQ 08/20/17 11:50 09/19/17 11:49 08/28/17 12:02 Insulin Detemir (Levemir) 12 units DAILY SUBQ 08/20/17 09:00 09/19/17 08:59 08/28/17 09:28 Lidocaine (Xylocaine 1% MPF 5ml) 3.2 ml DAILY IM 08/23/17 16:00 09/22/17 15:59 08/27/17 10:18 Memantine (Namenda) 5 mg BID ORAL 08/24/17 18:00 09/23/17 17:59 08/29/17 08:22 Nitroglycerin (Ntg) 0.4 mg Q5M X 3 DOSES PRN SL Prn Chest Pain 08/19/17 20:01 09/18/17 20:00 Ondansetron HCl (Zofran) 4 mg Q6H PRN IVP Nausea & Vomiting 08/19/17 20:01 09/18/17 20:00 Polyethylene Glycol (Miralax) 17 gm HSPRN PRN ORAL Constipation 08/19/17 21:00 09/18/17 20:59 Risperidone (RisperDAL) 0.25 mg Q12HR ORAL 08/24/17 21:00 09/23/17 20:59 08/29/17 08:22 Sodium Chloride 1,000 ml @ 100 mls/hr Q10H IV 08/29/17 09:00 09/28/17 08:59 Item Value Date Time Bedside Blood Glucose 109 mg/dl 08/29/17 0822 Bedside Blood Glucose 109 mg/dl 08/29/17 0613 Bedside Blood Glucose 237 mg/dl H 08/28/17 2130 Bedside Blood Glucose 107 mg/dl 08/28/17 1629 Bedside Blood Glucose 192 mg/dl H 08/28/17 1203 Bedside Blood Glucose 107 mg/dl 08/28/17 0928 Bedside Blood Glucose 107 mg/dl 08/28/17 0630 Jeremie Driver MD Aug 29, 2017 09:57
--- NOTE | 2017-08-29 10:14 | General Progress Note ---
Assessment/Plan Problem List: (1) Diabetes mellitus ICD Codes: E11.9 - Type 2 diabetes mellitus without complications SNOMED: 21004395 (2) Hypertension ICD Codes: I10 - Essential (primary) hypertension SNOMED: 64368228 (3) Advanced dementia ICD Codes: F03.90 - Unspecified dementia without behavioral disturbance SNOMED: 93910168 (4) Hyperglycemia ICD Codes: R73.9 - Hyperglycemia, unspecified SNOMED: 87543003 (5) Pyelonephritis ICD Codes: N12 - Tubulo-interstitial nephritis, not specified as acute or chronic SNOMED: 51622429 (6) UTI (urinary tract infection) ICD Codes: N39.0 - Urinary tract infection, site not specified SNOMED: 00404903 (7) Choledocholithiasis ICD Codes: K80.50 - Calculus of bile duct without cholangitis or cholecystitis without obstruction SNOMED: 499708085 Status: stable, progressing Assessment/Plan ot pt diet bp bs pain control gi f/u cbc bmp am dc if clear Subjective Constitutional: Reports: weakness Allergies: Coded Allergies: No Known Allergies (Unverified , 08/19/17) All Systems: reviewed and negative except above Subjective calm in bed sleepy Objective Last 24 Hour Vital Signs Date Time Temp Pulse Resp B/P (MAP) Pulse Ox O2 Delivery O2 Flow Rate FiO2 08/29/17 08:22 83 129/65 08/29/17 08:00 97.6 83 18 129/65 99 Room Air 97.6 08/29/17 04:00 98.0 70 16 147/74 98 Room Air 98.0 08/29/17 00:00 96 Room Air 08/29/17 00:00 98.7 60 16 141/67 96 Room Air 98.7 08/28/17 20:00 99.0 67 16 155/72 96 Room Air 99.0 08/28/17 20:00 96 Room Air 08/28/17 16:00 Room Air 08/28/17 15:58 97.9 70 18 118/76 96 97.9 08/28/17 11:38 Room Air 08/28/17 11:35 97.7 64 18 131/63 96 97.7 Intake and Output 08/28/17 08/29/17 19:00 07:00 Intake Total 540 ml Balance 540 ml Intake Oral 540 ml # Voids 4 2 # Bowel Movements 1 Laboratory Tests 08/29/17 04:50: White Blood Count 8.6, Red Blood Count 3.08L, Hemoglobin 8.7L, Hematocrit 27.2L , Mean Corpuscular Volume 88, Mean Corpuscular Hemoglobin 28.3, Mean Corpuscular Hemoglobin Concent 32.1, Red Cell Distribution Width 12.4, Platelet Count 163, Mean Platelet Volume 6.9, Neutrophils (%) (Auto) 69.6, Lymphocytes (% ) (Auto) 19.9L, Monocytes (%) (Auto) 7.7, Eosinophils (%) (Auto) 2.1, Basophils (%) (Auto) 0.7, Sodium Level 142, Potassium Level 4.5, Chloride Level 108H, Carbon Dioxide Level 24, Anion Gap 10, Blood Urea Nitrogen 32H, Creatinine 2.9H , Estimat Glomerular Filtration Rate 16.2, Glucose Level 107H, Calcium Level 8.1L Height (Feet): 5 Height (Inches): 1.00 Weight (Pounds): 134 General Appearance: lethargic EENT: normal ENT inspection Neck: normal alignment Cardiovascular: normal peripheral pulses, normal rate, regular rhythm Respiratory/Chest: chest wall non-tender, lungs clear, normal breath sounds Abdomen: normal bowel sounds, non tender, soft Extremities: normal inspection Edema: no edema noted Arm (L), no edema noted Arm (R), no edema noted Leg (L), no edema noted Leg (R), no edema noted Pedal (L), no edema noted Pedal (R), no edema noted Generalized Neurologic: motor weakness Skin: normal pigmentation, warm/dry Martin Hopper DO Aug 29, 2017 10:14
[2017-08-29] MEDS: Lidocaine 1% MPF 10mg/ml 5ml IM SCH (10:25)
[2017-08-29] MEDS: Ertapenem (INVanz) 1gm Inj IM SCH (10:26)
[2017-08-29 12:00] VITALS: BP 144/72
--- NOTE | 2017-08-29 12:10 | Pulmonology Progress Note ---
Assessment/Plan Problems: (1) Choledocholithiasis (2) UTI (urinary tract infection) (3) Hyperglycemia (4) Pyelonephritis (5) Diabetes mellitus (6) Hypertension (7) Advanced dementia Assessment/Plan improving f/u bilirubin level check cultures continue abx check electrolytes dvt prophylaxis dc planning Subjective ROS Limited/Unobtainable: No Constitutional: Reports: no symptoms HEENT: Repors: no symptoms Respiratory: Reports: no symptoms Allergies: Coded Allergies: No Known Allergies (Unverified , 08/19/17) Objective Last 24 Hour Vital Signs Date Time Temp Pulse Resp B/P (MAP) Pulse Ox O2 Delivery O2 Flow Rate FiO2 08/29/17 08:22 83 129/65 08/29/17 08:00 97.6 83 18 129/65 99 Room Air 97.6 08/29/17 04:00 98.0 70 16 147/74 98 Room Air 98.0 08/29/17 00:00 96 Room Air 08/29/17 00:00 98.7 60 16 141/67 96 Room Air 98.7 08/28/17 20:00 99.0 67 16 155/72 96 Room Air 99.0 08/28/17 20:00 96 Room Air 08/28/17 16:00 Room Air 08/28/17 15:58 97.9 70 18 118/76 96 97.9 Intake and Output 08/28/17 08/29/17 19:00 07:00 Intake Total 540 ml Balance 540 ml Intake Oral 540 ml # Voids 4 2 # Bowel Movements 1 Objective General Appearance: WD/WN HEENT: normocephalic, atraumatic Respiratory/Chest: chest wall non-tender, normal breath sounds Breasts: no masses Cardiovascular: normal peripheral pulses, no JVD Abdomen: soft, non tender Genitourinary: normal external genitalia Extremities: no cyanosis Neurologic/Psychiatric: no motor/sensory deficits Lymphatic: no neck adenopathy Laboratory Tests 08/29/17 04:50: White Blood Count 8.6, Red Blood Count 3.08L, Hemoglobin 8.7L, Hematocrit 27.2L , Mean Corpuscular Volume 88, Mean Corpuscular Hemoglobin 28.3, Mean Corpuscular Hemoglobin Concent 32.1, Red Cell Distribution Width 12.4, Platelet Count 163, Mean Platelet Volume 6.9, Neutrophils (%) (Auto) 69.6, Lymphocytes (% ) (Auto) 19.9L, Monocytes (%) (Auto) 7.7, Eosinophils (%) (Auto) 2.1, Basophils (%) (Auto) 0.7, Sodium Level 142, Potassium Level 4.5, Chloride Level 108H, Carbon Dioxide Level 24, Anion Gap 10, Blood Urea Nitrogen 32H, Creatinine 2.9H , Estimat Glomerular Filtration Rate 16.2, Glucose Level 107H, Calcium Level 8.1L 08/29/17 10:00: Stool Occult Blood [Pending] Current Medications Medications (Trade) Dose Ordered Sig/Jeff Route PRN Reason Start Time Stop Time Status Last Admin Dose Admin Acetaminophen (Tylenol) 650 mg Q4H PRN ORAL fever 08/19/17 19:59 09/18/17 19:58 Al Hydroxide/Mg Hydroxide (Mylanta II) 30 ml Q6H PRN ORAL dyspepsia 08/19/17 19:59 09/18/17 19:58 Amlodipine Besylate (Norvasc) 10 mg DAILY ORAL 08/20/17 09:00 09/19/17 08:59 08/28/17 09:26 Amoxicillin (Amoxil) 250 mg Q12HR ORAL 08/26/17 21:00 09/02/17 20:59 08/29/17 08:22 Atorvastatin Calcium (Lipitor) 10 mg BEDTIME ORAL 08/19/17 21:00 09/18/17 20:59 08/28/17 20:53 Clonidine HCl (Catapres Tab) 0.1 mg Q4H PRN ORAL sbp more than 160 08/19/17 19:59 09/18/17 19:58 08/24/17 17:20 Dextrose (Dextrose 50%) 25 ml STAT PRN IV Hypoglycemia 08/20/17 08:00 09/19/17 07:59 Dextrose (Dextrose 50%) 50 ml STAT PRN IV Hypoglycemia 08/20/17 08:00 09/19/17 07:59 Ertapenem (INVanz) 0.5 gm Q24H IM 08/28/17 10:00 09/02/17 09:59 08/29/17 10:26 Insulin Aspart (NovoLOG) BEFORE MEALS AND HS SUBQ 08/19/17 21:00 09/18/17 20:59 08/28/17 20:55 Insulin Detemir (Levemir) 12 units DAILY SUBQ 08/20/17 09:00 09/19/17 08:59 08/28/17 09:28 Lidocaine (Xylocaine 1% MPF 5ml) 3.2 ml DAILY IM 08/23/17 16:00 09/22/17 15:59 08/27/17 10:18 Memantine (Namenda) 5 mg BID ORAL 08/24/17 18:00 09/23/17 17:59 08/29/17 08:22 Nitroglycerin (Ntg) 0.4 mg Q5M X 3 DOSES PRN SL Prn Chest Pain 08/19/17 20:01 09/18/17 20:00 Ondansetron HCl (Zofran) 4 mg Q6H PRN IVP Nausea & Vomiting 08/19/17 20:01 09/18/17 20:00 Polyethylene Glycol (Miralax) 17 gm HSPRN PRN ORAL Constipation 08/19/17 21:00 09/18/17 20:59 Risperidone (RisperDAL) 0.25 mg Q12HR ORAL 08/24/17 21:00 09/23/17 20:59 08/29/17 08:22 Sodium Chloride 1,000 ml @ 100 mls/hr Q10H IV 08/29/17 09:00 09/28/17 08:59 Say Schneider MD Aug 29, 2017 12:10
--- NOTE | 2017-08-29 12:35 | Infectious Diseases Prog Note ---
Assessment/Plan Assessment/Plan Sepsis ; resolved Cholangitis Elevated LFTs; resolving SP ERCP and stent placement' -bile cx: Enterococcus gallinarum, ESBL E.coli (S Zosyn), ESBL K. PNA ( R amp, ancef, bactrim; I Zosyn) -Abd US: Choledocholithiasis, with a 14 x 8 mm calculus within the common bile duct. There is resultant intrahepatic and extrahepatic biliary ductal dilatation and debris/sludge within the bile ducts. Evidence of prior cholecystectomy. Limited exam with nonvisualization of the right kidney and spleen and abdominal aorta. Incidental finding left lower pole renal cyst Hepatitis panel : neg Leukocytosis, mild recurrent- resolved -CXR 08/27: No definite acute process -Bcx Neg Afebrile -CXR: no acute process Pyuria; possible UTI- unable to provide symptoms -u/a wbc tntc, nit neg, leuk +1; ucx >100K P mirabilis (R Cipro/levo, bactrim ; otherwise S) Hyperglycemia, improving CORRY; improving DM HTN CAD seizure disorder dementia Full code NKDA VRE colonized Plan: -Continue Ertapenem #7/7 for cholangitis and possible UTI (switched to IM given lack of access) and PO Amoxicillin 250mg q12hrs #4/5 for enterococcal coverage given mild leukocytosis -08/23 SP Zosyn #5 -monitor CBC/CMP, temperatures -aspiration precautions Discussed with RN Subjective Allergies: Coded Allergies: No Known Allergies (Unverified , 08/19/17) Subjective afebrile no leukocytosis at RA Bcx Neg awaiting discharge Objective Vital Signs Last 24 Hour Vital Signs Date Time Temp Pulse Resp B/P (MAP) Pulse Ox O2 Delivery O2 Flow Rate FiO2 08/29/17 08:22 83 129/65 08/29/17 08:00 97.6 83 18 129/65 99 Room Air 97.6 08/29/17 04:00 98.0 70 16 147/74 98 Room Air 98.0 08/29/17 00:00 96 Room Air 08/29/17 00:00 98.7 60 16 141/67 96 Room Air 98.7 08/28/17 20:00 99.0 67 16 155/72 96 Room Air 99.0 08/28/17 20:00 96 Room Air 08/28/17 16:00 Room Air 08/28/17 15:58 97.9 70 18 118/76 96 97.9 Height (Feet): 5 Height (Inches): 1.00 Weight (Pounds): 134 Objective HEENT: Pupils are equal and reactive to light. NECK: No JVD. HEART: Regular. LUNGS: Clear. ABDOMEN: Positive bowel sounds. EXTREMITIES: No clubbing, cyanosis, or edema. Laboratory Tests Test 08/29/17 04:50 08/29/17 10:00 White Blood Count 8.6 K/UL (4.8-10.8) Red Blood Count 3.08 M/UL (4.20-5.40) L Hemoglobin 8.7 G/DL (12.0-16.0) L Hematocrit 27.2 % (37.0-47.0) L Mean Corpuscular Volume 88 FL (80-99) Mean Corpuscular Hemoglobin 28.3 PG (27.0-31.0) Mean Corpuscular Hemoglobin Concent 32.1 G/DL (32.0-36.0) Red Cell Distribution Width 12.4 % (11.6-14.8) Platelet Count 163 K/UL (150-450) Mean Platelet Volume 6.9 FL (6.5-10.1) Neutrophils (%) (Auto) 69.6 % (45.0-75.0) Lymphocytes (%) (Auto) 19.9 % (20.0-45.0) L Monocytes (%) (Auto) 7.7 % (1.0-10.0) Eosinophils (%) (Auto) 2.1 % (0.0-3.0) Basophils (%) (Auto) 0.7 % (0.0-2.0) Sodium Level 142 MMOL/L (136-145) Potassium Level 4.5 MMOL/L (3.5-5.1) Chloride Level 108 MMOL/L (98-107) H Carbon Dioxide Level 24 MMOL/L (21-32) Anion Gap 10 mmol/L (5-15) Blood Urea Nitrogen 32 mg/dL (7-18) H Creatinine 2.9 MG/DL (0.55-1.30) H Estimat Glomerular Filtration Rate 16.2 mL/min (>60) Glucose Level 107 MG/DL (74-106) H Calcium Level 8.1 MG/DL (8.5-10.1) L Stool Occult Blood Pending Current Medications Medications (Trade) Dose Ordered Sig/Jeff Route PRN Reason Start Time Stop Time Status Last Admin Dose Admin Acetaminophen (Tylenol) 650 mg Q4H PRN ORAL fever 08/19/17 19:59 09/18/17 19:58 Al Hydroxide/Mg Hydroxide (Mylanta II) 30 ml Q6H PRN ORAL dyspepsia 08/19/17 19:59 09/18/17 19:58 Amlodipine Besylate (Norvasc) 10 mg DAILY ORAL 08/20/17 09:00 09/19/17 08:59 08/28/17 09:26 Amoxicillin (Amoxil) 250 mg Q12HR ORAL 08/26/17 21:00 09/02/17 20:59 08/29/17 08:22 Atorvastatin Calcium (Lipitor) 10 mg BEDTIME ORAL 08/19/17 21:00 09/18/17 20:59 08/28/17 20:53 Clonidine HCl (Catapres Tab) 0.1 mg Q4H PRN ORAL sbp more than 160 08/19/17 19:59 09/18/17 19:58 08/24/17 17:20 Dextrose (Dextrose 50%) 25 ml STAT PRN IV Hypoglycemia 08/20/17 08:00 09/19/17 07:59 Dextrose (Dextrose 50%) 50 ml STAT PRN IV Hypoglycemia 08/20/17 08:00 09/19/17 07:59 Ertapenem (INVanz) 0.5 gm Q24H IM 08/28/17 10:00 09/02/17 09:59 08/29/17 10:26 Insulin Aspart (NovoLOG) BEFORE MEALS AND HS SUBQ 08/19/17 21:00 09/18/17 20:59 08/29/17 12:18 Insulin Detemir (Levemir) 12 units DAILY SUBQ 08/20/17 09:00 09/19/17 08:59 08/28/17 09:28 Lidocaine (Xylocaine 1% MPF 5ml) 3.2 ml DAILY IM 08/23/17 16:00 09/22/17 15:59 08/27/17 10:18 Memantine (Namenda) 5 mg BID ORAL 08/24/17 18:00 09/23/17 17:59 08/29/17 08:22 Nitroglycerin (Ntg) 0.4 mg Q5M X 3 DOSES PRN SL Prn Chest Pain 08/19/17 20:01 09/18/17 20:00 Ondansetron HCl (Zofran) 4 mg Q6H PRN IVP Nausea & Vomiting 08/19/17 20:01 09/18/17 20:00 Polyethylene Glycol (Miralax) 17 gm HSPRN PRN ORAL Constipation 08/19/17 21:00 09/18/17 20:59 Risperidone (RisperDAL) 0.25 mg Q12HR ORAL 08/24/17 21:00 09/23/17 20:59 08/29/17 08:22 Sodium Chloride 1,000 ml @ 100 mls/hr Q10H IV 08/29/17 09:00 09/28/17 08:59 Magda Estrada M.D. Aug 29, 2017 12:35
--- NOTE | 2017-08-29 12:55 | General Surgery Progress Note ---
General Surgery-Progress Note Subjective Symptoms: pain absent, tolerating diet, passing flatus, BM Objective Last 24 Hour Vital Signs Date Time Temp Pulse Resp B/P (MAP) Pulse Ox O2 Delivery O2 Flow Rate FiO2 08/29/17 08:22 83 129/65 08/29/17 08:00 97.6 83 18 129/65 99 Room Air 97.6 08/29/17 04:00 98.0 70 16 147/74 98 Room Air 98.0 08/29/17 00:00 96 Room Air 08/29/17 00:00 98.7 60 16 141/67 96 Room Air 98.7 08/28/17 20:00 99.0 67 16 155/72 96 Room Air 99.0 08/28/17 20:00 96 Room Air 08/28/17 16:00 Room Air 08/28/17 15:58 97.9 70 18 118/76 96 97.9 I&O Intake and Output 08/28/17 08/29/17 19:00 07:00 Intake Total 540 ml Balance 540 ml Intake Oral 540 ml # Voids 4 2 # Bowel Movements 1 Drains: none Cardiovascular: RSR Respiratory: clear Abdomen: soft, flat, non-tender, present bowel sounds Extremities: no edema, no tenderness Laboratory Tests Test 08/29/17 04:50 08/29/17 10:00 White Blood Count 8.6 K/UL (4.8-10.8) Red Blood Count 3.08 M/UL (4.20-5.40) L Hemoglobin 8.7 G/DL (12.0-16.0) L Hematocrit 27.2 % (37.0-47.0) L Mean Corpuscular Volume 88 FL (80-99) Mean Corpuscular Hemoglobin 28.3 PG (27.0-31.0) Mean Corpuscular Hemoglobin Concent 32.1 G/DL (32.0-36.0) Red Cell Distribution Width 12.4 % (11.6-14.8) Platelet Count 163 K/UL (150-450) Mean Platelet Volume 6.9 FL (6.5-10.1) Neutrophils (%) (Auto) 69.6 % (45.0-75.0) Lymphocytes (%) (Auto) 19.9 % (20.0-45.0) L Monocytes (%) (Auto) 7.7 % (1.0-10.0) Eosinophils (%) (Auto) 2.1 % (0.0-3.0) Basophils (%) (Auto) 0.7 % (0.0-2.0) Sodium Level 142 MMOL/L (136-145) Potassium Level 4.5 MMOL/L (3.5-5.1) Chloride Level 108 MMOL/L (98-107) H Carbon Dioxide Level 24 MMOL/L (21-32) Anion Gap 10 mmol/L (5-15) Blood Urea Nitrogen 32 mg/dL (7-18) H Creatinine 2.9 MG/DL (0.55-1.30) H Estimat Glomerular Filtration Rate 16.2 mL/min (>60) Glucose Level 107 MG/DL (74-106) H Calcium Level 8.1 MG/DL (8.5-10.1) L Stool Occult Blood Pending Plan Problems: (1) Choledocholithiasis Assessment & Plan: 66F choledocholithiasis. large stone causing obstruction. elevated lft's and t bili. on ultrasound noted to have had prior cholecystectomy. either retained stone vs primary cbd stone. will need to obtain and review old notes. s/p ERCP with extraction of stones. labs improving. exam benign. -no acute surgical intervention necessary. -trend labs -diet as tolerated -okay to d/c from surgical standpoint will follow with recs. thank you for this consultation. Giovani Lugo Aug 29, 2017 12:55
[2017-08-29] MEDS ORDERED: NAMENDA5 MG ORAL (14:29)
[2017-08-29] MEDS ORDERED: RISPERDAL0.25 MG ORAL (14:29)
[2017-08-29] MEDS ORDERED: CATAPRES0.1 MG ORAL (14:30)
[2017-08-29] MEDS ORDERED: MIRALAX17 G2 ORAL (14:30)
[2017-08-29] MEDS ORDERED: NOVOLOG100 UNIT/3 SUBQ (14:30)
[2017-08-29] MEDS ORDERED: ACETAMINOPHEN325 M1 ORAL (14:31)
[2017-08-29] MEDS ORDERED: NITROGLYCERIN2.5 MG SL (14:33)
[2017-08-29] MEDS ORDERED: AMOXIL250 MG ORAL (14:34)
--- NOTE | 2017-08-29 19:30 | Consultation ---
DATE OF CONSULTATION: HISTORY: The patient is a 66-year-old female patient with hyperglycemia, but this patient continues to have some confusion, disorganized thought process, and mood lability. She has got no logical plan for her own-self care. She has psychomotor agitation, altered mental status, that is why attending has requested daily psychiatric consultation. She is in the hospital secondary to pyelonephritis . MENTAL STATUS EXAMINATION: This is a 66-year-old female. Appearance is disheveled. Attitude, irritable and agitated. Affect guarded and restricted. Intellect poor. Mood depressed and anxious. Motor activity, psychomotor agitation. Attention span is poor. Orientation x2. Speech is pressured. Thought process, disorganized and illogical. Thought content, auditory hallucinations and paranoid delusions. Insight and judgment is poor. DIAGNOSIS: Major depression with psychotic features. PLAN: Continue to treat with Namenda 5 mg twice a day, mg at bedtime and Ativan as needed. An 18 to 20 minutes of supportive psychotherapy provided. . Chart reviewed and discussed with staff. Walter Capps M.D. DR: ARIANNA JOB#: [id number] CC:
--- NOTE | 2017-08-30 08:49 | General Progress Note ---
Assessment/Plan Status: stable Assessment/Plan 1. Anemia due to underlying chronic disease, potentially secondary to hemodilution from recent procedure. --> Closely monitor for improvement. No evidence of gastrointestinal bleeding. 2. Thrombocytopenia, likely related to underlying liver involvement, potentially secondary to decreased TPO. --> Closely monitor for improvement. --> Currently is above 100,000, does not require transfusion. 3. Transaminitis. Trending LFTs. 4. Choledocholithiasis, status post endoscopic retrograde cholangiopancreatography and stenting. 5. Occult blood stool negative. 6. Advancing diet. Subjective Date patient seen: Aug 29, 2017 ROS Limited/Unobtainable: Yes Allergies: Coded Allergies: No Known Allergies (Unverified , 08/19/17) All Systems: reviewed and negative except above Subjective Pt is stable and medically cleared for dc. NAD. Objective Last 24 Hour Vital Signs Date Time Temp Pulse Resp B/P (MAP) Pulse Ox O2 Delivery O2 Flow Rate FiO2 08/29/17 12:00 97.2 72 18 144/72 97 Room Air 97.2 Laboratory Tests 08/29/17 10:00: Stool Occult Blood [Pending] Height (Feet): 5 Height (Inches): 1.00 Weight (Pounds): 134 General Appearance: WD/WN, no apparent distress EENT: PERRL/EOMI Neck: normal alignment Cardiovascular: normal peripheral pulses Respiratory/Chest: normal breath sounds, no respiratory distress Abdomen: non tender Pool Clayton MD Aug 30, 2017 08:49
--- NOTE | 2017-08-31 15:18 | Discharge Summary ---
Discharge Summary Hospital Course Date of Admission Aug 19, 2017 at 17:00 Date of Discharge Aug 29, 2017 at 16:00 Admitting Diagnosis hyperglycemia, pyelonephritis HPI Linda Velazquez is a 66 year old female who was admitted on Aug 19, 2017 at 17:00 for Hyperglycemia,Pyelonephritis Hospital Course dc summary [id number] Discharge Medications Continued Medications: Acetaminophen* (Acetaminophen 325MG Tablet*) 325 Mg Tablet 650 MG ORAL Q4H PRN for Mild Pain/Temp > 100.5, TAB (This prescription has been renewed) Amlodipine Besylate* (Amlodipine Besylate*) 10 Mg Tablet 10 MG ORAL DAILY, TAB (This prescription has been renewed) Clonidine Hcl* (Catapres*) 0.1 Mg Tablet 0.1 MG ORAL EVERY 4 HOURS PRN for SBP > 160, TAB (This prescription has been renewed) Insulin Glargine (Lantus) 100 Unit/1 Ml Insuln.pen 12 SUBQ BEDTIME, #1 EA 0 Refills (This prescription has been renewed) Magnesium Hydroxide* (Milk Of Magnesia*) 400 Mg/5 Ml Oral.susp 30 ML ORAL DAILY, ML (This prescription has been renewed) Memantine Hcl* (Namenda*) 5 Mg Tablet 5 MG ORAL TWICE A DAY, TAB (This prescription has been renewed) Nitroglycerin (Nitroglycerin) 2.5 Mg Capsule.er 0.4 MG SL X3 DOSES PRN for CHEST PAIN, CAP (This prescription has been renewed) Polyethylene Glycol 3350* (Miralax*) 17 Gm Powd.pack 17 GM ORAL DAILY PRN for Constipation, PACKET (This prescription has been renewed) Risperidone* (Risperdal*) 0.25 Mg Tablet 0.25 MG ORAL Q12HR, #30 TAB 0 Refills (This prescription has been renewed) Discharge Condition Upon Discharge: stable Discharge Disposition Patient was discharged to SNF/Subacute Facility(03) Sharyn Patino NP Aug 31, 2017 15:18
--- NOTE | 2017-08-31 22:30 | Discharge Summary 2 SIG ---
DATE OF ADMISSION: 08/19/2017 DATE OF DISCHARGE: 08/29/2017 REASON FOR ADMISSION: The patient is a 66-year-old female was sent to emergency department for abnormal laboratories. The patient has past medical history of diabetes mellitus, hypertension, coronary artery disease, dementia, presented to emergency department for hyperglycemia alf. Glucose was noted to be around 500. The patient was given insulin but glucose continued to be elevated. Therefore the patient was sent to emergency room for further evaluation. Upon evaluation in the emergency department, vital signs were stable. Pulse oximetry was stable on room air. WBC 13.9, hemoglobin 9.3, hematocrit 26.8, platelets 89. Urinalysis with evidence of pyuria and few bacteria. BUN 63, creatinine 3.6, total bilirubin 3.9, direct bilirubin 3.4, AST 340, ALT at 985. Lipase 297. Troponin negative. EKG revealed normal sinus rhythm, no acute ischemic changes. Glucose 301. The patient admitted with diagnoses of leukocytosis, possible urinary tract infection, hyperglycemia, diabetes mellitus, hypertension, advanced dementia, renal failure, elevated LFT. CONSULTANTS: 1. Kush Blackburn M.D., Field Technical Assistant. 2. Giovani Lugo M.D., General Surgeon 3. Ryan Walker M.D, Infectious Diseases specialist. 4. Say Schneider M.D., Rn Emergency Room. 5. Jeremie Driver M.D., Graphics Coordinator. 6. Blaise Hernandez M.D., GI gastrointestinal. 7. Pool Clayton, Fish Egg Packer/oncologist. 8. Walter Capps M.D., Psychiatrist. HOSPITAL COURSE: The patient admitted. The patient started on the IV hydration. The patient started on empiric antibiotics. Blood sugar was managed with sliding scale of insulin. DVT prophylaxis provided. Abdominal ultrasound revealed choledocholithiasis with 14 x 8 calculus within the common bowel duct and evidence of prior cholecystectomy. GI surgery closely followed. The patient subsequently undergone on 08/21/2017 ERCP with removal of migrated stent, removal of multiple stones, sphincterectomy, and re-stenting. On ERCP, the patient had evidence of acute cholangitis with pus coming out from the common bile duct. Bilirubin, LFT, and lipase were closely monitored. Hepatitis panel was negative. Bilirubin trending down. LFT improving. Stool for occult blood negative. Post ERCP pancreatitis. Lipase trending down. Diet was advanced as tolerated. Pain management provided. Per GI, the patient was stable for discharge and will need to repeat ERCP and stent removal in four to six weeks. Surgeon closely followed. Per surgeon, abdominal exam benign. Laboratories were improving. Surgeon stated that no acute surgical intervention was necessary at this time. He recommended continue to trend laboratories. Continue diet as tolerated and cleared for discharge from surgical standpoint. The patient was on antibiotics. Urine culture showed Proteus. Blood culture were negative. Biliary fluid culture revealed E. coli ESBL, Klebsiella ESBL, and Enterococcus. According to the GI specialist who closely followed the patient, the patient had sepsis secondary to cholangitis. Leukocytosis resolved. Chest x-ray revealed no definite acute process. The patient afebrile. The patient had pyuria and possible UTI; however, the patient unable to provide any symptoms. The patient was empirically treated. The patient was ertapenem for cholangitis and possible urinary tract infection. The patient was switched from intravenous to intramuscular given lack of the access and oral amoxicillin for enterococcal coverage given mild leukocytosis. Graphics Coordinator closely followed. Hemoglobin A1c 7.8 not at goal. Blood sugar was managed with long-acting Levemir, premeal short-acting NovoLog and Starlix. Field Technical Assistant closely followed. Per sales floor team member, the patient had acute kidney injury on chronic kidney disease stage 4, probably secondary to dehydration and sepsis. The patient was on the IV hydration. Creatinine was trending down. Renal parameters and electrolytes were closely monitored. Electrolytes were replaced as needed. Nephrotoxins were avoided. Blood pressure was managed with calcium channel chaz and clonidine on as needed basis. Blood pressure was stable. Anemia workup was consistent with anemia of chronic disease. Fish Egg Packer followed. Fish Egg Packer recommended transfuse only when necessary, goal to keep hemoglobin above 7. The patient was working with physical and occupational therapist. Psychiatrist closely followed. Psychiatrist diagnosed the patient with major depression with psychotic features. Psychiatrist optimized psychiatric medication regimen for further management. All consultants cleared the patient for discharge. The patient was stable for transfer to [facility] assisted facility. FINAL DIAGNOSES: 1. Sepsis secondary to cholangitis. 2. Choledocholithiasis. 3. Status post ERCP on 08/21/2017 with re-stenting. 4. Probable urinary tract infection with Proteus. 5. Acute kidney injury on chronic kidney disease, stage 4. 6. Dehydration. 7. Anemia. 8. Diabetes mellitus. 9. Pancreatitis. 10. Major depression with psychotic features. Upon discharge, no leukocytosis, no fever. Creatinine down to 2.9 from 3.6. Stable electrolytes. AST and ALT within normal limits along with total bilirubin. CEA within normal limits. Anemia due to underlying chronic disease. Stool for occult blood was negative. Post ERCP pancreatitis. Monitor lipase at the facility. Pain management was provided. Bowel regimen instituted. Supportive care provided. DISCHARGE MEDICATIONS: See medication reconciliation list. DISCHARGE INSTRUCTIONS: The patient discharged to assisted facility. FOLLOWUP: Followup with medical doctor at the facility. Martin Hopper D.O. I have been assigned to dictate discharge summary on this account and I was not involved in the patient's management. Sharyn Patelcentral islip psychiatric centerJeronimo NHarriett DR: Mary JOB#: [id number] CC:
== END 2017-08-29 16:00 | DRG 871 ==
LOC: EDBD 15:08 → EMR 16:07 → 4W 17:00 → EDBEDREQ 18:26 → 4W 22:15
PROC: 0F798DZ Dilation of Common Bile Duct with Intraluminal Device, Via Natural or Artificial Opening Endoscopic (ICD-10-PCS; principal; 2017-08-21 11:02)
PROC: 0FPB8DZ Removal of Intraluminal Device from Hepatobiliary Duct, Via Natural or Artificial Opening Endoscopic (ICD-10-PCS; principal; 2017-08-21 11:02)
PROC: 0FC98ZZ Extirpation of Matter from Common Bile Duct, Via Natural or Artificial Opening Endoscopic (ICD-10-PCS; principal; 2017-08-21 11:02)
DX: A41.9 Sepsis, unspecified organism (principal); K85.90 Acute pancreatitis without necrosis or infection, unspecified; K83.0 Cholangitis; N10 Acute pyelonephritis; N17.9 Acute kidney failure, unspecified; N18.4 Chronic kidney disease, stage 4 (severe); F32.3 Major depressive disorder, single episode, severe with psychotic features; E11.65 Type 2 diabetes mellitus with hyperglycemia; I12.9 Hypertensive chronic kidney disease with stage 1 through stage 4 chronic kidney disease, or unspecified chronic kidney disease; E11.22 Type 2 diabetes mellitus with diabetic chronic kidney disease; F03.90 Unspecified dementia, unspecified severity, without behavioral disturbance, psychotic disturbance, mood disturbance, and anxiety; R94.5 Abnormal results of liver function studies; K80.50 Calculus of bile duct without cholangitis or cholecystitis without obstruction; Z78.1 Physical restraint status; E86.0 Dehydration; I25.10 Atherosclerotic heart disease of native coronary artery without angina pectoris
CPT/HCPCS: 36415; 71045; 74328; 76000; 76700; 80048; 80053; 80061; 80076; 81003; 82150; 82248; 82270; 82378; 82550; 82553; 82607; 82728; 82746; 82962; 83036; 83540; 83550; 83690; 83735; 83921; 84100; 84238; 84439; 84443; 84484; 85007; 85025; 85610; 85730; 86705; 86709; 86803; 87040; 87070; 87081; 87086; 87181; 87205; 87340; 90732; 93005; 94003; 94150; 94640; 94664; 97803; 99285; J1815; J2405; J2765; J7620; S5561

== ENCOUNTER 2017-10-15 13:04 | Outpatient (CLI) | payer MEDICARE, MEDICAID ==
[~2017-10-15] VITALS: Ht 157.5 cm; Wt 63.5 kg
[~2017-10-15 13:04] MED LIST: ACETAMINOPHEN325 M1 ORAL; AMLODIPINE BESY10 MG ORAL; AMOXIL250 MG ORAL; ATORVASTATIN CA20 MG ORAL; BISACODYL5 MG ORAL; CATAPRES0.1 MG ORAL; DOCUSATE SODIU100 MG ORAL; LANTUS SOL100 UNIT/1 SUBQ; MILK OF MA400 MG/51 ORAL; MIRALAX17 G2 ORAL; NAMENDA5 MG ORAL; NITROGLYCERIN2.5 MG SL; NOVOLOG100 UNIT/3 SUBQ; RISPERDAL0.25 MG ORAL
[2017-10-15 13:30] VITALS: BP 137/65
[2017-10-15] MEDS ORDERED: LEVEMIR100 UNIT/1 SUBQ (14:44)
--- NOTE | 2017-10-15 15:50 | GI Progress Note ---
Assessment/Plan Problems: (1) Choledocholithiasis ICD Codes: K80.50 - Calculus of bile duct without cholangitis or cholecystitis without obstruction SNOMED: 043359529 (2) Anemia ICD Codes: D64.9 - Anemia, unspecified SNOMED: 063042562 (3) Cholangitis ICD Codes: K83.0 - Cholangitis SNOMED: 22525676 (4) Pancreatitis ICD Codes: K85.90 - Acute pancreatitis without necrosis or infection, unspecified SNOMED: 66106567 Status: stable Status Narrative Seen with Dr. Hernandez. Assessment/Plan s/p ERCP with stone removal and stent placement ERCP scheduled 11/10/17 for stent removal. - NPO @ [place] day prior procedure acknowledged by patient. The patient was seen and examined at bedside and all new and available data was reviewed in the patients chart. I agree with the above findings, impression and plan. (Patient seen earlier today. Signature stamp does not reflect patient encounter time.). - Blaise Hernandez MD Subjective Gastrointestinal/Abdominal: Reports: no symptoms Objective Last 24 Hour Vital Signs Date Time Temp Pulse Resp B/P (MAP) Pulse Ox O2 Delivery O2 Flow Rate FiO2 10/15/17 13:30 98.3 72 16 137/65 100 98.3 General Appearance: WD/WN, no apparent distress, alert Cardiovascular: normal rate Respiratory/Chest: normal breath sounds, no respiratory distress Abdominal Exam: normal bowel sounds, non tender, soft Extremities: normal range of motion, non-tender Maria Shepherd [employer] SCOURING VAT TENDER Oct 15, 2017 15:50
== END 2017-10-15 13:36 | disposition home or self-care (01) ==
LOC: PAN 13:04
DX: K80.50 Calculus of bile duct without cholangitis or cholecystitis without obstruction (principal); D64.9 Anemia, unspecified; K83.0 Cholangitis; K85.90 Acute pancreatitis without necrosis or infection, unspecified
CPT/HCPCS: 99212

== ENCOUNTER 2017-11-03 10:47 | Outpatient (CLI) | payer MEDICARE, MEDICAID ==
[~2017-11-03 10:47] MED LIST changes: +LEVEMIR100 UNIT/1 SUBQ
[2017-11-03 11:16] VITALS: BP 145/76
[2017-11-03] MEDS ORDERED: NITROSTAT0.4 M1 SL (11:28)
--- NOTE | 2017-11-03 15:39 | GI Progress Note ---
Assessment/Plan Problems: (1) Pancreatitis ICD Codes: K85.90 - Acute pancreatitis without necrosis or infection, unspecified SNOMED: 15504676 (2) Cholangitis ICD Codes: K83.0 - Cholangitis SNOMED: 41130814 (3) Anemia ICD Codes: D64.9 - Anemia, unspecified SNOMED: 628153460 (4) Choledocholithiasis ICD Codes: K80.50 - Calculus of bile duct without cholangitis or cholecystitis without obstruction SNOMED: 748099452 Status: stable Status Narrative Seen with Dr. Hernandez. Assessment/Plan Status post ERCP, removal of the migrated stent, removal of multiple stones, sphincterotomy, and re-stenting. The patient also had evidence of acute cholangitis with pus coming out from the common bile duct. PLAN: Patient requires repeat ERCP for stent removal. Unable to obtain consent due to no family or DPOA will schedule once disciplinary board approves Subjective Gastrointestinal/Abdominal: Reports: no symptoms Subjective limited Objective Last 24 Hour Vital Signs Date Time Temp Pulse Resp B/P (MAP) Pulse Ox O2 Delivery O2 Flow Rate FiO2 11/03/17 11:16 98.1 68 16 145/76 100 98.1 General Appearance: WD/WN, no apparent distress, alert, confused - at times Cardiovascular: normal rate Respiratory/Chest: normal breath sounds, no respiratory distress Abdominal Exam: normal bowel sounds, non tender, soft Extremities: normal range of motion, non-tender Maria Shepherd [employer]RO[employer] OFFICER Nov 03, 2017 15:39
== END 2017-11-03 11:17 | disposition home or self-care (01) ==
LOC: PAN 10:47
DX: K85.90 Acute pancreatitis without necrosis or infection, unspecified (principal); K83.0 Cholangitis; D64.9 Anemia, unspecified; K80.50 Calculus of bile duct without cholangitis or cholecystitis without obstruction
CPT/HCPCS: G0463